=== PATIENT | male | born 1955 | race Caucasian/White ===

== ENCOUNTER 2017-04-22 04:36 | Inpatient (IN) | payer SELFPAY ==
[2017-04-22 05:32] LABS: Lactic Acid - Sepsis 1.5 mmol/L (0.5-2.2)
[2017-04-22] MEDS ORDERED: Ketorolac Tromethamine 30 MG/ML VIAL ONE (05:33)
[2017-04-22 05:39] LABS: ALT (SGPT) 10 U/L (8-55); AST (SGOT) 20 U/L (5-34); Alkaline Phosphatase 61 U/L (40-150); Anion Gap 14 mmol/L (10-20); BUN (Urea Nitrogen) 11 mg/dL (8.4-25.7); Band 1 % (5-11); Bilirubin, Total 0.8 mg/dL (0.2-1.2); Calc. Creatinine Clearance 0 mL/min (70-130); Calcium 9.5 mg/dL (7.8-10.44); Carbon Dioxide 28 mmol/L (23-31); Chloride 95 mmol/L (98-107); Estimated GFR-MDRD 72; Globulin 3.4 g/dL (2.4-3.5); Hematocrit 45.9 % (42.0-52.0); Lipase 36 U/L (8-78); Magnesium 2.7 mg/dL (1.6-2.6); Mean Platelet Volume 7.1 fL (7.4-10.4); Neutrophil 79 % (42-75); Protein, Total 7.2 g/dL (5.8-8.1); Red Blood Cell (RBC) Count 4.66 mill/uL (4.70-6.10); White Blood Cell (WBC) Count 21.7 thou/uL (4.8-10.8)
[2017-04-22 05:40] LABS: Troponin I 0.011 ng/mL (< 0.028)
[2017-04-22 06:35] LABS: PTT 34.4 SEC (22.9-36.1); Prothrombin Time 12.4 SEC (12.0-14.7)
[2017-04-22] MEDS ORDERED: Ondansetron HCl/PF 4 MG/2 ML Vial IVP PRN (09:18)
[2017-04-22] MEDS ORDERED: Zolpidem Tartrate 5 MG TAB PO PRN (09:18)
--- NOTE | 2017-04-22 09:28 | HP ---
HISTORY OF PRESENT ILLNESS: Mr. Calles is a 62-year-old man. Last night while asleep, he suddenly woke up with some right-sided abdominal pain, which extends from the right upper quadrant t o lower quadrant which then got worse, he came to the ER, he was evaluated, he was found to have a ri ght perirenal hematoma. He has been admitted for evaluation and management. According to the patient, he had a renal hematoma on the left side about 30 years ago and because of this hematoma, he is not sure as for this current situation. He denies any recent trauma. He denied any heavy exercise and denies weightlifting. PAST MEDICAL HISTORY: Remarkable for hypertension, hyperlipidemia, hypothyroidism, COPD, and also pe ptic ulcer disease. PAST SURGICAL HISTORY: Remarkable for C-spine laminectomy. ALLERGIES: He does not have any known allergy. SOCIAL HISTORY: He has a 10-15 pack year history of cigarette smoking. He does have a past history of ETOH abuse. He denies drug abuse. FAMILY HISTORY: Reviewed and is not contributory. MEDICATIONS: Prior to admission, he was on albuterol inhaler, alprazolam, aspirin 81 mg daily, Lipit or, Symbicort inhaler, Cardura, esomeprazole, hydrochlorothiazide, levofloxacin, metoprolol tartrate, prednisone, Spiriva inhaler. REVIEW OF SYSTEMS: CONSTITUTIONAL: He denies any fever. Denies any weakness. About 2 weeks ago, he had flu-like sympt oms. HEENT: No headache, no ocular pain, no sore throat, no rhinorrhea, no earache, no epistaxis. NECK: No neck pain, no neck stiffness. CARDIOVASCULAR: No shortness of breath. No chest pain. PULMONARY: No coughing. GASTROINTESTINAL: No nausea, no vomiting, no diarrhea. He does have some abdominal pain which start ed last night, as I have mentioned earlier. GENITOURINARY: No dysuria, no hematuria. ENDOCRINOLOGY: No heat or cold intolerance. No polyuria, polydipsia or polyphagia. HEMATOLOGY: No ecchymosis. LYMPHATIC: No palpable lymphadenopathy, no painful lymphadenopathy. SKIN: No rash, no itching. ALLERGIES: No hayfever. MUSCULOSKELETAL: He denies arthritis. PSYCHIATRIC: Admits to anxiety. NEUROLOGIC: No seizure. PHYSICAL EXAMINATION: GENERAL: At the current time. He is alert, oriented, in no acute distress. VITAL SIGNS: Show temperature of 98, pulse rate 95, respiratory rate 18, blood pressure 127/86. HEENT: His head is normocephalic and atraumatic. Both his pupils are equal, reactive. Ears and nos e, normal. Oral mucosa is moist. Pharyngeal area is clear. NECK: Supple. There is no distention of the jugular vein. No lymphadenopathy felt. Thyroid gland not palpable. There is no carotid bruit. CHEST: Symmetrical with regular S1, S2. LUNGS: Clear. ABDOMEN: Shows some tenderness in the right side of the abdomen. Bowel sounds are decreased. We di d not proceed to deep palpation. EXTREMITIES: Limbs show no edema. NEUROLOGIC: He moves all extremities. LABORATORY DATA: His CBC showed WBC of 21.7, hemoglobin of 14.8, hematocrit of 45.9, MCV of 98.5, pl atelet of 502. PT is 12.4, PTT 34.4. Chemistry and electrolytes show sodium of 133, potassium 4.3, chloride 95, CO2 28, BUN 11, creatinine 1.04, glucose 126. Lactic acid 1.5, calcium 9.5, magnesium 2 .7, total bilirubin 0.8, AST 20, ALT 10, alkaline phosphatase 61. Troponin 0.011, serum protein 7.2, albumin 3.8, globulin 3.4. Lipase 36. Abdomen and pelvis CT was reviewed and show a right renal he matoma and also small rounded cortical hypodensities in the left kidney. ASSESSMENT AND PLAN: This is a 62-year-old man with history of hypertension, chronic obstr uctive pulmonary disease, hyperlipidemia, hypothyroidism, peptic ulcer disease who was admitted with right-sided abdominal pain. Abdomen CT shows right renal hematoma and also some density in the left kidney. As mentioned earlier, patient was noticed to have an elevated WBC, which may be associated w ith her current hematoma. There is no evidence of infection at this time. Urology was consulted and patient is being admitted for further evaluation and management.
[2017-04-22] MEDS ORDERED: Levothyroxine Sodium 125 MCG TAB PO SCH (10:00)
--- NOTE | 2017-04-22 10:19 | CT ---
PRELIMINARY REPORT/[facility]/EMERGENCY AFTER HOURS PROCEDURE: Addendum created by Abdirashid Ware MD on 04/22/2017 6:12 AM Central Time ([place] & [place]) Addendum: Findings discussed with and acknowledged by Jens Oakes at 6:[address] on 04/22/2017 with any questions answered. Initial Report created on 04/22/2017 6:07 AM Central Time ([place] & [place]) EXAM: CT Abdomen and Pelvis Without Intravenous Contrast CLINICAL HISTORY: The patient is a 62 years male; Pain; Abdominal pain; Localized; Right; Patient HX: 62 y/o m with pre sentation of right sided abd pain that started around 2300. Pt was completely asymptomatic in the am and states that after 2300 the pain has gotten progressively worse. Pt states "my kidney had a bleed" when he had similar pain and also reports nausea, generalized weakness, and lightheadedness. D enies vomiting, trauma, any other complaints. reports that pt has had hypotensive episodes this past week with lowest sbp in the 90s. TECHNIQUE: Axial computed tomography images of the abdomen and pelvis without intravenous contrast. Coronal reformatted images were created and reviewed. COMPARISON: No relevant prior studies available. FINDINGS: Lower thorax: Centrilobular emphysema. Right basilar atelectasis/scarring. No focal consolidation. ABDOMEN: Liver: Unremarkable. Gallbladder and bile ducts: No calcified stones. No ductal dilation. Pancreas: Unremarkable. No ductal dilation. Spleen: Unremarkable. No splenomegaly. Adrenals: Unremarkable. No mass. Kidneys and ureters: Large hyperdense subcapsular hematoma of the right kidney measuring roughly 13.5 cm in craniocaudad length by 12.7 x 4.8 cm in the axial plane, with a small amount of blood/fluid ex tending into the adjacent retroperitoneum. The renal parenchyma is slightly compressed. There are mul tiple small fluid density right renal lesions as well as a few scattered small rounded cortical hyper densities on the left. Punctate left mid/lower pole calculus, as well incidental left parenchymal toro cification. No bilateral ureteral calculi or hydroureteronephrosis. Stomach and bowel: No obstruction. Appendix: No findings to suggest acute appendicitis. PELVIS: Bladder: Unremarkable. No stones. Reproductive: Unremarkable as visualized. ABDOMEN and PELVIS: Intraperitoneal space: No free fluid. No free air. Bones/joints: Lumbar degenerative changes. No acute fracture. No dislocation. Soft tissues: Unremarkable. Vasculature: Moderate atherosclerotic calcification. No abdominal aortic aneurysm. Lymph nodes: Unremarkable. No enlarged lymph nodes. IMPRESSION: 1. Large subcapsular hematoma of the right kidney. 2. Other chronic and incidental findings as above. Thank you for allowing us to participate in the care of your patient. Dictated and Authenticated by: Abdirashid Ware MD 04/22/2017 6:07 AM Central Time ([place] & [place]) FINAL REPORT EMERGENT AFTER HOURS CT OF ABDOMEN AND PELVIS PERFORMED WITHOUT CONTRAST ENHANCEMENT: History Right-sided abdomen pain. The patient states that he had a previous renal hemorrhage with a similar pain. COMPARISON: None available other than report of an unremarkable renal ultrasound done 01/24/09. The lung bases show some chronic change with atelectatic change within the right lower lobe. The liver and spleen are within normal limits of size. Pancreas and gallbladder regions are unremark able. The right adrenal gland is somewhat hyperplastic in appearance. The left adrenal gland is unremarkab le. The left kidney shows some hyperdensities within the cortex, probably hemorrhagic cysts. There is a large right subcapsular hematoma involving the right kidney. This measures as much as 3 cm in t hickness and extends along the course of the kidney from near the upper pole region all the way into the lower pole. There is fat stranding within the perirenal fat consistent with hemorrhage and some hemorrhage dissecting down along the right psoas muscle. The renal parenchyma is compressed. There are some hypodensities within the renal parenchyma. There is no dilatation of the renal pelvis. The re is no significant periaortic or mesenteric adenopathy. CT OF PELVIS PERFORMED WITHOUT CONTRSAT ENHANCEMENT: There are bilateral fat-containing inguinal hernias present. A moderate amount of stool is seen in t he right colon. No adenopathy or mass. IMPRESSION: 1. Large right subcapsular hematoma involving the right kidney. 2. This report is in agreement with the temporary report issued by [facility]. POS: JOHN
[2017-04-22] MEDS: methylPREDNISolone Sod Succ/PF 125 MG/2 ML VIAL IVP SCH ×2 (11:04→20:30)
[2017-04-22] MEDS: Famotidine/PF 20 mg/2ml Vial SLOW IVP SCH ×2 (11:04→20:29)
[2017-04-22] MEDS: Docusate 100 MG CAP PO SCH ×2 (11:04→20:28)
[2017-04-22] MEDS: Atorvastatin Calcium 10 MG TAB PO SCH (11:05)
[2017-04-22] MEDS: Metoprolol Tartrate 50 MG TAB PO SCH ×2 (11:05→20:28)
[2017-04-22] MEDS: Sodium Chloride 0.9% 1,000 ML IV SCH ×2 (11:09→22:50)
[2017-04-22] MEDS: Doxazosin Mesylate 1 MG TAB PO SCH (11:09)
[2017-04-22 12:24] LABS: Hematocrit 40.3 % (42.0-52.0)
--- NOTE | 2017-04-22 13:06 | RAD ---
PA AND LATERAL CHEST: HISTORY: Respiratory distress. FINDINGS: Heart size is within normal limits. There is elevation of the right hemidiaphragm with some linear p arenchymal change in the right base which is probably more chronic in nature and appears fairly stabl e as compared to a 2013 study. IMPRESSION: Elevated right hemidiaphragm with some parenchymal change in the right base felt to be chronic in alondra ure. POS: IQRA
[2017-04-22] MEDS: Morphine 2 mg/2ml in 0.9% NaCl PF SYRINGE IVP PRN ×3 (13:31→22:47)
--- NOTE | 2017-04-22 13:52 | CON ---
DATE OF CONSULTATION: 04/22/2017 HISTORY OF PRESENT ILLNESS: This is a 62-year-old white male I have been asked to see by the ER phys socorro. He has been admitted by the Hospitalist for a spontaneous right renal bleed. At 11:00 last n ight, he had fairly severe right-sided abdominal pain associated with some nausea, but no vomiting, r eminded him of incidence that occurred 20-30 years ago where he had the same thing happened on the le ft side and had a bleed around the left kidney. At that time, it was managed medically not surgicall y and it resolved. He came into the emergency room. There was some thought that he may have had a s tone, so he had a noncontrast CAT scan done, which I have reviewed. The report is pending, but he shi s got a moderately large right-sided subcapsular hematoma that is extending somewhat down the right f lank inside the Gerota fascia. The kidney is without obvious mass on that side. The left side is no t involved. There is a little bit of cortical calcification, which is probably from bleed that did o ccur he said years ago. There is nothing that suggests a mass on that kidney either. Again, the rep ort is currently pending. It should be up shortly I would think. There is some stranding in the fat around the left kidney outside of the hematoma. There is one area, perhaps a slightly lower density on the cortex, could be little cyst on the right side. There is nothing to suggest a stone in the u reter, hydronephrosis or anything in the bladder. This is again a noncontrast film. His hemoglobin was 14.8, his white count 21,000, his platelet count was 502. His coags were normal. His creatinine was normal at 1.04. Liver function was normal. He said the only other thing that was abnormal the last few days is his blood pressure was low, generally runs some high blood pressure. He does have s ome underlying lower urinary tract symptoms. He has got nocturia, decreased force of stream and feel ing of incomplete emptying and some double voiding, but no dysuria, no gross hematuria, no urinary tr act infections or stones, no prostate cancer. He has had a Quevedo catheter one time a few years ago w hen he was having pneumonia. PAST SURGICAL HISTORY: He has had a cervical neck procedure done. He does not recall any other proc edures being done. On review of his records from a prior visit 4 years ago, he does not have any oth er procedures listed. PAST MEDICAL HISTORY: He has hypertension, COPD, reflux disease, low thyroid, some problems with anx iety. MEDICATIONS: Hydrochlorothiazide, Toprol, doxazosin he is on the 2-mg dose, Nexium, thyroid, Lipitor , aspirin, alprazolam and some inhalers. ALLERGIES: He has an allergy to PENICILLIN. SOCIAL HISTORY: He does smoke. He stopped drinking 3 months ago. It sounds like he was fairly heav y drinker. PHYSICAL EXAMINATION: His flanks are really nontender. He has got some tenderness in the right uppe r quadrant, not on the left. His abdomen is soft. He is circumcised without lesion. The testicles are descended without mass or tenderness. There is a left-sided spermatocele. Rectal exam was not d one at this time. IMPRESSION: Right subcapsular hematoma. There is no record of fall or trauma or anything to suggest it would be traumatic. There is nothing obvious on the noncontrast scan to show that this would be a renal mass. I do think that we should get a better CAT scan done. I think we could probably wait until tomorrow as long as his hemoglobin is fine. I think he should get a hemoglobin done every 4-6 hours through the day. If it starts to drift down, then he would need to get a CAT scan today. I ta lked with Dr. Chase, who is the vascular surgeon medical transcription this weekend. He felt that he could be beth ilable if the patient needed angio of his kidney done to stop bleeding and I did talk to the patient that this could be required, although right now, we are going to watch him. I did also indicate that if things get out of hand in terms of the bleeding and it became life threatening, then an emergent nephrectomy is something that also could be performed if it was necessary. Hopefully, this will reso lve with bed rest and we will just monitor him for the time being, but we will get a better CAT scan tomorrow to be sure there is nothing intrinsically wrong with the kidney that would cause a bleeding such as a renal mass that is not being picked up on the noncontrast study.
[2017-04-22 18:25] VITALS: BMI 26.0
[2017-04-22 19:28] LABS: Bilirubin Small (Negative); Blood, Urine Negative (Negative); Glucose, Urine (Dipstick) Negative (Negative); Ketone, Urine Trace mg/dL (Negative); Nitrite Negative (Negative); Protein, Urine (Dipstick) 30 mg/dL (Neg-Trace); Urobilinogen 0.2 mg/dL (0.2-1.0)
[2017-04-22 19:29] LABS: Bacteria/HPF None Seen HPF (None Seen); Squamous Epithelial 0-3 HPF (0-3)
[2017-04-22 19:38] LABS: RBC/HPF 0-3 HPF (0-3)
[2017-04-22 19:39] LABS: Hyaline Casts/LPF 4-6 HYALINE CAST LPF (0-3 Hyaline)
[2017-04-22 23:53] LABS: Hematocrit 36.1 % (42.0-52.0)
[2017-04-23 06:05] LABS: #Lymphocytes 0.5 thou/uL (1.20-3.40); #Monocytes 0.7 thou/uL (0.11-0.59); #Neutrophils 18.6 thou/uL (1.40-6.50); %Eosinophils 0.1 % (0.0-10.0); %Lymphocytes 2.7 % (21.0-51.0); %Monocytes 3.4 % (0.0-10.0); Mean Platelet Volume 7.2 fL (7.4-10.4); Red Blood Cell (RBC) Count 3.79 mill/uL (4.70-6.10); White Blood Cell (WBC) Count 19.9 thou/uL (4.8-10.8)
[2017-04-23] MEDS: Morphine 2 mg/2ml in 0.9% NaCl PF SYRINGE IVP PRN ×3 (06:24→15:16)
[2017-04-23] MEDS: Levothyroxine Sodium 125 MCG TAB PO SCH (06:24)
[2017-04-23 06:28] LABS: Anion Gap 10 mmol/L (10-20); BUN (Urea Nitrogen) 18 mg/dL (8.4-25.7); Calc. Creatinine Clearance 106 mL/min (70-130); Carbon Dioxide 28 mmol/L (23-31); Chloride 100 mmol/L (98-107); Estimated GFR-MDRD 83
[2017-04-23] MEDS: methylPREDNISolone Sod Succ/PF 125 MG/2 ML VIAL IVP SCH ×2 (08:53→20:01)
[2017-04-23] MEDS: Famotidine/PF 20 mg/2ml Vial SLOW IVP SCH ×2 (08:53→20:01)
[2017-04-23] MEDS: Docusate 100 MG CAP PO SCH ×2 (08:54→20:01)
[2017-04-23] MEDS: Metoprolol Tartrate 50 MG TAB PO SCH ×2 (08:54→20:01)
[2017-04-23] MEDS: Doxazosin Mesylate 1 MG TAB PO SCH (08:54)
[2017-04-23] MEDS: Atorvastatin Calcium 10 MG TAB PO SCH (08:54)
--- NOTE | 2017-04-23 10:47 | CT ---
CT OF ABDOMEN AND PELVIS PERFORMED WITH AND WITHOUT CONTRAST ENHANCEMENT: COMPARISON: Noncontrast CT examination of 04/22/17. HISTORY: Followup of renal hemorrhage. FINDINGS: There has been development of a fairly large area of more rounded atelectasis of the right lower lobe since the previous exam. The left lung is clear. The liver and spleen show no focal abnormalities. The pancreas and gallbladder regions are unremarka ble. Once again, the right adrenal gland has a somewhat enlarged appearance. The left adrenal gland is mo re normal in appearance. I cannot exclude this as being related to some hemorrhage on the right. Bilateral renal cysts are better demonstrated on the contrast study. As previously noted, some of th jeffrey cysts are hyperdense. A large perinephric hematoma is noted on the right. I feel that overall i t is fairly similar in size. The perirenal fat changes also are felt to be stable. Changes extend i nferiorly along the psoas muscles into the pelvis. Some of the changes in the pelvis are slightly mo re prominent but not unexpected. No free fluid is seen in the pelvis. There is a moderate amount of stool throughout the colon. IMPRESSION: 1. Multiple bilateral renal cysts. The kidneys have a somewhat polycystic kidney appearance. Some of these cysts are hyperdense. 2. The large right-sided subcapsular hematoma involving the right kidney is felt to be fairly simila r in appearance to the previous exam. POS: IQRA
[2017-04-23] MEDS: Sodium Chloride 0.9% 1,000 ML IV SCH ×2 (11:16→23:36)
[2017-04-23 12:02] LABS: Hematocrit 36.5 % (42.0-52.0)
--- NOTE | 2017-04-23 13:11 | PDOC.PN ---
- Subjective Encounter Start Date: 04/23/17 Encounter Start Time: 12:20 -: No new complaint. -: Right sided abdominal pain persists. - Objective Resuscitation Status: Resuscitation Status FULL:Full Resuscitation Vital Signs & Weight: Vital Signs (12 hours) Temp Pulse Resp BP Pulse Ox 04/23/17 12:00 98.1 F 88 20 175/78 H 90 L 04/23/17 08:00 98 F 101 H 20 93 L 04/23/17 07:36 98 F 101 H 20 153/76 H 93 L 04/23/17 05:06 97.9 F 98 18 134/72 92 L I&O: 04/22/17 04/23/17 04/24/17 06:59 06:59 06:59 Intake Total 1740 240 Output Total 2200 Balance -460 240 Result Diagrams: 04/23/17 11:46 04/23/17 05:58 Phys Exam - Physical Examination HEENT: sclera anicteric Neck: no JVD Respiratory: clear to auscultation bilateral Cardiovascular: RRR Gastrointestinal: soft Musculoskeletal: no edema Neurological: moves all 4 limbs Psychiatric: A&O x 3 Dx/Plan (1) Renal hematoma, right Code(s): S37.011A - MINOR CONTUSION OF RIGHT KIDNEY, INITIAL ENCOUNTER Status : Acute Plan: f/u with . Comment: Repeat CT with contrast shows many cysts in both kidneys, possible PCKD with bleeding cyst. (2) HTN (hypertension) Code(s): I10 - ESSENTIAL (PRIMARY) HYPERTENSION Status: Acute Plan: Analgesics prn. Monitor BP. Comment: BP is elevated at times , due to pain.. (3) Adult hypothyroidism Code(s): E03.9 - HYPOTHYROIDISM, UNSPECIFIED Status: Acute Plan: supplemented.. (4) PUD (peptic ulcer disease) Code(s): K27.9 - PEPTIC ULC, SITE UNSP, UNSP AC OR CHR, W/O HEMOR OR PERF Status: Chronic Comment: stable.. - Plan -: continue current management.Monitor hb/hct. -: F/U with . * .
[2017-04-23] MEDS: Acetaminophen/Codeine 30-300mg Tablet PO PRN (20:03)
[2017-04-24 00:17] LABS: Hematocrit 33.8 % (42.0-52.0)
[2017-04-24] MEDS: Acetaminophen/Codeine 30-300mg Tablet PO PRN ×3 (01:52→15:02)
[2017-04-24] MEDS: Levothyroxine Sodium 125 MCG TAB PO SCH (05:35)
[2017-04-24 06:05] LABS: Band 6 % (5-11); Hematocrit 33.1 % (42.0-52.0); Mean Platelet Volume 7.9 fL (7.4-10.4); Neutrophil 86 % (42-75); Red Blood Cell (RBC) Count 3.37 mill/uL (4.70-6.10); White Blood Cell (WBC) Count 21.6 thou/uL (4.8-10.8)
[2017-04-24 06:12] LABS: Hematocrit 31.6 % (42.0-52.0)
[2017-04-24] MEDS: Docusate 100 MG CAP PO SCH ×2 (08:43→19:59)
[2017-04-24] MEDS: methylPREDNISolone Sod Succ/PF 125 MG/2 ML VIAL IVP SCH (08:43)
[2017-04-24] MEDS: Famotidine/PF 20 mg/2ml Vial SLOW IVP SCH (08:43)
[2017-04-24] MEDS: Atorvastatin Calcium 10 MG TAB PO SCH (08:43)
[2017-04-24] MEDS: Metoprolol Tartrate 50 MG TAB PO SCH ×2 (08:45→19:59)
[2017-04-24] MEDS: Doxazosin Mesylate 1 MG TAB PO SCH (09:18)
[2017-04-24 12:03] LABS: Hematocrit 30.4 % (42.0-52.0)
[2017-04-24] MEDS: Ferrous Sulfate 325 MG TAB PO SCH (17:06)
[2017-04-24 18:16] LABS: Hematocrit 31.2 % (42.0-52.0)
--- NOTE | 2017-04-24 18:32 | PDOC.PN ---
- Subjective Encounter Start Date: 04/24/17 Encounter Start Time: 11:00 Patient seen and examined. No new complaints. No overnight events - Objective Resuscitation Status: Resuscitation Status FULL:Full Resuscitation MAR Reviewed: Yes Vital Signs & Weight: Vital Signs (12 hours) Temp Pulse Resp BP Pulse Ox 04/24/17 16:00 98.1 F 94 20 169/85 H 93 L 04/24/17 12:00 97.8 F 80 22 H 144/77 H 93 L 04/24/17 08:00 98.6 F 97 18 94 L 04/24/17 07:35 98.6 F 97 18 153/85 H 94 L I&O: 04/23/17 04/24/17 04/25/17 06:59 06:59 06:59 Intake Total 1740 2040 1720 Output Total 2200 Balance -460 0 1720 Result Diagrams: 04/24/17 18:07 04/23/17 05:58 Phys Exam - Physical Examination Constitutional: NAD Respiratory: no wheezing, no rhonchi Cardiovascular: RRR, no rub Gastrointestinal: soft, non-tender, positive bowel sounds Musculoskeletal: no edema Neurological: non-focal, moves all 4 limbs Dx/Plan - Plan out of bed/ambulate, DVT proph w/SCDs IMPRESSION: 1. Rt renal subcapsular hematoma 2. Acute blood loss anemia 3. COPD with mild exacerbation 4. HTN 5. HLD 6. GERD PLAN: * Urology following * Cont to monitor HH * AM labs * Ambulate * Pain control * Change IV steroids to PO and dc in 1-2 days * Cont current meds as below Review of Systems - Review of Systems Constitutional: negative: Fever, Chills, Sweats, Weakness, Malaise, Other Respiratory: negative: Cough, Dry, Shortness of Breath, Hemoptysis, SOB with Excertion, Pleuritic Pain, Sputum, Wheezing Cardiovascular: negative: Chest Pain, Palpitations, Orthopnea, Paroxysmal Noc. Dyspnea, Edema, Light Headedness - Medications/Allergies Allergies/Adverse Reactions: Allergies Allergy/AdvReac Type Severity Reaction Status Date / Time Penicillins Allergy Verified 05/13/13 17:07 Medications: Current Medications Acetaminophen/Codeine Phosphate (Tylenol #3) 1 tab PO Q6H PRN PRN Reason: Pain 1-5 1ST LINE Last Admin: 04/24/17 08:45 Dose: 1 tab Acetaminophen/Codeine Phosphate (Tylenol #3) 2 tab PO Q6H PRN PRN Reason: Pain 6-10 1ST LINE Last Admin: 04/24/17 15:02 Dose: 2 tab Albuterol/Ipratropium (Duoneb) 3 ml NEB Q6H PRN PRN Reason: SOB &/or Wheezing Atorvastatin Calcium (Lipitor) 10 mg PO DAILY [facility] Last Admin: 04/24/17 08:43 Dose: 10 mg Docusate Sodium (Colace) 100 mg PO BID [facility] Last Admin: 04/24/17 08:43 Dose: 100 mg Doxazosin Mesylate (Cardura) 1 mg PO DAILY [facility] Last Admin: 04/24/17 09:18 Dose: 1 mg Famotidine (Pepcid) 20 mg SLOW IVP Q12HR [facility] Last Admin: 04/24/17 08:43 Dose: 20 mg Ferrous Sulfate (Feosol) 325 mg PO BID-[facility] Last Admin: 04/24/17 17:06 Dose: 325 mg Levothyroxine Sodium (Synthroid) 125 mcg PO 0600 [facility] Last Admin: 04/24/17 05:35 Dose: 125 mcg Metoprolol Tartrate (Lopressor) 50 mg PO BID [facility] Last Admin: 04/24/17 08:45 Dose: 50 mg Morphine Sulfate/Sodium Chloride (Morphine 0.9% Nacl Pf 2 Mg/2ml) 2 mg IVP Q4H PRN PRN Reason: Pain Last Admin: 04/23/17 15:16 Dose: 2 mg Ondansetron HCl (Zofran) 4 mg IVP Q6H PRN PRN Reason: Nausea/Vomiting Prednisone (Prednisone) 20 mg PO QAM-[facility] Zolpidem Tartrate (Ambien) 5 mg PO HSPRN PRN PRN Reason: Insomnia
[2017-04-24] MEDS: Famotidine 20 MG TAB PO SCH (19:59)
[2017-04-24] MEDS ORDERED: ALPRAZolam 1 MG TAB PO PRN (21:31)
[2017-04-25 00:08] LABS: Hematocrit 29.3 % (42.0-52.0)
[2017-04-25] MEDS: Levothyroxine Sodium 125 MCG TAB PO SCH (05:21)
[2017-04-25] MEDS: Acetaminophen/Codeine 30-300mg Tablet PO PRN ×2 (05:21→05:24)
[2017-04-25 06:10] LABS: #Lymphocytes 1.8 thou/uL (1.20-3.40); #Monocytes 1.2 thou/uL (0.11-0.59); #Neutrophils 9.5 thou/uL (1.40-6.50); %Basophils 0.3 % (0.0-1.0); %Eosinophils 0.3 % (0.0-10.0); %Lymphocytes 14.5 % (21.0-51.0); %Monocytes 9.5 % (0.0-10.0); Hematocrit 30.1 % (42.0-52.0); Mean Platelet Volume 7.8 fL (7.4-10.4); Red Blood Cell (RBC) Count 3.05 mill/uL (4.70-6.10); White Blood Cell (WBC) Count 12.6 thou/uL (4.8-10.8)
[2017-04-25 06:24] LABS: Anion Gap 8 mmol/L (10-20); BUN (Urea Nitrogen) 16 mg/dL (8.4-25.7); BUN/Creatinine Ratio 22.54; Calc. Creatinine Clearance 137 mL/min (70-130); Calcium 8.5 mg/dL (7.8-10.44); Carbon Dioxide 28 mmol/L (23-31); Chloride 103 mmol/L (98-107); Estimated GFR-MDRD Greater than 90; Phosphorus 2.5 mg/dL (2.3-4.7)
[2017-04-25 07:10] LABS: Hematocrit 29.7 % (42.0-52.0)
[2017-04-25] MEDS ORDERED: predniSONE 20 MG TAB PO SCH (08:00)
[2017-04-25] MEDS ORDERED: Potassium Chloride 20 MEQ TAB PO SCH (08:00)
[2017-04-25] MEDS: Docusate 100 MG CAP PO SCH (08:07)
[2017-04-25] MEDS: Doxazosin Mesylate 1 MG TAB PO SCH (08:07)
[2017-04-25] MEDS: Famotidine 20 MG TAB PO SCH (08:08)
[2017-04-25] MEDS: Atorvastatin Calcium 10 MG TAB PO SCH (08:08)
[2017-04-25] MEDS: Metoprolol Tartrate 50 MG TAB PO SCH (08:08)
[2017-04-25] MEDS: Ferrous Sulfate 325 MG TAB PO SCH (08:08)
[2017-04-25 08:11] VITALS: BP 137/80; TEMP 98
[2017-04-25] MEDS ORDERED: Citrucel 500 MG TAB PO SCH (21:00)
[2017-04-25] MEDS ORDERED: Senokot S 8.6-50 MG TAB PO SCH (21:00)
[2017-04-26] MEDS ORDERED: Polyethylene Glycol 3350 17 GM Packet PO SCH (09:00)
--- NOTE | 2017-04-26 11:00 | DIS ---
DATE OF ADMISSION: 04/22/2017 DATE OF DISCHARGE: 04/25/2017 DISCHARGE DISPOSITION: Home. FOLLOWUP: 1. Follow up with primary care physician, Dr. Tash Dunne in 1 week. 2. Follow up with Dr. Russ Muñiz on 05/25 as scheduled. ALLERGIES: The patient is allergic to PENICILLIN. DISCHARGE MEDICATIONS: Potassium chloride 20 mEq daily for the next 5 days. Other home medications were resumed including albuterol inhaler as needed, Xanax as needed, Lipitor 10 mg daily, QVAR 2 puff s b.i.d., Cardura 2 mg daily, Nexium 40 mg daily, hydrochlorothiazide 25 mg daily, levothyroxine 125 mcg daily, metoprolol tartrate 50 mg b.i.d. INPATIENT CONSULTANTS: Urology, Russ Muñiz M.D. BRIEF HOSPITAL COURSE: The patient is a 62-year-old male with hypertension and hyperlipidemia, prese nted to the hospital with right-sided abdominal pain. His workup was consistent with right renal sub capsular hematoma. He also had multiple cysts in the kidney. He was evaluated by Urology, Dr. Dre hernandez. His H&H on admission was 14.8, at discharge is 9.6. Over the last 24 hours, his H&H has stabiliz ed. He has been cleared by Dr. Muñiz for discharge. He will follow up with Dr. Muñiz as scheduled . Repeat labs after a week are recommended. Primary care physician is advised to follow. He appear s stable for discharge. FINAL DIAGNOSES: 1. Right renal subcapsular hematoma. 2. Suspected polycystic kidney disease. Primary care physician is advised to follow. 3. Acute blood loss anemia secondary to #1. 4. Chronic obstructive pulmonary disease with mild exacerbation, treated with IV steroids that has b een discontinued. 5. Hypertension. 6. Hyperlipidemia. 7. Gastroesophageal reflux disease. 8. PENICILLIN allergy. 9. Hypokalemia, on replacement. 10. Mild hyponatremia. 12. Leukocytosis, unlikely to be infectious. Plan of care was discussed with the patient in detail. He stated understanding.
--- NOTE | 2017-04-29 15:35 | EKG ---
Test Reason : Blood Pressure : / mmHG Vent. Rate : 092 BPM Atrial Rate : 092 BPM P-R Int : 140 ms QRS Dur : 098 ms QT Int : 356 ms P-R-T Axes : 060 070 051 degrees QTc Int : 440 ms Normal sinus rhythm Incomplete right bundle branch block Septal infarct , age undetermined Abnormal ECG Confirmed by GLENN STERN D.O. ([id number]), editor index VICENTE ANSARI ([id number]) on 04/29/2017 3:35:20 PM Referred By: Confirmed By:GLENN STERN D.O.
== END 2017-04-25 12:30 | disposition home or self-care (01) | DRG 699 ==
LOC: ERS 04:36 → T4-B 09:00
PROVIDERS: ADMIT Internal Medicine; ATTEND Internal Medicine
DX: S37.011A Minor contusion of right kidney, initial encounter (principal); Q61.3 Polycystic kidney, unspecified; D62 Acute posthemorrhagic anemia; J44.1 Chronic obstructive pulmonary disease with (acute) exacerbation; E87.1 Hypo-osmolality and hyponatremia; I10 Essential (primary) hypertension; F17.210 Nicotine dependence, cigarettes, uncomplicated; Z88.0 Allergy status to penicillin; E78.5 Hyperlipidemia, unspecified; K21.9 Gastro-esophageal reflux disease without esophagitis; E87.6 Hypokalemia; D72.829 Elevated white blood cell count, unspecified; R35.1 Nocturia; Z87.01 Personal history of pneumonia (recurrent); E03.9 Hypothyroidism, unspecified; K27.9 Peptic ulcer, site unspecified, unspecified as acute or chronic, without hemorrhage or perforation
CPT/HCPCS: 36415; 71020; 74176; 74178; 80048; 80053; 80069; 81001; 82553; 83605; 83690; 83735; 84484; 85014; 85018; 85025; 85610; 85730; 86850; 86900; 86901; 93005; 96374; J1885; J2270; J2930; J7506; S0028

== ENCOUNTER 2018-06-05 19:00 | Inpatient (IN) | payer MEDICARE ==
[~2018-06-05 19:00] MED LIST: Amiodarone 150 MG/3 ML VIAL ONE; EPINEPHrine 1 MG/10 ML Abboject SYRINGE ONE; Iopamidol 370 76% 100 ML VIAL ONE
[2018-06-05] MEDS ORDERED: Norepinephrine 8 MG/0.9% NS 250 ML ONE (19:13)
[2018-06-05 19:21] LABS: #Basophils 0.1 thou/uL (0.0-0.2); #Eosinphils 0.2 thou/uL (0.0-0.7); #Lymphocytes 3.6 thou/uL (1.20-3.40); #Monocytes 0.6 thou/uL (0.11-0.59); #Neutrophils 6.7 thou/uL (1.40-6.50); %Basophils 0.6 % (0.0-1.0); %Eosinophils 1.8 % (0.0-10.0); %Lymphocytes 31.9 % (21.0-51.0); %Monocytes 5.5 % (0.0-10.0); %Neutrophils 60.2 % (42.0-75.0); Hemoglobin 16.4 g/dL (14.0-18.0); Mean Corpuscular HGB CONC 32.3 g/dL (32.0-36.0); Mean Corpuscular Volume 95.7 fL (78.0-98.0); Mean Platelet Volume 7.6 fL (7.4-10.4); Platelet Count 287 thou/uL (130-400); RBC Distribution Width 11.9 % (11.5-14.5); White Blood Cell (WBC) Count 11.2 thou/uL (4.8-10.8)
[2018-06-05] MEDS ORDERED: Fentanyl 100 MCG/2 ML VIAL ONE (19:21)
[2018-06-05 19:27] LABS: PTT 34.8 SEC (22.9-36.1); Prothrombin Time 12.9 SEC (12.0-14.7)
[2018-06-05 19:43] LABS: ALT (SGPT) 39 U/L (8-55); AST (SGOT) 58 U/L (5-34); Albumin 4.1 g/dL (3.4-4.8); Alkaline Phosphatase 71 U/L (40-150); Anion Gap 20 mmol/L (10-20); BUN (Urea Nitrogen) 16 mg/dL (8.4-25.7); Bilirubin, Total 0.6 mg/dL (0.2-1.2); CK (CPK) 365 U/L (30-200); Calc. Creatinine Clearance 0 mL/min (70-130); Carbon Dioxide 23 mmol/L (23-31); Chloride 94 mmol/L (98-107); Estimated GFR-MDRD 59; Globulin 2.8 g/dL (2.4-3.5); Glucose 251 mg/dL (80-115); Potassium 3.4 mmol/L (3.5-5.1); Protein, Total 6.9 g/dL (5.8-8.1); Sodium 134 mmol/L (136-145)
--- NOTE | 2018-06-05 19:57 | CT ---
CT BRAIN NONCONTRAST: 06/05/18 HISTORY: 63-year-old male status post acute head trauma from fall. FINDINGS: There is no midline shift or any other mass effect. There is no evidence of acute intracranial hemor rhage, large cortical infarct, obstructive hydrocephalus, or extraaxial fluid collection. The calvar ium is intact. IMPRESSION: No acute intracranial findings. jn [] POS: JOHN
[2018-06-05] MEDS ORDERED: Atropine Sulfate 1 mg/10 ml Syringe ONE (20:08)
[2018-06-05] MEDS ORDERED: Heparin 10,000 UNITS/1 ML VIAL ONE (20:08)
[2018-06-05 20:23] LABS: CKMB 20.6 ng/mL (0-6.6)
--- NOTE | 2018-06-05 20:28 | RAD ---
RADIOGRAPH CHEST 1 VIEW: Date: 06/05/18 Time: 7:10 p.m. HISTORY: 63-year-old male status post intubation. COMPARISON: 04/22/17 FINDINGS: This is a supine image, which would be insensitive for pneumothorax detection. Again noted is the abe vated right hemidiaphragm. There is a defibrillation paddle overlying the lateral aspect of the right lung. Endotracheal tube has been placed with distal tip at the thoracic inlet 10 cm superior to the gopal. NG tube has been placed, with side port a few centimeters inferior to the diaphragm. No cardi omegaly, pulmonary edema or consolidation. Lateral costophrenic angles are sharp. IMPRESSION: 1. Status post intubation, with endotracheal tube at the thoracic inlet, 10 cm superior to the c marcello. Recommend advancement by approximately 5 cm. 2. Nasogastric tube placement. 3. Lungs are clear. SHERWIN [] POS: IQRA
[2018-06-05] MEDS ORDERED: Dextrose 50% Abboject 50 ML SYRINGE SLOW IVP PRN (20:43)
[2018-06-05] MEDS ORDERED: Dextrose 5% in Water 1,000 ML IV PRN (20:43)
[2018-06-05] MEDS ORDERED: HumaLOG 300 UNITS/3 ML VIAL SC PRN (20:43)
[2018-06-05] MEDS ORDERED: Ventilator Sedation Protocol 1 EACH FS SCH (20:43)
[2018-06-05] MEDS ORDERED: CCU Electrolyte Replacement 1 EACH FS SCH (20:43)
[2018-06-05] MEDS ORDERED: Sodium Chloride 0.9% 1,000 ML IV SCH (20:45)
[2018-06-05] MEDS ORDERED: Potassium Chloride 40 MEQ in Sodium Chloride 0.9% 250 ML 250 ML IVPB PRN (20:51)
[2018-06-05] MEDS ORDERED: Morphine 2 MG/ML SYRINGE SLOW IVP PRN (20:51)
[2018-06-05] MEDS ORDERED: CCU ELECTROLYTE REPLACEMENT PROTOCOL FS PRN (20:51)
[2018-06-05] MEDS ORDERED: Potassium Chloride 20 MEQ TAB PO PRN (20:51)
[2018-06-05] MEDS ORDERED: Potassium Chloride 40 MEQ in Premix Bag 1 BAG IVPB PRN (20:51)
[2018-06-05] MEDS ORDERED: Magnesium Oxide 400 MG TAB PO PRN ×2 (20:51)
[2018-06-05] MEDS ORDERED: Fentanyl BOLUS 250 ML IVPB PRN (20:51)
[2018-06-05] MEDS ORDERED: Potassium Phosphate 15 MMOL in Sodium Chloride 0.9% 250 ML 250 ML IV PRN (20:51)
[2018-06-05] MEDS ORDERED: Potassium Phosphate 9 MMOL in Sodium Chloride 0.9% 100 ML IVPB PRN (20:51)
[2018-06-05] MEDS ORDERED: DISCONTINUE PREVIOUS NARCOTIC PAIN MEDICATIONS AND BENZODIAZEPINES FS SCH (20:51)
[2018-06-05] MEDS ORDERED: Magnesium 2 GM/NS 0.9% 100 ML 2 GM in Premix Bag 1 BAG IVPB PRN (20:51)
[2018-06-05] MEDS ORDERED: Propofol BOLUS 1,000 MG/100 ML VIAL IV PRN (20:51)
[2018-06-05] MEDS ORDERED: Potassium Phosphate 12 MMOL in Sodium Chloride 0.9% 250 ML 250 ML IV PRN (20:51)
[2018-06-05] MEDS ORDERED: Nitroglycerin 0.4 MG TAB (25 Tab Bottle) SL PRN ×2 (21:02→21:07)
[2018-06-05] MEDS ORDERED: Morphine 4 MG/ML VIAL SLOW IVP PRN (21:02)
[2018-06-05] MEDS ORDERED: Acetaminophen/Codeine 30-300mg Tablet PO PRN ×2 (21:07)
[2018-06-05] MEDS ORDERED: traMADol HCl 50 MG TAB PO PRN (21:07)
--- NOTE | 2018-06-05 21:07 | HP ---
INDICATION FOR ADMISSION: A 63-year-old patient with acute anterior ST- elevation myocardial infarction. HISTORY OF PRESENT ILLNESS: This is a very unfortunate 63-year-old gentleman, who was found down at home. He apparently had just talked to his earlier within 15 to 20 minutes before he was found by EMT. He had actually called his and said that he was having chest pain. 911 was then dispatched and by the time they arrived at the door of the patient, the door was locked and the arrived about 7 or 8 minutes later. When they arrived, the patient apparently was in VFib. He was resuscitated and brought to the emergency room. He was intubated in the field. He has been unresponsive since being here, however, his pupils are still small. He was hypotensive, was placed on Levophed. He required CPR in the emergency room or at least in the field and again in the emergency room, he has been placed on Levophed. The blood pressure then increased and now has been relatively stable. EKG shows acute anterior myocardial infarction. He apparently did fall and hit his head when he fell. He underwent CT scan, which shows no evidence of bleed. The patient was taken to the cardiac laboratory sample carrier in an emergent basis. He had been complaining of headache earlier and felt faint, had shortness of breath as well as chest pain when he called his . He does have a history of hypertension, hypercholesterolemia, and tobacco abuse. He smokes about a pack a day and has smoked all of his life. PAST MEDICAL HISTORY: Significant for, he has had a ruptured renal cyst about a year ago. He has history of hypertension, COPD, gastroesophageal reflux disease. He has had a bleeding ulcer in the past. He has history of pneumonia and he has also had hypercholesterolemia. SOCIAL HISTORY: He is . He smokes a pack a day of cigarettes. He drinks about 2 beers a day. He is now retired. I believe he is just recently started on Medicare. FAMILY HISTORY: Noncontributory. ALLERGIES: NONE. MEDICATIONS: He is presently taking, 1. Hydrochlorothiazide 25 mg a day. 2. Nexium 40 mg a day. 3. Levothyroxine 125 mcg a day. 4. Lipitor 10 mg a day. 5. Doxazosin 2 mg half tablet a day. 6. Metoprolol 50 mg two tablets a day. 7. Aspirin 81 mg a day. 8. Alprazolam 1 mg two a day as needed. 9. Proventil inhaler 2 puffs 4 to 6 hours as needed. 10. He also takes QVAR 1 puff two times a day. 11. Hydrocodone/APAP. REVIEW OF SYSTEMS: We cannot obtain any review of systems with the patient. However, the was present and she said he wears glasses. Otherwise, he had no new HEENT complaints. PULMONARY: He does have some shortness of breath, but had continued to smoke and has been diagnosed with COPD. GI: He has had a history of ulcers in the past but no recent nausea, vomiting, diarrhea, or hematemesis. No blood in the stools. : He has had no dysuria, polyuria, or hematuria. He did have ruptured renal cyst and was seen by the urologist, Dr. Clemens, in the past. There were no urological complaints such as seizures or syncope. He has had no other extremity problems. PHYSICAL EXAMINATION: GENERAL: Reveals an elderly gentleman, who is intubated, unresponsive on the ventilator with a heart rate of 103 beats per minute with acute ST-elevation myocardial infarction. CT scan is negative for any acute bleed. The blood pressure has been fluctuating, originally was in the 70 to 80 systolic, then increased up to 180 while he was on Levophed. This has now been discontinued and the blood pressure has drifted down and is now about 120s. HEENT: Shows the head to have some slight abrasion on the forehead where he fell probably, but otherwise was atraumatic. Carotid pulses are present. I did not hear any significant bruits. CHEST: Clear to auscultation anteriorly. CARDIOVASCULAR: Reveals tachycardia but no significant murmurs, heaves, thrills , bruits, or rubs. ABDOMEN: Obese, positive bowel sounds. EXTREMITIES: Showed no clubbing, cyanosis, or edema. He did have some diarrhea or some incontinence of stool, most likely due to ventricular fibrillation and when he was shocked. Otherwise, I do not see any other significant abnormalities. A/P: STEMI Anterior. I have discussed with the family that he will need to go emergently to the cardiac laboratory sample carrier and try to determine if we can assist this patient in any way due to his acute anterior myocardial infarction as far as his other medical problems are concerned with his hypertension, he has hypothyroidism and hypercholesterolemia. These will be dealt after we have evaluated the patient in the laboratory sample carrier. Job ID: [id number] MTDD
[2018-06-05] MEDS ORDERED: Sodium Chloride 0.9% 200 ML IV PRN (21:15)
[2018-06-05] MEDS ORDERED: Aspirin Chewable 81 MG TAB PO SCH (21:15)
[2018-06-05 21:36] LABS: Actual Bicarbonate (HCO3a) 24.1 mEq/L (22-28); Analyzer IN Cardio ER; Base Excess (BEa) -3.2 mEq/L (-2.0 to +3.0); CO2 Tension 51.7 mmHg (35.0-45.0); Hemoglobin (Hb) 14.6 g/dL (14.0-18.0); Potassium - ABG Lab 2.74 mmol/L (3.70-5.30); pH, Arterial 7.29 (7.35-7.45)
[2018-06-05] MEDS ORDERED: Norepinephrine 8 MG/250 ML BAG IVPB PRN (21:36)
[2018-06-05 21:37] LABS: ALV-art Gradient 456.375 (0-20); Puncture Site LRA
[2018-06-05 21:57] LABS: Hemoglobin 14.5 g/dL (14.0-18.0); Platelet Count 269 thou/uL (130-400)
[2018-06-05 22:27] LABS: Troponin I 32.221 ng/mL (< 0.028)
[2018-06-05] MEDS: Sodium Chloride 0.9% 1,000 ML IV SCH (22:48)
[2018-06-05 23:21] LABS: Actual Bicarbonate (HCO3a) 25.5 mEq/L (22-28); Base Excess (BEa) -3.1 mEq/L (-2.0 to +3.0); Calcium, Ionized 1.05 mmol/L (1.12-1.30); O2 Tension (PaO2) 133.5 mmHg (> 80.0); Potassium - ABG Lab 3.44 mmol/L (3.70-5.30)
[2018-06-05 23:22] LABS: CO2 Tension 60.6 mmHg (35.0-45.0); pH, Arterial 7.24 (7.35-7.45)
[2018-06-05 23:23] LABS: Puncture Site ALINE
[2018-06-05] MEDS: Heparin 25,000 units/D5W 500 ML IVPB SCH (23:28)
[2018-06-06] MEDS: Lorazepam 2 MG/ML VIAL SLOW IVP PRN (00:14)
[2018-06-06] MEDS ORDERED: levETIRAcetam In NaCl (Iso-Os) 1,000 MG in Premix Bag 1 BAG IVPB SCH ×2 (00:45→01:15)
[2018-06-06 01:43] LABS: Troponin I 101.014 ng/mL (< 0.028)
--- NOTE | 2018-06-06 03:16 | CON ---
DATE OF CONSULTATION: 06/05/2018 PULMONARY CRITICAL CARE CONSULTATION CONSULTING PHYSICIAN: Nancy Cool MD REASON FOR CONSULTATION: Post arrest, patient on ventilator following encompassed 45 minutes of critical care time. HISTORY OF PRESENT ILLNESS: This is a 63-year-old male, who apparently called his because he was having chest pain and headache. EMS was called out to the patient's house as he had trouble getting in. By the time they got in, they found the patient on the floor. He was in VFib. He was shocked. He was intubated in the field and brought to the ER. He subsequent was taken to the cardiac catheterization lab by Dr. Cool. The patient was found to have one-vessel disease in the LAD. The stenosis was in the tortuous area of the vessel and it could not be stented, although it was open at the time of cardiac catheterization. The patient is currently intubated on mechanical ventilation. He does have some movement. PAST MEDICAL HISTORY: Apparently remarkable for hypertension and hyperlipidemia. PAST SURGICAL HISTORY: Negative. ALLERGIES: NONE. MEDICATIONS: Prior to admission, currently not known. SOCIAL HISTORY: Apparently smokes a 4th pack per day. He drinks 2 drinks per day. Just retired. REVIEW OF SYSTEMS: Cannot be obtained. PHYSICAL EXAMINATION: VITAL SIGNS: Blood pressure is 137/77, pulse 119, respirations 22, and O2 saturation 100%. The patient is on mechanical ventilation. I am not completely sure if he has received any sedation or analgesia. The ER record indicates that he did get a fentanyl bolus, also etomidate was listed but I do not see any paralytics. HEENT: His pupils are 3 mm and reactive to light. He does have some extraocular movements. He has a gag reflex intact. Sclerae anicteric. NECK: No JVD. LUNGS: Clear to auscultation. CARDIAC: S1, S2. Slightly tachycardic. ABDOMEN: Obese, soft, nontender. EXTREMITIES: No clubbing, cyanosis, edema. I cannot get him to withdrawal to deep painful stimuli at this time. LABORATORY DATA: White blood cell count 11.2, hematocrit 50.7, and platelet count 287. PT 12.9, INR 1.0, PTT 34.8. Sodium 134, potassium 3.4, chloride 94, CO2 of 23, BUN 16, creatinine 1.2, glucose 251, AST 58, ALT 39, troponin 0.582. EKG showed ST-segment elevation in anterior leads. His chest x-ray demonstrates slightly elevated right hemidiaphragm compared to left. ET tube was initially high, it appears to have been pushed down. On my exam, his brain CT showed no acute findings. ASSESSMENT: 1. Sudden cardiac -VFib arrest. 2. One-vessel coronary disease. 3. Acute respiratory failure requiring mechanical ventilation. 4. Out of hospital arrest. PLAN: 1. I have written for ventilator orders. 2. We will get an ABG on arrival to the floor from the chemical lab supervisor. 3. We will try to avoid any type of fever in this patient, although therapeutic hypothermia is not necessarily indicated to get his temperature any lower than 97. We will follow with you. Job ID: [id number]
[2018-06-06 04:14] LABS: Band 2 % (5-11); Hemoglobin 13.8 g/dL (14.0-18.0); Hypochromia SLIGHT = 6-15 cells (100X) (0-5/hpf); Lymphocytes 9 % (21-51); MDiff Complete? YES; Mean Corpuscular Volume 93.8 fL (78.0-98.0); Mean Platelet Volume 7.3 fL (7.4-10.4); Monocytes 5 % (0-10); Neutrophil 84 % (42-75); Platelet Count 241 thou/uL (130-400); Platelet Morphology Comment Appears Adequate; RBC Distribution Width 11.8 % (11.5-14.5); Red Blood Cell (RBC) Count 4.45 mill/uL (4.70-6.10); White Blood Cell (WBC) Count 10.9 thou/uL (4.8-10.8)
[2018-06-06 04:15] LABS: ALT (SGPT) 48 U/L (8-55); AST (SGOT) 253 U/L (5-34); Albumin 3.3 g/dL (3.4-4.8); Alkaline Phosphatase 50 U/L (40-150); Anion Gap 12 mmol/L (10-20); BUN (Urea Nitrogen) 14 mg/dL (8.4-25.7); Bilirubin, Total 0.9 mg/dL (0.2-1.2); Calc. Creatinine Clearance 110 mL/min (70-130); Calcium 7.9 mg/dL (7.8-10.44); Carbon Dioxide 24 mmol/L (23-31); Cardiac Risk 3.6 (Less than 4.5); Chloride 103 mmol/L (98-107); Cholesterol 137 mg/dl (< 200 Desired); Estimated GFR-MDRD 82; Globulin 2.2 g/dL (2.4-3.5); Glucose 128 mg/dL (80-115); HDL Cholesterol 38 mg/dL (>60 Neg Risk); LDL Cholesterol, Calculated 55 mg/dL; Potassium 3.4 mmol/L (3.5-5.1); Protein, Total 5.5 g/dL (5.8-8.1); Sodium 136 mmol/L (136-145); Triglycerides 220 mg/dL (Less than 150)
[2018-06-06] MEDS: Propofol 1,000 MG/100 ML VIAL IV PRN ×4 (05:29→21:31)
[2018-06-06] MEDS: Sodium Chloride 0.9% 1,000 ML IV SCH ×2 (05:32→16:31)
[2018-06-06 06:57] LABS: Actual Bicarbonate (HCO3a) 22.7 mEq/L (22-28); Base Excess (BEa) -0.5 mEq/L (-2.0 to +3.0); CO2 Tension 33.4 mmHg (35.0-45.0); Calcium, Ionized 1.01 mmol/L (1.12-1.30); Carboxyhemoglobin (COHb) 1.7 gm% (0.0-3.0); Hemoglobin (Hb) 13.8 g/dL (14.0-18.0); O2 Tension (PaO2) 116.7 mmHg (> 80.0); Potassium - ABG Lab 3.79 mmol/L (3.70-5.30); pH, Arterial 7.45 (7.35-7.45)
[2018-06-06 07:07] LABS: Puncture Site ALINE
--- NOTE | 2018-06-06 07:32 | HP ---
PRIMARY CARE DOCTOR: None reported. TIME OF EVALUATION: The patient was seen around 11 p.m. CODE STATUS: Full code. CHIEF COMPLAINT: The patient is unresponsive. HISTORY OF PRESENT ILLNESS: This is a 63 years old male patient. The patient has no significant past medical history as reported by plasma table operator, Dr. Cool and nursing staff, the patient is unresponsive. Information derived from chart and staff. It seems the patient was found unresponsive after his got home, reported last time seen normal was communication that the had with the patient 15 minutes prior to her arrival to home. She called 911. At some point, she felt that he had . 911 arrived to the scene and the patient was resuscitated, intubated, found to be in VFib, needing defibrillation. The patient was diagnosed with acute NJ and taken to cardiac cath. Findings on cardiac cath as per Cardiology, the patient had some coronary artery disease, might need surgical evaluation in the future; however, did not find any complete obstruction. For details, please see Dr. Cool' report that is in the chart. Symptoms were severe. After evaluation, the patient also started to have episode of seizures. He was sedated. Just sedation and benzodiazepines for seizures. This could be related to anoxic brain injury secondary to cardiac arrest. We will add anticonvulsants as needed. The patient remained intubated. REVIEW OF SYSTEMS: Unable to obtain. Th patient is intubated and sedated. PAST MEDICAL HISTORY: Unable to obtain. Th patient is intubated and sedated. ALLERGIES: NO REPORTED ALLERGIES. FAMILY HISTORY: unable to obtain pt is intubated, sedated. MEDICATIONS: No reported medications, unable to obtain. PHYSICAL EXAMINATION: VITAL SIGNS: Blood pressure 132/77, heart rate 119, respiratory rate was 22, oxygen saturation was 100. Blood pressure, the patient has been in the low side with systolic in the 50s to 60s. GENERAL: The patient is sedated and intubated. HEENT: Eyes, normal conjunctivae. Moist oral mucosa. Anicteric. No JVD. RESPIRATORY: Bilateral air entry. No rales. No wheezing. Symmetric expansion. CARDIOVASCULAR: Normal rate, regular rhythm. No murmurs, no gallops, no edema. ABDOMEN: Soft. Normal bowel sounds. MUSCULOSKELETAL: Baseline range of motion and strength. No tenderness. SKIN: Warm, intact. No pallor, no rash, no redness. Peripheral pulses are present. Capillary refill seems to be intact. NEUROLOGICAL: No evidence of any new focal weakness. The patient is intubated, sedated, unable to fully explore. PSYCH: Unable to fully explore. LABORATORY DATA: Reviewed. The patient has white count of 11.2, hemoglobin 16.4 , MCV 95.7, platelet count 207. PT, INR and PTT were normal. The patient has been started on heparin. monitored. Blood gas was reviewed. The patient has a pH of 7.29 with pCO2 of 51, pO2 of 192. This was done on SIMV, mechanical rate of 20, inspired 02 is 100, tidal volume 500, pressure support 10, PEEP of 5. Sodium was 134, potassium 3.4, chloride 94, carbon dioxide 23, anion gap 30, BUN 16, creatinine 1.23, GFR 59, and glucose 151, repeat 133. Calcium 9.0, total bilirubin 0.6, AST 58, ALT 39, alkaline phosphatase 71. CK 365. Troponin initially 0.5, second one 32.2, and last [id number]. Beta natriuretic peptide was 107.1. Serum total protein 6.9, albumin 4.1, globulin 2.8, bbwpeno-[id number] ratio 1.5. Chest x-ray, the patient is status post intubation with an endotracheal tube. The thorax inlet 10 cm superior to the gopal. Recommend advancement approximately 5 cm, nasogastric tube placement. Lungs are clear. ASSESSMENT AND PLAN: The patient was placed in the hospital with the following medical problems: 1. ICU care: More than 40 minutes in bedside assessment, discussion with Dr. Cool after cardiac cath, for further plan, review and elaboration of records. 2. Pxm-ET-dpelossfv myocardial infarction: The patient has a troponin of 0.5, second one 32, and last one 101. Dr. Cool has done cardiac cath, the patient has possible plan for surgical intervention in the future. due to LAD lesion, artery is patent, We will follow Dr. Cool' recommendations. 3. Hyperglycemia: Glucose 151 on presentation, likely secondary to acute physical distress. We will monitor. N need for any intervention at this point. 4. Hyponatremia: Sodium 134, this is mild. No need for any acute intervention: We will monitor. We will adjust treatment as needed. 5. Hypokalemia at 3.4, this is mild. We will replace electrolytes as needed. 6. Acute hypercarbic respiratory failure with respiratory acidosis with pH of 7.29 and increased bicarb of 51.7. Pulmonary is helping with our patient. We will follow recommendations. 7. Deep venous thrombosis prophylaxis. 8. Ventricular fibrillation secondary to acute myocardial infarction: The patient has been stable. We will monitor. We will follow recommendation from Dr. Cool. Job ID: [id number] MTDD
[2018-06-06] MEDS: Acetaminophen 650 MG in Premix Bag 1 BAG IVPB PRN ×2 (07:45→14:11)
[2018-06-06] MEDS: Heparin 10,000 UNITS/ 10 ML VIAL SLOW IVP SCH ×2 (08:18→23:29)
--- NOTE | 2018-06-06 08:19 | RAD ---
PORTABLE SUPINE CHEST: History: Respiratory distress. Comparison: Prior day's exam. FINDINGS: Endotracheal and NG tubes are in satisfactory position. Heart size and mediastinum are within normal limits. The lungs are clear of infiltrates. IMPRESSION: Endotracheal tube now in satisfactory position, otherwise stable chest. POS: [facility]
--- NOTE | 2018-06-06 08:38 | PRG ---
DATE OF SERVICE: 06/06/2018 TIME SPENT: This is a 35 minutes of critical care time. SUBJECTIVE: This patient remains intubated in the ICU. OBJECTIVE: VITAL SIGNS: His temperature is 99.5 with a pulse of 101 and blood pressure 125/72. A 24-hour intake 1455 and output 805. HEENT: Unremarkable. NECK: Without adenopathy or JVD. LUNGS: Coarse breath sounds anteriorly. CARDIAC: S1 and S2. Regular. ABDOMEN: Soft. EXTREMITIES: No edema. NEUROLOGIC: He will withdraw to pain. He will open his eyes to deep painful stimuli, but will not follow any commands. Apparently, he has . LABORATORY DATA: Sodium 136, potassium 3.4, chloride 103, CO2 of 24, BUN 14, creatinine 0.9, glucose 128, AST 63, ALT 48, and albumin 3.3. A pH of 7.45, pCO2 of 33, pO2 of 116 on SIMV rate of 20, tidal volume of 500, PEEP 5, pressure support 10, FiO2 of 40%. Troponin is 101. White blood cell count 10.9, hematocrit 42, and platelet count 241. X-ray shows he has clear lung hernandez, slightly elevated right hemidiaphragm compared to left. ASSESSMENT: 1. Myocardial infarction. 2. Acute respiratory failure requiring mechanical ventilation. 3. Seizure activity. 4. Out of hospital arrest. 5. Possible anoxic brain injury. 6. Elevated LFTs, likely related to shock liver from the MD. RECOMMENDATION: At the current time, this patient is not weanable from mechanical ventilation due to his neurologic status. We need to focus on continuing supportive care with mechanical ventilation, keeping his body temperature cool and preventing fever. His blood sugars will be controlled with sliding scale insulin at the current time. He will be kept n.p.o. and tube feedings will be started once we have nutritional recommendations. He is receiving GI prophylaxis, Protonix. Anticoagulation otherwise will be per the Cardiology Service. This patient's prognosis is poor. Job ID: [id number]
[2018-06-06] MEDS: Pantoprazole 40 MG VIAL IVP SCH (08:48)
[2018-06-06] MEDS: Aspirin 81 mg Enteric Coated Tablet PER TUBE SCH ×2 (08:48→11:26)
--- NOTE | 2018-06-06 09:02 | PDOC.CTH ---
Cardiology Progress Note - Subjective The pt seen and examined. No overnight events. No response 2/2 vent sedation. Questions were answered to the family today. - Objective Vital Signs Temp Pulse Resp BP Pulse Ox 06/06/18 08:00 20 06/06/18 06:22 99 130/77 06/06/18 06:00 28 H 06/06/18 04:00 99.5 F 28 H 06/06/18 02:14 100 118/73 06/06/18 02:00 28 H 06/06/18 00:00 98.8 F 28 H 98 06/05/18 22:00 97.7 F 28 H 06/05/18 21:41 89 104/64 Weight 217 lb 6.012 oz 06/05/18 06/06/18 06/07/18 06:59 06:59 06:59 Intake Total 1465 Output Total 805 Balance 660 - Physical Examination Lungs: other: (coarses and diminished at bases) Heart: other: (Afib 80s) Abdomen: soft Extremities: other: (No edema) - Telemetry Telemetry Rhythm: Afib 80s - Labs Result Diagrams: 06/06/18 03:42 06/06/18 03:42 Troponin/CKMB CK-MB (CK-2) 20.6 ng/mL (0-6.6) H* 06/05/18 19:10 Troponin I 101.014 ng/mL (< 0.028) H* 06/06/18 00:50 - Assessment/Plan 1. Acute CA 2/2 s/p out of hospital cardiac arrest - plan for CABG; on Heparin drip; will start Metoprolol 25mg BID from this AM; 2. HTN - will start low dose of Metoprolol BID 3. Hyperlipidemia - holding statin for now 2/2 elevated LFT 4. Anoxic brain injury - intubation with Vent support; 5. SZ - Neurology consult 6. COPD - On Vent 7. Elevated LFT - cont. to monitor 8. hx of GI bleed - stable MAR reviewed Pt. seen and eval. by me. I agree with the A/P by the [employer]. He is still sedated and the neuro status is unclear. The enzymes indicate an CA . The apex was akinetic. The diag.2 was subtotal and likely contributing some to this also. Hopefully some of the increase was due to washout. CT surgery will make adecision about CABG when he is neurologically stable. Chest clear ant. post.: wheeze. RRR. Review of Systems - Review of Systems Constitutional: reports: see HPI
[2018-06-06] MEDS: fentaNYL Citrate/PF 2,000 MCG in Sodium Chloride 0.9% 60 ML IV SCH (10:38)
[2018-06-06] MEDS: Metoprolol Tartrate 25 MG TAB PO SCH ×2 (11:26→21:31)
[2018-06-06 14:59] LABS: PTT 121.9 SEC (22.9-36.1)
[2018-06-06 15:24] LABS: CKMB 110.2 ng/mL (0-6.6)
[2018-06-06 15:36] LABS: Troponin I 90.012 ng/mL (< 0.028)
--- NOTE | 2018-06-06 18:12 | PDOC.PN ---
- Subjective Encounter Start Date: 06/06/18 Encounter Start Time: 18:00 Subjective: f/u for STEMI with medical mgmt currently on mech vent and sedated -: with Propofol/Fentanyl. Sedation holiday this am but pt became agitated. - Objective Resuscitation Status - Order Detail: 06/05/18 21:02 Resuscitation Status Routine Resuscitation Status: FULL: Full Resuscitation MAR Reviewed: Yes Vital Signs & Weight: Vital Signs (12 hours) Pulse Resp BP Pulse Ox 06/06/18 16:00 24 H 06/06/18 14:17 93 146/83 H 06/06/18 14:00 26 H 06/06/18 12:00 20 06/06/18 10:37 98 164/83 H 06/06/18 10:00 23 H 06/06/18 08:00 20 100 06/06/18 06:22 99 130/77 Weight Admit Weight 217 lb Weight 217 lb 6.012 oz Most Recent Monitor Data Heart Rate from ECG 85 NIBP 138/90 NIBP BP-Mean 106 Respiration from ECG 18 SpO2 100 I&O: 06/05/18 06/06/18 06/07/18 06:59 06:59 06:59 Intake Total 1465 100 Output Total 805 1028 Balance 660 -928 Result Diagrams: 06/06/18 03:42 06/06/18 03:42 Additional Labs: Accuchecks 06/06/18 06/06/18 06/06/18 12:59 05:49 00:51 POC Glucose 128 H 120 H 123 H Laboratory Tests 06/05/18 06/05/18 06/05/18 19:10 19:10 19:10 WBC Potassium 3.4 L AST 58 H ALT 39 Troponin I 0.582 H* B-Natriuretic Peptide 107.1 H 06/05/18 06/05/18 06/06/18 19:10 21:52 00:50 WBC 11.2 H Potassium AST ALT Troponin I 32.221 H* 101.014 H* B-Natriuretic Peptide 06/06/18 06/06/18 03:42 14:30 WBC Potassium AST 253 H ALT 48 Troponin I 90.012 H* B-Natriuretic Peptide Radiology Reviewed by me: Yes (CT brain - no acute process) EKG Reviewed by me: Yes (Tele - SR) Phys Exam - Physical Examination sedate on mech vent, ETT in place HEENT: sclera anicteric, oral pharynx no lesions Neck: no nodes, no JVD, supple, full ROM diminished in bases, prolonged exp phase, occ wheeze Cardiovascular: RRR, no significant murmur, no rub, gallop Gastrointestinal: soft, non-tender, no distention, positive bowel sounds Musculoskeletal: no edema, pulses present Skin: normal turgor, cap refill <2 seconds Deviation from normal: [place] with cloudy, gross hematuria Dx/Plan (1) STEMI (ST elevation myocardial infarction) Status: Acute Qualifiers: Involved coronary artery: LAD coronary artery Qualified Code(s): I21.02 - ST elevation (STEMI) myocardial infarction involving left anterior descending coronary artery Comment: s/p LHC with recommendations for CABG when neurologically stable, continue med mgmt, ASA, Metoprolol, Heparin gtt (2) Cardiac arrest due to underlying cardiac condition Code(s): I46.2 - CARDIAC ARREST DUE TO UNDERLYING CARDIAC CONDITION Status: Acute Comment: s/p arrest secondary to STEMI, emergent LHC, continue hypothermic protocol, Neuro checks, ? anoxic injury (3) Acute respiratory failure with hypoxia Code(s): J96.01 - ACUTE RESPIRATORY FAILURE WITH HYPOXIA Status: Acute Comment: Continue mech ventilation, add Duonebs, PCXR/ABG in am (4) Tobacco abuse Code(s): Z72.0 - TOBACCO USE Status: Chronic Comment: Tobacco cessation resources, consider nicotine patch (5) HLD (hyperlipidemia) Code(s): E78.5 - HYPERLIPIDEMIA, UNSPECIFIED Status: Chronic Comment: Resume Lipitor 10mg HS (6) Hypothyroidism Code(s): E03.9 - HYPOTHYROIDISM, UNSPECIFIED Status: Chronic Comment: Resume Levothyroxine 125mcg daily - Plan social sciences department chair, respiratory therapy, DVT proph w/SCDs Continue critical support -: Mech ventilation with CCU sedation protocol -: Hypothermic protocol -: Continue ASA, Lipitor -: Resume Levothyroxine * AM lab: CMP, CBC, ABG
[2018-06-06] MEDS: Heparin 25,000 units/D5W 500 ML IVPB SCH (23:30)
--- NOTE | 2018-06-06 23:43 | CON ---
DATE OF CONSULTATION: REASON FOR CONSULTATION: Evaluate patient for coronary artery bypass grafting. HISTORY OF PRESENT ILLNESS: Mr. Calles is a 63-year-old gentleman admitted yesterday status post VFib arrest, intubated and underwent cardiac catheterization at the time of admission. He was found to have 90% mid LAD lesion at a bifurcation, which was unable to be stented due to tortuosity of the LAD. He has potential bypassable targets in the LAD and diagonal. He is currently intubated, sedated, and has a cooling blanket on to keep his temperature down. He underwent sedation holiday this morning, would not follow commands, did move. PAST MEDICAL HISTORY: Hypertension and hyperlipidemia. PAST SURGICAL HISTORY: None. ALLERGIES: NONE. MEDICATIONS: None. SOCIAL HISTORY: He smokes cigarettes at home. Drinks a couple drinks a day. REVIEW OF SYSTEMS: Unobtainable due to the patient being intubated and sedated. PHYSICAL EXAMINATION: GENERAL: This is a well-developed, well-nourished gentleman, resting in bed on sedation. VITAL SIGNS: Heart rate is 80, blood pressure is 155/76, oxygen saturations are 99%. He has a cooling blanket on. HEENT: Sclerae nonicteric. Pupils are equal bilaterally. CHEST: Clear bilaterally. HEART: Rhythm is regular. ABDOMEN: Soft. EXTREMITIES: No edema. ASSESSMENT AND PLAN: This is a 63-year-old gentleman, who underwent VFib arrest and has severe LAD stenosis. His troponin has gone as high as 101, CK-MB is high as 110. Currently, his creatinine is 0.93, potassium is 3.4, hemoglobin is 13.8. Mr. Calles unfortunately underwent a VFib arrest and has severe LAD diagonal stenosis. He has bypassable disease, the question would be his neurologic status currently. Once we know more about his neurologic status, we can discuss the potential for bypass with his family. I did discuss his neurologic situation with them and they understand that we are waiting to have more information about his brain before we commit surgical bypass. Job ID: [id number]
[2018-06-07] MEDS: Sodium Chloride 0.9% 1,000 ML IV SCH ×3 (02:51→23:24)
[2018-06-07] MEDS: Propofol 1,000 MG/100 ML VIAL IV PRN ×6 (02:52→23:25)
[2018-06-07 04:05] LABS: #Eosinphils 0.1 thou/uL (0.0-0.7); #Lymphocytes 1.5 thou/uL (1.20-3.40); #Monocytes 0.7 thou/uL (0.11-0.59); #Neutrophils 9.4 thou/uL (1.40-6.50); %Basophils 0.2 % (0.0-1.0); %Lymphocytes 12.5 % (21.0-51.0); %Monocytes 6.1 % (0.0-10.0); %Neutrophils 80.1 % (42.0-75.0); Hemoglobin 12.6 g/dL (14.0-18.0); Mean Corpuscular HGB CONC 33.4 g/dL (32.0-36.0); Mean Corpuscular Hemoglobin 31.9 pg (27.0-31.0); Mean Corpuscular Volume 95.2 fL (78.0-98.0); Mean Platelet Volume 7.9 fL (7.4-10.4); Platelet Count 187 thou/uL (130-400); RBC Distribution Width 11.8 % (11.5-14.5); Red Blood Cell (RBC) Count 3.94 mill/uL (4.70-6.10); White Blood Cell (WBC) Count 11.7 thou/uL (4.8-10.8)
[2018-06-07 04:25] LABS: ALT (SGPT) 69 U/L (8-55); AST (SGOT) 169 U/L (5-34); Albumin 3.1 g/dL (3.4-4.8); Alkaline Phosphatase 50 U/L (40-150); Anion Gap 11 mmol/L (10-20); BUN (Urea Nitrogen) 11 mg/dL (8.4-25.7); Bilirubin, Total 0.7 mg/dL (0.2-1.2); Calc. Creatinine Clearance 124 mL/min (70-130); Calcium 8.1 mg/dL (7.8-10.44); Carbon Dioxide 25 mmol/L (23-31); Chloride 102 mmol/L (98-107); Estimated GFR-MDRD Greater than 90; Globulin 2.4 g/dL (2.4-3.5); Glucose 92 mg/dL (80-115); Potassium 3.4 mmol/L (3.5-5.1); Protein, Total 5.5 g/dL (5.8-8.1); Sodium 135 mmol/L (136-145)
[2018-06-07 04:29] LABS: Critical Call Chem Troponin I RESULT DECREASING; Troponin I 42.332 ng/mL (< 0.028)
[2018-06-07] MEDS: Levothyroxine Sodium 125 MCG TAB PO SCH (05:25)
[2018-06-07 07:21] LABS: Actual Bicarbonate (HCO3a) 25.1 mEq/L (22-28); CO2 Tension 58.6 mmHg (35.0-45.0); Calcium, Ionized 1.09 mmol/L (1.12-1.30); Carboxyhemoglobin (COHb) 1.5 gm% (0.0-3.0); Hemoglobin (Hb) 13.6 g/dL (14.0-18.0); O2 Tension (PaO2) 93.2 mmHg (> 80.0)
[2018-06-07 07:28] LABS: Puncture Site ALINE; pH, Arterial 7.25 (7.35-7.45)
[2018-06-07] MEDS ORDERED: Vecuronium 10 MG VIAL IVP PRN (07:31)
--- NOTE | 2018-06-07 08:32 | PRG ---
DATE OF SERVICE: 06/07/2018 PULMONARY/CRITICAL CARE PROGRESS NOTE. TIME SPENT: This is 45 minutes of critical care time. SUBJECTIVE: This patient remains intubated on mechanical ventilation. OBJECTIVE: VITAL SIGNS: On exam, his temperature is 97.5, kept thereby a cooling blanket; pulse 88; blood pressure 120/63. 24-hour intake 2070, output 1658. NEUROLOGICAL: The patient opens his eyes, blinks, but not to threat. He has a gag. He has spontaneous respirations. He does not move any of his extremities spontaneously to command, but does have some withdrawal. HEENT: Otherwise, unremarkable. NECK: No JVD. CHEST: Clear to auscultation. CARDIAC: S1 and S2, regular. ABDOMEN: Soft, nontender. EXTREMITIES: No edema. LABORATORY DATA: Sodium 135, potassium 3.4, chloride 102, CO2 of 25, BUN 11, creatinine 0.8, glucose 92, AST 169, ALT 69. Troponin is 42. White blood cell count 11.7, hematocrit 37.6, and platelet count 187. ABG; pH of 7.25, pCO2 of 59, pO2 of 93 on SIMV rate of 20, tidal volume 500, PEEP 5, pressure support 10, and FiO2 of 40%. PTT is 80.9. His x-ray shows no overt signs of failure. ASSESSMENT: 1. Acute respiratory failure, requiring mechanical ventilation. 2. Myocardial infarction. 3. Seizure activity. 4. Out of hospital arrest. 5. Anoxic brain injury. 6. Elevated LFTs of shock liver. 7. Development of respiratory acidosis. PLAN: 1. Increase mechanical ventilation rate. 2. Initiate tube feeds. 3. Continue to follow the serial neurologic exams. Right now, it does not appear that his neurologic status has changed much since the time of the initial code, that is a very discouraging sign. I will update family when they arrive. 4. The patient's potassium will be replaced. 5. Aggressive temperature control of the patient will probably be stopped tomorrow. Job ID: [id number] [facility]
--- NOTE | 2018-06-07 09:08 | RAD ---
AP VIEW CHEST: Date: 06/07/18 HISTORY: Ventilator-dependent patient. FINDINGS: Comparison made to previous exam from 06/06/18. AP view of chest demonstrates nasogastric and endotracheal tubes to be in place. EKG leads seen over the chest. Pulmonary vascular congestion seen. Elevation of the right hemidiaphragm seen. Pulmonary vascular congestion seen. No evidence of effusio ns, pneumonia, or pneumothorax seen. IMPRESSION: Pulmonary vascular congestion and elevated right hemidiaphragm. POS: H
[2018-06-07] MEDS: Atorvastatin Calcium 10 MG TAB PO SCH (10:19)
[2018-06-07] MEDS: Aspirin 81 mg Enteric Coated Tablet PER TUBE SCH (10:19)
[2018-06-07] MEDS: Metoprolol Tartrate 25 MG TAB PO SCH ×2 (10:19→21:16)
[2018-06-07] MEDS: Pantoprazole 40 MG VIAL IVP SCH (10:19)
[2018-06-07] MEDS: fentaNYL Citrate/PF 2,000 MCG in Sodium Chloride 0.9% 60 ML IV SCH (10:20)
--- NOTE | 2018-06-07 12:09 | PDOC.CTH ---
Cardiology Progress Note - Subjective The pt seen and examined. No overnight events. No follow commands. - Objective Vital Signs Pulse Resp BP Pulse Ox 06/07/18 10:30 98 116/61 06/07/18 10:27 99 27 H 91 L 06/07/18 10:00 27 H 06/07/18 08:00 20 94 L 06/07/18 06:25 92 116/60 06/07/18 06:24 93 30 H 96 06/07/18 06:00 20 06/07/18 04:00 20 06/07/18 02:29 83 98/51 L 06/07/18 02:26 82 20 97 06/07/18 02:00 20 Admit Weight 217 lb Weight 217 lb 6.012 oz 06/06/18 06/07/18 06/08/18 06:59 06:59 06:59 Intake Total 1465 2070 90 Output Total 805 1658 169 Balance 660 412 -79 - Physical Examination Lungs: other: (coarse and diminished at bases) Heart: RRR Abdomen: soft Extremities: other: (No edema) - Telemetry Telemetry Rhythm: SR - Labs Result Diagrams: 06/07/18 03:00 06/07/18 03:00 Troponin/CKMB CK-MB (CK-2) 110.2 ng/mL (0-6.6) H* 06/06/18 14:30 Troponin I 42.332 ng/mL (< 0.028) H* 06/07/18 03:00 - Assessment/Plan 1. Acute [place] 2/2 s/p out of hospital cardiac arrest - plan for CABG when he is neurologically stable; on Heparin drip; On Metoprolol 25mg BID. 2. HTN - Stable 3. Hyperlipidemia - holding statin for now 2/2 elevated LFT 2/2 shock liver 4. Anoxic brain injury - intubation with Vent support; 5. SZ - Neurology consult 6. COPD - On Vent 7. Elevated LFT - cont. to monitor 8. hx of GI bleed - stable MAR reviewed Pt. seen and eval. by me. I agree with the A/P by the SLITTING MACHINE OPERATOR. Continue supportive care. If the neuro status improves then likely will have CABG. Chest clear. RRR. Review of Systems - Review of Systems Constitutional: reports: see HPI EENTM: reports: see HPI Respiratory: reports: see HPI Cardiac (ROS): reports: see HPI ABD/GI: reports: see HPI
[2018-06-07] MEDS: Heparin 10,000 UNITS/ 10 ML VIAL SLOW IVP SCH (18:03)
--- NOTE | 2018-06-07 22:47 | CON ---
DATE OF CONSULTATION: 06/07/2018 TYPE OF CONSULTATION: Neurologic Consultation. CONSULTING PHYSICIAN: Hospitalist Service. IMPRESSION: Cardiac arrest with transient encephalopathy. The patient appears to be awakening and following commands. Current clinical picture shows significant promise for recovery. PLAN: Continue supportive measures. HISTORY OF PRESENT ILLNESS: Mr. Calles is a 63-year-old man who presented with cardiac arrest. He was found to have 90% stenosis of one of the coronary arteries. After resuscitation, he was intubated and admitted to the ICU. Initially, he was not responding to stimulation very well. Attempts to wean sedation were resulting in secondary restlessness and drops in saturation. Today, he has been tolerating a bit of a reduction in sedation. He has not had any type of myoclonus or seizure activity. PAST MEDICAL HISTORY: Otherwise unremarkable. FAMILY HISTORY: Noncontributory. ALLERGIES: NONE REPORTED. SOCIAL HISTORY: He is . REVIEW OF SYSTEMS: Not obtainable due to his current state. PHYSICAL EXAMINATION: VITAL SIGNS: Blood pressure 125/67, pulse 107, respirations ventilatory support with a saturation 96%. HEENT: Pupils are equal and reactive. Conjunctivae clear. He has spontaneous eye opening. He localizes to verbal stimulation. He was able to follow one simple command of squeezing on command. Tone appears to be symmetric. No abnormal movements are seen other than some shivering. SUMMARY: His improvement compared to the reports of yesterday are promising. Hopefully, there is no significant neurologic injury and we can proceed with surgical measures to correct the situation. Job ID: [id number]
--- NOTE | 2018-06-07 23:18 | PDOC.PN ---
- Subjective Encounter Start Date: 06/07/18 Encounter Start Time: 17:10 Subjective: f/u for cardiac arrest with ROSC and STEMI currently medically managed. -: Remains on mech vent but more alert and followed simple commands. - Objective Resuscitation Status - Order Detail: 06/05/18 21:02 Resuscitation Status Routine Resuscitation Status: FULL: Full Resuscitation MAR Reviewed: Yes Vital Signs & Weight: Vital Signs (12 hours) Pulse Resp BP Pulse Ox 06/07/18 22:16 100 105/55 L 06/07/18 22:13 96 26 H 100 06/07/18 20:00 26 H 06/07/18 18:30 95 109/56 L 06/07/18 18:27 95 26 H 99 06/07/18 18:00 26 H 06/07/18 16:00 26 H 06/07/18 14:15 96 104/58 L 06/07/18 14:14 95 27 H 96 06/07/18 14:00 27 H 06/07/18 12:00 26 H Weight Admit Weight 217 lb Weight 217 lb 6.012 oz Most Recent Monitor Data Heart Rate from ECG 98 NIBP 135/70 NIBP BP-Mean 91 Respiration from ECG 4 SpO2 96 I&O: 06/06/18 06/07/18 06/08/18 06:59 06:59 06:59 Intake Total 1465 2070 3474 Output Total 805 1658 914 Balance 078 563 3402 Result Diagrams: 06/07/18 03:00 06/07/18 03:00 Additional Labs: Accuchecks 06/07/18 06/07/18 06/07/18 18:37 13:26 01:24 POC Glucose 90 83 99 Laboratory Tests 06/05/18 06/05/18 06/05/18 19:10 19:10 19:10 WBC Potassium 3.4 L AST 58 H ALT 39 Troponin I 0.582 H* B-Natriuretic Peptide 107.1 H 06/05/18 06/05/18 06/06/18 19:10 21:52 00:50 WBC 11.2 H Potassium AST ALT Troponin I 32.221 H* 101.014 H* B-Natriuretic Peptide 06/06/18 06/06/18 03:42 14:30 WBC Potassium AST 253 H ALT 48 Troponin I 90.012 H* B-Natriuretic Peptide Laboratory Tests 06/07/18 06/07/18 03:00 03:00 AST 169 H ALT 69 H Troponin I 42.332 H* Radiology Reviewed by me: Yes (2D echo - EF- 55-60%, Grade I/III diast dysfx, apex akinectic) EKG Reviewed by me: Yes (Tele - SR) Phys Exam - Physical Examination sedate on mech vent ETT in place HEENT: PERRLA, sclera anicteric, oral pharynx no lesions Neck: no nodes, no JVD, supple, full ROM coarse sounds in bases/posteriorly Respiratory: no wheezing S1, S2 Cardiovascular: RRR, no significant murmur, no rub, gallop Gastrointestinal: soft, non-tender, no distention, positive bowel sounds Musculoskeletal: no edema, pulses present opens eyes briefly to name Skin: normal turgor, cap refill <2 seconds Dx/Plan (1) STEMI (ST elevation myocardial infarction) Status: Acute Qualifiers: Involved coronary artery: LAD coronary artery Qualified Code(s): I21.02 - ST elevation (STEMI) myocardial infarction involving left anterior descending coronary artery Comment: s/p LHC with recommendations for CABG when neurologically stable, continue med mgmt, ASA, Metoprolol, Heparin gtt (2) Cardiac arrest due to underlying cardiac condition Code(s): I46.2 - CARDIAC ARREST DUE TO UNDERLYING CARDIAC CONDITION Status: Acute Comment: s/p arrest secondary to STEMI, emergent LHC, continue hypothermic protocol, Neuro checks, ? anoxic injury (3) Acute respiratory failure with hypoxia Code(s): J96.01 - ACUTE RESPIRATORY FAILURE WITH HYPOXIA Status: Acute Comment: Continue mech ventilation, add Duonebs, PCXR/ABG in am (4) Tobacco abuse Code(s): Z72.0 - TOBACCO USE Status: Chronic Comment: Tobacco cessation resources, consider nicotine patch (5) HLD (hyperlipidemia) Code(s): E78.5 - HYPERLIPIDEMIA, UNSPECIFIED Status: Chronic Comment: Resume Lipitor 10mg HS (6) Hypothyroidism Code(s): E03.9 - HYPOTHYROIDISM, UNSPECIFIED Status: Chronic Comment: Resume Levothyroxine 125mcg daily - Plan respiratory therapy, DVT proph w/SCDs Continue mech vent with SIMV -: Heparin gtt per protocol -: Continue ASA and Lipitor -: Serial neuro checks -: AM lab: CMP, CBC, ABG * .
[2018-06-08 00:35] LABS: Hemoglobin 11.5 g/dL (14.0-18.0); Platelet Count 166 thou/uL (130-400)
[2018-06-08] MEDS: Heparin 25,000 units/D5W 500 ML IVPB SCH ×2 (01:09→22:12)
[2018-06-08 05:10] LABS: #Eosinphils 0.1 thou/uL (0.0-0.7); #Lymphocytes 0.8 thou/uL (1.20-3.40); #Monocytes 0.7 thou/uL (0.11-0.59); #Neutrophils 7.4 thou/uL (1.40-6.50); %Basophils 0.1 % (0.0-1.0); %Eosinophils 1.4 % (0.0-10.0); %Lymphocytes 9.1 % (21.0-51.0); %Monocytes 7.4 % (0.0-10.0); Hemoglobin 11.2 g/dL (14.0-18.0); Mean Corpuscular HGB CONC 32.9 g/dL (32.0-36.0); Platelet Count 174 thou/uL (130-400); RBC Distribution Width 11.8 % (11.5-14.5); Red Blood Cell (RBC) Count 3.51 mill/uL (4.70-6.10)
[2018-06-08 05:27] LABS: ALT (SGPT) 61 U/L (8-55); AST (SGOT) 106 U/L (5-34); Albumin 2.9 g/dL (3.4-4.8); Alkaline Phosphatase 50 U/L (40-150); Anion Gap 14 mmol/L (10-20); BUN (Urea Nitrogen) 16 mg/dL (8.4-25.7); Bilirubin, Total 0.6 mg/dL (0.2-1.2); Calc. Creatinine Clearance 107 mL/min (70-130); Calcium 8.3 mg/dL (7.8-10.44); Carbon Dioxide 23 mmol/L (23-31); Chloride 103 mmol/L (98-107); Estimated GFR-MDRD 79; Globulin 2.6 g/dL (2.4-3.5); Glucose 73 mg/dL (80-115); Protein, Total 5.5 g/dL (5.8-8.1); Sodium 136 mmol/L (136-145)
[2018-06-08] MEDS: Levothyroxine Sodium 125 MCG TAB PO SCH (05:27)
[2018-06-08] MEDS: fentaNYL Citrate/PF 2,000 MCG in Sodium Chloride 0.9% 60 ML IV SCH (05:57)
[2018-06-08 07:23] LABS: Actual Bicarbonate (HCO3a) 23.4 mEq/L (22-28); Base Excess (BEa) -3.6 mEq/L (-2.0 to +3.0); Carboxyhemoglobin (COHb) 0.9 gm% (0.0-3.0); Hemoglobin (Hb) 12.3 g/dL (14.0-18.0); O2 Tension (PaO2) 97.9 mmHg (> 80.0); Potassium - ABG Lab 3.88 mmol/L (3.70-5.30); pH, Arterial 7.28 (7.35-7.45)
[2018-06-08 07:31] LABS: Puncture Site LINE
--- NOTE | 2018-06-08 08:25 | PDOC.CTH ---
Cardiology Progress Note - Subjective The pt seen and examined. No overnight events. Still on mechanical vent support. - Objective Vital Signs Pulse Resp BP Pulse Ox 06/08/18 08:00 26 H 06/08/18 07:38 95 06/08/18 06:59 99 127/64 06/08/18 06:57 104 H 24 H 98 06/08/18 06:00 26 H 06/08/18 04:00 26 H 06/08/18 02:32 77 105/56 L 06/08/18 02:29 80 26 H 100 06/08/18 02:00 26 H 06/08/18 00:00 26 H 06/07/18 22:16 100 105/55 L 06/07/18 22:13 96 26 H 100 06/07/18 22:00 26 H Admit Weight 217 lb Weight 217 lb 6.012 oz 06/07/18 06/08/18 06/09/18 06:59 06:59 06:59 Intake Total 2070 5479 0 Output Total 1658 1884 105 Balance 412 3595 -105 - Physical Examination Lungs: other: (coarse and diminished at bases) Heart: RRR Abdomen: soft Extremities: other: - Telemetry Telemetry Rhythm: SR 90 - Labs Result Diagrams: 06/08/18 04:20 06/08/18 04:20 Troponin/CKMB CK-MB (CK-2) 110.2 ng/mL (0-6.6) H* 06/06/18 14:30 Troponin I 42.332 ng/mL (< 0.028) H* 06/07/18 03:00 - Assessment/Plan 1. Acute [place] 2/2 s/p out of hospital cardiac arrest - plan for CABG when he is neurologically stable; on Heparin drip; On Metoprolol 25mg BID. 2. HTN - Stable 3. Hyperlipidemia - 4. Anoxic brain injury - the pt did follow commands yesterday PM per report. 5. SZ - Neurology consult 6. COPD - On Vent 7. Elevated LFT - cont. to monitor 8. hx of GI bleed - stable MAR reviewed Pt. seen and eval. by me. I agree with the A/P by the NPHe opens his eyes to command but is still mainly unresponsive. Chest clear anteriorly. RRR. S/P anterior-apical IN. EF is still well preserved. Possible CABG to LAD-Diag. if the nurologic function improves. Review of Systems - Review of Systems Constitutional: reports: see HPI EENTM: reports: see HPI Respiratory: reports: see HPI Cardiac (ROS): reports: see HPI ABD/GI: reports: see HPI : reports: see HPI
[2018-06-08] MEDS: Pantoprazole 40 MG VIAL IVP SCH (08:38)
[2018-06-08] MEDS: Atorvastatin Calcium 10 MG TAB PO SCH (08:39)
[2018-06-08] MEDS: Metoprolol Tartrate 25 MG TAB PO SCH ×2 (08:39→21:56)
--- NOTE | 2018-06-08 08:48 | RAD ---
CHEST ONE VIEW: HISTORY: Dyspnea. Intubated. Followup. COMPARISON: 06/07/2018 FINDINGS: Right cardiac margin now partially obscured by worsening parenchymal opacity at the right base. Righ t perihilar and suprahilar opacity has also worsened. Left lung remains well inflated. Mediastinum is midline. monitoring specialist leads overly the chest. IMPRESSION: Worsening atelectasis of the right lower lobe. POS: [facility]
[2018-06-08] MEDS: Propofol 1,000 MG/100 ML VIAL IV PRN ×4 (09:32→22:01)
--- NOTE | 2018-06-08 09:42 | PRG ---
DATE OF SERVICE: 06/08/2018 CRITICAL CARE TIME: 35 minutes critical care time. SUBJECTIVE: The patient remains intubated on mechanical ventilation. He did wake up yesterday afternoon and followed commands in my presence. His father was telling him what to do and he followed every command that was asked to him. OBJECTIVE: VITAL SIGNS: On exam, his temperature is 98.8, pulse 100, blood pressure 123/60. HEENT: Unremarkable. NECK: No JVD. LUNGS: Coarse breath sounds. CARDIAC: S1, S2, regular. ABDOMEN: Soft, nontender. EXTREMITIES: No edema. LABORATORY DATA: White blood cell count 9, hematocrit 34.0, platelet count 174. PTT 71.7. PH 7.28, pCO2 of 51, pO2 of 97, that is on SIMV rate 26, tidal volume 500, PEEP 5, pressure support 10, FiO2 45%. Sodium 136, potassium 4, chloride 103, CO2 of 23, BUN 16, creatinine 0.9, glucose 73. AST 106, ALT 61. ASSESSMENT: 1. Acute respiratory failure, requiring mechanical ventilation. 2. Status post sudden cardiac secondary to coronary artery disease. 3. Improved anoxic brain injury. 4. Seizure activity at the time of admission. 5. Elevated LFTs secondary to shock liver. 6. Respiratory acidosis. PLAN: 1. Place the patient on spontaneous breathing mode. It was clear he wanted more tidal volume what was currently being given. Based on that, I have switched him over to bilevel mode. I had to decrease the time because he does have some degree of bronchospasm. 2. Initiate tube feeds. 3. Start cooling. 4. Hopefully can work toward bypass surgery next week if he does well this weekend. Job ID: [id number]
--- NOTE | 2018-06-08 19:24 | PDOC.PN ---
- Subjective Encounter Start Date: 06/08/18 Encounter Start Time: 14:05 Subjective: f/u for STEMI medically managed currently on [facility] ventilation. -: No new issues per nursing. - Objective Resuscitation Status - Order Detail: 06/05/18 21:02 Resuscitation Status Routine Resuscitation Status: FULL: Full Resuscitation MAR Reviewed: Yes Vital Signs & Weight: Vital Signs (12 hours) Temp Pulse Resp BP Pulse Ox 06/08/18 18:12 101 H 117/65 06/08/18 18:10 87 26 H 94 L 06/08/18 18:00 26 H 06/08/18 16:00 99.5 F 26 H 06/08/18 14:56 85 115/60 06/08/18 14:55 132 H 26 H 93 L 06/08/18 14:00 26 H 06/08/18 12:00 26 H 06/08/18 10:42 81 100/53 L 06/08/18 10:40 83 26 H 96 06/08/18 10:00 26 H 06/08/18 08:00 26 H 06/08/18 07:38 95 Weight Admit Weight 217 lb Weight 217 lb 6.012 oz Most Recent Monitor Data Heart Rate from ECG 85 NIBP 117/65 NIBP BP-Mean 82 Respiration from ECG 26 SpO2 93 I&O: 06/07/18 06/08/18 06/09/18 06:59 06:59 06:59 Intake Total 2070 5479 1272 Output Total 1658 1884 840 Balance 412 3595 432 Result Diagrams: 06/08/18 04:20 06/08/18 04:20 Additional Labs: Accuchecks 06/08/18 06/08/18 15:43 11:40 POC Glucose 117 H 89 Microbiology 06/06/18 21:00 Urine cai catheter Urine Culture - Final NO GROWTH AT 36 HOURS Laboratory Tests 06/05/18 06/05/18 06/05/18 19:10 19:10 19:10 WBC Potassium 3.4 L AST 58 H ALT 39 Alkaline Phosphatase Troponin I 0.582 H* B-Natriuretic Peptide 107.1 H 06/05/18 06/05/18 06/06/18 19:10 21:52 00:50 WBC 11.2 H Potassium AST ALT Alkaline Phosphatase Troponin I 32.221 H* 101.014 H* B-Natriuretic Peptide 06/06/18 06/06/18 06/07/18 03:42 14:30 03:00 WBC Potassium AST 253 H ALT 48 Alkaline Phosphatase Troponin I 90.012 H* 42.332 H* B-Natriuretic Peptide 06/07/18 06/08/18 03:00 04:20 WBC Potassium AST 169 H 106 H ALT 69 H 61 H Alkaline Phosphatase 50 Troponin I B-Natriuretic Peptide Radiology Reviewed by me: Yes (PCXR -atelectasis RLL) EKG Reviewed by me: Yes (Tele - SR) Phys Exam - Physical Examination sedate on mech vent, no response to name or stimulus ETT in place HEENT: sclera anicteric, oral pharynx no lesions Neck: no nodes, no JVD, supple, full ROM prolonged exp phase, scattered wheezes S1, S2 Cardiovascular: RRR, no significant murmur, no rub, gallop Gastrointestinal: soft, non-tender, no distention, positive bowel sounds Musculoskeletal: no edema, pulses present Skin: normal turgor, cap refill <2 seconds Deviation from normal: Cai with brown urine/blood tinged Dx/Plan (1) STEMI (ST elevation myocardial infarction) Status: Acute Qualifiers: Involved coronary artery: LAD coronary artery Qualified Code(s): I21.02 - ST elevation (STEMI) myocardial infarction involving left anterior descending coronary artery Comment: s/p LHC with recommendations for CABG when neurologically stable, continue med mgmt, ASA, Metoprolol, Heparin gtt (2) Cardiac arrest due to underlying cardiac condition Code(s): I46.2 - CARDIAC ARREST DUE TO UNDERLYING CARDIAC CONDITION Status: Acute Comment: s/p arrest secondary to STEMI, emergent LHC, continue hypothermic protocol, Neuro checks, ? anoxic injury and slow clinical improvement (3) Acute respiratory failure with hypoxia Code(s): J96.01 - ACUTE RESPIRATORY FAILURE WITH HYPOXIA Status: Acute Comment: Continue [facility] ventilation, add Duonebs, PCXR/ABG in am (4) Tobacco abuse Code(s): Z72.0 - TOBACCO USE Status: Chronic Comment: Tobacco cessation resources, consider nicotine patch (5) HLD (hyperlipidemia) Code(s): E78.5 - HYPERLIPIDEMIA, UNSPECIFIED Status: Chronic Comment: Resume Lipitor 10mg HS (6) Hypothyroidism Code(s): E03.9 - HYPOTHYROIDISM, UNSPECIFIED Status: Chronic Comment: Resume Levothyroxine 125mcg daily - Plan respiratory therapy, DVT proph w/SCDs Continue critical support -: Heparin gtt and hypothermic protocol -: Continue ASA/Lipitor -: Continue Keppra -: ? CABG if neurologically stabilizing * AM lab: CMP, CBC, ABG
--- NOTE | 2018-06-08 21:54 | PRG ---
DATE OF SERVICE: 06/08/2018 CHIEF COMPLAINT: Encephalopathy. INTERVAL HISTORY: I tried to see this patient through Teleneurology consult today. The patient remains intubated and sedated. He was on propofol and fentanyl. Although he opened his eyes partially and tried to follow commands, he was not awake enough to give us a reliable neurological examination. Therefore, I will come back tomorrow to see the patient with less sedation. Job ID: [id number]
[2018-06-09] MEDS: fentaNYL Citrate/PF 2,000 MCG in Sodium Chloride 0.9% 60 ML IV SCH ×2 (00:08→16:56)
[2018-06-09] MEDS: Propofol 1,000 MG/100 ML VIAL IV PRN ×6 (02:21→23:31)
[2018-06-09 05:44] LABS: Prothrombin Time 13.2 SEC (12.0-14.7)
[2018-06-09 05:45] LABS: PTT 70.6 SEC (22.9-36.1)
[2018-06-09 05:57] LABS: ALT (SGPT) 45 U/L (8-55); AST (SGOT) 58 U/L (5-34); Albumin 2.9 g/dL (3.4-4.8); Alkaline Phosphatase 48 U/L (40-150); Anion Gap 11 mmol/L (10-20); BUN (Urea Nitrogen) 19 mg/dL (8.4-25.7); Bilirubin, Total 0.8 mg/dL (0.2-1.2); Calc. Creatinine Clearance 105 mL/min (70-130); Calcium 8.3 mg/dL (7.8-10.44); Carbon Dioxide 24 mmol/L (23-31); Chloride 102 mmol/L (98-107); Estimated GFR-MDRD 77; Globulin 1.9 g/dL (2.4-3.5); Glucose 136 mg/dL (80-115); Potassium 3.4 mmol/L (3.5-5.1); Protein, Total 4.8 g/dL (5.8-8.1); Sodium 134 mmol/L (136-145)
[2018-06-09 06:23] LABS: Band 12 % (5-11); Eosinophils 1 % (0-10); Hemoglobin 10.3 g/dL (14.0-18.0); Lymphocytes 9 % (21-51); MDiff Complete? YES; Mean Corpuscular HGB CONC 32.8 g/dL (32.0-36.0); Mean Corpuscular Hemoglobin 31.4 pg (27.0-31.0); Mean Corpuscular Volume 95.7 fL (78.0-98.0); Mean Platelet Volume 8.1 fL (7.4-10.4); Monocytes 7 % (0-10); Neutrophil 71 % (42-75); Platelet Count 213 thou/uL (130-400); Platelet Morphology Comment Appears Adequate; RBC Distribution Width 11.9 % (11.5-14.5); Red Blood Cell (RBC) Count 3.27 mill/uL (4.70-6.10); White Blood Cell (WBC) Count 7.9 thou/uL (4.8-10.8)
[2018-06-09] MEDS: Levothyroxine Sodium 125 MCG TAB PO SCH (06:25)
[2018-06-09 07:36] LABS: Actual Bicarbonate (HCO3a) 24.6 mEq/L (22-28); Base Excess (BEa) 1.9 mEq/L (-2.0 to +3.0); CO2 Tension 31.4 mmHg (35.0-45.0); Calcium, Ionized 1.13 mmol/L (1.12-1.30); Carboxyhemoglobin (COHb) 0.7 gm% (0.0-3.0); Hemoglobin (Hb) 10.6 g/dL (14.0-18.0); O2 Tension (PaO2) 98.1 mmHg (> 80.0); Potassium - ABG Lab 3.09 mmol/L (3.70-5.30); pH, Arterial 7.51 (7.35-7.45)
--- NOTE | 2018-06-09 08:17 | RAD ---
PORTABLE CHEST: Date: 06/09/18 PROVIDED CLINICAL HISTORY: Respiratory insufficiency. FINDINGS: Comparison with 06/08/18. Significant interval change with respect to the prior examination is not apparent. IMPRESSION: As above. POS: [facility]
[2018-06-09 08:20] LABS: Puncture Site L.R.
[2018-06-09] MEDS: Atorvastatin Calcium 10 MG TAB PO SCH (08:30)
[2018-06-09] MEDS: Aspirin 81 mg Enteric Coated Tablet PER TUBE SCH (08:30)
[2018-06-09] MEDS: Pantoprazole 40 MG VIAL IVP SCH (08:30)
[2018-06-09] MEDS: Metoprolol Tartrate 25 MG TAB PO SCH ×2 (08:31→21:46)
[2018-06-09] MEDS: Lorazepam 2 MG/ML VIAL SLOW IVP PRN (15:16)
--- NOTE | 2018-06-09 15:44 | PDOC.PN ---
- Subjective Encounter Start Date: 06/09/18 Encounter Start Time: 14:00 Subjective: f/u for STEMI medically managed currently on [facility] ventilation. Became -: agitated/restless with sedation off. Follows more commands per nursing. - Objective Resuscitation Status - Order Detail: 06/05/18 21:02 Resuscitation Status Routine Resuscitation Status: FULL: Full Resuscitation MAR Reviewed: Yes Vital Signs & Weight: Vital Signs (12 hours) Temp Pulse Resp BP Pulse Ox 06/09/18 15:09 77 117/77 06/09/18 15:08 78 10 L 96 06/09/18 14:00 10 L 06/09/18 12:00 98.2 F 10 L 06/09/18 11:03 72 126/56 L 06/09/18 11:02 67 18 98 06/09/18 10:00 18 06/09/18 09:00 83 146/83 H 06/09/18 08:00 27 H 06/09/18 07:13 97 06/09/18 07:02 60 114/69 06/09/18 07:01 60 26 H 96 06/09/18 07:00 97.7 F 06/09/18 06:00 26 H 06/09/18 04:00 26 H Weight Admit Weight 217 lb Weight 217 lb 6.012 oz Most Recent Monitor Data Heart Rate from ECG 73 NIBP 117/77 NIBP BP-Mean 90 Respiration from ECG 11 SpO2 93 I&O: 06/08/18 06/09/18 06/10/18 06:59 06:59 06:59 Intake Total 5479 2635 0 Output Total 1884 2145 1300 Balance 3595 490 -1300 Result Diagrams: 06/09/18 05:23 06/09/18 05:23 Additional Labs: Accuchecks 06/09/18 06/08/18 09:59 15:43 POC Glucose 129 H 117 H Microbiology 06/06/18 21:00 Urine cai catheter Urine Culture - Final NO GROWTH AT 36 HOURS Laboratory Tests 06/05/18 06/05/18 06/05/18 19:10 19:10 19:10 WBC Potassium 3.4 L AST 58 H ALT 39 Alkaline Phosphatase Troponin I 0.582 H* B-Natriuretic Peptide 107.1 H 06/05/18 06/05/18 06/06/18 19:10 21:52 00:50 WBC 11.2 H Potassium AST ALT Alkaline Phosphatase Troponin I 32.221 H* 101.014 H* B-Natriuretic Peptide 06/06/18 06/06/18 06/07/18 03:42 14:30 03:00 WBC Potassium AST 253 H ALT 48 Alkaline Phosphatase Troponin I 90.012 H* 42.332 H* B-Natriuretic Peptide 06/07/18 06/08/18 03:00 04:20 WBC Potassium AST 169 H 106 H ALT 69 H 61 H Alkaline Phosphatase 50 Troponin I B-Natriuretic Peptide Laboratory Tests 06/08/18 06/09/18 04:20 05:23 Potassium 4.0 AST 58 H ALT 45 Alkaline Phosphatase 48 Radiology Reviewed by me: Yes (PCXR - no interval changes, lines/tubes in position) EKG Reviewed by me: Yes (Tele - SR) Phys Exam - Physical Examination sedate on mech ventilation ETT in place HEENT: sclera anicteric, oral pharynx no lesions Neck: no nodes, no JVD, supple, full ROM basilar coarse sounds, few wheezes Respiratory: clear to auscultation bilateral S1, S2 Cardiovascular: RRR, no significant murmur, no rub, gallop Gastrointestinal: soft, non-tender, no distention, positive bowel sounds Musculoskeletal: no edema, pulses present Skin: normal turgor, cap refill <2 seconds Deviation from normal: Cai with lizeth urine Dx/Plan (1) STEMI (ST elevation myocardial infarction) Status: Acute Qualifiers: Involved coronary artery: LAD coronary artery Qualified Code(s): I21.02 - ST elevation (STEMI) myocardial infarction involving left anterior descending coronary artery Comment: s/p LHC with recommendations for CABG when neurologically stable, continue med mgmt, ASA, Metoprolol, Heparin gtt (2) Cardiac arrest due to underlying cardiac condition Code(s): I46.2 - CARDIAC ARREST DUE TO UNDERLYING CARDIAC CONDITION Status: Acute Comment: s/p arrest secondary to STEMI, emergent LHC, continue hypothermic protocol, Neuro checks, ? anoxic injury and slow clinical improvement (3) Acute respiratory failure with hypoxia Code(s): J96.01 - ACUTE RESPIRATORY FAILURE WITH HYPOXIA Status: Acute Comment: Continue mech ventilation, add Duonebs, PCXR/ABG in am (4) Tobacco abuse Code(s): Z72.0 - TOBACCO USE Status: Chronic Comment: Tobacco cessation resources, consider nicotine patch (5) HLD (hyperlipidemia) Code(s): E78.5 - HYPERLIPIDEMIA, UNSPECIFIED Status: Chronic Comment: Resume Lipitor 10mg HS (6) Hypothyroidism Code(s): E03.9 - HYPOTHYROIDISM, UNSPECIFIED Status: Chronic Comment: Resume Levothyroxine 125mcg daily - Plan delinquency prevention social worker, respiratory therapy, DVT proph w/SCDs Continue critical support -: Continue mech ventilation -: Add Reglan 10mg IV Q8h -: Nutritional support with Glucerna -: AM lab: CBC, ABG * .
[2018-06-09] MEDS: Heparin 25,000 units/D5W 500 ML IVPB SCH (17:15)
--- NOTE | 2018-06-09 20:16 | PRG ---
DATE OF SERVICE: 06/09/2018 CHIEF COMPLAINT: Encephalopathy. INTERVAL HISTORY: The patient was more awake for our exam today and he is much more alert and is fighting the ventilator. Neurological exam, he was very responsive , but agitated. Moving all extremities. Pupillary reaction was normal. He does not seem to be in any focal weakness on exam. He seems to verbalize and understand the commands given to him. No recent CT is available other than the one from 06/05, which did not show any vascular abnormality and no intracranial findings. OBJECTIVE: VITAL SIGNS: His blood pressure was 154/84, pulse was 78, temperature was 98.2. IMPRESSION: The patient is a 63-year-old man with encephalopathy following a cardiac event. At this time, he seems to be improving and he is still fighting the ventilator. I do not see any focal weakness per se on our exam today without any sedation. RECOMMENDATIONS: Please continue cardiac workup and current treatment plan and please call Neurology if you have any further questions. Job ID: [id number] MTDD
[2018-06-09 21:27] LABS: Hemoglobin 11.4 g/dL (14.0-18.0); Platelet Count 258 thou/uL (130-400)
[2018-06-09] MEDS: Metoclopramide HCl 10 MG/2 ML VIAL IVP SCH (21:45)
--- NOTE | 2018-06-09 23:26 | PRG ---
DATE OF SERVICE: 06/09/2018 SUBJECTIVE: Fabien Calles remains sedated from mechanical ventilation. His actual tidal volumes are 700 to 900 mL on bilevel ventilation. If he was allowed to awaken, they would go up to 1100 mL. He was alkalotic this morning. His intake and outputs, positive 490. OBJECTIVE: LUNGS: Clear anteriorly. HEART: Regular rhythm. ABDOMEN: Soft. EXTREMITIES: Without asymmetry or edema. LABORATORY DATA: White count 7.9, hemoglobin 10.3, and platelets 213,000. Sodium 134, potassium 3.4, chloride 102, bicarb 24, BUN 19, and creatinine 0.9. PH 7.51, CO2 of 31, and pO2 of 98. We switched him to volume ventilation. Tidal volume 500. We left his PEEP at 5 , pressure support at 10 and he appeared to be reasonably comfortable. These settings will continue along this line. I am told that he is tentatively on the schedule for coronary artery bypass grafting next week. He remains encephalopathic, which is not surprising. He did have sudden cardiac , but I am told he was awakening. We will continue with supportive care and mechanical ventilation. Job ID: [id number] critical care time 30 minutes BLANE
[2018-06-10] MEDS: Propofol 1,000 MG/100 ML VIAL IV PRN ×5 (03:58→20:42)
[2018-06-10] MEDS: Levothyroxine Sodium 125 MCG TAB PO SCH (06:16)
[2018-06-10] MEDS: Metoclopramide HCl 10 MG/2 ML VIAL IVP SCH ×3 (06:16→20:42)
[2018-06-10 06:37] LABS: INR-International Normal Ratio 0.9; PTT 37.4 SEC (22.9-36.1); Prothrombin Time 12.2 SEC (12.0-14.7)
[2018-06-10] MEDS: Lorazepam 2 MG/ML VIAL SLOW IVP PRN (07:48)
[2018-06-10 07:55] LABS: Actual Bicarbonate (HCO3a) 28.2 mEq/L (22-28); Base Excess (BEa) 1.2 mEq/L (-2.0 to +3.0); CO2 Tension 56.6 mmHg (35.0-45.0); Calcium, Ionized 1.18 mmol/L (1.12-1.30); Carboxyhemoglobin (COHb) 0.6 gm% (0.0-3.0); Hemoglobin (Hb) 11.5 g/dL (14.0-18.0); O2 Tension (PaO2) 95.7 mmHg (> 80.0); Potassium - ABG Lab 3.79 mmol/L (3.70-5.30); pH, Arterial 7.32 (7.35-7.45)
[2018-06-10 08:01] LABS: Puncture Site L.R.
[2018-06-10] MEDS: fentaNYL Citrate/PF 2,000 MCG in Sodium Chloride 0.9% 60 ML IV SCH (08:26)
[2018-06-10 08:30] LABS: Band 12 % (5-11); Eosinophils 7 % (0-10); Hemoglobin 11.4 g/dL (14.0-18.0); Lymphocytes 23 % (21-51); MDiff Complete? YES; Mean Corpuscular HGB CONC 31.5 g/dL (32.0-36.0); Mean Corpuscular Hemoglobin 31.5 pg (27.0-31.0); Mean Platelet Volume 8.3 fL (7.4-10.4); Monocytes 9 % (0-10); Neutrophil 49 % (42-75); Platelet Count 241 thou/uL (130-400); RBC Distribution Width 12.4 % (11.5-14.5); White Blood Cell (WBC) Count 8.9 thou/uL (4.8-10.8)
[2018-06-10] MEDS: Pantoprazole 40 MG VIAL IVP SCH (08:39)
[2018-06-10] MEDS: Metoprolol Tartrate 25 MG TAB PO SCH ×2 (08:40→20:41)
[2018-06-10] MEDS: Aspirin 81 mg Enteric Coated Tablet PER TUBE SCH (08:40)
[2018-06-10] MEDS: Atorvastatin Calcium 40 MG TAB PO SCH (08:40)
[2018-06-10] MEDS: Heparin 10,000 UNITS/ 10 ML VIAL SLOW IVP SCH (08:54)
--- NOTE | 2018-06-10 10:00 | RAD ---
PORTABLE CHEST: Date: 06/10/18 HISTORY: Respiratory distress. COMPARISON: Prior day's study. FINDINGS: Endotracheal and NG tubes are in satisfactory position. There is elevation of the right hemidiaphragm . There is some atelectatic change seen in the right breast. Left lung is clear. IMPRESSION: Stable exam. POS: [facility]
[2018-06-10] MEDS ORDERED: Magnesium Sulfate 3 GM in Sodium Chloride 0.9% 100 ML IVPB SCH (10:15)
--- NOTE | 2018-06-10 10:54 | PRG ---
DATE OF SERVICE: 06/10/2018 SUBJECTIVE: Fabien Calles remains mechanically ventilated. OBJECTIVE: GENERAL: He is sedated for ventilation. VITAL SIGNS: Heart rate is in 80s, blood pressure 125/80, respiratory rate 21, and oximetry is 99. He has a 4-second exhale time. He is afebrile. LUNGS: Remarkable for diffuse wheezes. HEART: Regular rhythm. ABDOMEN: Soft. EXTREMITIES: Without asymmetry or edema. Intake and outputs, -166. LABORATORY STUDIES: White count 8.9, hemoglobin 11.4, and platelets 241,000. Sodium 134, potassium 3.4 yesterday. There is no Chem-7 today. Total protein is 4.8, albumin is 2.9. Chest x-ray reviewed by me. It is hazy on the right with an elevated right hemidiaphragm. It is very similar to yesterday's film. IMPRESSION: 1. Respiratory failure. a. He is currently not weanable. 2. ? Chronic obstructive pulmonary disease versus asthma. a. He has a very long exhale time and is bronchospastic today. 3. He is a smoker. a. He is receiving nebulized treatments every 4 hours. We will add in steroids today. He is currently not weanable. Critical care time 30 minutes. Job ID: [id number]
[2018-06-10] MEDS: methylPREDNISolone Sod Succ 40 MG VIAL IVP SCH ×3 (11:45→23:08)
[2018-06-10] MEDS: Heparin 25,000 units/D5W 500 ML IVPB SCH ×2 (12:58→20:42)
--- NOTE | 2018-06-10 18:43 | PDOC.PN ---
- Subjective Encounter Start Date: 06/10/18 Encounter Start Time: 18:30 Subjective: f/u for STEMI, resp failure continued on mech vent and unweanable. -: Medically managed for STEMI due to resp and mental status. -: Attempted sedation holiday this am but pt became agitated. - Objective Resuscitation Status - Order Detail: 06/05/18 21:02 Resuscitation Status Routine Resuscitation Status: FULL: Full Resuscitation MAR Reviewed: Yes Vital Signs & Weight: Vital Signs (12 hours) Temp Pulse Resp BP Pulse Ox 06/10/18 18:00 10 L 06/10/18 16:54 63 10 L 110/73 96 06/10/18 16:00 98.2 F 10 L 06/10/18 14:00 10 L 06/10/18 12:00 10 L 06/10/18 10:38 72 111/62 06/10/18 10:37 72 10 L 98 06/10/18 10:00 10 L 06/10/18 08:00 10 L 06/10/18 07:12 86 118/72 06/10/18 07:11 92 17 100 06/10/18 07:05 100 06/10/18 07:00 98.8 F Weight Admit Weight 217 lb Weight 217 lb 6.012 oz Most Recent Monitor Data Heart Rate from ECG 67 NIBP 105/56 NIBP BP-Mean 72 Respiration from ECG 10 SpO2 97 I&O: 06/09/18 06/10/18 06/11/18 06:59 06:59 06:59 Intake Total 2635 2204 1655 Output Total 2145 2370 975 Balance 490 -166 680 Result Diagrams: 06/10/18 06:16 06/10/18 06:38 Additional Labs: Microbiology 06/06/18 21:00 Urine cai catheter Urine Culture - Final NO GROWTH AT 36 HOURS Laboratory Tests 06/05/18 06/05/18 06/05/18 19:10 19:10 19:10 WBC Potassium 3.4 L AST 58 H ALT 39 Alkaline Phosphatase Troponin I 0.582 H* B-Natriuretic Peptide 107.1 H 06/05/18 06/05/18 06/06/18 19:10 21:52 00:50 WBC 11.2 H Potassium AST ALT Alkaline Phosphatase Troponin I 32.221 H* 101.014 H* B-Natriuretic Peptide 01/06/06/18 06/07/18 03:42 14:30 03:00 WBC Potassium AST 253 H ALT 48 Alkaline Phosphatase Troponin I 90.012 H* 42.332 H* B-Natriuretic Peptide 06/07/18 06/08/18 06/09/18 03:00 04:20 05:23 WBC Potassium 4.0 AST 169 H 106 H 58 H ALT 69 H 61 H 45 Alkaline Phosphatase 50 48 Troponin I B-Natriuretic Peptide Radiology Reviewed by me: Yes (PCXR - atelectasis in R>L lung hernandez, lines/ tubes in position) EKG Reviewed by me: Yes (Tele - SR) Phys Exam - Physical Examination sedate on mech vent ETT/OGT in place HEENT: sclera anicteric, oral pharynx no lesions Neck: no nodes, no JVD, supple, full ROM diminished in bases, scattered coarse sounds, prolonged exp S1, S2 Cardiovascular: RRR, no significant murmur, no rub, gallop Gastrointestinal: soft, non-tender, no distention, positive bowel sounds mild peripheral edema Musculoskeletal: pulses present Skin: normal turgor, cap refill <2 seconds Deviation from normal: Cai with clear urine Dx/Plan (1) STEMI (ST elevation myocardial infarction) Status: Acute Qualifiers: Involved coronary artery: LAD coronary artery Qualified Code(s): I21.02 - ST elevation (STEMI) myocardial infarction involving left anterior descending coronary artery Comment: s/p LHC with recommendations for CABG when neurologically stable, continue med mgmt, ASA, Metoprolol, Heparin gtt (2) Cardiac arrest due to underlying cardiac condition Code(s): I46.2 - CARDIAC ARREST DUE TO UNDERLYING CARDIAC CONDITION Status: Acute Comment: s/p arrest secondary to STEMI, emergent LHC, continue hypothermic protocol, Neuro checks, ? anoxic injury and slow clinical improvement (3) Acute respiratory failure with hypoxia Code(s): J96.01 - ACUTE RESPIRATORY FAILURE WITH HYPOXIA Status: Acute Comment: [facility], add Duonebs and Solumedrol, PCXR/ABG in am (4) Tobacco abuse Code(s): Z72.0 - TOBACCO USE Status: Chronic Comment: Tobacco cessation resources, consider nicotine patch (5) HLD (hyperlipidemia) Code(s): E78.5 - HYPERLIPIDEMIA, UNSPECIFIED Status: Chronic Comment: Resume Lipitor 10mg HS (6) Hypothyroidism Code(s): E03.9 - HYPOTHYROIDISM, UNSPECIFIED Status: Chronic Comment: Resume Levothyroxine 125mcg daily - Plan criminal justice social worker, respiratory therapy, DVT proph w/SCDs Continue critical support -: Continue SIMV -: Nutritional support with Jevity 1.2 @35ml/h -: Continue Reglan 10mg IV q8h -: AM lab: BMP, CBC, ABG * .
[2018-06-10 23:23] LABS: PTT 125.2 SEC (22.9-36.1)
[2018-06-11] MEDS: Propofol 1,000 MG/100 ML VIAL IV PRN ×8 (01:14→23:56)
[2018-06-11] MEDS: Lorazepam 2 MG/ML VIAL SLOW IVP PRN ×2 (01:15→22:38)
[2018-06-11 04:56] LABS: Hemoglobin 10.9 g/dL (14.0-18.0); Mean Corpuscular HGB CONC 31.9 g/dL (32.0-36.0); Mean Corpuscular Hemoglobin 31.3 pg (27.0-31.0); Mean Corpuscular Volume 98.1 fL (78.0-98.0); Mean Platelet Volume 8.2 fL (7.4-10.4); Platelet Count 261 thou/uL (130-400); RBC Distribution Width 12.1 % (11.5-14.5); Red Blood Cell (RBC) Count 3.48 mill/uL (4.70-6.10); White Blood Cell (WBC) Count 7.7 thou/uL (4.8-10.8)
[2018-06-11 05:07] LABS: Anion Gap 13 mmol/L (10-20); BUN (Urea Nitrogen) 19 mg/dL (8.4-25.7); Calc. Creatinine Clearance 105 mL/min (70-130); Calcium 9.2 mg/dL (7.8-10.44); Carbon Dioxide 29 mmol/L (23-31); Chloride 101 mmol/L (98-107); Estimated GFR-MDRD 77; Glucose 155 mg/dL (80-115); Sodium 138 mmol/L (136-145)
[2018-06-11 05:14] LABS: Band 8 % (5-11); Lymphocytes 7 % (21-51); MDiff Complete? YES; Monocytes 1 % (0-10); Neutrophil 84 % (42-75)
[2018-06-11] MEDS: Levothyroxine Sodium 125 MCG TAB PO SCH (05:19)
[2018-06-11] MEDS: Metoclopramide HCl 10 MG/2 ML VIAL IVP SCH ×3 (05:19→21:40)
[2018-06-11] MEDS: methylPREDNISolone Sod Succ 40 MG VIAL IVP SCH ×4 (05:19→23:56)
[2018-06-11 07:46] LABS: Actual Bicarbonate (HCO3a) 29.6 mEq/L (22-28); Base Excess (BEa) 4.6 mEq/L (-2.0 to +3.0); CO2 Tension 45.9 mmHg (35.0-45.0); Calcium, Ionized 1.13 mmol/L (1.12-1.30); Carboxyhemoglobin (COHb) 0.7 gm% (0.0-3.0); Hemoglobin (Hb) 10.8 g/dL (14.0-18.0); O2 Tension (PaO2) 82.5 mmHg (> 80.0); Potassium - ABG Lab 4.33 mmol/L (3.70-5.30); pH, Arterial 7.43 (7.35-7.45)
[2018-06-11 07:49] LABS: ALV-art Gradient 180.975 (0-20); Puncture Site RRA
--- NOTE | 2018-06-11 08:31 | PRG ---
DATE OF SERVICE: 06/11/2018 PULMONARY/CRITICAL CARE PROGRESS NOTE TIME SPENT: 35 minutes of critical care time. SUBJECTIVE: The patient remains intubated on mechanical ventilation. There have been no acute changes. He will wake up. He was following commands last week. I cannot get him to do much except for a faint squeeze of the hand. OBJECTIVE: VITAL SIGNS: On examination, temperature is 99.7, pulse 83, and blood pressure 158/83. 24-hour intake 3033, output 1980. HEENT: Unremarkable. NECK: No adenopathy, JVD, or bruits. LUNGS: Coarse breath sounds. CARDIAC: S1 and S2, regular. ABDOMEN: Soft. EXTREMITIES: No edema. LABORATORY DATA: Sodium 138, potassium 5, chloride 101, CO2 of 29, BUN 19, creatinine 0.9, and glucose 155. PH of 7.43, pCO2 of 45, pO2 of 82 on SIMV rate of 10, tidal volume 600, PEEP 5, pressure support 10, and FiO2 of 45%. White blood cell count 7.7, hematocrit 34.2, and platelet count 261. Chest x-ray shows no acute change. ASSESSMENT: 1. Acute respiratory failure, requiring mechanical ventilation. 2. Status post cardiac arrest from a critical left anterior descending lesion. 3. Encephalopathy, which is slowly improved. PLAN: I spoke with Dr. Gil late last week. I am very hesitant to proceed with aggressive weaning prior to bypass grafting surgery. The timing of the surgery will need to be discussed. I have reviewed the records. The patient is currently on a heparin drip. He is receiving steroids because of bronchospasm yesterday. We will need to for any developing infection. Job ID: [id number]
[2018-06-11] MEDS: Atorvastatin Calcium 40 MG TAB PO SCH (08:36)
[2018-06-11] MEDS: Aspirin 81 mg Enteric Coated Tablet PER TUBE SCH (08:36)
[2018-06-11] MEDS: Metoprolol Tartrate 25 MG TAB PO SCH ×2 (08:36→20:29)
[2018-06-11] MEDS: Pantoprazole 40 MG VIAL IVP SCH (08:37)
--- NOTE | 2018-06-11 08:58 | PDOC.CTH ---
Cardiology Progress Note - Subjective The pt seen and examined. No overnight events. The pt opens his eys now, but does not follow commands. - Objective Vital Signs Pulse Resp BP Pulse Ox 06/11/18 08:00 14 06/11/18 07:35 100 06/11/18 07:04 81 158/83 H 06/11/18 07:02 83 14 98 06/11/18 06:00 15 06/11/18 04:00 16 06/11/18 02:31 88 06/11/18 02:00 14 06/11/18 00:00 10 L 06/10/18 23:13 65 99/58 L 06/10/18 22:00 12 Admit Weight 217 lb Weight 217 lb 6.012 oz 06/10/18 06/11/18 06/12/18 06:59 06:59 06:59 Intake Total 2204 3033 0 Output Total 2370 1980 175 Balance -166 1053 -175 - Physical Examination Lungs: other: (diminished at bases) Heart: RRR Abdomen: soft Extremities: other: (generalized edema) - Telemetry Telemetry Rhythm: SR 90-100 - Labs Result Diagrams: 06/11/18 04:20 06/11/18 04:20 Troponin/CKMB CK-MB (CK-2) 110.2 ng/mL (0-6.6) H* 06/06/18 14:30 Troponin I 42.332 ng/mL (< 0.028) H* 06/07/18 03:00 - Assessment/Plan 1. Acute RI 2/2 s/p out of hospital cardiac arrest - plan for CABG when he is neurologically stable (possible in this wk?); on Heparin drip; On Metoprolol 25mg BID. 2. HTN - Stable 3. Hyperlipidemia - 4. Anoxic brain injury - the pt did follow commands yesterday PM per report. 5. SZ - Neurology consult 6. COPD - On Vent 7. Elevated LFT - cont. to monitor 8. hx of GI bleed - stable 9. Hypothyroidism - 10. tobacco abuse - MAR reviewed pt. seen and eval. by me. He is somewhat sedated at this time but per the staff he is more alert and follows commands when not sedated. i agree with the A/P by the TACTICAL DEBRIEFER OFFICER. RRR. Chest clear. No edema. Plan for CABG tomorrow. Review of Systems - Review of Systems Constitutional: reports: see HPI
--- NOTE | 2018-06-11 09:14 | RAD ---
AP VIEW CHEST: HISTORY: Ventilator-dependent patient. FINDINGS: AP view chest is obtained on 06/11/2018. Comparison is made to a previous exam from 06/10/2018. AP view chest demonstrates nasogastric and endotracheal tubes to be in place. There is elevation of the right hemidiaphragm unchanged since the previous day's exam. Pulmonary vascular congestion is seen. No evidence of pneumonia is seen. IMPRESSION: 1. Elevated right hemidiaphragm. 2. Pulmonary vascular congestion. POS: [facility]
[2018-06-11] MEDS ORDERED: Communication Order-Pharmacy FS ONE (12:45)
[2018-06-11] MEDS: Heparin 25,000 units/D5W 500 ML IVPB SCH (15:13)
--- NOTE | 2018-06-11 15:41 | PDOC.PN ---
- Subjective Encounter Start Date: 06/11/18 Encounter Start Time: 11:00 Subjective: Patient sedated on the vent. No event overnight. - Objective Resuscitation Status - Order Detail: 06/05/18 21:02 Resuscitation Status Routine Resuscitation Status: FULL: Full Resuscitation MAR Reviewed: Yes Vital Signs & Weight: Vital Signs (12 hours) Pulse Resp BP Pulse Ox 06/11/18 14:21 85 166/95 H 06/11/18 14:19 84 13 99 06/11/18 14:00 13 06/11/18 12:00 25 H 06/11/18 10:38 91 165/101 H 06/11/18 10:37 91 21 H 99 06/11/18 10:00 18 06/11/18 08:00 14 06/11/18 07:35 100 06/11/18 07:04 81 158/83 H 06/11/18 07:02 83 14 98 06/11/18 06:00 15 06/11/18 04:00 16 Weight Admit Weight 217 lb Weight 217 lb 6.012 oz Most Recent Monitor Data Heart Rate from ECG 84 NIBP 174/101 NIBP BP-Mean 125 Respiration from ECG 15 SpO2 100 I&O: 06/10/18 06/11/18 06/12/18 06:59 06:59 06:59 Intake Total 2204 3033 90 Output Total 2370 1980 1060 Balance -166 1053 -970 Result Diagrams: 06/11/18 04:20 06/11/18 04:20 Phys Exam - Physical Examination HEENT: moist MMs Respiratory: no wheezing, no rales, no rhonchi Cardiovascular: RRR Gastrointestinal: soft, positive bowel sounds Musculoskeletal: no edema not moving extremities Deviation from normal: sedated on vent Dx/Plan (1) STEMI (ST elevation myocardial infarction) Status: Acute Qualifiers: Involved coronary artery: LAD coronary artery Qualified Code(s): I21.02 - ST elevation (STEMI) myocardial infarction involving left anterior descending coronary artery Comment: s/p LHC with recommendations for CABG when neurologically stable, continue med mgmt, ASA, Metoprolol, Heparin gtt (2) Cardiac arrest due to underlying cardiac condition Code(s): I46.2 - CARDIAC ARREST DUE TO UNDERLYING CARDIAC CONDITION Status: Acute Comment: s/p arrest secondary to STEMI, emergent LHC, continue hypothermic protocol, Neuro checks, ? anoxic injury and slow clinical improvement (3) Acute respiratory failure with hypoxia Code(s): J96.01 - ACUTE RESPIRATORY FAILURE WITH HYPOXIA Status: Acute Comment: [facility], add Duonebs and Solumedrol, PCXR/ABG in am (4) HLD (hyperlipidemia) Code(s): E78.5 - HYPERLIPIDEMIA, UNSPECIFIED Status: Chronic Comment: Resume Lipitor 10mg HS (5) Hypothyroidism Code(s): E03.9 - HYPOTHYROIDISM, UNSPECIFIED Status: Chronic Comment: Resume Levothyroxine 125mcg daily (6) Tobacco abuse Code(s): Z72.0 - TOBACCO USE Status: Chronic Comment: Tobacco cessation resources, consider nicotine patch - Plan cont current plan of care, respiratory therapy, DVT proph w/heparin, DVT proph w /SCDs * . - Discharge Day Encounter end time: 11:20 Pulmonology Consult: Meds - Medications MAR Reviewed: Yes Medications: Current Medications Albuterol/Ipratropium (Duoneb) 3 ml NEB [id number] MAL Stop: 06/12/18 09:00 Last Admin: 06/11/18 14:19 Dose: 3 ml Aspirin (Aspirin Chewable) 81 mg PER TUBE DAILY MAL Atorvastatin Calcium (Lipitor) 40 mg PO DAILY MAL Stop: 06/12/18 09:00 Last Admin: 06/11/18 08:36 Dose: 40 mg Dextrose/Water (Dextrose 50%) 25 gm SLOW IVP PRN PRN PRN Reason: Hypoglycemia Stop: 06/12/18 09:00 Glucagon (Glucagon) 1 mg IM PRN PRN PRN Reason: Hypoglycemia Stop: 06/12/18 09:00 Heparin Sodium (Porcine) (Heparin 1,000 Units/Ml (10 Ml)) 0 units SLOW IVP ASDIR MAL; Protocol Stop: 06/12/18 09:00 Last Admin: 06/10/18 08:54 Dose: 6,000 unit Dextrose/Water (D5w) 1,000 mls @ 0 mls/hr IV .Q0M PRN PRN Reason: Hypoglycemia Stop: 06/12/18 09:00 Potassium Chloride 40 meq/ (Sodium Chloride) 270 mls @ 135 mls/hr IVPB ASDIR PRN PRN Reason: FOR SERUM K+ 2.5 - 3.5 Stop: 06/12/18 09:00 Potassium Chloride 40 meq/ (Device) 100 mls @ 50 mls/hr IVPB ASDIR PRN PRN Reason: FOR SERUM K+ 2.5 - 3.5 Stop: 06/12/18 09:00 Magnesium Sulfate 1 gm/ Sodium (Chloride) 102 mls @ 102 mls/hr IV PRN PRN PRN Reason: MAG LEVEL 1.4 - 2.0 Stop: 06/12/18 09:00 Magnesium Sulfate 2 gm/ Device 100 mls @ 100 mls/hr IVPB ASDIR PRN PRN Reason: MAGNESIUM < 1.4 Stop: 06/12/18 09:00 Potassium Phosphate 9 mmol/ (Sodium Chloride) 103 mls @ 25.75 mls/hr IVPB ASDIR PRN PRN Reason: Phosphate 1.0-1.8 Stop: 06/12/18 09:00 Potassium Phosphate 12 mmol/ (Sodium Chloride) 254 mls @ 63.5 mls/hr IV ASDIR PRN PRN Reason: Serum phosphate 0.5-0.9 Stop: 06/12/18 09:00 Potassium Phosphate 15 mmol/ (Sodium Chloride) 255 mls @ 63.75 mls/hr IV ASDIR PRN PRN Reason: Serum Phos < 0.5 Stop: 06/12/18 09:00 Fentanyl Citrate 2,000 mcg/ (Sodium Chloride) 100 mls @ 0 mls/hr IV INF MAL; Protocol Stop: 06/12/18 09:00 Last Admin: 06/10/18 08:26 Dose: 100 mls Fentanyl Citrate (Fentanyl Bolus) 250 mls @ 0 mls/hr IVPB PRN PRN PRN Reason: Breakthrough pain/agitation Stop: 06/12/18 09:00 Heparin Sodium/Dextrose (Heparin 25,000 Units/D5w 500 Ml) 500 mls @ 0 mls/hr IVPB INF MAL; Protocol Stop: 06/12/18 09:00 Last Admin: 06/11/18 15:13 Dose: 500 mls Levetiracetam 500 mg/ Device 100 mls @ 200 mls/hr IVPB BID MAL Stop: 06/12/18 09:00 Last Admin: 06/11/18 08:36 Dose: 100 mls Insulin Human Lispro (Humalog) 0 units SC .MODERATE SLIDING SC PRN PRN Reason: Moderate Correctional Scale Stop: 06/12/18 09:00 Levothyroxine Sodium (Synthroid) 125 mcg PO 0600 MAL Stop: 06/12/18 09:00 Last Admin: 06/11/18 05:19 Dose: 125 mcg Lorazepam (Ativan) 2 mg SLOW IVP Q1H PRN PRN Reason: Breakthrough agitation Stop: 06/12/18 09:00 Last Admin: 06/11/18 01:15 Dose: 2 mg Magnesium Oxide (Magnesium Oxide) 400 mg PO BIDPRN PRN PRN Reason: FOR SERUM MAG 1.4 - 2.0 Stop: 06/12/18 09:00 Magnesium Oxide (Magnesium Oxide) 800 mg PO PRN PRN PRN Reason: FOR SERUM MAG < 1.4 Stop: 06/12/18 09:00 Methylprednisolone Sodium Succinate (Solu-Medrol) 20 mg IVP Q6HR [facility] Stop: 06/12/18 09:00 Last Admin: 06/11/18 11:52 Dose: 20 mg Metoclopramide HCl (Reglan) 10 mg IVP Q8HR [facility] Stop: 06/12/18 09:00 Last Admin: 06/11/18 13:29 Dose: 10 mg Metoprolol Tartrate (Lopressor) 25 mg PO BID [facility] Last Admin: 06/11/18 08:36 Dose: 25 mg Miscellaneous Medication (Ccu Electrolyte Replacement) 1 each FS ONE [facility] Stop: 06/12/18 09:00 Miscellaneous Medication (Phos-Nak) 1 pkt PO TIDPRN PRN PRN Reason: FOR PHOS LEVEL 1.0 - 1.8 Stop: 06/12/18 09:00 Miscellaneous Medication (Phos-Nak) 2 pkt PO TIDPRN PRN PRN Reason: FOR PHOS LEVEL 0.5 - 1.0 Stop: 06/12/18 09:00 Morphine Sulfate (Morphine) 2 mg SLOW IVP Q1H PRN PRN Reason: BREAKTHROUGH PAIN/Agitation Stop: 06/12/18 09:00 Morphine Sulfate (Morphine) 2 mg SLOW IVP Q5MIN PRN PRN Reason: Chest Pain Stop: 06/12/18 09:00 Nitroglycerin (Nitrostat) 0.4 mg SL Q5MIN PRN PRN Reason: Chest Pain Stop: 06/12/18 09:00 Ccu Electrolyte (Replacement Protocol) 0 each FS PRN PRN PRN Reason: FOR ELECTROLYTE REPLACEMENT Discontinue Previous Narcotic Pain Medications And Benzodiazepines 1 each FS .ONE MAL Stop: 07/05/18 20:51 Pantoprazole Sodium (Protonix) 40 mg IVP DAILY MAL Stop: 06/12/18 09:00 Last Admin: 06/11/18 08:37 Dose: 40 mg Potassium Chloride (K-Dur) 40 meq PO ASDIR PRN PRN Reason: FOR SERUM K+ 2.5 - 3.5 Stop: 06/12/18 09:00 Potassium Chloride (Klor-Con) 40 meq PER TUBE ASDIR PRN PRN Reason: FOR SERUM K+ 2.5-3.5 Stop: 06/12/18 09:00 Last Admin: 06/09/18 11:12 Dose: 40 meq Propofol (Diprivan) 1,000 mg IV INF PRN; Protocol PRN Reason: TO ACHIEVE GOAL RASS Stop: 07/05/18 20:51 Last Admin: 06/11/18 13:28 Dose: 1,000 mg Propofol (Diprivan Bolus) 20 mg IV Q5MIN PRN PRN Reason: BREAKTHROUGH AGITATION Stop: 06/12/18 09:00 Sodium Chloride (Flush - Normal Saline) 10 ml IVF Q12HR MAL Stop: 06/12/18 09:00 Last Admin: 06/11/18 08:37 Dose: 10 ml Sodium Chloride (Flush - Normal Saline) 10 ml IVF PRN PRN PRN Reason: Saline Flush Stop: 06/12/18 09:00 - Allergies Allergies/Adverse Reactions: Allergies Allergy/AdvReac Type Severity Reaction Status Date / Time No Known Drug Allergies Allergy Verified 06/06/18 00:55
[2018-06-11] MEDS: Heparin 10,000 UNITS/ 10 ML VIAL SLOW IVP SCH (17:00)
[2018-06-11] MEDS ORDERED: hydrALAZINE 20 MG/ML VIAL SLOW IVP PRN (17:04)
[2018-06-11 21:19] LABS: Hemoglobin 11.7 g/dL (14.0-18.0); Platelet Count 301 thou/uL (130-400)
[2018-06-11 23:25] LABS: PTT 122.5 SEC (22.9-36.1)
[2018-06-12] MEDS: Propofol 1,000 MG/100 ML VIAL IV PRN ×6 (03:38→23:04)
[2018-06-12 05:16] LABS: Hemoglobin 11.5 g/dL (14.0-18.0); Mean Corpuscular HGB CONC 32.3 g/dL (32.0-36.0); Mean Corpuscular Hemoglobin 31.5 pg (27.0-31.0); Mean Corpuscular Volume 97.6 fL (78.0-98.0); Mean Platelet Volume 8.7 fL (7.4-10.4); Platelet Count 311 thou/uL (130-400); RBC Distribution Width 12.1 % (11.5-14.5); Red Blood Cell (RBC) Count 3.63 mill/uL (4.70-6.10)
[2018-06-12 05:23] LABS: Anion Gap 13 mmol/L (10-20); BUN (Urea Nitrogen) 20 mg/dL (8.4-25.7); Calc. Creatinine Clearance 115 mL/min (70-130); Calcium 9.2 mg/dL (7.8-10.44); Carbon Dioxide 30 mmol/L (23-31); Chloride 101 mmol/L (98-107); Estimated GFR-MDRD 86; Glucose 109 mg/dL (80-115); Potassium 4.4 mmol/L (3.5-5.1); Sodium 140 mmol/L (136-145)
[2018-06-12 05:40] LABS: Band 6 % (5-11); Lymphocytes 6 % (21-51); MDiff Complete? YES; Monocytes 6 % (0-10); Neutrophil 82 % (42-75)
[2018-06-12] MEDS: Levothyroxine Sodium 125 MCG TAB PO SCH (05:44)
[2018-06-12] MEDS: methylPREDNISolone Sod Succ 40 MG VIAL IVP SCH (05:44)
[2018-06-12] MEDS: Metoclopramide HCl 10 MG/2 ML VIAL IVP SCH (05:44)
[2018-06-12] MEDS ORDERED: Dexamethasone 4 mg/ml Vial ONE (06:31)
[2018-06-12] MEDS ORDERED: Bupivacaine HCl 0.5%/Epinephrine 1:200,000/PF 30 ml Vial ONE (06:31)
[2018-06-12] MEDS ORDERED: Albumin 5% 500 ML ONE (06:31)
[2018-06-12] MEDS ORDERED: Heparin 10,000 UNITS/1 ML VIAL 30,000 UNITS in Sodium Chloride 0.9% 1,000 ML FS SCH (06:45)
[2018-06-12] MEDS ORDERED: Fentanyl 250 MCG/5 ML VIAL ONE ×2 (06:55→09:00)
[2018-06-12] MEDS ORDERED: Midazolam HCl 5 mg/5 ml Vial ONE (06:55)
[2018-06-12 07:21] LABS: Actual Bicarbonate (HCO3a) 29.2 mEq/L (22-28); Base Excess (BEa) 4.2 mEq/L (-2.0 to +3.0); CO2 Tension 45.3 mmHg (35.0-45.0); Calcium, Ionized 1.15 mmol/L (1.12-1.30); Carboxyhemoglobin (COHb) 0.5 gm% (0.0-3.0); Hemoglobin (Hb) 11.9 g/dL (14.0-18.0); O2 Tension (PaO2) 102.5 mmHg (> 80.0); Potassium - ABG Lab 4.44 mmol/L (3.70-5.30); pH, Arterial 7.43 (7.35-7.45)
[2018-06-12 07:23] LABS: ALV-art Gradient 161.725 (0-20); Puncture Site RRA
--- NOTE | 2018-06-12 08:00 | RAD ---
AP CHEST: History: Ventilator dependent patient. Date: 06-12-18 Comparison: 06-11-18 FINDINGS: AP chest demonstrates a nasogastric and endotracheal tube to be in place. There is mild elevation of the right hemidiaphragm. Pulmonary vascular congestion is seen. A tiny right sided pleural effusion i s seen. IMPRESSION: 1. Mild pulmonary vascular congestion. 2. Small right sided pleural effusion. POS: [facility]
--- NOTE | 2018-06-12 08:18 | PDOC.PN ---
- Subjective Encounter Start Date: 06/12/18 Encounter Start Time: 15:20 Subjective: Patient back from CABG. Intubated and sedated. Went into afib with RVR -: after procedure, loaded with Amiodarone and on drip with HR down to 130s. - Objective Resuscitation Status - Order Detail: 06/05/18 21:02 Resuscitation Status Routine Resuscitation Status: FULL: Full Resuscitation MAR Reviewed: Yes Vital Signs & Weight: Vital Signs (12 hours) Temp Pulse Resp BP Pulse Ox 06/12/18 07:32 100 06/12/18 06:40 92 155/99 H 06/12/18 06:38 92 11 L 97 06/12/18 06:00 12 06/12/18 04:00 99.7 F H 16 06/12/18 03:56 102 H 153/96 H 06/12/18 02:39 91 06/12/18 02:00 13 06/12/18 00:00 98.9 F 16 06/11/18 22:29 104 H 170/101 H 06/11/18 22:28 100 06/11/18 22:00 18 Weight Admit Weight 217 lb Weight 217 lb 6.012 oz Most Recent Monitor Data Heart Rate from ECG 93 NIBP 160/107 NIBP BP-Mean 124 Respiration from ECG 25 SpO2 100 I&O: 06/11/18 06/12/18 06/13/18 06:59 06:59 06:59 Intake Total 3033 2316 0 Output Total 1980 4455 60 Balance 1053 -2139 -60 Result Diagrams: 06/12/18 17:06 06/12/18 17:06 Additional Labs: Accuchecks 06/12/18 06/11/18 07:47 23:11 POC Glucose 114 H 132 H Phys Exam - Physical Examination HEENT: moist MMs Respiratory: no wheezing, no rales, no rhonchi some upper airway noises on vent Cardiovascular: irregular Tachycardic Musculoskeletal: no edema, pulses present Neurological: non-focal Deviation from normal: sedated on vent Dx/Plan (1) STEMI (ST elevation myocardial infarction) Status: Acute Qualifiers: Involved coronary artery: LAD coronary artery Qualified Code(s): I21.02 - ST elevation (STEMI) myocardial infarction involving left anterior descending coronary artery Comment: s/p CABG 06/12/2018 (2) Cardiac arrest due to underlying cardiac condition Code(s): I46.2 - CARDIAC ARREST DUE TO UNDERLYING CARDIAC CONDITION Status: Resolved Comment: s/p arrest secondary to STEMI, emergent LHC, continue hypothermic protocol, Neuro checks, ? anoxic injury and slow clinical improvement (3) Acute respiratory failure with hypoxia Code(s): J96.01 - ACUTE RESPIRATORY FAILURE WITH HYPOXIA Status: Acute Comment: Continue mech ventilation, possibly try to wean tomorrow (4) HLD (hyperlipidemia) Code(s): E78.5 - HYPERLIPIDEMIA, UNSPECIFIED Status: Chronic Comment: Resume Lipitor 10mg HS (5) Hypothyroidism Code(s): E03.9 - HYPOTHYROIDISM, UNSPECIFIED Status: Chronic Comment: Resume Levothyroxine 125mcg daily (6) Tobacco abuse Code(s): Z72.0 - TOBACCO USE Status: Chronic Comment: Tobacco cessation resources, consider nicotine patch (7) Hypertension Code(s): I10 - ESSENTIAL (PRIMARY) HYPERTENSION Status: Chronic Qualifiers: Hypertension type: essential hypertension Qualified Code(s): I10 - Essential (primary) hypertension - Plan cont current plan of care, respiratory therapy, DVT proph w/heparin, DVT proph w /SCDs * .
[2018-06-12] MEDS ORDERED: Aspirin Chewable 81 MG TAB PER TUBE SCH (09:00)
[2018-06-12] MEDS ORDERED: Metoprolol Tartrate 50 MG TAB PO SCH (09:00)
[2018-06-12] MEDS: Pantoprazole 40 MG VIAL IVP SCH (09:07)
[2018-06-12] MEDS: Atorvastatin Calcium 40 MG TAB PO SCH (09:07)
[2018-06-12] MEDS ORDERED: Potassium Chloride 20 MEQ/100 ML PREMIX BAG IVPB PRN (11:07)
[2018-06-12] MEDS ORDERED: Post-Op Insulin Drip Protocol IVPB ONE (11:07)
[2018-06-12] MEDS ORDERED: Guaifenesin DM 100-10/5 ML UDCUP PO PRN (11:07)
[2018-06-12] MEDS ORDERED: Nitroglycerin 50 MG/250 ML BOT 250 ML IVPB PRN (11:07)
[2018-06-12] MEDS ORDERED: HYDROcodone/Acetaminophen 5/325 mg Tablet PO PRN ×2 (11:07)
[2018-06-12] MEDS ORDERED: Bisacodyl 5 MG TAB PO PRN (11:07)
[2018-06-12] MEDS ORDERED: Bisacodyl 10 MG SUPP PR PRN (11:07)
[2018-06-12] MEDS ORDERED: Norepinephrine 8 MG/0.9% NS 250 ML IVPB PRN (11:07)
[2018-06-12] MEDS ORDERED: Hetastarch 6% 500 ML 500 ML IVPB PRN (11:07)
[2018-06-12] MEDS ORDERED: Magnesium 2 GM/50 ML 2 GM in Premix Bag 1 BAG IVPB SCH (11:07)
[2018-06-12] MEDS ORDERED: Ondansetron PF 4 MG/2 ML Vial IVP PRN (11:07)
[2018-06-12] MEDS ORDERED: Morphine 2 MG/ML SYRINGE SLOW IVP PRN (11:07)
[2018-06-12] MEDS ORDERED: Fentanyl 100 MCG/2 ML VIAL SLOW IVP PRN ×2 (11:07)
[2018-06-12] MEDS ORDERED: Mag-Al 1200 mg/1200 mg/30 ML UDCUP PO PRN (11:07)
[2018-06-12] MEDS ORDERED: hydrALAZINE 20 MG/ML VIAL SLOW IVP PRN (11:07)
--- NOTE | 2018-06-12 11:08 | OP ---
DATE OF PROCEDURE: 06/12/2018 PREOPERATIVE DIAGNOSES: 1. Coronary artery disease, status post unwitnessed arrest with resuscitation, hypothermic protocol. 2. Hypertension. 3. Hyperlipidemia. 4. Gastroesophageal reflux disease. POSTOPERATIVE DIAGNOSES: 1. Coronary artery disease, status post unwitnessed arrest with resuscitation, hypothermic protocol. 2. Hypertension. 3. Hyperlipidemia. 4. Gastroesophageal reflux disease. PROCEDURES PERFORMED: 1. Off-pump coronary artery bypass grafting x2 - left internal mammary artery 2.5 mm distal left anterior descending - good conduit and target. 2. Reverse saphenous vein to 1.5 mm diagonal - good conduit and target. CO-SURGEON: Adolfo Martin MD ANESTHESIA: General endotracheal - Brendon Yan MD DRAINS: 24-Turkish chest tubes x2. DRIPS: None. TRANSFUSIONS: One platelet pack and 2 units of FFP. DESCRIPTION OF PROCEDURE: After consent was obtained, the patient was brought to the operating room, placed in supine position on the operating table. Appropriate central line was placed, and general endotracheal anesthesia was induced. Greater saphenous vein was harvested from the left thigh through a single incision. Wound was irrigated and closed in layers. Median sternotomy was performed. The chest wall and sternum were very bruised. There were a couple of partial fractures of the sternum, this was all from the CPR performed preoperatively. The left internal mammary artery was harvested as a pedicle graft. The patient was systemically heparinized. Distal pedicle was divided and infused with papaverine. Thymic fat and pericardium were divided with electrocautery. Pericardial stay sutures were placed. Heart was then positioned for diagonal bypass with Octopus retractor. Proximal control with same vessel loop. Saphenous vein was anastomosed to the diagonal with running 7-0 Prolene suture. On release of the vessel loop, there was good hemostasis. Heart was then positioned for LAD bypass. Mammary artery was brought into the pericardium and anastomosed to the LAD with running 7-0 Prolene suture using a similar technique. On release, mammary claims good occluding anastomosis and good distal flow. Pedicle was secured with interrupted 6-0 Prolene suture. Blood pressures dropped into the 90s. Partial occluding clamp was placed on the aorta. Saphenous vein was anastomosed to a punch site in aorta with running 6-0 Prolene suture. On release of clamp, grafts de-aired. Anastomoses were inspected for hemostasis, which was good. The patient then had protamine administered. FFP and platelets were administered due to the ooze that was coming from all the bruised tissue. A 24-Turkish chest tubes were placed in mediastinum. After adequate hemostasis have been obtained, sternum was treated with vancomycin paste and closed with #7 wire. Sternum was treated with platelet rich plasma. Wires were twisted and buried. The intercostal spaces were injected with 0.5% Marcaine with epinephrine mixed with 4 mg of Decadron. The wound was then copiously irrigated with platelet poor plasma and closed in multiple layers. Dermabond was applied to the skin incision. The patient tolerated the procedure well, was transferred to the intensive care unit in stable critical condition. Job ID: [id number]
[2018-06-12] MEDS ORDERED: Dextrose 50% Abboject 50 ML SYRINGE SLOW IVP PRN (11:12)
[2018-06-12] MEDS ORDERED: Dextrose 5% in Water 1,000 ML IV PRN (11:12)
[2018-06-12] MEDS ORDERED: HUMULIN R 100 UNITS in Sodium Chloride 0.9% 100 ML IVPB SCH (11:12)
[2018-06-12] MEDS ORDERED: Insulin Regular 300 UNITS/3 ML VIAL SC PRN (11:12)
[2018-06-12] MEDS ORDERED: Amiodarone 150 MG, Admixture Fee 1 EACH in Dextrose 5% in Water 100 ML IVPB SCH (11:15)
[2018-06-12 11:32] LABS: Anion Gap 15 mmol/L (10-20); BUN (Urea Nitrogen) 20 mg/dL (8.4-25.7); Calc. Creatinine Clearance 121 mL/min (70-130); Calcium 8.4 mg/dL (7.8-10.44); Carbon Dioxide 26 mmol/L (23-31); Chloride 102 mmol/L (98-107); Estimated GFR-MDRD 90; Glucose 144 mg/dL (80-115); Potassium 4.3 mmol/L (3.5-5.1); Sodium 139 mmol/L (136-145)
[2018-06-12 11:34] LABS: INR-International Normal Ratio 1.3; PTT 33.7 SEC (22.9-36.1); Prothrombin Time 15.8 SEC (12.0-14.7)
[2018-06-12] MEDS: Ketorolac Tromethamine 30 MG/ML VIAL IVP SCH ×3 (11:41→23:04)
[2018-06-12 11:46] LABS: #Eosinphils 0.1 thou/uL (0.0-0.7); #Lymphocytes 1.1 thou/uL (1.20-3.40); #Monocytes 0.6 thou/uL (0.11-0.59); #Neutrophils 10.3 thou/uL (1.40-6.50); %Basophils 0.1 % (0.0-1.0); %Eosinophils 0.5 % (0.0-10.0); %Lymphocytes 9.1 % (21.0-51.0); %Monocytes 4.8 % (0.0-10.0); %Neutrophils 85.5 % (42.0-75.0); Hemoglobin 9.9 g/dL (14.0-18.0); Mean Corpuscular HGB CONC 31.6 g/dL (32.0-36.0); Mean Corpuscular Volume 97.9 fL (78.0-98.0); Platelet Count 306 thou/uL (130-400); RBC Distribution Width 12.1 % (11.5-14.5); Red Blood Cell (RBC) Count 3.21 mill/uL (4.70-6.10); White Blood Cell (WBC) Count 12.1 thou/uL (4.8-10.8)
[2018-06-12] MEDS: D5 1/2 NS w/20 mEq KCL 1,000 ML IV SCH (11:57)
[2018-06-12 11:59] LABS: Actual Bicarbonate (HCO3a) 29.9 mEq/L (22-28); CO2 Tension 57.5 mmHg (35.0-45.0); Calcium, Ionized 1.06 mmol/L (1.12-1.30); Carboxyhemoglobin (COHb) 0.1 gm% (0.0-3.0); Hemoglobin (Hb) 11.1 g/dL (14.0-18.0); O2 Tension (PaO2) 179.2 mmHg (> 80.0); Potassium - ABG Lab 4.17 mmol/L (3.70-5.30); pH, Arterial 7.33 (7.35-7.45)
[2018-06-12] MEDS: Amiodarone 450 MG, Admixture Fee 1 EACH in Dextrose 5% in Water 250 ML IVPB SCH ×2 (12:00→18:29)
--- NOTE | 2018-06-12 12:08 | PRG ---
DATE OF SERVICE: 06/12/2018 35 minutes critical care time. SUBJECTIVE: Mr. Calles was seen in the CCU following his bypass surgery this morning. The patient has developed atrial fibrillation with a rapid ventricular response. He is currently intubated and sedated. PHYSICAL EXAMINATION: VITAL SIGNS: His pulse is running about 125, blood pressure 132/58, O2 saturation 100%, respiratory rate 16. HEENT: Unremarkable. NECK: No JVD. CHEST: Fairly clear anteriorly bilaterally. CARDIAC: S1 and S2, tachycardic, and irregularly irregular. ABDOMEN: Soft. EXTREMITIES: No edema. LABORATORY DATA: White blood cell count 11, hematocrit 35.5, and platelet count 311. PH 7.43, pCO2 of 45, PO2 of 102. Sodium 139, potassium 4.3, chloride 102, CO2 of 26, BUN 20, creatinine 0.8, and glucose 144. Chest x-ray demonstrates fairly clear lung hernandez, slightly elevated right hemidiaphragm. ASSESSMENT: 1. Acute respiratory failure, requiring mechanical ventilation. 2. Status post CPR for cardiac arrest. 3. Status post coronary artery bypass grafting surgery. PLAN: If at all possible, we will try to wean, but I am not sure his atrial fibrillation will allow it. Currently, he is on amiodarone and we will not press the issue of weaning until he is converted back to sinus rhythm. Job ID: [id number]
--- NOTE | 2018-06-12 12:39 | PDOC.CTH ---
Cardiology Progress Note - Subjective The pt seen and examined. No overnight events. on Amiodarone with bolus for Post-Op Afib. On Vent sedation. - Objective Vital Signs Temp Pulse Resp BP Pulse Ox 06/12/18 12:00 98.6 F 12 06/12/18 11:07 125 H 21 H 128/57 L 100 06/12/18 07:32 100 06/12/18 06:40 92 155/99 H 06/12/18 06:38 92 11 L 97 06/12/18 06:00 12 06/12/18 04:00 99.7 F H 16 06/12/18 03:56 102 H 153/96 H 06/12/18 02:39 91 06/12/18 02:00 13 Admit Weight 217 lb Weight 217 lb 6.012 oz 06/11/18 06/12/18 06/13/18 06:59 06:59 06:59 Intake Total 3033 2316 0 Output Total 1980 4455 1280 Balance 6773 -5540 -3826 - Physical Examination Lungs: other: (diminished at bases) Heart: other: (irregular) Abdomen: soft Extremities: other: - Labs Result Diagrams: 06/12/18 17:06 06/12/18 11:03 Troponin/CKMB CK-MB (CK-2) 110.2 ng/mL (0-6.6) H* 06/06/18 14:30 Troponin I 42.332 ng/mL (< 0.028) H* 06/07/18 03:00 - Assessment/Plan 1. Acute [place] 2/2 s/p out of hospital cardiac arrest and S/p CABG x2 with GERMAN- LAD and RSVG-Diag on 06/12/2018 - Will resume Bblokcer when his VS is more stable; 2. Post-op Afib - On Amio drip with bolus. Not on Bblocker at this moment; cont. to monitor 3. HTN - Stable 3. Hyperlipidemia - will resume Lipitor when he is more stable 4. Anoxic brain injury - the pt did follow commands on 06/11/2018. 5. SZ - Neurology consult 6. COPD - On Vent 7. Elevated LFT - cont. to monitor 8. hx of GI bleed - stable 9. Hypothyroidism - 10. tobacco abuse - MAR reviewed Pt. seen and eval. by me. He is s/p CABG this AM. He is now in Afib. with RVR. Starting amiodarone. I agree with the A/P by the GENERAL PURCHASING AGENT. Review of Systems - Review of Systems Constitutional: reports: see HPI EENTM: reports: see HPI
--- NOTE | 2018-06-12 12:46 | RAD ---
CHEST ONE VIEW: HISTORY: Ventilated patient. Status post heart surgery. COMPARISON: 06/12/2018 FINDINGS: Redemonstration of endotracheal tube. Interval removal of nasogastric tube. There are sternotomy wi res. A mediastinal drainage catheter is noted. Normal cardiac silhouette. The pulmonary vessels and hilum are normal. The costophrenic angles are c lear. There are patchy opacities in the right perihilar region. Right-sided subclavian central veno us catheter terminates in the region of the right atrium. No pneumothorax. IMPRESSION: Findings compatible with recent heart surgery. POS: [facility]
[2018-06-12] MEDS: CEFAZOLIN 2 GM/50 ML-DEXTROSE 2 GM in Premix Bag 1 BAG IVPB SCH ×2 (13:26→20:54)
[2018-06-12 13:39] LABS: ALV-art Gradient 248.025 (0-20); Puncture Site ALINE
[2018-06-12] MEDS ORDERED: CEFAZOLIN 2 GM/50 ML BAG IVPB SCH (14:00)
[2018-06-12] MEDS ORDERED: CEFAZOLIN/Water 2 GM/20 ML SYRINGE SLOW IVP SCH (14:00)
[2018-06-12] MEDS ORDERED: Vecuronium 10 MG VIAL ONE (16:29)
[2018-06-12] MEDS ORDERED: Aminocaproic Acid 5 GM/20 ML VIAL ONE (16:29)
[2018-06-12] MEDS ORDERED: PHENYLEPHRINE-NS 100 MCG/ML 10 ML SYRINGE ONE (16:29)
[2018-06-12] MEDS ORDERED: Papaverine 60 MG/2 ML VIAL ONE (16:29)
[2018-06-12] MEDS ORDERED: Heparin 5,000 UNITS/ML VIAL ONE (16:29)
[2018-06-12] MEDS ORDERED: Esmolol 100 MG/10 ML VIAL ONE (16:29)
[2018-06-12] MEDS ORDERED: Heparin 30,000 units/30 ml VIAL ONE (16:29)
[2018-06-12] MEDS ORDERED: Calcium Chloride 1 GM/10 ML Abboject SYRINGE ONE (16:29)
[2018-06-12] MEDS ORDERED: Rocuronium Bromide 10 MG/ML (10ML VIAL) ONE (16:29)
[2018-06-12] MEDS ORDERED: Protamine Sulfate 250 MG/25 ML VIAL ONE (16:29)
[2018-06-12] MEDS ORDERED: Thrombin 5000 UNITS/5 ML VIAL ONE (16:29)
[2018-06-12 17:20] LABS: Hemoglobin 10.1 g/dL (14.0-18.0)
[2018-06-12 17:40] LABS: Potassium 4.5 mmol/L (3.5-5.1)
[2018-06-12] MEDS: Famotidine/PF 20 mg/2ml Vial SLOW IVP SCH (20:54)
[2018-06-13] MEDS: Propofol 1,000 MG/100 ML VIAL IV PRN (03:04)
[2018-06-13 04:47] LABS: Anion Gap 13 mmol/L (10-20); BUN (Urea Nitrogen) 24 mg/dL (8.4-25.7); Calc. Creatinine Clearance 124 mL/min (70-130); Calcium 8.2 mg/dL (7.8-10.44); Carbon Dioxide 26 mmol/L (23-31); Chloride 103 mmol/L (98-107); Estimated GFR-MDRD 89; Glucose 93 mg/dL (80-115); Potassium 4.1 mmol/L (3.5-5.1); Sodium 138 mmol/L (136-145)
[2018-06-13 05:07] LABS: Band 4 % (5-11); Hemoglobin 9.6 g/dL (14.0-18.0); Lymphocytes 18 % (21-51); MDiff Complete? YES; Mean Corpuscular HGB CONC 32.1 g/dL (32.0-36.0); Mean Corpuscular Hemoglobin 31.2 pg (27.0-31.0); Mean Corpuscular Volume 97.3 fL (78.0-98.0); Mean Platelet Volume 8.2 fL (7.4-10.4); Monocytes 12 % (0-10); Neutrophil 66 % (42-75); Platelet Count 373 thou/uL (130-400); RBC Distribution Width 12.1 % (11.5-14.5); Red Blood Cell (RBC) Count 3.08 mill/uL (4.70-6.10); White Blood Cell (WBC) Count 10.1 thou/uL (4.8-10.8)
[2018-06-13] MEDS: Ketorolac Tromethamine 30 MG/ML VIAL IVP SCH ×3 (05:14→17:29)
[2018-06-13] MEDS: CEFAZOLIN 2 GM/50 ML-DEXTROSE 2 GM in Premix Bag 1 BAG IVPB SCH (05:15)
[2018-06-13 06:54] LABS: Actual Bicarbonate (HCO3a) 29.5 mEq/L (22-28); Base Excess (BEa) 5.6 mEq/L (-2.0 to +3.0); CO2 Tension 39.9 mmHg (35.0-45.0); Calcium, Ionized 1.06 mmol/L (1.12-1.30); Carboxyhemoglobin (COHb) 0.8 gm% (0.0-3.0); Hemoglobin (Hb) 10.8 g/dL (14.0-18.0); O2 Tension (PaO2) 83.6 mmHg (> 80.0); Potassium - ABG Lab 3.88 mmol/L (3.70-5.30); pH, Arterial 7.49 (7.35-7.45)
[2018-06-13 06:56] LABS: ALV-art Gradient 151.725 (0-20); Puncture Site RRA
[2018-06-13] MEDS: Famotidine/PF 20 mg/2ml Vial SLOW IVP SCH ×2 (08:34→21:45)
[2018-06-13] MEDS: Magnesium 2 GM/50 ML 2 GM in Premix Bag 1 BAG IVPB SCH (08:34)
--- NOTE | 2018-06-13 08:47 | PDOC.PN ---
- Subjective Encounter Start Date: 06/13/18 Encounter Start Time: 10:50 Subjective: Patient extubated, confused, won't give name or state if he knows -: where he is. Aims a kick at anyone walking by the foot of his bed. - Objective Resuscitation Status - Order Detail: 06/05/18 21:02 Resuscitation Status Routine Resuscitation Status: FULL: Full Resuscitation MAR Reviewed: Yes Vital Signs & Weight: Vital Signs (12 hours) Temp Pulse Resp Pulse Ox 06/13/18 08:00 10 L 06/13/18 07:24 95 06/13/18 07:00 96.2 F L 06/13/18 06:50 136 H 06/13/18 06:00 22 H 06/13/18 04:00 23 H 06/13/18 03:00 98.1 F 06/13/18 02:00 19 06/13/18 00:00 14 06/12/18 23:50 129 H 14 94 L 06/12/18 23:00 97.6 F 06/12/18 22:00 14 Weight Admit Weight 217 lb Weight 225 lb 15.581 oz Most Recent Monitor Data Heart Rate from ECG 145 NIBP 127/90 NIBP BP-Mean 102 Respiration from ECG 20 SpO2 84 I&O: 06/12/18 06/13/18 06/14/18 06:59 06:59 06:59 Intake Total 2316 1994 Output Total 4105 2710 53 Balance -2139 -715 -53 Result Diagrams: 06/13/18 03:45 06/13/18 03:45 Additional Labs: Accuchecks 06/13/18 06/12/18 06/12/18 03:47 23:10 19:24 POC Glucose 100 87 90 06/12/18 06/12/18 15:53 10:03 POC Glucose 102 146 H Phys Exam - Physical Examination Constitutional: NAD HEENT: moist MMs Respiratory: no wheezing, no rales, no rhonchi Cardiovascular: irregular tachycardic in 150s Gastrointestinal: soft, positive bowel sounds Neurological: non-focal, moves all 4 limbs Deviation from normal: confused Dx/Plan (1) STEMI (ST elevation myocardial infarction) Status: Acute Qualifiers: Involved coronary artery: LAD coronary artery Qualified Code(s): I21.02 - ST elevation (STEMI) myocardial infarction involving left anterior descending coronary artery Comment: s/p CABG 06/12/2018 (2) Cardiac arrest due to underlying cardiac condition Code(s): I46.2 - CARDIAC ARREST DUE TO UNDERLYING CARDIAC CONDITION Status: Resolved Comment: s/p arrest secondary to STEMI, emergent LHC, continue hypothermic protocol, Neuro checks, ? anoxic injury and slow clinical improvement (3) Acute respiratory failure with hypoxia Code(s): J96.01 - ACUTE RESPIRATORY FAILURE WITH HYPOXIA Status: Acute Comment: Continue mech ventilation, possibly try to wean tomorrow (4) HLD (hyperlipidemia) Code(s): E78.5 - HYPERLIPIDEMIA, UNSPECIFIED Status: Chronic Comment: Resume Lipitor 10mg HS (5) Hypothyroidism Code(s): E03.9 - HYPOTHYROIDISM, UNSPECIFIED Status: Chronic Comment: Resume Levothyroxine 125mcg daily (6) Tobacco abuse Code(s): Z72.0 - TOBACCO USE Status: Chronic Comment: Tobacco cessation resources, consider nicotine patch (7) Hypertension Code(s): I10 - ESSENTIAL (PRIMARY) HYPERTENSION Status: Chronic Qualifiers: Hypertension type: essential hypertension Qualified Code(s): I10 - Essential (primary) hypertension (8) Atrial fibrillation with rapid ventricular response Code(s): I48.91 - UNSPECIFIED ATRIAL FIBRILLATION Status: Acute Comment: on Amiodarone drip with continued RVR, now on diltiazem drip at 5 mcg/min, titrating up to try and control rate - Plan cont current plan of care, respiratory therapy, DVT proph w/SCDs * . - Discharge Day Encounter end time: 11:00 Pulmonology Consult: Meds - Medications MAR Reviewed: Yes Medications: Current Medications Acetaminophen (Tylenol) 650 mg PO Q6H PRN PRN Reason: Headache/Fever Or Mild Pain Hydrocodone Bitart/Acetaminophen ([place] 5/325) 1 tab PO Q4H PRN PRN Reason: Moderate Pain (4-6) Hydrocodone Bitart/Acetaminophen ([place] 5/325) 2 tab PO Q4H PRN PRN Reason: Severe Pain (7-10) Al Hydroxide/Mg Hydroxide (Maalox) 30 ml PO Q4H PRN PRN Reason: Indigestion Albumin Human (Albumin 5%) 12.5 gm IVPB Q6H PRN PRN Reason: To Maintain SBP> 90 mmHG Stop: 06/13/18 11:08 Albumin Human (Albumin 5%) 25 gm IVPB Q6H PRN PRN Reason: To Maintain SBP > 90 mmHG Stop: 06/13/18 11:08 Albuterol/Ipratropium (Duoneb) 3 ml NEB [id number] PRN PRN Reason: SHORTNESS OF BREATH Albuterol/Ipratropium (Duoneb) 3 ml NEB [id number] [facility] Last Admin: 06/13/18 06:41 Dose: 3 ml Aspirin (Aspirin) 325 mg PO DAILY [facility] Bisacodyl (Dulcolax) 10 mg PO Q12H PRN PRN Reason: Constipation Bisacodyl (Dulcolax) 10 mg SC Q12H PRN PRN Reason: Constipation Dextrose/Water (Dextrose 50%) 25 gm SLOW IVP PRN PRN PRN Reason: PER HYPOGLYCEMIC PROTOCOL Famotidine (Pepcid) 20 mg SLOW IVP Q12HR [facility] Last Admin: 06/13/18 08:34 Dose: 20 mg Fentanyl (Sublimaze) 25 mcg SLOW IVP Q2H PRN PRN Reason: Moderate Pain (4-6) Stop: 06/14/18 10:36 Fentanyl (Sublimaze) 50 mcg SLOW IVP Q2H PRN PRN Reason: Severe Pain (7-10) Stop: 06/14/18 10:36 Glucagon (Glucagon) 1 mg SC PRN PRN PRN Reason: PER HYPOGLYCEMIC PROTOCOL Guaifenesin/Dextromethorphan (Robitussin Dm) 15 ml PO Q4H PRN PRN Reason: Cough Hydralazine HCl (Apresoline) 10 mg SLOW IVP Q6H PRN PRN Reason: To Maintain SBP< 140mmHG Potassium Chloride/Dextrose/Sod Cl (D5 1/2 Ns W/20 Meq Kcl) 1,000 mls @ 40 mls/ hr IV .Q24H [facility] Last Admin: 06/12/18 11:57 Dose: 1,000 mls Hetastarch/Sodium Chloride (Hespan) 500 mls @ 0 mls/hr IVPB PRN PRN PRN Reason: To Maintain SBP > 90mmHg Stop: 06/13/18 10:36 Norepinephrine Bitartrate (Levophed) 250 mls @ 0 mls/hr IVPB PRN PRN; Protocol PRN Reason: To maintain SBP > 90 mmHG Magnesium Sulfate 2 gm/ Device 50 mls @ 100 mls/hr IVPB QAM MAL Stop: 06/14/18 09:29 Last Admin: 06/13/18 08:34 Dose: 50 mls Nitroglycerin/Dextrose (Nitroglycerin 50 Mg/250 Ml Bot) 250 mls @ 0 mls/hr IVPB PRN PRN; Protocol PRN Reason: To Maintain SBP< 140mmHG Insulin Human Regular 100 (units/ Sodium Chloride) 101 mls @ 0 mls/hr IVPB INF MAL; Protocol Dextrose/Water (D5w) 1,000 mls @ 0 mls/hr IV INF PRN PRN Reason: PRN HYPOGLYCEMIC PROTOCOL Amiodarone HCl 450 mg/Miscellaneous Medication 1 each/ Dextrose/Water 259 mls @ 0 mls/hr IVPB INF MAL; Protocol Last Admin: 06/12/18 18:29 Dose: 259 mls Diltiazem HCl 125 mg/ Sodium (Chloride) 125 mls @ 0 mls/hr IVPB INF [facility]; Protocol Insulin Glargine (Lantus) 0 units SC ONE PRN PRN Reason: POST OPEN HEART ORDERS Stop: 06/13/18 17:00 Insulin Human Regular (Humulin R) 0 units SC Q4H PRN; Protocol PRN Reason: POST CABG SLIDING SCALE Last Admin: 06/12/18 11:45 Dose: 3 unit Ketorolac Tromethamine (Toradol) 30 mg IVP Q6HR [facility] Stop: 06/15/18 12:01 Last Admin: 06/13/18 05:14 Dose: 30 mg Morphine Sulfate (Morphine) 2 mg SLOW IVP Q15MIN PRN PRN Reason: Severe Pain (7-10) Ondansetron HCl (Zofran) 4 mg IVP Q6H PRN PRN Reason: Nausea/Vomiting Potassium Chloride (Kcl) 20 meq IVPB PRN PRN PRN Reason: K level </= 4.0 Propofol (Diprivan) 1,000 mg IV INF PRN; Protocol PRN Reason: TO ACHIEVE GOAL RASS Stop: 07/05/18 20:51 Last Admin: 06/13/18 03:04 Dose: 1,000 mg Sodium Chloride (Flush - Normal Saline) 10 ml IVF Q12HR [facility] Last Admin: 06/13/18 08:43 Dose: 10 ml - Allergies Allergies/Adverse Reactions: Allergies Allergy/AdvReac Type Severity Reaction Status Date / Time No Known Drug Allergies Allergy Verified 06/06/18 00:55
[2018-06-13] MEDS: Diltiazem 125 MG in Sodium Chloride 0.9% 100 ML IVPB SCH (08:49)
--- NOTE | 2018-06-13 08:55 | PRG ---
DATE OF SERVICE: 06/13/2018 TIME SPENT: 35 minutes critical time. SUBJECTIVE: The patient was intubated this morning. He was on CPAP prior to my arrival, apparently acting wildly. OBJECTIVE: VITAL SIGNS: Temperature 99.1, pulse is in the 120s to 150s, blood pressure 127/90. A 24-hour intake 1994, output 2710. HEENT: Unremarkable. NECK: No JVD. CHEST: Fairly clear anteriorly. CARDIAC: S1, S2. Regular. ABDOMEN: Soft. EXTREMITIES: No edema. LABORATORY DATA: White blood cell count 10.1, hematocrit 30, platelet count 373. PH 7.49, pCO2 of 39, PO2 of 84, that was on SIMV, rate 14, tidal volume 600, PEEP 5, pressure support 10, FiO2 of 40%. Sodium 138, potassium 4.1, chloride 103, CO2 of 26, BUN 24, creatinine 0.8, glucose 93. Chest x-ray is fairly clear, except for slightly elevated right hemidiaphragm. ASSESSMENT: 1. Status post myocardial infarction. 2. Status post coronary artery bypass grafting surgery. 3. Respiratory failure requiring mechanical ventilation. 4. Chest trauma after CPR. PLAN: He is extubated. We will observe him. We probably need to be more aggressive in the treatment of his atrial fibrillation. He is currently receiving amiodarone. We may need to add some Cardizem on top of that. Job ID: [id number]
--- NOTE | 2018-06-13 09:52 | RAD ---
CHEST 1 VIEW: Date: 06/13/18 HISTORY: Dyspnea. Follow-up. Heart surgery. COMPARISON: 06/12/18. FINDINGS: Cardiac silhouette is magnified and upper limits of normal in size. Pulmonary vasculature is now with in normal limits. Mediastinum is midline. Lines and tubes are unchanged in position. bus driver/monitor leads overlie the chest. IMPRESSION: Interval resolution of pulmonary vascular congestion. Otherwise stable postoperative appearance of th e chest. POS: [facility]
[2018-06-13] MEDS: Aspirin 325 MG TAB PO SCH (11:50)
[2018-06-13 12:21] LABS: Actual Bicarbonate (HCO3a) 24.5 mEq/L (22-28); Analyzer IN Cardio OR; Calcium, Ionized 0.95 mmol/L (1.12-1.30); Carboxyhemoglobin (COHb) 0.2 gm% (0.0-3.0); Hemoglobin (Hb) 10.5 g/dL (14.0-18.0); O2 Tension (PaO2) 185.6 mmHg (> 80.0); Potassium - ABG Lab 4.47 mmol/L (3.70-5.30); pH, Arterial 7.46 (7.35-7.45)
[2018-06-13 12:22] LABS: Actual Bicarbonate (HCO3a) 33.4 mEq/L (22-28); Analyzer IN Cardio OR; Base Excess (BEa) 7.2 mEq/L (-2.0 to +3.0); CO2 Tension 54.2 mmHg (35.0-45.0); Calcium, Ionized 1.13 mmol/L (1.12-1.30); Carboxyhemoglobin (COHb) 0.4 gm% (0.0-3.0); Hemoglobin (Hb) 12.6 g/dL (14.0-18.0); O2 Tension (PaO2) 353.1 mmHg (> 80.0); Potassium - ABG Lab 4.78 mmol/L (3.70-5.30); pH, Arterial 7.41 (7.35-7.45)
[2018-06-13 12:32] LABS: Puncture Site ALINE
[2018-06-13 12:34] LABS: Puncture Site ALINE
[2018-06-13] MEDS: Amiodarone 450 MG, Admixture Fee 1 EACH in Dextrose 5% in Water 250 ML IVPB SCH (13:38)
[2018-06-13] MEDS: D5 1/2 NS w/20 mEq KCL 1,000 ML IV SCH (14:31)
[2018-06-13] MEDS ORDERED: Digoxin 0.5 MG/2 ML AMP SLOW IVP SCH (16:00)
--- NOTE | 2018-06-13 19:23 | PDOC.CTH ---
Cardiology Progress Note - Subjective The pt seen and examined. No overnight events. No cardiac complaints. He follows commands and able to swallow fluid without any difficulties. - Objective Vital Signs Temp Pulse Resp Pulse Ox 06/13/18 16:16 127 H 06/13/18 16:10 98.2 F 06/13/18 12:00 98.9 F 94 L 06/13/18 08:20 127 H 22 H 92 L 06/13/18 08:00 10 L 06/13/18 07:24 95 Admit Weight 217 lb Weight 225 lb 15.581 oz 06/12/18 06/13/18 06/14/18 06:59 06:59 06:59 Intake Total 2316 1995 939.9 Output Total 7135 2710 713 Balance -2139 -715 226.9 - Physical Examination Lungs: other: (coarses and diminished at bases) Heart: other: (irregular) Abdomen: soft Extremities: other: (generalized edema) - Telemetry Telemetry Rhythm: AFib 110-120s - Labs Result Diagrams: 06/13/18 03:45 06/13/18 03:45 Troponin/CKMB CK-MB (CK-2) 110.2 ng/mL (0-6.6) H* 06/06/18 14:30 Troponin I 42.332 ng/mL (< 0.028) H* 06/07/18 03:00 - Assessment/Plan 1. Acute [place] 2/2 s/p out of hospital cardiac arrest and S/p CABG x2 with GERMAN- LAD and RSVG-Diag on 06/12/2018 - Will resume Bblokcer when his VS is more stable; 2. Post-op Afib - On Amio drip and Cardizem 10mg/h; will start Metoprolol 25mg BID from tonight; cont. to monitor 3. HTN - Start Metoprolol 25mg BID. 3. Hyperlipidemia - will resume Lipitor when he is more stable 4. Anoxic brain injury - the pt did follow commands on 06/11/2018. 5. SZ - Neurology consult 6. COPD - on 4LNC; managed by grain blender 7. Elevated LFT - cont. to monitor 8. hx of GI bleed - stable 9. Hypothyroidism - 10. tobacco abuse - MAR reviewed Pt. seen and eval. by me. I agree with the A/P by the MANAGER OF PHARMACY. he is doing well s/p CABG except for the atrial fibrillation. He is still confused. Chest clear . Irreg/irreg. No edema. Review of Systems - Review of Systems Constitutional: reports: weakness EENTM: reports: no symptoms reported Respiratory: reports: no symptoms reported Cardiac (ROS): reports: no symptoms reported ABD/GI: reports: no symptoms reported
[2018-06-13] MEDS ORDERED: Metoprolol Tartrate 25 MG TAB PO SCH (21:00)
[2018-06-13] MEDS: Digoxin 0.5 MG/2 ML AMP SLOW IVP SCH (21:45)
[2018-06-13] MEDS ORDERED: Furosemide 40 MG/4 ML VIAL SLOW IVP SCH (23:30)
[2018-06-14] MEDS: Ketorolac Tromethamine 30 MG/ML VIAL IVP SCH ×5 (00:29→23:00)
[2018-06-14] MEDS: Diltiazem 125 MG in Sodium Chloride 0.9% 100 ML IVPB SCH ×2 (05:24→22:52)
[2018-06-14] MEDS: Amiodarone 450 MG, Admixture Fee 1 EACH in Dextrose 5% in Water 250 ML IVPB SCH ×2 (05:24→22:51)
[2018-06-14] MEDS: Digoxin 0.5 MG/2 ML AMP SLOW IVP SCH ×2 (05:26→08:14)
[2018-06-14 06:05] LABS: Anion Gap 17 mmol/L (10-20); BUN (Urea Nitrogen) 28 mg/dL (8.4-25.7); Calc. Creatinine Clearance 105 mL/min (70-130); Calcium 8.8 mg/dL (7.8-10.44); Carbon Dioxide 27 mmol/L (23-31); Chloride 97 mmol/L (98-107); Estimated GFR-MDRD 73; Glucose 92 mg/dL (80-115); Potassium 4.3 mmol/L (3.5-5.1); Sodium 137 mmol/L (136-145)
[2018-06-14 06:40] LABS: Band 18 % (5-11); Eosinophils 2 % (0-10); Hemoglobin 11.3 g/dL (14.0-18.0); Lymphocytes 11 % (21-51); MDiff Complete? YES; Mean Corpuscular HGB CONC 32.2 g/dL (32.0-36.0); Mean Corpuscular Hemoglobin 31.5 pg (27.0-31.0); Mean Corpuscular Volume 97.7 fL (78.0-98.0); Mean Platelet Volume 8.7 fL (7.4-10.4); Monocytes 18 % (0-10); Neutrophil 51 % (42-75); Platelet Count 336 thou/uL (130-400); RBC Distribution Width 11.9 % (11.5-14.5); White Blood Cell (WBC) Count 13.8 thou/uL (4.8-10.8)
[2018-06-14] MEDS: Magnesium 2 GM/50 ML 2 GM in Premix Bag 1 BAG IVPB SCH (08:12)
[2018-06-14] MEDS: Famotidine/PF 20 mg/2ml Vial SLOW IVP SCH ×2 (08:12→20:37)
[2018-06-14] MEDS: Aspirin 325 MG TAB PO SCH (08:13)
[2018-06-14] MEDS: Metoprolol Tartrate 50 MG TAB PO SCH ×2 (08:14→20:37)
--- NOTE | 2018-06-14 08:16 | RAD ---
AP CHEST: History: Open heart surgery. Date: 06-14-18 Comparison: 06-13-18 FINDINGS: AP chest demonstrates sternotomy wires seen. Mediastinal drains in place. There is a right subclavian central line. Cardiomegaly is noted. No evidence of effusions seen. There is some elevation of the r ight hemidiaphragm. IMPRESSION: 1. Elevated right hemidiaphragm. 2. Interval extubation. Other lines and tubes are unchanged. POS: [facility]
--- NOTE | 2018-06-14 08:23 | PRG ---
DATE OF SERVICE: 06/14/2018 SUBJECTIVE: Mr. Calles was successfully extubated yesterday. He is communicative, but frankly delusional since that time. OBJECTIVE: VITAL SIGNS: Temperature 97.6, pulse 106, blood pressure 130/90. A 24-hour intake 1268, output 4283. HEENT: Unremarkable. NECK: No JVD. CHEST: Fairly clear anteriorly. CARDIAC: S1, S2. Irregularly irregular. Slightly tachycardic. ABDOMEN: Soft and nontender. EXTREMITIES: No edema. IMAGING STUDIES: Chest x-ray shows slightly elevated right hemidiaphragm and fairly clear lung hernandez. LABORATORY DATA: Sodium 137, potassium 4.3, chloride 97, CO2 of 27, BUN 28, creatinine 1.0, and glucose 92. White blood cell count 13.8, hematocrit 35.2, and platelet count 336. ASSESSMENT: 1. Status post acute respiratory failure requiring mechanical ventilation. 2. Status post myocardial infarction. 3. Status post coronary artery bypass grafting surgery. 4. Intensive care unit psychosis. 5. Flail chest. 6. Atrial fibrillation with rapid ventricular response. PLAN: 1. The patient will continue on the Cardizem drip, the digoxin, the metoprolol, and the amiodarone. 2. Continue care in the CCU. Try to avoid sedating medication and try to improve his sleep at night. Job ID: [id number]
--- NOTE | 2018-06-14 08:53 | PDOC.CTH ---
Cardiology Progress Note - Subjective Pt. seen and eval. by me this AM. He is awake and talking coherently. He seems a little paranoid however. He denies any cardiac complaints but does appear SOB this AM. - Objective Vital Signs Temp Pulse Resp BP Pulse Ox 06/14/18 08:14 124 H 06/14/18 07:00 98.7 F 06/14/18 06:38 124 H 30 H 95 06/14/18 05:26 121 H 06/14/18 04:00 97.6 F 06/14/18 02:17 90 179/105 H 06/14/18 02:14 97 22 H 97 06/14/18 00:00 97.8 F 06/13/18 22:45 96 06/13/18 22:00 98.0 F 06/13/18 21:45 127 H Admit Weight 217 lb Weight 225 lb 15.581 oz 06/13/18 06/14/18 06/15/18 06:59 06:59 06:59 Intake Total 1994 1268.9 Output Total 2710 4283 250 Balance -715 -3014.1 -250 - Physical Examination General/Neuro: alert & oriented x3 Neck: carotid US brisk, no JVD present Lungs: other: (few bibasilar rales.) Heart: other: (irreg/irreg) Abdomen: NT/ND, soft - Labs Result Diagrams: 06/14/18 05:24 06/14/18 05:24 Troponin/CKMB CK-MB (CK-2) 110.2 ng/mL (0-6.6) H* 06/06/18 14:30 Troponin I 42.332 ng/mL (< 0.028) H* 06/07/18 03:00 - Assessment/Plan 1. Acute [place] 2/2 s/p out of hospital cardiac arrest and S/p CABG x2 with GERMAN- LAD and RSVG-Diag on 06/12/2018 - Will resume Bblokcer when his VS is more stable; 2. Post-op Afib - On Amio drip and Cardizem 10mg/h; will started Metoprolol 25mg BID last night; cont. to monitor. Could consider cardioversion prior to d/ c. Consider OAC, lovenox after chest tubes removed when CT surgery is okay with anticoagulation and converet to OAC prior to d/c. 3. HTN - Start Metoprolol 25mg BID. 3. Hyperlipidemia - will resume Lipitor when he is more stable 4. Anoxic brain injury - improving. pt. conversing easily but seems paranoid about meds and his po intake. 5. SZ - Neurology consult 6. COPD - on 4LNC; managed by registration rep 7. Elevated LFT - cont. to monitor 8. hx of GI bleed - resolved. 9. Hypothyroidism - 10. tobacco and ETOH abuse -will need help likely post hospital MAR reviewed Review of Systems - Review of Systems EENTM: reports: no symptoms reported Respiratory: reports: other (mild tachypnea) Cardiac (ROS): reports: no symptoms reported, irregular heart rate ABD/GI: reports: no symptoms reported : reports: no symptoms reported Musculoskeletal: reports: no symptoms reported Neurological: reports: no symptoms reported
[2018-06-14] MEDS ORDERED: Furosemide 40 MG/4 ML VIAL SLOW IVP SCH (09:00)
--- NOTE | 2018-06-14 09:17 | PDOC.PN ---
- Subjective Encounter Start Date: 06/14/18 Encounter Start Time: 09:50 Subjective: Patient sitting up in chair. Responses a little slow, but oriented. Denies -: chest pain or SOB. Tachycardia resolved this morning. - Objective Resuscitation Status - Order Detail: 06/05/18 21:02 Resuscitation Status Routine Resuscitation Status: FULL: Full Resuscitation MAR Reviewed: Yes Vital Signs & Weight: Vital Signs (12 hours) Temp Pulse Resp BP Pulse Ox 06/14/18 08:14 124 H 06/14/18 07:00 98.7 F 06/14/18 06:38 124 H 30 H 95 06/14/18 05:26 121 H 06/14/18 04:00 97.6 F 06/14/18 02:17 90 179/105 H 06/14/18 02:14 97 22 H 97 06/14/18 00:00 97.8 F 06/13/18 22:45 96 06/13/18 22:00 98.0 F 06/13/18 21:45 127 H Weight Admit Weight 217 lb Weight 225 lb 15.581 oz Most Recent Monitor Data Heart Rate from ECG 106 NIBP 150/80 NIBP BP-Mean 103 Respiration from ECG 33 SpO2 95 I&O: 06/13/18 06/14/18 06/15/18 06:59 06:59 06:59 Intake Total 1994 1268.9 Output Total 2710 4283 250 Banner -715 -3014.1 -250 Result Diagrams: 06/14/18 05:24 06/14/18 05:24 Phys Exam - Physical Examination Constitutional: NAD HEENT: moist MMs Respiratory: no wheezing, no rales, no rhonchi Cardiovascular: no significant murmur, irregular Gastrointestinal: soft, non-tender, positive bowel sounds Neurological: non-focal, moves all 4 limbs Psychiatric: normal affect Dx/Plan (1) STEMI (ST elevation myocardial infarction) Status: Acute Qualifiers: Involved coronary artery: LAD coronary artery Qualified Code(s): I21.02 - ST elevation (STEMI) myocardial infarction involving left anterior descending coronary artery Comment: s/p CABG 06/12/2018 (2) Cardiac arrest due to underlying cardiac condition Code(s): I46.2 - CARDIAC ARREST DUE TO UNDERLYING CARDIAC CONDITION Status: Resolved Comment: s/p arrest secondary to STEMI, emergent LHC, continue hypothermic protocol, Neuro checks, ? anoxic injury and slow clinical improvement (3) Acute respiratory failure with hypoxia Code(s): J96.01 - ACUTE RESPIRATORY FAILURE WITH HYPOXIA Status: Resolved Comment: extubated yesterday and doing well (4) HLD (hyperlipidemia) Code(s): E78.5 - HYPERLIPIDEMIA, UNSPECIFIED Status: Chronic Comment: Resume Lipitor 10mg HS (5) Hypothyroidism Code(s): E03.9 - HYPOTHYROIDISM, UNSPECIFIED Status: Chronic Comment: Resume Levothyroxine 125mcg daily (6) Tobacco abuse Code(s): Z72.0 - TOBACCO USE Status: Chronic Comment: Tobacco cessation resources, consider nicotine patch (7) Hypertension Code(s): I10 - ESSENTIAL (PRIMARY) HYPERTENSION Status: Chronic Qualifiers: Hypertension type: essential hypertension Qualified Code(s): I10 - Essential (primary) hypertension (8) Atrial fibrillation with rapid ventricular response Code(s): I48.91 - UNSPECIFIED ATRIAL FIBRILLATION Status: Acute Comment: on Amiodarone and Diltiazem drips, metoprolol added BID, may need cardioversion before d/c per Dr. Cool (9) Acute metabolic encephalopathy Code(s): G93.41 - METABOLIC ENCEPHALOPATHY Status: Acute Comment: Patient is paranoid, more oriented today, try to avoid sedating medications, encourage sleep at night. ? alcohol withdrawl but not shaky right now, no hypertension, and tachycardia controlled. - Plan cont current plan of care, DVT proph w/SCDs * . - Discharge Day Encounter end time: 10:00
[2018-06-14] MEDS: D5 1/2 NS w/20 mEq KCL 1,000 ML IV SCH (11:25)
[2018-06-14] MEDS: Melatonin 3 MG TAB PO SCH (20:46)
[2018-06-15 05:03] LABS: #Eosinphils 0.1 thou/uL (0.0-0.7); #Lymphocytes 1.1 thou/uL (1.20-3.40); #Monocytes 1.1 thou/uL (0.11-0.59); #Neutrophils 11.1 thou/uL (1.40-6.50); %Basophils 0.2 % (0.0-1.0); %Eosinophils 0.7 % (0.0-10.0); %Lymphocytes 7.9 % (21.0-51.0); %Monocytes 8.2 % (0.0-10.0); %Neutrophils 83.1 % (42.0-75.0); Hemoglobin 11.4 g/dL (14.0-18.0); Mean Corpuscular HGB CONC 31.6 g/dL (32.0-36.0); Mean Corpuscular Hemoglobin 31.2 pg (27.0-31.0); Mean Corpuscular Volume 98.5 fL (78.0-98.0); Platelet Count 385 thou/uL (130-400); Red Blood Cell (RBC) Count 3.67 mill/uL (4.70-6.10); White Blood Cell (WBC) Count 13.4 thou/uL (4.8-10.8)
[2018-06-15 05:21] LABS: Anion Gap 14 mmol/L (10-20); BUN (Urea Nitrogen) 35 mg/dL (8.4-25.7); Calc. Creatinine Clearance 108 mL/min (70-130); Calcium 8.6 mg/dL (7.8-10.44); Carbon Dioxide 30 mmol/L (23-31); Chloride 96 mmol/L (98-107); Estimated GFR-MDRD 76; Glucose 103 mg/dL (80-115); Potassium 4.1 mmol/L (3.5-5.1); Sodium 136 mmol/L (136-145)
[2018-06-15] MEDS: Ketorolac Tromethamine 30 MG/ML VIAL IVP SCH ×2 (05:32→11:45)
--- NOTE | 2018-06-15 08:49 | PRG ---
DATE OF SERVICE: 06/15/2018 SUBJECTIVE: He seems less confused today. He is definitely calmer. OBJECTIVE: VITAL SIGNS: On exam, his temperature is 97.9, pulse of 80, and blood pressure 114/87. A 24-hour intake 1423, output 2715. HEENT: Unremarkable. NECK: No JVD. CHEST: Clear anteriorly. CARDIAC: S1 and S2, regular. ABDOMEN: Soft. EXTREMITIES: No edema. LABORATORY DATA: His x-ray is stable. Sodium 136, potassium 4.1, BUN 35, creatinine 0.9, and glucose 103. White blood cell count 13.4, hematocrit 36.1, and platelet count 385. ASSESSMENT: 1. Status post coronary artery bypass grafting surgery. 2. Respiratory failure, resolved. 3. Encephalopathy. 4. Atrial fibrillation. PLAN: 1. He is continuing medication for rate control. 2. We will go ahead and back off on some of his labs. 3. From my standpoint, he can go to telemetry with a sitter if okay with the other physicians caring for the patient. Job ID: [id number]
[2018-06-15] MEDS: Furosemide 40 MG/4 ML VIAL SLOW IVP SCH (09:24)
[2018-06-15] MEDS: Famotidine 20 MG TAB PO SCH ×2 (09:25→20:58)
[2018-06-15] MEDS: Aspirin 325 MG TAB PO SCH (09:25)
[2018-06-15] MEDS: Digoxin 0.5 MG/2 ML AMP SLOW IVP SCH (09:26)
[2018-06-15] MEDS: Metoprolol Tartrate 50 MG TAB PO SCH ×2 (09:26→20:58)
[2018-06-15] MEDS: Diltiazem 125 MG in Sodium Chloride 0.9% 100 ML IVPB SCH (09:27)
--- NOTE | 2018-06-15 09:55 | RAD ---
CHEST ONE VIEW: History: Follow up recent post op open heart. Comparison: 06-14-18 FINDINGS: Post underlying sternotomy. Right subclavian catheter in place. Bilateral vascular congestion with sm all pleural effusions. Less than optimal inspiration. No confluent lobar pneumonia. No pneumothorax. There is some bilateral vascular congestion. Heart size is within normal limits. IMPRESSION: Bilateral vascular congestion with some blunting in the costophrenic angles. No confluent lobar pneum onia. Little changed from prior study. Continue short term follow up. POS: IQRA
[2018-06-15] MEDS: Amiodarone 450 MG, Admixture Fee 1 EACH in Dextrose 5% in Water 250 ML IVPB SCH (13:14)
--- NOTE | 2018-06-15 13:46 | PDOC.CTH ---
Cardiology Progress Note - Subjective The pt seen and examined. No overnight events. No cardiac complaints. - Objective Vital Signs Temp Pulse Resp Pulse Ox 06/15/18 12:00 97.8 F 06/15/18 11:23 89 20 96 06/15/18 09:26 83 06/15/18 07:38 95 06/15/18 07:00 97.9 F 06/15/18 06:57 83 23 H 91 L 06/15/18 04:00 98.4 F Admit Weight 217 lb Weight 224 lb 3.362 oz 06/14/18 06/15/18 06/16/18 06:59 06:59 06:59 Intake Total 1268.9 1423 360 Output Total 4283 2750 820 Balance -7724.1 -4500 -817 - Physical Examination General/Neuro: other: (confused) Lungs: other: (diminished at bases) Heart: other: (irregular) Abdomen: soft Extremities: other: (generalized edema) - Labs Result Diagrams: 06/15/18 04:45 06/15/18 04:45 Troponin/CKMB CK-MB (CK-2) 110.2 ng/mL (0-6.6) H* 06/06/18 14:30 Troponin I 42.332 ng/mL (< 0.028) H* 06/07/18 03:00 - Assessment/Plan 1. Acute [place] 2/2 s/p out of hospital cardiac arrest and S/p CABG x2 with GERMAN- LAD and RSVG-Diag on 06/12/2018 - stable with Bblokcer from today. On ASA. 2. Post-op Afib - Well controlled HR with Digoxin 0.25mg po, Cardizem drip, and Metoprolol 50mg BID. Could consider cardioversion prior to d/c. Consider OAC, lovenox after chest tubes removed when CT surgery is okay. 3. HTN - Metoprolol 50mg BID 3. Hyperlipidemia - will resume Lipitor with dose of 20mg qd from tonight. 4. Anoxic brain injury - improving. pt. conversing easily but seems paranoid about meds and his po intake. 5. SZ - Neurology consult 6. COPD - on 4LNC; managed by dog show judge 7. Elevated LFT - cont. to monitor 8. hx of GI bleed - resolved. 9. Hypothyroidism - 10. tobacco and ETOH abuse -will need help likely post hospital 11. ETOH abuse MAR reviewed Pt. seen and eval. by me. I agree with the A/p by the HAND CANDY DIPPER. he kis more coherent today but still showing signs of anoxic brain ischemia. If he does not convert to NSR then consider CV on Monday. Review of Systems - Review of Systems Constitutional: reports: no symptoms reported EENTM: reports: no symptoms reported Respiratory: reports: no symptoms reported Cardiac (ROS): reports: no symptoms reported ABD/GI: reports: no symptoms reported : reports: no symptoms reported
--- NOTE | 2018-06-15 19:16 | PDOC.PN ---
- Subjective Encounter Start Date: 06/15/18 Encounter Start Time: 19:15 Subjective: sleepy, just had lunch, more talkitive per his - Objective Resuscitation Status - Order Detail: 06/05/18 21:02 Resuscitation Status Routine Resuscitation Status: FULL: Full Resuscitation Vital Signs & Weight: Vital Signs (12 hours) Temp Pulse Resp Pulse Ox 06/15/18 18:24 86 24 H 95 06/15/18 15:00 98 F 06/15/18 14:35 84 16 97 06/15/18 12:00 97.8 F 06/15/18 11:23 89 20 96 06/15/18 09:26 83 06/15/18 07:38 95 Weight Admit Weight 217 lb Weight 224 lb 3.362 oz Most Recent Monitor Data Heart Rate from ECG 93 NIBP 133/79 NIBP BP-Mean 97 Respiration from ECG 29 SpO2 94 I&O: 06/14/18 06/15/18 06/16/18 06:59 06:59 06:59 Intake Total 1268.9 1423 729 Output Total 4283 2750 1240 Balance -3014.1 -1327 -511 Result Diagrams: 06/15/18 04:45 06/15/18 04:45 Phys Exam - Physical Examination HEENT: PERRLA, moist MMs, sclera anicteric, TM's clear, oral pharynx no lesions , 2+ tonsils Neck: no nodes, no JVD, supple, full ROM Respiratory: no wheezing, no rales Cardiovascular: RRR, no significant murmur Gastrointestinal: soft, non-tender, no distention, positive bowel sounds Musculoskeletal: edema present not responding and following commands, looks sleepy Dx/Plan (1) HLD (hyperlipidemia) Code(s): E78.5 - HYPERLIPIDEMIA, UNSPECIFIED Status: Chronic Comment: Resume Lipitor 10mg HS (2) Acute metabolic encephalopathy Code(s): G93.41 - METABOLIC ENCEPHALOPATHY Status: Acute Comment: Patient is paranoid, more oriented today, try to avoid sedating medications, encourage sleep at night. ? alcohol withdrawl but not shaky right now, no hypertension, and tachycardia controlled. (3) Atrial fibrillation with rapid ventricular response Code(s): I48.91 - UNSPECIFIED ATRIAL FIBRILLATION Status: Acute Comment: on Amiodarone and Diltiazem drips, metoprolol added BID, may need cardioversion before d/c per Dr. Cool (4) STEMI (ST elevation myocardial infarction) Status: Acute Qualifiers: Involved coronary artery: LAD coronary artery Qualified Code(s): I21.02 - ST elevation (STEMI) myocardial infarction involving left anterior descending coronary artery Comment: s/p CABG 06/12/2018 (5) Hypertension Code(s): I10 - ESSENTIAL (PRIMARY) HYPERTENSION Status: Chronic Qualifiers: Hypertension type: essential hypertension Qualified Code(s): I10 - Essential (primary) hypertension (6) Hypothyroidism Code(s): E03.9 - HYPOTHYROIDISM, UNSPECIFIED Status: Chronic Comment: Resume Levothyroxine 125mcg daily (7) Tobacco abuse Code(s): Z72.0 - TOBACCO USE Status: Chronic Comment: Tobacco cessation resources, consider nicotine patch (8) Acute respiratory failure with hypoxia Code(s): J96.01 - ACUTE RESPIRATORY FAILURE WITH HYPOXIA Status: Resolved Comment: extubated and doing well (9) Cardiac arrest due to underlying cardiac condition Code(s): I46.2 - CARDIAC ARREST DUE TO UNDERLYING CARDIAC CONDITION Status: Resolved Comment: s/p arrest secondary to STEMI, emergent LHC, continue hypothermic protocol, Neuro checks, ? anoxic injury and slow clinical improvement - Plan cont current plan of care, plan discussed w/ family, DVT proph w/SCDs * .
[2018-06-15] MEDS: Atorvastatin Calcium 20 MG TAB PO SCH (20:58)
[2018-06-16] MEDS: Melatonin 3 MG TAB PO SCH ×2 (00:33→20:23)
[2018-06-16 04:49] LABS: Anion Gap 16 mmol/L (10-20); BUN (Urea Nitrogen) 28 mg/dL (8.4-25.7); Calc. Creatinine Clearance 115 mL/min (70-130); Calcium 8.8 mg/dL (7.8-10.44); Carbon Dioxide 30 mmol/L (23-31); Chloride 99 mmol/L (98-107); Estimated GFR-MDRD 83; Glucose 91 mg/dL (80-115); Potassium 3.6 mmol/L (3.5-5.1); Sodium 141 mmol/L (136-145)
[2018-06-16] MEDS: Diltiazem 125 MG in Sodium Chloride 0.9% 100 ML IVPB SCH ×2 (06:18→23:35)
[2018-06-16] MEDS: Amiodarone 450 MG, Admixture Fee 1 EACH in Dextrose 5% in Water 250 ML IVPB SCH ×2 (06:18→23:36)
--- NOTE | 2018-06-16 09:09 | PRG ---
DATE OF SERVICE: 06/16/2018 SUBJECTIVE: The patient is still floridly confused, but does not appear to be in any distress. OBJECTIVE: VITAL SIGNS: On exam, his temperature is 98.2, pulse 90, blood pressure 158/100, O2 saturation in the mid 80s to high 90s. He is currently on diltiazem drip and amiodarone drip. HEENT: Unremarkable. NECK: No JVD. LUNGS: Poor air movement. He has flail-type chest. CARDIAC: S1 and S2. Irregularly irregular. ABDOMEN: Soft. EXTREMITIES: No edema. LABORATORY DATA: Sodium 141, potassium 3.6, chloride 99, CO2 of 30, BUN 28, creatinine 0.9, glucose 91. ASSESSMENT: 1. Status post cardiac arrest. 2. Atrial fibrillation with rapid ventricular response. Now, rate controlled. 3. Encephalopathy. 4. Status post coronary artery bypass grafting surgery. PLAN: I would continue to leave him in the ICU for now. Up in a chair as tolerated. His oxygenation is very borderline, and he needs to be watched closely. I will withhold all sedating medications for the time being. Job ID: [id number]
[2018-06-16] MEDS: Famotidine 20 MG TAB PO SCH ×2 (10:38→20:23)
[2018-06-16] MEDS: Metoprolol Tartrate 50 MG TAB PO SCH ×2 (10:38→20:23)
[2018-06-16] MEDS: Aspirin 325 MG TAB PO SCH (10:38)
[2018-06-16] MEDS: Digoxin 0.5 MG/2 ML AMP SLOW IVP SCH (10:39)
[2018-06-16] MEDS: Furosemide 40 MG/4 ML VIAL SLOW IVP SCH (10:39)
--- NOTE | 2018-06-16 14:25 | PDOC.CTH ---
Cardiology Progress Note - Subjective No new issues. Siting on chair. - Objective Vital Signs Temp Pulse Resp Pulse Ox 06/16/18 14:15 86 21 H 97 06/16/18 12:00 97.7 F 06/16/18 10:39 97 06/16/18 08:00 98.9 F 06/16/18 07:40 95 06/16/18 07:38 97 23 H 95 06/16/18 04:00 98.2 F Admit Weight 217 lb Weight 214 lb 15.211 oz 06/15/18 06/16/18 06/17/18 06:59 06:59 06:59 Intake Total 1423 1074 Output Total 9001 9046 666 Balance -7210 -9926 -172 - Physical Examination General/Neuro: NAD Neck: no JVD present Lungs: CTA, unlabored respirations Heart: other: (Irreg) Abdomen: NT/ND Extremities: + edema B - Labs Result Diagrams: 06/15/18 04:45 06/16/18 04:12 Troponin/CKMB CK-MB (CK-2) 110.2 ng/mL (0-6.6) H* 06/06/18 14:30 Troponin I 42.332 ng/mL (< 0.028) H* 06/07/18 03:00 - Assessment/Plan 1. Acute [place] 2. Out of hospital cardiac arrest 3. Anoxic brain injury 4. Post op afib, rate controlled. 5. AMS, improving. 6. Seizures. 7. COPD without exacerbation. PLAN: - Continue current meds. - Continue to monitor in ICU. - Continue rate control.
[2018-06-16] MEDS ORDERED: Acetaminophen 1,000 MG in Premix Bag 1 BAG IVPB SCH (14:45)
--- NOTE | 2018-06-16 15:21 | PDOC.PN ---
- Subjective Encounter Start Date: 06/16/18 Encounter Start Time: 15:19 Subjective: pleasently confused, talkitive, resting on the chair, no apparent distress - Objective Resuscitation Status - Order Detail: 06/05/18 21:02 Resuscitation Status Routine Resuscitation Status: FULL: Full Resuscitation Vital Signs & Weight: Vital Signs (12 hours) Temp Pulse Resp Pulse Ox 06/16/18 15:00 98.3 F 06/16/18 14:15 86 21 H 97 06/16/18 12:00 97.7 F 06/16/18 10:39 97 06/16/18 08:00 98.9 F 06/16/18 07:40 95 06/16/18 07:38 97 23 H 95 06/16/18 04:00 98.2 F Weight Admit Weight 217 lb Weight 214 lb 15.211 oz Most Recent Monitor Data Heart Rate from ECG 77 NIBP 139/96 NIBP BP-Mean 110 Respiration from ECG 30 SpO2 92 I&O: 06/15/18 06/16/18 06/17/18 06:59 06:59 06:59 Intake Total 1423 1074 Output Total 2750 4755 1100 Balance -1327 -1341 -1100 Result Diagrams: 06/15/18 04:45 06/16/18 04:12 Phys Exam - Physical Examination HEENT: PERRLA, moist MMs, sclera anicteric, TM's clear, oral pharynx no lesions , 2+ tonsils Neck: no nodes, no JVD, supple, full ROM Respiratory: no wheezing, no rales Cardiovascular: RRR, no significant murmur Gastrointestinal: soft, non-tender, no distention, positive bowel sounds Musculoskeletal: edema present Neurological: non-focal, normal sensation, moves all 4 limbs confused Lymphatic: no nodes Psychiatric: normal affect Deviation from normal: confused Dx/Plan (1) STEMI (ST elevation myocardial infarction) Status: Acute Qualifiers: Involved coronary artery: LAD coronary artery Qualified Code(s): I21.02 - ST elevation (STEMI) myocardial infarction involving left anterior descending coronary artery Comment: s/p CABG 06/12/2018 (2) Atrial fibrillation with rapid ventricular response Code(s): I48.91 - UNSPECIFIED ATRIAL FIBRILLATION Status: Acute Comment: on Amiodarone and Diltiazem drips, metoprolol added BID, may need cardioversion before d/c per Dr. Cool (3) Acute metabolic encephalopathy Code(s): G93.41 - METABOLIC ENCEPHALOPATHY Status: Acute Comment: Patient is paranoid, more oriented today, try to avoid sedating medications, encourage sleep at night. ? alcohol withdrawl but not shaky right now, no hypertension, and tachycardia controlled. (4) HLD (hyperlipidemia) Code(s): E78.5 - HYPERLIPIDEMIA, UNSPECIFIED Status: Chronic Comment: Resume Lipitor 10mg HS (5) Hypertension Code(s): I10 - ESSENTIAL (PRIMARY) HYPERTENSION Status: Chronic Qualifiers: Hypertension type: essential hypertension Qualified Code(s): I10 - Essential (primary) hypertension (6) Hypothyroidism Code(s): E03.9 - HYPOTHYROIDISM, UNSPECIFIED Status: Chronic Comment: Resume Levothyroxine 125mcg daily (7) Tobacco abuse Code(s): Z72.0 - TOBACCO USE Status: Chronic Comment: Tobacco cessation resources, consider nicotine patch (8) Acute respiratory failure with hypoxia Code(s): J96.01 - ACUTE RESPIRATORY FAILURE WITH HYPOXIA Status: Resolved Comment: extubated and doing well (9) Cardiac arrest due to underlying cardiac condition Code(s): I46.2 - CARDIAC ARREST DUE TO UNDERLYING CARDIAC CONDITION Status: Resolved Comment: s/p arrest secondary to STEMI, emergent LHC, continue hypothermic protocol, Neuro checks, ? anoxic injury and slow clinical improvement - Plan cont current plan of care, plan discussed w/ family, PT/OT * .
[2018-06-16] MEDS: Atorvastatin Calcium 20 MG TAB PO SCH (20:23)
[2018-06-16] MEDS: Acetaminophen 325 MG TAB PO PRN (20:23)
[2018-06-17 05:07] LABS: Anion Gap 11 mmol/L (10-20); BUN (Urea Nitrogen) 25 mg/dL (8.4-25.7); Calc. Creatinine Clearance 114 mL/min (70-130); Calcium 9.1 mg/dL (7.8-10.44); Carbon Dioxide 34 mmol/L (23-31); Chloride 102 mmol/L (98-107); Estimated GFR-MDRD 86; Glucose 104 mg/dL (80-115); Potassium 3.8 mmol/L (3.5-5.1); Sodium 143 mmol/L (136-145)
[2018-06-17] MEDS: Aspirin 325 MG TAB PO SCH (08:19)
[2018-06-17] MEDS: Famotidine 20 MG TAB PO SCH ×2 (08:19→21:00)
[2018-06-17] MEDS: Digoxin 0.5 MG/2 ML AMP SLOW IVP SCH (08:19)
[2018-06-17] MEDS: Metoprolol Tartrate 50 MG TAB PO SCH ×2 (08:19→21:01)
[2018-06-17] MEDS: Furosemide 40 MG/4 ML VIAL SLOW IVP SCH (08:19)
[2018-06-17] MEDS: Acetaminophen 325 MG TAB PO PRN ×2 (08:27→21:01)
--- NOTE | 2018-06-17 09:48 | PRG ---
DATE OF SERVICE: 06/17/2018 SUBJECTIVE: The patient remains confused. He has had to be restrained. His is currently at the bedside. OBJECTIVE: VITAL SIGNS: Temperature is 97.7, pulse 89, blood pressure 157/93. Intake for 24 hours 845, output 3030. HEENT: Unremarkable. NECK: No adenopathy, JVD, or bruits. LUNGS: Clear anteriorly. CARDIAC: S1, S2. Regular. ABDOMEN: Soft. EXTREMITIES: No edema. ASSESSMENT: 1. Continued encephalopathy with manic features. 2. Status post arrest. 3. Atrial fibrillation with rapid ventricular response. 4. Status post coronary artery bypass grafting surgery. PLAN: I will go ahead and try him on some Depakote to see if that will allow him to settle down a little bit. We have to be very careful with HOTEL CONTROLLER altering medications. Job ID: [id number]
--- NOTE | 2018-06-17 10:55 | PDOC.CTH ---
Cardiology Progress Note - Subjective He is very vocal today but still confused today. No chest pain. - Objective Vital Signs Temp Pulse Resp Pulse Ox 06/17/18 10:08 96 06/17/18 08:49 88 24 H 95 06/17/18 08:19 88 06/17/18 08:00 97.7 F 06/17/18 02:10 82 28 H 96 06/17/18 00:00 99.4 F Admit Weight 217 lb Weight 214 lb 1.102 oz 06/16/18 06/17/18 06/18/18 06:59 06:59 06:59 Intake Total 1074 845 100 Output Total 2415 3030 850 Balance -3320 -3252 -792 - Physical Examination General/Neuro: NAD Neck: no JVD present Lungs: unlabored respirations Heart: RRR Abdomen: NT/ND Extremities: + edema B (Trace) - Telemetry Telemetry Rhythm: Afib HR 70's to 80's - Labs Result Diagrams: 06/15/18 04:45 06/17/18 04:41 Troponin/CKMB CK-MB (CK-2) 110.2 ng/mL (0-6.6) H* 06/06/18 14:30 Troponin I 42.332 ng/mL (< 0.028) H* 06/07/18 03:00 - Assessment/Plan 1. Acute [place] 2. Out of hospital cardiac arrest 3. Anoxic brain injury 4. Post op afib, rate controlled. 5. AMS, improving. 6. Seizures. 7. COPD without exacerbation. PLAN: - Continue rate control with current meds. - Aspirin and statin for life. - Continue IV drips as it is sometimes hard to get him to swallow his meds. - Switch amio and dilt to PO once less confused.
[2018-06-17] MEDS: Ziprasidone 60 MG CAP PO SCH (11:27)
[2018-06-17] MEDS: Diltiazem 125 MG in Sodium Chloride 0.9% 100 ML IVPB SCH (14:43)
[2018-06-17] MEDS: Amiodarone 450 MG, Admixture Fee 1 EACH in Dextrose 5% in Water 250 ML IVPB SCH (14:43)
[2018-06-17] MEDS: Divalproex Sodium 250 MG (DR) TAB PO SCH ×3 (14:43→21:00)
[2018-06-17] MEDS: Atorvastatin Calcium 20 MG TAB PO SCH (20:59)
[2018-06-17] MEDS: Melatonin 3 MG TAB PO SCH (21:00)
[2018-06-18] MEDS: Diltiazem 125 MG in Sodium Chloride 0.9% 100 ML IVPB SCH (04:35)
[2018-06-18 05:27] LABS: Anion Gap 16 mmol/L (10-20); BUN (Urea Nitrogen) 20 mg/dL (8.4-25.7); Calc. Creatinine Clearance 96 mL/min (70-130); Calcium 9.3 mg/dL (7.8-10.44); Carbon Dioxide 32 mmol/L (23-31); Chloride 103 mmol/L (98-107); Estimated GFR-MDRD 71; Glucose 102 mg/dL (80-115); Potassium 3.8 mmol/L (3.5-5.1); Sodium 147 mmol/L (136-145)
[2018-06-18] MEDS ORDERED: Ziprasidone 60 MG CAP PO SCH (09:00)
--- NOTE | 2018-06-18 09:03 | PRG ---
DATE OF SERVICE: 06/18/2018 SUBJECTIVE: The patient is still confused, but seems to be doing well otherwise. OBJECTIVE: VITAL SIGNS: On exam, his temperature is 97.7, pulse is 82, blood pressure is 167/90, O2 saturation is 91%. Intake for 24 hours 1365, output 2235. HEENT: Unremarkable. NECK: No JVD. CHEST: Clear anteriorly. CARDIAC: S1, S2. Regular. ABDOMEN: Soft. EXTREMITIES: No edema. LABORATORY DATA: Sodium 147, potassium 3.8, chloride 103, CO2 of 32, BUN 20, creatinine 1.1, and glucose 102. ASSESSMENT: 1. Status post myocardial infarction. 2. Status post sudden cardiac . 3. Status post respiratory failure, requiring mechanical ventilation. 4. Atrial fibrillation. 5. Status post coronary artery bypass grafting surgery. 6. Encephalopathy. PLAN: 1. Move to [facility]. 2. Continue generalized supportive care. 3. I would probably go ahead and stop diuresis since he is starting to get hypernatremic. Job ID: [id number]
[2018-06-18] MEDS: Digoxin 0.5 MG/2 ML AMP SLOW IVP SCH (10:40)
[2018-06-18] MEDS: Aspirin 325 MG TAB PO SCH (10:40)
[2018-06-18] MEDS: Divalproex Sodium 250 MG (DR) TAB PO SCH ×3 (10:40→20:44)
[2018-06-18] MEDS: Famotidine 20 MG TAB PO SCH ×2 (10:40→20:43)
[2018-06-18] MEDS: Metoprolol Tartrate 50 MG TAB PO SCH ×2 (10:40→20:43)
[2018-06-18] MEDS: Ziprasidone 60 MG CAP PO SCH (12:12)
--- NOTE | 2018-06-18 13:01 | PDOC.CTH ---
Cardiology Progress Note - Subjective The pt seen and examined. No overnight events. No cardiac complaints. He is very confused at this moment and on restraints (possible due to DT withdraw?). converted back to SR on 1234 today. - Objective Vital Signs Temp Pulse Resp BP Pulse Ox 06/18/18 10:50 98.1 F 95 24 H 143/93 H 100 06/18/18 10:40 81 06/18/18 08:05 81 35 H 100 06/18/18 08:00 100 Admit Weight 217 lb Weight 214 lb 1.102 oz 06/17/18 06/18/18 06/19/18 06:59 06:59 06:59 Intake Total 845 1365 Output Total 3030 2235 Balance -2185 -870 - Physical Examination General/Neuro: other: (confused) Lungs: CTA (diminished at bases) Heart: RRR Abdomen: soft Extremities: other: - Labs Result Diagrams: 06/15/18 04:45 06/19/18 04:46 Troponin/CKMB CK-MB (CK-2) 110.2 ng/mL (0-6.6) H* 06/06/18 14:30 Troponin I 42.332 ng/mL (< 0.028) H* 06/07/18 03:00 - Assessment/Plan 1. Acute [place] 2/2 s/p out of hospital cardiac arrest and S/p CABG x2 with GERMAN- LAD and RSVG-Diag on 06/12/2018 - stable with Bblokcer from today. On ASA. 2. Post-op Afib - Converted back to SR at 1234 on 06/18/2018 with Amiodarone drip and Cardizem drip, which was stopped due to bradycardia, down to 40s today. Cont. amiodarone drip for now with metoprolol. Stop Digoxin 0.25mg po. 3. HTN - stable with Metoprolol 50mg BID 3. Hyperlipidemia - will resume Lipitor with dose of 20mg qd from [facility]. 4. Anoxic brain injury - improving. pt. conversing easily but seems paranoid about meds and his po intake. 5. SZ - Neurology consult 6. COPD - on 4LNC; managed by oxygen system tester 7. Elevated LFT - cont. to monitor 8. hx of GI bleed - resolved. 9. Hypothyroidism - 10. tobacco and ETOH abuse -will need help likely post hospital MAR reviewed Pt. seen and eval. by me. No cardiac problems, maintaining NSR . I agree with the A/P by the ASSEMBLER BILLIARD TABLE. Chest clear. RRR, no edema. Cardiac status stable. Still confused. Review of Systems - Review of Systems Constitutional: reports: see HPI
--- NOTE | 2018-06-18 14:20 | PDOC.PN ---
- Subjective Encounter Start Date: 06/18/18 Encounter Start Time: 14:18 Subjective: very confused, not in any distress - Objective Resuscitation Status - Order Detail: 06/05/18 21:02 Resuscitation Status Routine Resuscitation Status: FULL: Full Resuscitation Vital Signs & Weight: Vital Signs (12 hours) Temp Pulse Resp BP Pulse Ox 06/18/18 13:22 90 28 H 96 06/18/18 10:50 98.1 F 95 24 H 143/93 H 100 06/18/18 10:40 81 06/18/18 08:05 81 35 H 100 06/18/18 08:00 100 Weight Admit Weight 217 lb Weight 214 lb 1.102 oz Most Recent Monitor Data Heart Rate from ECG 82 NIBP 167/90 NIBP BP-Mean 115 Respiration from ECG 30 SpO2 91 I&O: 06/17/18 06/18/18 06/19/18 06:59 06:59 06:59 Intake Total 845 1365 Output Total 3030 2235 Balance -6115 -870 Result Diagrams: 06/15/18 04:45 06/18/18 05:02 Phys Exam - Physical Examination HEENT: PERRLA, moist MMs, sclera anicteric, TM's clear, oral pharynx no lesions , 2+ tonsils Neck: no nodes, no JVD Respiratory: no wheezing, no rales, no rhonchi Cardiovascular: no significant murmur, irregular sternal incision site healing well Gastrointestinal: soft, non-tender, no distention Musculoskeletal: no edema, pulses present very confused, cannot follow commands Skin: no rash, normal turgor, cap refill <2 seconds Dx/Plan (1) Cardiac arrest due to underlying cardiac condition Code(s): I46.2 - CARDIAC ARREST DUE TO UNDERLYING CARDIAC CONDITION Status: Resolved Comment: s/p arrest secondary to STEMI, emergent LHC, S/P CABG, Course complicated by anoxic injury and slow clinical improvement, afib, cardiac rehab requested (2) STEMI (ST elevation myocardial infarction) Status: Acute Qualifiers: Involved coronary artery: LAD coronary artery Qualified Code(s): I21.02 - ST elevation (STEMI) myocardial infarction involving left anterior descending coronary artery Comment: s/p CABG 06/12/2018 (3) Atrial fibrillation with rapid ventricular response Code(s): I48.91 - UNSPECIFIED ATRIAL FIBRILLATION Status: Acute Comment: on Amiodarone and Diltiazem drips, metoprolol added BID, may need cardioversion before d/c per Dr. Cool (4) Acute metabolic encephalopathy Code(s): G93.41 - METABOLIC ENCEPHALOPATHY Status: Acute Comment: anoxic brain injury? Very confused, i have not seen any improvement in his confusion last 3 days (5) HLD (hyperlipidemia) Code(s): E78.5 - HYPERLIPIDEMIA, UNSPECIFIED Status: Chronic Comment: Resume Lipitor 10mg HS (6) Hypertension Code(s): I10 - ESSENTIAL (PRIMARY) HYPERTENSION Status: Chronic Qualifiers: Hypertension type: essential hypertension Qualified Code(s): I10 - Essential (primary) hypertension (7) Hypothyroidism Code(s): E03.9 - HYPOTHYROIDISM, UNSPECIFIED Status: Chronic Comment: Resume Levothyroxine 125mcg daily (8) Tobacco abuse Code(s): Z72.0 - TOBACCO USE Status: Chronic Comment: Tobacco cessation resources, consider nicotine patch (9) Acute respiratory failure with hypoxia Code(s): J96.01 - ACUTE RESPIRATORY FAILURE WITH HYPOXIA Status: Resolved Comment: extubated and doing well - Plan * .
[2018-06-18] MEDS: Atorvastatin Calcium 20 MG TAB PO SCH (20:43)
[2018-06-18] MEDS: Melatonin 3 MG TAB PO SCH (20:44)
[2018-06-19] MEDS: Amiodarone 450 MG, Admixture Fee 1 EACH in Dextrose 5% in Water 250 ML IVPB SCH (00:38)
[2018-06-19 05:13] LABS: Anion Gap 14 mmol/L (10-20); BUN (Urea Nitrogen) 21 mg/dL (8.4-25.7); Calc. Creatinine Clearance 104 mL/min (70-130); Calcium 9.1 mg/dL (7.8-10.44); Carbon Dioxide 30 mmol/L (23-31); Chloride 101 mmol/L (98-107); Estimated GFR-MDRD 85; Glucose 91 mg/dL (80-115); Sodium 141 mmol/L (136-145)
--- NOTE | 2018-06-19 08:13 | PRG ---
DATE OF SERVICE: 06/19/2018 SUBJECTIVE: Mr. Calles continues to be very confused almost to the point of being combative. OBJECTIVE: VITAL SIGNS: Temperature 98.0, pulse 78, blood pressure 170/98, and O2 sat 100%. HEENT: Unremarkable. NECK: No JVD. CHEST: Clear anteriorly. CARDIAC: S1 and S2, regular. ABDOMEN: Soft. EXTREMITIES: No edema. LABORATORY DATA: Sodium 141, potassium 4.0, chloride 101, CO2 of 30, BUN 21, creatinine 0.9, and glucose 91. ASSESSMENT: 1. Status post cardiac arrest after an occluded left anterior descending. 2. Status post coronary artery bypass grafting surgery. 3. Hypoxic encephalopathy. PLAN: The patient continues on Geodon and Depakote for his confusion. I am not sure that any of that is helping. He continues with a sitter in the intermediate care unit. This is a long-term rehabilitative project. Job ID: [id number]
--- NOTE | 2018-06-19 08:45 | PDOC.CTH ---
Cardiology Progress Note - Subjective The pt seen and examined. No overnight events. No cardiac complaints. He has a sitter at bedside and restraints. He is alerted but, still confused. - Objective Vital Signs Temp Pulse Resp BP Pulse Ox 06/19/18 07:34 98.0 F 78 28 H 170/98 H 100 06/19/18 07:20 77 30 H 100 06/19/18 04:00 97.9 F 73 22 H 166/89 H 99 06/18/18 23:56 73 32 H 99 06/18/18 23:52 98.3 F 70 24 H 152/96 H 98 Admit Weight 217 lb Weight 198 lb 4.8 oz 06/18/18 06/19/18 06/20/18 06:59 06:59 06:59 Intake Total 1365 897 Output Total 2235 750 Balance -870 147 - Physical Examination General/Neuro: other: (confused) Lungs: CTA (diminished at bases) Heart: RRR Abdomen: soft Extremities: other: (No edema) - Telemetry Telemetry Rhythm: SR 80-90s - Labs Result Diagrams: 06/15/18 04:45 06/19/18 04:46 Troponin/CKMB CK-MB (CK-2) 110.2 ng/mL (0-6.6) H* 06/06/18 14:30 Troponin I 42.332 ng/mL (< 0.028) H* 06/07/18 03:00 - Assessment/Plan 1. Acute [place] 2/[place] s/p out of hospital cardiac arrest and S/p CABG x2 with GERMAN- LAD and RSVG-Diag on 06/12/2018 - stable with Bblokcer, ASA and statin. 2. Post-op Afib - Converted back to SR at 1234 on 06/18/2018; On Amiodarone drip and metoprolol. Change to PO Amiodarone from today. [facility] and decrease ASA from 325mg to 81mg qd. 3. HTN - Will start Lisinopril 10mg qd from today 3. Hyperlipidemia - On statin 4. Anoxic brain injury - improving. pt. conversing easily but seems paranoid about meds and his po intake. 5. SZ - Neurology consult: on Depakote 6. COPD - on 4LNC; managed by renewals manager 7. Elevated LFT - cont. to monitor 8. hx of GI bleed - resolved. 9. Hypothyroidism - 10. tobacco and ETOH abuse -will need help likely post hospital MAR reviewed Pt. seen and eval. by me. No cardiac problems . I agree with the A/P by the CARPENTER MOLD. Chest clear. Irreg, no edema. Cardiac status stable. Review of Systems - Review of Systems Constitutional: reports: weakness EENTM: reports: no symptoms reported Respiratory: reports: no symptoms reported Cardiac (ROS): reports: no symptoms reported ABD/GI: reports: no symptoms reported : reports: no symptoms reported
[2018-06-19] MEDS: Divalproex Sodium 250 MG (DR) TAB PO SCH ×3 (09:54→20:05)
[2018-06-19] MEDS: Famotidine 20 MG TAB PO SCH ×2 (09:54→20:04)
[2018-06-19] MEDS: Metoprolol Tartrate 50 MG TAB PO SCH ×2 (09:55→20:05)
[2018-06-19] MEDS: Aspirin 325 MG TAB PO SCH (09:55)
[2018-06-19] MEDS ORDERED: Lisinopril 10 MG TAB PO SCH (10:00)
--- NOTE | 2018-06-19 15:05 | PDOC.PN ---
- Subjective Encounter Start Date: 06/19/18 Encounter Start Time: 15:03 Subjective: feels better. denies any CP/palpitations/SOB -: family at bedside and report better mentation today -: still very weak - Objective Resuscitation Status - Order Detail: 06/05/18 21:02 Resuscitation Status Routine Resuscitation Status: FULL: Full Resuscitation MAR Reviewed: Yes Vital Signs & Weight: Vital Signs (12 hours) Temp Pulse Pulse Pulse Resp BP BP 06/19/18 13:30 75 71 146/77 H 06/19/18 13:03 71 24 H 06/19/18 11:02 97.4 F L 64 24 H 06/19/18 09:54 179/105 H 06/19/18 09:27 78 79 147/83 H 06/19/18 08:11 06/19/18 07:34 98.0 F 78 28 H 06/19/18 07:20 77 30 H 06/19/18 04:00 97.9 F 73 22 H BP BP Pulse Ox Pulse Ox Pulse Ox 06/19/18 13:30 142/78 H 94 L 97 06/19/18 13:03 96 06/19/18 11:02 138/84 100 06/19/18 09:54 06/19/18 09:27 141/83 H 99 96 06/19/18 08:11 100 06/19/18 07:34 170/98 H 100 06/19/18 07:20 100 06/19/18 04:00 166/89 H 99 Weight Admit Weight 217 lb 6.012 oz Weight 198 lb 4.8 oz Most Recent Monitor Data Heart Rate from ECG 82 NIBP 167/90 NIBP BP-Mean 115 Respiration from ECG 30 SpO2 91 I&O: 06/18/18 06/19/18 06/20/18 06:59 06:59 06:59 Intake Total 1365 897 Output Total 2235 750 Balance -870 147 Result Diagrams: 06/15/18 04:45 06/19/18 04:46 Additional Labs: Microbiology 06/06/18 21:00 Urine cai catheter Urine Culture - Final NO GROWTH AT 36 HOURS Phys Exam - Physical Examination Constitutional: NAD sitting up in chair,awake and alert and OX3 HEENT: PERRLA, moist MMs, sclera anicteric, oral pharynx no lesions Neck: no nodes, no JVD, supple, full ROM Respiratory: no wheezing, no rales, no rhonchi, clear to auscultation bilateral Cardiovascular: RRR, no significant murmur, no rub Gastrointestinal: soft, non-tender, no distention, positive bowel sounds Musculoskeletal: no edema, pulses present Neurological: non-focal, normal sensation, moves all 4 limbs Psychiatric: normal affect, A&O x 3 Skin: no rash Dx/Plan (1) Atrial fibrillation with rapid ventricular response Code(s): I48.91 - UNSPECIFIED ATRIAL FIBRILLATION Status: Acute Comment: Discussed with cardiology.Start AMiodarone PO from Drip and start Eliquis.Stop amiodarone drip and lovenox. Lower ASA to 81 (2) Acute metabolic encephalopathy Code(s): G93.41 - METABOLIC ENCEPHALOPATHY Status: Acute Comment: Much improved. suspect metabolic and due to severe critical illness.on Depakote (3) STEMI (ST elevation myocardial infarction) Status: Acute Qualifiers: Involved coronary artery: LAD coronary artery Qualified Code(s): I21.02 - ST elevation (STEMI) myocardial infarction involving left anterior descending coronary artery Comment: s/p CABG 06/12/2018.On ASA,statin,BB,TEE-I/ARB (4) HLD (hyperlipidemia) Code(s): E78.5 - HYPERLIPIDEMIA, UNSPECIFIED Status: Chronic Comment: Resume Lipitor 10mg HS (5) Hypertension Code(s): I10 - ESSENTIAL (PRIMARY) HYPERTENSION Status: Chronic Qualifiers: Hypertension type: essential hypertension Qualified Code(s): I10 - Essential (primary) hypertension (6) Hypothyroidism Code(s): E03.9 - HYPOTHYROIDISM, UNSPECIFIED Status: Chronic Comment: Resume Levothyroxine 125mcg daily (7) Tobacco abuse Code(s): Z72.0 - TOBACCO USE Status: Chronic Comment: Tobacco cessation resources, consider nicotine patch (8) Acute respiratory failure with hypoxia Code(s): J96.01 - ACUTE RESPIRATORY FAILURE WITH HYPOXIA Status: Resolved Comment: extubated and doing well (9) Cardiac arrest due to underlying cardiac condition Code(s): I46.2 - CARDIAC ARREST DUE TO UNDERLYING CARDIAC CONDITION Status: Resolved Comment: s/p arrest secondary to STEMI, emergent LHC, S/P CABG, Course complicated by anoxic injury and slow clinical improvement, afib, cardiac rehab requested - Plan plan discussed w/ family, PT/OT, respiratory therapy, incentive spirometry, out of bed/ambulate, DVT proph w/SCDs check labs in am -: needs placement -: cont to monitor mentation.hemodynamically stable. -: OK to move to [facility]. * . Review of Systems - Review of Systems Constitutional: weakness, malaise. negative: fever, chills, sweats, other Respiratory: SOB with Excertion. negative: Cough, Dry, Shortness of Breath, Hemoptysis, Pleuritic Pain, Sputum, Wheezing Cardiovascular: negative: chest pain, palpitations, orthopnea, paroxysmal nocturnal dyspnea, edema, light headedness, other Gastrointestinal: negative: Nausea, Vomiting, Abdominal Pain, Diarrhea, Constipation, Melena, Hematochezia, Other Genitourinary: negative: Dysuria, Frequency, Incontinence, Hematuria, Retention , Other Musculoskeletal: negative: Neck Pain, Shoulder Pain, Arm Pain, Back Pain, Hand Pain, Leg Pain, Foot Pain, Other Neurological: negative: Weakness, Numbness, Incoordination, Change in Speech, Confusion, Seizures, Other - Medications/Allergies Allergies/Adverse Reactions: Allergies Allergy/AdvReac Type Severity Reaction Status Date / Time No Known Drug Allergies Allergy Verified 06/06/18 00:55 Medications: Current Medications Acetaminophen (Tylenol) 650 mg PO Q6H PRN PRN Reason: Headache/Fever Or Mild Pain Last Admin: 06/17/18 21:01 Dose: 650 mg Hydrocodone Bitart/Acetaminophen ([place] 5/325) 1 tab PO Q4H PRN PRN Reason: Moderate Pain (4-6) Hydrocodone Bitart/Acetaminophen ([place] 5/325) 2 tab PO Q4H PRN PRN Reason: Severe Pain (7-10) Al Hydroxide/Mg Hydroxide (Maalox) 30 ml PO Q4H PRN PRN Reason: Indigestion Albuterol/Ipratropium (Duoneb) 3 ml NEB [id number] [facility] Last Admin: 06/19/18 13:03 Dose: 3 ml Amiodarone HCl (Cordarone) 400 mg PO BID [facility] Stop: 06/26/18 09:01 Amiodarone HCl (Cordarone) 200 mg PO BID [facility] Stop: 07/03/18 09:01 Amiodarone HCl (Cordarone) 200 mg PO DAILY [facility] Apixaban (Eliquis) 5 mg PO BID [facility] Aspirin (Ecotrin) 81 mg PO DAILY [facility] Atorvastatin Calcium (Lipitor) 20 mg PO HS [facility] Last Admin: 06/18/18 20:43 Dose: 20 mg Bisacodyl (Dulcolax) 10 mg PO Q12H PRN PRN Reason: Constipation Bisacodyl (Dulcolax) [address] Q12H PRN PRN Reason: Constipation Divalproex Sodium (Depakote) 250 mg PO TID [facility] Last Admin: 06/19/18 14:44 Dose: 250 mg Famotidine (Pepcid) 20 mg PO BID [facility] Last Admin: 06/19/18 09:54 Dose: 20 mg Guaifenesin/Dextromethorphan (Robitussin Dm) 15 ml PO Q4H PRN PRN Reason: Cough Hydralazine HCl (Apresoline) 10 mg SLOW IVP Q6H PRN PRN Reason: To Maintain SBP< 140mmHG Last Admin: 06/14/18 02:17 Dose: 10 mg Dextrose/Water (D5w) 1,000 mls @ 0 mls/hr IV INF PRN PRN Reason: PRN HYPOGLYCEMIC PROTOCOL Lisinopril (Zestril) 10 mg PO 1000 [facility] Last Admin: 06/19/18 09:54 Dose: 10 mg Melatonin (Melatonin) 3 mg PO HS [facility] Last Admin: 06/18/18 20:44 Dose: 3 mg Metoprolol Tartrate (Lopressor) 50 mg PO BID [facility] Last Admin: 06/19/18 09:55 Dose: 50 mg Morphine Sulfate (Morphine) 2 mg SLOW IVP Q15MIN PRN PRN Reason: Severe Pain (7-10) Ondansetron HCl (Zofran) 4 mg IVP Q6H PRN PRN Reason: Nausea/Vomiting Potassium Chloride (Kcl) 20 meq IVPB PRN PRN PRN Reason: K level </= 4.0 Last Admin: 06/16/18 06:18 Dose: 20 meq Sodium Chloride (Flush - Normal Saline) 10 ml IVF Q12HR [facility] Last Admin: 06/19/18 09:55 Dose: Not Given Ziprasidone (Geodon) 60 mg PO 1200 [facility] Last Admin: 06/18/18 12:12 Dose: 60 mg
--- NOTE | 2018-06-19 19:55 | EKG ---
Test Reason : POST CABG Blood Pressure : / mmHG Vent. Rate : 145 BPM Atrial Rate : 100 BPM P-R Int : 000 ms QRS Dur : 082 ms QT Int : 328 ms P-R-T Axes : 000 057 046 degrees QTc Int : 509 ms Atrial fibrillation with rapid ventricular response Anteroseptal infarct , age undetermined Abnormal ECG When compared with ECG of 05-JUN-2018 19:02, Atrial fibrillation has replaced Wide QRS rhythm Confirmed by CONNIE VELARDE (2) on 06/19/2018 7:55:45 PM Referred By: Hernán CONLEY Confirmed By:CONNIE VELARDE
[2018-06-19] MEDS: Atorvastatin Calcium 20 MG TAB PO SCH (20:04)
[2018-06-19] MEDS: Apixaban 5 MG TAB PO SCH (20:04)
[2018-06-19] MEDS: Amiodarone 200 MG TAB PO SCH (20:05)
[2018-06-19] MEDS: Melatonin 3 MG TAB PO SCH (20:05)
[2018-06-19] MEDS: Ziprasidone 60 MG CAP PO SCH (21:01)
[2018-06-20 05:09] LABS: Hemoglobin 11.9 g/dL (14.0-18.0)
[2018-06-20 05:31] LABS: Anion Gap 16 mmol/L (10-20); BUN (Urea Nitrogen) 19 mg/dL (8.4-25.7); Calc. Creatinine Clearance 110 mL/min (70-130); Calcium 8.8 mg/dL (7.8-10.44); Carbon Dioxide 29 mmol/L (23-31); Chloride 99 mmol/L (98-107); Estimated GFR-MDRD 90; Glucose 92 mg/dL (80-115); Potassium 3.6 mmol/L (3.5-5.1); Sodium 140 mmol/L (136-145)
--- NOTE | 2018-06-20 08:23 | PDOC.CTH ---
Cardiology Progress Note - Subjective The pt seen and examined. No overnight events. No cardiac complaints. A sitter at bedside. - Objective Vital Signs Temp Pulse Resp BP Pulse Ox 06/20/18 07:15 97.7 F 73 16 165/87 H 96 06/20/18 06:47 97 06/20/18 06:45 72 20 97 06/20/18 03:51 97.9 F 80 22 H 165/73 H 98 06/20/18 00:21 64 24 H 93 L 06/19/18 20:40 95 Admit Weight 217 lb 6.012 oz Weight 202 lb 4.8 oz 06/19/18 06/20/18 06/21/18 06:59 06:59 06:59 Intake Total 897 1150 Output Total 750 1250 Balance 147 -100 - Physical Examination General/Neuro: other: (confused) Lungs: other: (diminished at bases) Heart: RRR Abdomen: soft Extremities: other: (No edema) - Telemetry Telemetry Rhythm: SR 70s - Labs Result Diagrams: 06/20/18 04:51 06/20/18 04:51 Troponin/CKMB CK-MB (CK-2) 110.2 ng/mL (0-6.6) H* 06/06/18 14:30 Troponin I 42.332 ng/mL (< 0.028) H* 06/07/18 03:00 - Assessment/Plan 1. Acute [place] 2/[place] s/p out of hospital cardiac arrest and S/p CABG x2 with GERMAN- LAD and RSVG-Diag on 06/12/2018 - stable with Bblokcer, statin and ASA which was changed from 325mg to 81mg qd with Eliquis 5mg BID. 2. Post-op Afib - Converted back to SR at 1234 on 06/18/2018; On Amiodarone PO, metoprolol. On Eliquis 5mg BID for OAC; 3. HTN - Will start Lisinopril 10mg qd from today 3. Hyperlipidemia - On statin 4. Anoxic brain injury - improving. pt. conversing easily but seems paranoid about meds and his po intake. 5. SZ - Neurology consult: on Depakote 6. COPD - on 4LNC; managed by professional engineer 7. Elevated LFT - cont. to monitor 8. hx of GI bleed - resolved. 9. Hypothyroidism - 10. tobacco and ETOH abuse -will need help likely post hospital MAR reviewed Pt. seen and eval. by me. i agree with the A/P by the INSTALLER SOFT TOP. cardiac status is stable. Should go to rehab. Review of Systems - Review of Systems Constitutional: reports: no symptoms reported Respiratory: reports: no symptoms reported Cardiac (ROS): reports: no symptoms reported
[2018-06-20] MEDS ORDERED: Divalproex Sodium 125 mg Sprinkle Capsule PO SCH (09:00)
[2018-06-20] MEDS: Lisinopril 10 MG TAB PO SCH ×2 (09:32→21:25)
[2018-06-20] MEDS: Apixaban 5 MG TAB PO SCH ×2 (09:32→21:24)
[2018-06-20] MEDS: Aspirin 81 mg Enteric Coated Tablet PO SCH (09:34)
[2018-06-20] MEDS: Amiodarone 200 MG TAB PO SCH ×2 (09:34→21:25)
[2018-06-20] MEDS: Metoprolol Tartrate 50 MG TAB PO SCH ×2 (09:36→21:25)
[2018-06-20] MEDS: Famotidine 20 MG TAB PO SCH ×2 (09:36→21:25)
--- NOTE | 2018-06-20 09:42 | PRG ---
DATE OF SERVICE: 06/20/2018 SUBJECTIVE: The patient remains very confused. OBJECTIVE: VITAL SIGNS: Temperature 97.7, pulse 72, respirations 16, O2 saturation 96%, and blood pressure 165/87. HEENT: Unremarkable. NECK: No JVD. CHEST: Clear anteriorly. CARDIAC: S1 and S2, regular. ABDOMEN: Soft. EXTREMITIES: No edema. LABORATORY DATA: Sodium 140, potassium 3.6, BUN 19, creatinine 0.8, and glucose 92. ASSESSMENT: 1. Hypoxic encephalopathy without evidence of improvement over the last 2 to 3 days. 2. Status post coronary artery bypass grafting surgery. PLAN: 1. I will go ahead and stop the Depakote and the Geodon as I do not think he is doing much good. We need to try to minimize any type of narcotic medication. 2. Hopefully to rehab or detention soon. Job ID: [id number]
--- NOTE | 2018-06-20 13:22 | PDOC.PN ---
- Subjective Encounter Start Date: 06/20/18 Encounter Start Time: 13:20 Subjective: feels better today. reports that he is more alert -: pt asked appropriate Qs even thogh he is still somewhat confused -: he knows that he gets confused time to time and does not like that - Objective Resuscitation Status - Order Detail: 06/05/18 21:02 Resuscitation Status Routine Resuscitation Status: FULL: Full Resuscitation MAR Reviewed: Yes Vital Signs & Weight: Vital Signs (12 hours) Temp Pulse Pulse Pulse Resp BP BP 06/20/18 13:06 67 20 06/20/18 11:45 96.7 F L 68 17 06/20/18 09:45 72 64 146/83 H 139/71 06/20/18 07:15 97.7 F 73 16 06/20/18 06:47 06/20/18 06:45 72 20 06/20/18 03:51 97.9 F 80 22 H BP Pulse Ox Pulse Ox Pulse Ox Pulse Ox 06/20/18 13:06 98 06/20/18 11:45 157/86 H 97 06/20/18 09:45 95 96 98 06/20/18 07:15 165/87 H 96 06/20/18 06:47 97 06/20/18 06:45 97 06/20/18 03:51 165/73 H 98 Weight Admit Weight 217 lb 6.012 oz Weight 202 lb 4.8 oz Most Recent Monitor Data Heart Rate from ECG 82 NIBP 167/90 NIBP BP-Mean 115 Respiration from ECG 30 SpO2 91 I&O: 06/19/18 06/20/18 06/21/18 06:59 06:59 06:59 Intake Total 897 1150 Output Total 750 1250 Balance 147 -100 Result Diagrams: 06/20/18 04:51 06/20/18 04:51 Phys Exam - Physical Examination Constitutional: NAD HEENT: PERRLA, moist MMs, sclera anicteric, oral pharynx no lesions Neck: no nodes, no JVD, supple, full ROM Respiratory: no wheezing, no rales, no rhonchi, clear to auscultation bilateral Cardiovascular: RRR, no significant murmur Gastrointestinal: soft, non-tender, no distention, positive bowel sounds Musculoskeletal: no edema, pulses present Neurological: non-focal, normal sensation, moves all 4 limbs Psychiatric: normal affect, A&O x 3 Skin: no rash Dx/Plan (1) Atrial fibrillation with rapid ventricular response Code(s): I48.91 - UNSPECIFIED ATRIAL FIBRILLATION Status: Acute Comment: Discussed with cardiology.Start AMiodarone PO from Drip and start Eliquis.Stop amiodarone drip and lovenox. Lower ASA to 81 (2) Acute metabolic encephalopathy Code(s): G93.41 - METABOLIC ENCEPHALOPATHY Status: Acute Comment: Much improved. suspect metabolic and due to severe critical illness.on Depakote (3) STEMI (ST elevation myocardial infarction) Status: Acute Qualifiers: Involved coronary artery: LAD coronary artery Qualified Code(s): I21.02 - ST elevation (STEMI) myocardial infarction involving left anterior descending coronary artery Comment: s/p CABG 06/12/2018.On ASA,statin,BB,TEE-I/ARB (4) HLD (hyperlipidemia) Code(s): E78.5 - HYPERLIPIDEMIA, UNSPECIFIED Status: Chronic Comment: Resume Lipitor 10mg HS (5) Hypertension Code(s): I10 - ESSENTIAL (PRIMARY) HYPERTENSION Status: Chronic Qualifiers: Hypertension type: essential hypertension Qualified Code(s): I10 - Essential (primary) hypertension (6) Hypothyroidism Code(s): E03.9 - HYPOTHYROIDISM, UNSPECIFIED Status: Chronic Comment: Resume Levothyroxine 125mcg daily (7) Tobacco abuse Code(s): Z72.0 - TOBACCO USE Status: Chronic Comment: Tobacco cessation resources, consider nicotine patch (8) Acute respiratory failure with hypoxia Code(s): J96.01 - ACUTE RESPIRATORY FAILURE WITH HYPOXIA Status: Resolved Comment: extubated and doing well (9) Cardiac arrest due to underlying cardiac condition Code(s): I46.2 - CARDIAC ARREST DUE TO UNDERLYING CARDIAC CONDITION Status: Resolved Comment: s/p arrest secondary to STEMI, emergent LHC, S/P CABG, Course complicated by anoxic injury and slow clinical improvement, afib, cardiac rehab requested - Plan plan discussed w/ family, continue antibiotics, PT/OT, respiratory therapy, incentive spirometry, out of bed/ambulate, DVT proph w/SCDs Awaiting placement.Inpt [facility] rehab -: hemodynamically stable. -: mentation improving. -: LFts trended down.cont o2 prn for copd.mild SOB at rest w sats in high 80s * . Review of Systems - Review of Systems Constitutional: weakness. negative: fever, chills, sweats, malaise, other Respiratory: SOB with Excertion. negative: Cough, Dry, Shortness of Breath, Hemoptysis, Pleuritic Pain, Sputum, Wheezing Cardiovascular: negative: chest pain, palpitations, orthopnea, paroxysmal nocturnal dyspnea, edema, light headedness, other Gastrointestinal: negative: Nausea, Vomiting, Abdominal Pain, Diarrhea, Constipation, Melena, Hematochezia, Other Genitourinary: negative: Dysuria, Frequency, Incontinence, Hematuria, Retention , Other Musculoskeletal: negative: Neck Pain, Shoulder Pain, Arm Pain, Back Pain, Hand Pain, Leg Pain, Foot Pain, Other Neurological: negative: Weakness, Numbness, Incoordination, Change in Speech, Confusion, Seizures, Other - Medications/Allergies Allergies/Adverse Reactions: Allergies Allergy/AdvReac Type Severity Reaction Status Date / Time No Known Drug Allergies Allergy Verified 06/06/18 00:55 Medications: Current Medications Acetaminophen (Tylenol) 650 mg PO Q6H PRN PRN Reason: Headache/Fever Or Mild Pain Last Admin: 06/17/18 21:01 Dose: 650 mg Al Hydroxide/Mg Hydroxide (Maalox) 30 ml PO Q4H PRN PRN Reason: Indigestion Albuterol/Ipratropium (Duoneb) 3 ml NEB Q8CH-II [facility] Last Admin: 06/20/18 13:06 Dose: 3 ml Amiodarone HCl (Cordarone) 400 mg PO BID [facility] Stop: 06/26/18 09:01 Last Admin: 06/20/18 09:34 Dose: 400 mg Amiodarone HCl (Cordarone) 200 mg PO BID [facility] Stop: 07/03/18 09:01 Amiodarone HCl (Cordarone) 200 mg PO DAILY [facility] Apixaban (Eliquis) 5 mg PO BID [facility] Last Admin: 06/20/18 09:32 Dose: 5 mg Aspirin (Ecotrin) 81 mg PO DAILY [facility] Last Admin: 06/20/18 09:34 Dose: 81 mg Atorvastatin Calcium (Lipitor) 20 mg PO HS [facility] Last Admin: 06/19/18 20:04 Dose: 20 mg Bisacodyl (Dulcolax) 10 mg PO Q12H PRN PRN Reason: Constipation Bisacodyl (Dulcolax) 10 mg GA Q12H PRN PRN Reason: Constipation Famotidine (Pepcid) 20 mg PO BID [facility] Last Admin: 06/20/18 09:36 Dose: 20 mg Guaifenesin/Dextromethorphan (Robitussin Dm) 15 ml PO Q4H PRN PRN Reason: Cough Hydralazine HCl (Apresoline) 10 mg SLOW IVP Q6H PRN PRN Reason: To Maintain SBP< 140mmHG Last Admin: 06/14/18 02:17 Dose: 10 mg Lisinopril (Zestril) 10 mg PO BID [facility] Last Admin: 06/20/18 09:32 Dose: 10 mg Melatonin (Melatonin) 3 mg PO HS [facility] Last Admin: 06/19/18 20:05 Dose: 3 mg Metoprolol Tartrate (Lopressor) 50 mg PO BID [facility] Last Admin: 06/20/18 09:36 Dose: 50 mg Ondansetron HCl (Zofran) 4 mg IVP Q6H PRN PRN Reason: Nausea/Vomiting Potassium Chloride (Kcl) 20 meq IVPB PRN PRN PRN Reason: K level </= 4.0 Last Admin: 06/16/18 06:18 Dose: 20 meq Sodium Chloride (Flush - Normal Saline) 10 ml IVF Q12HR [facility] Last Admin: 06/20/18 09:36 Dose: 10 ml
[2018-06-20] MEDS ORDERED: Ziprasidone 20 MG VIAL IM PRN (16:11)
[2018-06-20] MEDS ORDERED: Sterile Water 10 ML VIAL FS PRN (16:11)
[2018-06-20] MEDS: Atorvastatin Calcium 20 MG TAB PO SCH (21:24)
[2018-06-20] MEDS: Melatonin 3 MG TAB PO SCH (21:25)
--- NOTE | 2018-06-21 08:52 | PDOC.CTH ---
Cardiology Progress Note - Subjective The pt seen and examined. No overnight events. No cardiac complaints. A sitter at bedside. - Objective Vital Signs Temp Pulse Resp BP BP Pulse Ox 06/21/18 08:02 96.5 F L 64 15 138/64 96 06/21/18 06:09 74 20 97 06/21/18 04:00 97.3 F L 66 20 142/75 H 96 06/21/18 00:00 18 06/20/18 21:25 145/71 H Admit Weight 217 lb 6.012 oz Weight 198 lb 9.6 oz 06/20/18 06/21/18 06/22/18 06:59 06:59 06:59 Intake Total 1150 600 Output Total 1250 1000 Balance -100 -400 - Physical Examination General/Neuro: other: (confused) Lungs: CTA (diminished at bases) Heart: RRR Abdomen: soft Extremities: other: (No edema) - Labs Result Diagrams: 06/20/18 04:51 06/20/18 04:51 Troponin/CKMB CK-MB (CK-2) 110.2 ng/mL (0-6.6) H* 06/06/18 14:30 Troponin I 42.332 ng/mL (< 0.028) H* 06/07/18 03:00 - Assessment/Plan 1. Acute [place] 2/[facility] s/p out of hospital cardiac arrest and S/p CABG x2 with GERMAN- LAD and RSVG-Diag on 06/12/2018 - stable with Bblokcer, statin and ASA which was changed from 325mg to 81mg qd with Eliquis 5mg BID. 2. Post-op Afib - Converted back to SR at 1234 on 06/18/2018; On Amiodarone PO, metoprolol 50mg BID. On Eliquis 5mg BID for OAC; 3. HTN - stable with Metoprolol 50mg BID, Lisinopril 10mg BID. 3. Hyperlipidemia - On statin 4. Anoxic brain injury - improving. pt. conversing easily but seems paranoid about meds and his po intake. 5. SZ - Neurology consult: on Depakote 6. COPD - managed by sqe 7. Elevated LFT - cont. to monitor 8. hx of GI bleed - resolved. 9. Hypothyroidism - 10. tobacco and ETOH abuse -will need help likely post hospital MAR reviewed * From Cardiac standpoint, the pt's cardiac status is stable. Should go to rehab. Pt. seen and eval. by me. I agree with the A/P by the LIBRARY CONSULTANT Review of Systems - Review of Systems Constitutional: reports: no symptoms reported EENTM: reports: no symptoms reported Respiratory: reports: no symptoms reported Cardiac (ROS): reports: no symptoms reported ABD/GI: reports: no symptoms reported Musculoskeletal: reports: no symptoms reported
[2018-06-21] MEDS: Apixaban 5 MG TAB PO SCH ×2 (09:29→20:42)
[2018-06-21] MEDS: Famotidine 20 MG TAB PO SCH ×2 (09:29→20:42)
[2018-06-21] MEDS: Amiodarone 200 MG TAB PO SCH ×2 (09:29→20:42)
[2018-06-21] MEDS: Aspirin 81 mg Enteric Coated Tablet PO SCH (09:29)
[2018-06-21] MEDS: Lisinopril 10 MG TAB PO SCH ×2 (09:29→20:41)
[2018-06-21] MEDS: Metoprolol Tartrate 50 MG TAB PO SCH ×2 (09:30→20:41)
[2018-06-21] MEDS ORDERED: Gadobenate Dimeglumine 529 MG/1 ML (20ML VIAL) ONE (10:00)
--- NOTE | 2018-06-21 13:41 | PDOC.PN ---
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.denies any discomfort ,CP/SOB - Objective Resuscitation Status - Order Detail: 06/05/18 21:02 Resuscitation Status Routine Resuscitation Status: FULL: Full Resuscitation MAR Reviewed: Yes Vital Signs & Weight: Vital Signs (12 hours) Temp Pulse Pulse Pulse Resp BP BP 06/21/18 12:58 98.4 F 61 16 06/21/18 11:29 68 18 06/21/18 09:29 109/59 L 06/21/18 08:40 77 73 116/59 L 06/21/18 08:20 06/21/18 08:02 96.5 F L 64 15 06/21/18 06:09 74 20 06/21/18 04:00 97.3 F L 66 20 BP BP Pulse Ox Pulse Ox Pulse Ox 06/21/18 12:58 109/56 L 95 06/21/18 11:29 97 06/21/18 09:29 06/21/18 08:40 129/74 95 97 06/21/18 08:20 96 06/21/18 08:02 138/64 96 06/21/18 06:09 97 06/21/18 04:00 142/75 H 96 Weight Admit Weight 217 lb 6.012 oz Weight 198 lb 9.6 oz Most Recent Monitor Data Heart Rate from ECG 82 NIBP 167/90 NIBP BP-Mean 115 Respiration from ECG 30 SpO2 91 I&O: 06/20/18 06/21/18 06/22/18 06:59 06:59 06:59 Intake Total 1150 600 Output Total 1250 1000 Balance -100 -400 Result Diagrams: 06/20/18 04:51 06/20/18 04:51 Phys Exam - Physical Examination Constitutional: NAD sitting up in bed HEENT: PERRLA, moist MMs, sclera anicteric, oral pharynx no lesions Neck: no nodes, no JVD, supple, full ROM Respiratory: no wheezing, no rales, no rhonchi, clear to auscultation bilateral Cardiovascular: RRR, no significant murmur, no rub, irregular Gastrointestinal: soft, non-tender, no distention, positive bowel sounds Musculoskeletal: no edema, pulses present Neurological: non-focal, normal sensation, moves all 4 limbs Skin: no rash Dx/Plan (1) Atrial fibrillation with rapid ventricular response Code(s): I48.91 - UNSPECIFIED ATRIAL FIBRILLATION Status: Acute Comment: Discussed with cardiology.Stared AMiodarone PO from Drip and started Eliquis.Stop amiodarone drip and lovenox. Lower ASA to 81 (2) Acute metabolic encephalopathy Code(s): G93.41 - METABOLIC ENCEPHALOPATHY Status: Acute Comment: Much improved. suspect metabolic and due to severe critical illness.on Depakote (3) STEMI (ST elevation myocardial infarction) Status: Acute Qualifiers: Involved coronary artery: LAD coronary artery Qualified Code(s): I21.02 - ST elevation (STEMI) myocardial infarction involving left anterior descending coronary artery Comment: s/p CABG 06/12/2018.On ASA,statin,BB,TEE-I/ARB (4) HLD (hyperlipidemia) Code(s): E78.5 - HYPERLIPIDEMIA, UNSPECIFIED Status: Chronic Comment: Resume Lipitor 10mg HS (5) Hypertension Code(s): I10 - ESSENTIAL (PRIMARY) HYPERTENSION Status: Chronic Qualifiers: Hypertension type: essential hypertension Qualified Code(s): I10 - Essential (primary) hypertension (6) Hypothyroidism Code(s): E03.9 - HYPOTHYROIDISM, UNSPECIFIED Status: Chronic Comment: Resume Levothyroxine 125mcg daily (7) Tobacco abuse Code(s): Z72.0 - TOBACCO USE Status: Chronic Comment: Tobacco cessation resources, consider nicotine patch (8) Acute respiratory failure with hypoxia Code(s): J96.01 - ACUTE RESPIRATORY FAILURE WITH HYPOXIA Status: Resolved Comment: extubated and doing well (9) Cardiac arrest due to underlying cardiac condition Code(s): I46.2 - CARDIAC ARREST DUE TO UNDERLYING CARDIAC CONDITION Status: Resolved Comment: s/p arrest secondary to STEMI, emergent LHC, S/P CABG, Course complicated by anoxic injury and slow clinical improvement, afib, cardiac rehab requested - Plan PT/OT, respiratory therapy, incentive spirometry, out of bed/ambulate, DVT proph w/SCDs pt remains confused days after CABG/cardiac arrest.? CVA/ICH -: will get MRI brain today.cont supportive care -: cont meds as below.Hemodynamically stable -: awaiting placement -: am labs * . Review of Systems - Review of Systems Other: Can not be reliably obtained as pt is still confused - Medications/Allergies Allergies/Adverse Reactions: Allergies Allergy/AdvReac Type Severity Reaction Status Date / Time No Known Drug Allergies Allergy Verified 06/06/18 00:55 Medications: Current Medications Acetaminophen (Tylenol) 650 mg PO Q6H PRN PRN Reason: Headache/Fever Or Mild Pain Last Admin: 06/17/18 21:01 Dose: 650 mg Al Hydroxide/Mg Hydroxide (Maalox) 30 ml PO Q4H PRN PRN Reason: Indigestion Albuterol/Ipratropium (Duoneb) 3 ml NEB [id number] [facility] Last Admin: 06/21/18 11:29 Dose: 3 ml Amiodarone HCl (Cordarone) 400 mg PO BID [facility] Stop: 06/26/18 09:01 Last Admin: 06/21/18 09:29 Dose: 400 mg Amiodarone HCl (Cordarone) 200 mg PO BID [facility] Stop: 07/03/18 09:01 Amiodarone HCl (Cordarone) 200 mg PO DAILY [facility] Apixaban (Eliquis) 5 mg PO BID [facility] Last Admin: 06/21/18 09:29 Dose: 5 mg Aspirin (Ecotrin) 81 mg PO DAILY [facility] Last Admin: 06/21/18 09:29 Dose: 81 mg Atorvastatin Calcium (Lipitor) 20 mg PO HS [facility] Last Admin: 06/20/18 21:24 Dose: 20 mg Bisacodyl (Dulcolax) 10 mg PO Q12H PRN PRN Reason: Constipation Bisacodyl (Dulcolax) 10 mg NM Q12H PRN PRN Reason: Constipation Famotidine (Pepcid) 20 mg PO BID [facility] Last Admin: 06/21/18 09:29 Dose: 20 mg Guaifenesin/Dextromethorphan (Robitussin Dm) 15 ml PO Q4H PRN PRN Reason: Cough Hydralazine HCl (Apresoline) 10 mg SLOW IVP Q6H PRN PRN Reason: To Maintain SBP< 140mmHG Last Admin: 06/14/18 02:17 Dose: 10 mg Lisinopril (Zestril) 10 mg PO BID [facility] Last Admin: 06/21/18 09:29 Dose: 10 mg Melatonin (Melatonin) 3 mg PO HS [facility] Last Admin: 06/20/18 21:25 Dose: 3 mg Metoprolol Tartrate (Lopressor) 50 mg PO BID [facility] Last Admin: 06/21/18 09:30 Dose: 50 mg Ondansetron HCl (Zofran) 4 mg IVP Q6H PRN PRN Reason: Nausea/Vomiting Potassium Chloride (Kcl) 20 meq IVPB PRN PRN PRN Reason: K level </= 4.0 Last Admin: 06/16/18 06:18 Dose: 20 meq Sodium Chloride (Flush - Normal Saline) 10 ml IVF Q12HR [facility] Last Admin: 06/21/18 09:30 Dose: 10 ml Sterile Water (Water For Injection) 10 ml FS Q4H PRN PRN Reason: TO RECONSTITUTE ZIPRASIDONE Ziprasidone (Geodon) 10 mg IM Q4H PRN PRN Reason: Agitation Last Admin: 06/20/18 16:52 Dose: 10 mg
--- NOTE | 2018-06-21 14:56 | MRI ---
MRI BRAIN WITH AND WITHOUT IV CONTRAST: HISTORY: Altered mental status post CABG. FINDINGS: There is ventricular sulcal prominence due to cortical atrophy. There are a few foci of t2 prolongation in the periventricular white matter consistent with mild cornetist rosalinda small-vessel ischemic disease. The ventricular size is appropriate and the basilar cisterns are patent. No restricted diffusion is seen. No evidence of infarct, hemorrhage, mass, midline shift ar e seen. There is minimal mucosal disease in the paranasal sinuses and a small amount of fluid in the mastoid air cells. There is a focal area of post contrast enhancement in the region of the genu of the right MCA (M1) wh ich demonstrates a low signal intensity on T2 weighted sequences and measures about 1 cm. This may r epresent an aneurysm. IMPRESSION: 1. No evidence of acute intracranial process or mass. 2. 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 Further evaluation with CT scan without c ontrast and CTA of the brain is recommended. CODE T POS: OFF
[2018-06-21] MEDS: Acetaminophen 325 MG TAB PO PRN (17:46)
--- NOTE | 2018-06-21 19:44 | RAD ---
RADIOGRAPH OF CHEST FRONTAL VIEW: 06/21/18 COMPARISON: 06/15/18. INDICATION: Respiratory status change. FINDINGS: Right side vascular catheter is again seen. There is elevation of the right hemidiaphragm. The cardio mediastinal silhouette and pulmonary vasculature are prominent with interstitial opacities seen bilat erally. Hazy density at the inferior right chest could relate to superimposed mild pleural fluid. IMPRESSION: Persistent findings of fluid overload, likely related to decompensated CHF. POS: IQRA
[2018-06-21] MEDS: Atorvastatin Calcium 20 MG TAB PO SCH (20:41)
[2018-06-21] MEDS: Melatonin 3 MG TAB PO SCH (20:42)
[2018-06-21] MEDS ORDERED: Furosemide 20 MG/2 ML VIAL SLOW IVP SCH ×2 (21:00→21:45)
[2018-06-22 05:26] LABS: Anion Gap 16 mmol/L (10-20); BUN (Urea Nitrogen) 19 mg/dL (8.4-25.7); Calc. Creatinine Clearance 110 mL/min (70-130); Calcium 9.1 mg/dL (7.8-10.44); Carbon Dioxide 31 mmol/L (23-31); Chloride 96 mmol/L (98-107); Estimated GFR-MDRD 89; Glucose 89 mg/dL (80-115); Potassium 3.6 mmol/L (3.5-5.1); Sodium 139 mmol/L (136-145)
--- NOTE | 2018-06-22 08:43 | PDOC.CTH ---
Cardiology Progress Note - Subjective The pt seen and examined. No overnight events. No cardiac complaints. A sitter at bedside. - Objective Vital Signs Temp Pulse Resp BP Pulse Ox 06/22/18 07:41 93 L 06/22/18 07:37 78 16 06/22/18 03:37 97.2 F L 70 24 H 149/70 H 94 L 06/22/18 00:30 60 20 94 L 06/22/18 00:00 24 H Admit Weight 217 lb 6.012 oz Weight 201 lb 06/21/18 06/22/18 06/23/18 06:59 06:59 06:59 Intake Total 600 1440 Output Total 1000 1450 Balance -400 -10 - Physical Examination General/Neuro: other: (confused) Lungs: other: (ex wheezing) Heart: RRR Abdomen: soft Extremities: other: (No edema) - Telemetry Telemetry Rhythm: SR - Labs Result Diagrams: 06/22/18 09:23 06/22/18 04:45 Troponin/CKMB CK-MB (CK-2) 110.2 ng/mL (0-6.6) H* 06/06/18 14:30 Troponin I 42.332 ng/mL (< 0.028) H* 06/07/18 03:00 - Assessment/Plan 1. Acute DC 2/2 s/p out of hospital cardiac arrest and S/p CABG x2 with GERMAN- LAD and RSVG-Diag on 06/12/2018 - stable with Bblokcer, statin and ASA which was changed from 325mg to 81mg qd with Eliquis 5mg BID. 2. Post-op Afib - Converted back to SR at 1234 on 06/18/2018; On Amiodarone PO, metoprolol 50mg BID. On Eliquis 5mg BID for OAC; 3. HTN - stable with Metoprolol 50mg BID, Lisinopril 10mg BID. 3. Hyperlipidemia - On statin 4. Anoxic brain injury - improving. pt. conversing easily but seems paranoid about meds and his po intake. 5. SZ - Neurology consult: on Depakote 6. 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 Elevated LFT - cont. to monitor 8. hx of GI bleed - resolved. 9. Hypothyroidism - 10. tobacco and ETOH abuse -will need help likely post hospital MAR reviewed * From Cardiac standpoint, the pt's cardiac status is stable. Should go to rehab. P. seen and eval. by me. 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 Possible infectious process. Cultures pending. Chest clear. RRR, No edema. Review of Systems - Review of Systems Constitutional: reports: no symptoms reported EENTM: reports: no symptoms reported Respiratory: reports: no symptoms reported Cardiac (ROS): reports: no symptoms reported ABD/GI: reports: no symptoms reported : reports: no symptoms reported
[2018-06-22] MEDS: Apixaban 5 MG TAB PO SCH ×2 (08:49→21:25)
[2018-06-22] MEDS: Metoprolol Tartrate 50 MG TAB PO SCH ×2 (08:50→21:25)
[2018-06-22] MEDS: Lisinopril 10 MG TAB PO SCH ×2 (08:51→21:25)
[2018-06-22] MEDS: Famotidine 20 MG TAB PO SCH ×2 (08:51→21:25)
[2018-06-22] MEDS: Aspirin 81 mg Enteric Coated Tablet PO SCH (08:51)
[2018-06-22] MEDS: Amiodarone 200 MG TAB PO SCH ×2 (09:00→21:24)
[2018-06-22] MEDS ORDERED: Furosemide 20 MG/2 ML VIAL SLOW IVP SCH (09:00)
[2018-06-22 09:26] LABS: Actual Bicarbonate (HCO3a) 39.3 mEq/L (22-28); Base Excess (BEa) 13.4 mEq/L (-2.0 to +3.0); CO2 Tension 56.3 mmHg (35.0-45.0); Calcium, Ionized 1.13 mmol/L (1.12-1.30); Carboxyhemoglobin (COHb) 1.3 gm% (0.0-3.0); Hemoglobin (Hb) 11.7 g/dL (14.0-18.0); Potassium - ABG Lab 3.65 mmol/L (3.70-5.30); pH, Arterial 7.46 (7.35-7.45)
[2018-06-22 09:28] LABS: O2 Tension (PaO2) 52.9 mmHg (> 80.0); Puncture Site RRA
[2018-06-22 09:29] LABS: ALV-art Gradient 133.405 (0-20)
[2018-06-22] MEDS ORDERED: Acetaminophen 1,000 MG in Premix Bag 1 BAG IVPB SCH (09:30)
--- NOTE | 2018-06-22 10:20 | PRG ---
DATE OF SERVICE: 06/22/2018 SUBJECTIVE: Mr. Calles had a Code Green called today because of respiratory distress and hypoxemia. I walked into the room at the completion of his code. OBJECTIVE: VITAL SIGNS: Temperature is currently 101, pulse 78, respirations 18, blood pressure 122/58, O2 saturation 95% on 3 L. GENERAL: He does not appear to be in any distress. HEENT: Unremarkable. NECK: No JVD. LUNGS: He has a flail chest from previous CPR, but his lung hernandez are clear. CARDIAC: S1 and S2. Regular. ABDOMEN: Soft. EXTREMITIES: No edema. LABORATORY DATA: Sodium 139, potassium 3.6, chloride 96, CO2 of 31, BUN 19, creatinine 0.8, and glucose 89. PH 7.46, pCO2 of 56, and pO2 of 53, that is on 3 L. It is noted the patient is currently on Eliquis. ASSESSMENT: Current x-ray does not show any evidence of new pneumonia. I think the fever is causing him some issues. RECOMMENDATION: 1. I would go ahead and discontinue the central line that is in place. 2. Dr. Calloway started the patient on Zosyn and vancomycin, and we will trend the culture results. For the time being, I think we can hold off putting him on BiPAP therapy. Job ID: [id number]
[2018-06-22 10:39] LABS: Band 17 % (5-11); Eosinophils 2 % (0-10); Hemoglobin 13.7 g/dL (14.0-18.0); Hypochromia SLIGHT = 6-15 cells (100X) (0-5/hpf); Lymphocytes 6 % (21-51); MDiff Complete? YES; Mean Corpuscular HGB CONC 30.9 g/dL (32.0-36.0); Mean Corpuscular Hemoglobin 30.3 pg (27.0-31.0); Mean Platelet Volume 8.5 fL (7.4-10.4); Monocytes 4 % (0-10); Neutrophil 71 % (42-75); Platelet Count 507 thou/uL (130-400); Platelet Morphology Comment Appears Increased; Polychromasia SLIGHT = 2-3 cells (100X) (0-2/hpf); RBC Distribution Width 12.7 % (11.5-14.5); Red Blood Cell (RBC) Count 4.53 mill/uL (4.70-6.10); White Blood Cell (WBC) Count 20.2 thou/uL (4.8-10.8)
--- NOTE | 2018-06-22 10:44 | RAD ---
PORTABLE CHEST: HISTORY: Respiratory distress. COMPARISON: 06/21/2018 FINDINGS: Heart size appears borderline. Postop sternotomy changes. There is elevation to the right hemidiaph ragm. Right-sided subclavian line is unchanged in position. There is some atelectatic change in the right base, new as compared to the prior study. No other significant interval change. IMPRESSION: Minimal linear atelectasis, right lung base. POS: TPC
[2018-06-22] MEDS: Sodium Chloride 0.9% 1,000 ML IV SCH (10:54)
[2018-06-22] MEDS: Vancomycin HCl 1.25 GM in Sodium Chloride 0.9% 250 ML 250 ML IVPB SCH ×2 (10:54→23:42)
[2018-06-22 10:55] LABS: CKMB 2.8 ng/mL (0-6.6)
--- NOTE | 2018-06-22 13:14 | PDOC.PN ---
- Subjective Encounter Start Date: 06/22/18 Encounter Start Time: 13:13 Subjective: Code green called for high fever,tachypnea and sepsis alert -: pt somnolent but arousable.apperas acutely ill. -: pls see code record for detials.Moved to IMCU - Objective Resuscitation Status - Order Detail: 06/05/18 21:02 Resuscitation Status Routine Resuscitation Status: FULL: Full Resuscitation MAR Reviewed: Yes Vital Signs & Weight: Vital Signs (12 hours) Temp Temp Pulse Pulse Pulse Pulse Resp 06/22/18 12:51 90 21 H 06/22/18 09:15 101.4 F H 89 93 94 06/22/18 08:51 06/22/18 08:44 101.4 F H 98 30 H 06/22/18 07:41 06/22/18 07:37 78 16 06/22/18 03:37 97.2 F L 70 24 H Resp Resp Resp BP BP BP BP 06/22/18 12:51 06/22/18 09:15 32 H 30 H 30 H 140/91 H 133/61 125/63 06/22/18 08:51 122/58 L 06/22/18 08:44 06/22/18 07:41 06/22/18 07:37 06/22/18 03:37 BP BP Pulse Ox Pulse Ox Pulse Ox 06/22/18 12:51 06/22/18 09:15 109/85 88 L 98 06/22/18 08:51 06/22/18 08:44 140/76 93 L 06/22/18 07:41 93 L 06/22/18 07:37 06/22/18 03:37 149/70 H 94 L Weight Admit Weight 217 lb 6.012 oz Weight 201 lb Most Recent Monitor Data Heart Rate from ECG 92 NIBP 98/49 NIBP BP-Mean 65 Respiration from ECG 31 SpO2 98 I&O: 06/21/18 06/22/18 06/23/18 06:59 06:59 06:59 Intake Total 600 1440 Output Total 1000 1450 Balance -400 -10 Result Diagrams: 06/22/18 09:23 06/22/18 04:45 Additional Labs: Accuchecks 06/22/18 06/21/18 09:22 18:13 POC Glucose 91 136 H Laboratory Tests 06/05/18 06/05/1806/05/19 19:10 19:10 21:52 WBC Lactic Acid Troponin I 0.582 H* 32.221 H* B-Natriuretic Peptide 107.1 H 06/06/18 06/06/18 06/07/18 00:50 14:30 03:00 WBC Lactic Acid Troponin I 101.014 H* 90.012 H* 42.332 H* B-Natriuretic Peptide 06/13/18 06/14/18 06/15/18 03:45 05:24 04:45 WBC 10.1 13.8 H 13.4 H Lactic Acid Troponin I B-Natriuretic Peptide 06/22/18 06/22/18 06/22/18 09:23 09:23 09:23 WBC Lactic Acid 2.8 H Troponin I 0.348 H* B-Natriuretic Peptide 420.5 H 06/22/18 09:23 WBC 20.2 H Lactic Acid Troponin I B-Natriuretic Peptide Radiology Reviewed by me: Yes (CXR- no infiltrates or edema) Phys Exam - Physical Examination pale,weak,diaphoretic & somnolent HEENT: PERRLA, sclera anicteric mucosa slightly dry Neck: no JVD Respiratory: no wheezing, no rales, no rhonchi tachypnea Cardiovascular: RRR, no significant murmur tachycardia Gastrointestinal: soft, non-tender, no distention, positive bowel sounds Musculoskeletal: no edema, pulses present Neurological: non-focal, normal sensation, moves all 4 limbs Psychiatric: normal affect, A&O x 3 Deviation from normal: sleepy but easily arousable Skin: no rash Dx/Plan (1) Sepsis Code(s): A41.9 - SEPSIS, UNSPECIFIED ORGANISM Status: Acute Comment: High fever ,leucocytosis and high lactic acid.No infiltrate on CXR.suspect either Line infection or UTI.Peripheral and Line Cx w Tip sent.urine Cx sent.Started On empiric ABx and IVF (2) Atrial fibrillation with rapid ventricular response Code(s): I48.91 - UNSPECIFIED ATRIAL FIBRILLATION Status: Acute Comment: Discussed with cardiology. AMiodarone PO & on Eliquis.Stoped amiodarone drip and lovenox. Lower ASA to 81 (3) Acute metabolic encephalopathy Code(s): G93.41 - METABOLIC ENCEPHALOPATHY Status: Acute Comment: Much improved. suspect metabolic and due to severe critical illness.on Depakote (4) STEMI (ST elevation myocardial infarction) Status: Acute Qualifiers: Involved coronary artery: LAD coronary artery Qualified Code(s): I21.02 - ST elevation (STEMI) myocardial infarction involving left anterior descending coronary artery Comment: s/p CABG 06/12/2018.On ASA,statin,BB,TEE-I (5) HLD (hyperlipidemia) Code(s): E78.5 - HYPERLIPIDEMIA, UNSPECIFIED Status: Chronic Comment: Resume Lipitor 10mg HS (6) Hypertension Code(s): I10 - ESSENTIAL (PRIMARY) HYPERTENSION Status: Chronic Qualifiers: Hypertension type: essential hypertension Qualified Code(s): I10 - Essential (primary) hypertension (7) Hypothyroidism Code(s): E03.9 - HYPOTHYROIDISM, UNSPECIFIED Status: Chronic Comment: Resume Levothyroxine 125mcg daily (8) Tobacco abuse Code(s): Z72.0 - TOBACCO USE Status: Chronic Comment: Tobacco cessation resources, consider nicotine patch (9) Acute respiratory failure with hypoxia Code(s): J96.01 - ACUTE RESPIRATORY FAILURE WITH HYPOXIA Status: Resolved Comment: extubated and doing well (10) Cardiac arrest due to underlying cardiac condition Code(s): I46.2 - CARDIAC ARREST DUE TO UNDERLYING CARDIAC CONDITION Status: Resolved Comment: s/p arrest secondary to STEMI, emergent LHC, S/P CABG, Course complicated by anoxic injury and slow clinical improvement, afib, cardiac rehab requested - Plan plan discussed w/ family, cai catheter, continue antibiotics, PT/OT, respiratory therapy, incentive spirometry, out of bed/ambulate, DVT proph w/SCDs ABG results noted.Care discussed w PCCM Dr Garcia. 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 EKG showed improvement post STEMI -: Monitor closely.care discussed w at bedside. labs in am * . Review of Systems - Review of Systems Constitutional: weakness, malaise Other: limited due to acute change in condition - Medications/Allergies Allergies/Adverse Reactions: Allergies Allergy/AdvReac Type Severity Reaction Status Date / Time No Known Drug Allergies Allergy Verified 06/06/18 00:55 Medications: Current Medications Acetaminophen (Tylenol) 650 mg PO Q6H PRN PRN Reason: Headache/Fever Or Mild Pain Last Admin: 06/21/18 17:46 Dose: 650 mg Al Hydroxide/Mg Hydroxide (Maalox) 30 ml PO Q4H PRN PRN Reason: Indigestion Albuterol/Ipratropium (Duoneb) 3 ml NEB [id number] [facility] Last Admin: 06/22/18 12:51 Dose: 3 ml Albuterol/Ipratropium (Duoneb) 3 ml [id number] [facility] Amiodarone HCl (Cordarone) 400 mg PO BID [facility] Stop: 06/26/18 09:01 Last Admin: 06/22/18 09:00 Dose: 400 mg Amiodarone HCl (Cordarone) 200 mg PO BID [facility] Stop: 07/03/18 09:01 Amiodarone HCl (Cordarone) 200 mg PO DAILY [facility] Apixaban (Eliquis) 5 mg PO BID [facility] Last Admin: 06/22/18 08:49 Dose: 5 mg Aspirin (Ecotrin) 81 mg PO DAILY [facility] Last Admin: 06/22/18 08:51 Dose: 81 mg Atorvastatin Calcium (Lipitor) 20 mg PO HS [facility] Last Admin: 06/21/18 20:41 Dose: 20 mg Bisacodyl (Dulcolax) 10 mg PO Q12H PRN PRN Reason: Constipation Bisacodyl (Dulcolax) 10 mg [place] Q12H PRN PRN Reason: Constipation Famotidine (Pepcid) 20 mg PO BID [facility] Last Admin: 06/22/18 08:51 Dose: 20 mg Guaifenesin/Dextromethorphan (Robitussin Dm) 15 ml PO Q4H PRN PRN Reason: Cough Hydralazine HCl (Apresoline) 10 mg SLOW IVP Q6H PRN PRN Reason: To Maintain SBP< 140mmHG Last Admin: 06/14/18 02:17 Dose: 10 mg Piperacillin Sod/Tazobactam (Sod 3.375 gm/ Sodium Chloride) 100 mls @ 200 mls/ hr IVPB Q6HR [facility] Sodium Chloride (Normal Saline 0.9%) 1,000 mls @ 50 mls/hr IV .Q20H [facility] Last Admin: 06/22/18 10:54 Dose: 1,000 mls Vancomycin HCl 1.25 gm/ Sodium (Chloride) 250 mls @ 166.667 mls/hr IVPB 1100, 2300 [facility] Last Admin: 06/22/18 10:54 Dose: 250 mls Lisinopril (Zestril) 10 mg PO BID [facility] Last Admin: 06/22/18 08:51 Dose: 10 mg Melatonin (Melatonin) 3 mg PO HS [facility] Last Admin: 06/21/18 20:42 Dose: 3 mg Metoprolol Tartrate (Lopressor) 50 mg PO BID [facility] Last Admin: 06/22/18 08:50 Dose: 50 mg Miscellaneous Medication (Pharmacy To Dose) 0 each IVPB ASDIR [facility] Ondansetron HCl (Zofran) 4 mg IVP Q6H PRN PRN Reason: Nausea/Vomiting Potassium Chloride (Kcl) 20 meq IVPB PRN PRN PRN Reason: K level </= 4.0 Last Admin: 06/16/18 06:18 Dose: 20 meq Sodium Chloride (Flush - Normal Saline) 10 ml IVF Q12HR [facility] Last Admin: 06/22/18 08:52 Dose: 10 ml Sterile Water (Water For Injection) 10 ml FS Q4H PRN PRN Reason: TO RECONSTITUTE ZIPRASIDONE Ziprasidone (Geodon) 10 mg IM Q4H PRN PRN Reason: Agitation Last Admin: 06/20/18 16:52 Dose: 10 mg
[2018-06-22] MEDS: Piperacillin/Tazobactam 3.375 GM in Sodium Chloride 0.9% 100 ML IVPB SCH ×3 (13:46→23:42)
[2018-06-22 14:37] LABS: Lactic Acid 0.8 mmol/L (0.5-2.2)
[2018-06-22] MEDS ORDERED: Vancomycin HCl 1 GM in Premix Bag 1 BAG IVPB SCH (21:00)
[2018-06-22] MEDS: Atorvastatin Calcium 20 MG TAB PO SCH (21:25)
[2018-06-22] MEDS: Melatonin 3 MG TAB PO SCH (21:25)
[2018-06-23] MEDS: Sodium Chloride 0.9% 1,000 ML IV SCH (05:30)
[2018-06-23] MEDS: Piperacillin/Tazobactam 3.375 GM in Sodium Chloride 0.9% 100 ML IVPB SCH ×3 (05:34→18:12)
--- NOTE | 2018-06-23 07:52 | PDOC.CTH ---
Cardiology Progress Note - Subjective Pt more lucid this am according to . Pt answering questions appropriately. No current complaints. No recurrent fever. - Objective Vital Signs Pulse Resp BP Pulse Ox 06/23/18 06:29 77 22 H 100 06/22/18 21:25 131/67 06/22/18 20:00 98 Admit Weight 217 lb 6.012 oz Weight 201 lb 06/22/18 06/23/18 06/24/18 06:59 06:59 06:59 Intake Total 1440 1325 Output Total 1450 1100 Balance -10 225 - Physical Examination General/Neuro: alert & oriented x3, NAD Neck: carotid US brisk, no JVD present Lungs: CTA, unlabored respirations Heart: PMI normal, RRR Abdomen: NT/ND, soft Extremities: + femoral B - Labs Result Diagrams: 06/23/18 09:35 06/23/18 09:35 Troponin/CKMB CK-MB (CK-2) 2.8 ng/mL (0-6.6) 06/22/18 09:23 Troponin I 0.348 ng/mL (< 0.028) H* 06/22/18 09:23 - Assessment/Plan AMI Cardiac arrest Anoxic brain injury s/p CABG COPD Tobacco abuse Symptomatic appears to be improving. No current fever noted Pt was going to rehab yesterday till rafaela burch called. Continue CV meds as Rx IP and PT
[2018-06-23 10:01] LABS: Band 12 % (5-11); Eosinophils 3 % (0-10); Hemoglobin 11.8 g/dL (14.0-18.0); Lymphocytes 5 % (21-51); MDiff Complete? YES; Mean Corpuscular HGB CONC 31.4 g/dL (32.0-36.0); Mean Corpuscular Volume 98.9 fL (78.0-98.0); Mean Platelet Volume 8.3 fL (7.4-10.4); Monocytes 2 % (0-10); Neutrophil 78 % (42-75); Platelet Count 322 thou/uL (130-400); RBC Distribution Width 12.6 % (11.5-14.5); Red Blood Cell (RBC) Count 3.81 mill/uL (4.70-6.10); White Blood Cell (WBC) Count 17.1 thou/uL (4.8-10.8)
[2018-06-23 10:19] LABS: Anion Gap 17 mmol/L (10-20); BUN (Urea Nitrogen) 20 mg/dL (8.4-25.7); Calc. Creatinine Clearance 96 mL/min (70-130); Calcium 8.8 mg/dL (7.8-10.44); Carbon Dioxide 29 mmol/L (23-31); Chloride 101 mmol/L (98-107); Estimated GFR-MDRD 76; Glucose 75 mg/dL (80-115); Potassium 4.5 mmol/L (3.5-5.1); Sodium 142 mmol/L (136-145)
[2018-06-23] MEDS: Vancomycin HCl 1.25 GM in Sodium Chloride 0.9% 250 ML 250 ML IVPB SCH ×2 (10:51→23:23)
--- NOTE | 2018-06-23 13:33 | PDOC.PN ---
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 -: RN report clinical improvement - Objective Resuscitation Status - Order Detail: 06/05/18 21:02 Resuscitation Status Routine Resuscitation Status: FULL: Full Resuscitation MAR Reviewed: Yes Vital Signs & Weight: Vital Signs (12 hours) Pulse Pulse Pulse Pulse Resp BP BP 06/23/18 09:54 79 67 83 98/51 L 117/57 L 06/23/18 08:00 06/23/18 06:29 77 22 H BP Pulse Ox Pulse Ox Pulse Ox Pulse Ox 06/23/18 09:54 129/63 97 100 100 06/23/18 08:00 97 06/23/18 06:29 100 Weight Admit Weight 217 lb 6.012 oz Weight 201 lb Most Recent Monitor Data Heart Rate from ECG 74 NIBP 118/56 NIBP BP-Mean 76 Respiration from ECG 27 SpO2 97 I&O: 06/22/18 06/23/18 06/24/18 06:59 06:59 06:59 Intake Total 1440 1325 Output Total 1450 1100 Balance -10 225 Result Diagrams: 06/23/18 09:35 06/23/18 09:35 Additional Labs: Microbiology 06/22/18 11:36 Catheter Tip Catheter Tip Culture - Final 06/06/18 21:00 Urine cai catheter Urine Culture - Final NO GROWTH AT 36 HOURS 06/22/18 11:40 Central Line - Right Subclavian Vein Blood Culture - Preliminary Specimen has been received and culture in progress. No Growth to date. 06/22/18 11:00 Urine cai catheter Urine Culture - Preliminary Gram Negative Femi Gram Negative Femi#2 06/22/18 09:23 Venous blood - Right Hand Blood Culture - Preliminary Specimen has been received and culture in progress. No Growth to date. 06/22/18 09:23 Venous blood - Left Arm Blood Culture - Preliminary Specimen has been received and culture in progress. No Growth to date. Laboratory Tests 06/14/18 06/15/18 06/22/18 05:24 04:45 09:23 WBC 13.8 H 13.4 H 20.2 H Plt Count 385 507 H 06/23/18 09:35 WBC 17.1 H Plt Count 322 Phys Exam - Physical Examination somnolent & confused HEENT: PERRLA, moist MMs, sclera anicteric, oral pharynx no lesions Neck: no nodes, no JVD, supple, full ROM Respiratory: no wheezing, no rales, no rhonchi, clear to auscultation bilateral using abdominal muscles more than chest c/w flail chest Cardiovascular: RRR, no significant murmur Gastrointestinal: soft, non-tender, no distention, positive bowel sounds Musculoskeletal: no edema, pulses present Neurological: moves all 4 limbs Psychiatric: normal affect Deviation from normal: orineted to self only Skin: no rash Dx/Plan (1) Sepsis Code(s): A41.9 - SEPSIS, UNSPECIFIED ORGANISM Status: Acute Comment: High fever ,leucocytosis and high lactic acid--all improved and improving.No infiltrate on CXR.suspect either Line infection or UTI.Peripheral and Line Cx w Tip sent.urine Cx sent.Started On empiric ABx and IVF.Urine Cx shows GNR so far (2) Atrial fibrillation with rapid ventricular response Code(s): I48.91 - UNSPECIFIED ATRIAL FIBRILLATION Status: Acute Comment: NSR on BB.On AMiodarone PO & on Eliquis.Stoped amiodarone drip and lovenox. Lower ASA to 81 (3) Acute metabolic encephalopathy Code(s): G93.41 - METABOLIC ENCEPHALOPATHY Status: Acute Comment: Much improved. suspect metabolic and due to severe critical illness. was on Depakote.suspect some componenet of anoxic brain injury due to OOH cardiac arrest (4) STEMI (ST elevation myocardial infarction) Status: Acute Qualifiers: Involved coronary artery: LAD coronary artery Qualified Code(s): I21.02 - ST elevation (STEMI) myocardial infarction involving left anterior descending coronary artery Comment: s/p CABG 06/12/2018.On ASA,statin,BB,TEE-I (5) HLD (hyperlipidemia) Code(s): E78.5 - HYPERLIPIDEMIA, UNSPECIFIED Status: Chronic Comment: Resume Lipitor 10mg HS (6) Hypertension Code(s): I10 - ESSENTIAL (PRIMARY) HYPERTENSION Status: Chronic Qualifiers: Hypertension type: essential hypertension Qualified Code(s): I10 - Essential (primary) hypertension (7) Hypothyroidism Code(s): E03.9 - HYPOTHYROIDISM, UNSPECIFIED Status: Chronic Comment: Resume Levothyroxine 125mcg daily (8) Tobacco abuse Code(s): Z72.0 - TOBACCO USE Status: Chronic Comment: Tobacco cessation resources, consider nicotine patch (9) Acute respiratory failure with hypoxia Code(s): J96.01 - ACUTE RESPIRATORY FAILURE WITH HYPOXIA Status: Resolved Comment: extubated and doing well (10) Cardiac arrest due to underlying cardiac condition Code(s): I46.2 - CARDIAC ARREST DUE TO UNDERLYING CARDIAC CONDITION Status: Resolved Comment: s/p arrest secondary to STEMI, emergent LHC, S/P CABG, Course complicated by anoxic injury and slow clinical improvement, afib, cardiac rehab requested - Plan continue antibiotics, PT/OT, respiratory therapy, incentive spirometry, out of bed/ambulate, DVT proph w/SCDs cont ABx, Gentle IVF.supportive care -: Hd stable. -: am labs. -: clinical improvemet w improved WBC and fever * . Review of Systems - Review of Systems Other: can not be obtained due to confusion - Medications/Allergies Allergies/Adverse Reactions: Allergies Allergy/AdvReac Type Severity Reaction Status Date / Time No Known Drug Allergies Allergy Verified 06/06/18 00:55 Medications: Current Medications Acetaminophen (Tylenol) 650 mg PO Q6H PRN PRN Reason: Headache/Fever Or Mild Pain Last Admin: 06/21/18 17:46 Dose: 650 mg Al Hydroxide/Mg Hydroxide (Maalox) 30 ml PO Q4H PRN PRN Reason: Indigestion Albuterol/Ipratropium (Duoneb) 3 ml EZPAP [id number] [facility] Last Admin: 06/23/18 06:29 Dose: 3 ml Amiodarone HCl (Cordarone) 400 mg PO BID [facility] Stop: 06/26/18 09:01 Last Admin: 06/22/18 21:24 Dose: Not Given Amiodarone HCl (Cordarone) 200 mg PO BID [facility] Stop: 07/03/18 09:01 Amiodarone HCl (Cordarone) 200 mg PO DAILY [facility] Apixaban (Eliquis) 5 mg PO BID [facility] Last Admin: 06/22/18 21:25 Dose: Not Given Aspirin (Ecotrin) 81 mg PO DAILY [facility] Last Admin: 06/22/18 08:51 Dose: 81 mg Atorvastatin Calcium (Lipitor) 20 mg PO HS [facility] Last Admin: 06/22/18 21:25 Dose: Not Given Bisacodyl (Dulcolax) 10 mg PO Q12H PRN PRN Reason: Constipation Bisacodyl (Dulcolax) 10 mg CA Q12H PRN PRN Reason: Constipation Famotidine (Pepcid) 20 mg PO BID [facility] Last Admin: 06/22/18 21:25 Dose: Not Given Guaifenesin/Dextromethorphan (Robitussin Dm) 15 ml PO Q4H PRN PRN Reason: Cough Hydralazine HCl (Apresoline) 10 mg SLOW IVP Q6H PRN PRN Reason: To Maintain SBP< 140mmHG Last Admin: 06/14/18 02:17 Dose: 10 mg Piperacillin Sod/Tazobactam (Sod 3.375 gm/ Sodium Chloride) 100 mls @ 200 mls/ hr IVPB Q6HR [facility] Last Admin: 06/23/18 05:34 Dose: 100 mls Sodium Chloride (Normal Saline 0.9%) 1,000 mls @ 50 mls/hr IV .Q20H [facility] Last Admin: 06/23/18 05:30 Dose: 1,000 mls Vancomycin HCl 1.25 gm/ Sodium (Chloride) 250 mls @ 166.667 mls/hr IVPB 1100, 2300 [facility] Last Admin: 06/23/18 10:51 Dose: 250 mls Lisinopril (Zestril) 10 mg PO BID [facility] Last Admin: 06/22/18 21:25 Dose: Not Given Melatonin (Melatonin) 3 mg PO HS [facility] Last Admin: 06/22/18 21:25 Dose: Not Given Metoprolol Tartrate (Lopressor) 50 mg PO BID [facility] Last Admin: 06/22/18 21:25 Dose: Not Given Miscellaneous Medication (Pharmacy To Dose) 0 each IVPB ASDIR [facility] Ondansetron HCl (Zofran) 4 mg IVP Q6H PRN PRN Reason: Nausea/Vomiting Potassium Chloride (Kcl) 20 meq IVPB PRN PRN PRN Reason: K level </= 4.0 Last Admin: 06/16/18 06:18 Dose: 20 meq Sodium Chloride (Flush - Normal Saline) 10 ml IVF Q12HR [facility] Last Admin: 06/23/18 10:51 Dose: Not Given Sterile Water (Water For Injection) 10 ml FS Q4H PRN PRN Reason: TO RECONSTITUTE ZIPRASIDONE Ziprasidone (Geodon) 10 mg IM Q4H PRN PRN Reason: Agitation Last Admin: 06/20/18 16:52 Dose: 10 mg
[2018-06-23] MEDS: Amiodarone 200 MG TAB PO SCH ×2 (15:19→23:06)
[2018-06-23] MEDS: Apixaban 5 MG TAB PO SCH ×2 (15:19→23:06)
[2018-06-23] MEDS: Aspirin 81 mg Enteric Coated Tablet PO SCH (15:20)
[2018-06-23] MEDS: Famotidine 20 MG TAB PO SCH ×2 (15:20→23:10)
[2018-06-23] MEDS: Lisinopril 10 MG TAB PO SCH ×2 (15:20→23:07)
[2018-06-23] MEDS: Metoprolol Tartrate 50 MG TAB PO SCH ×2 (15:20→23:10)
--- NOTE | 2018-06-23 15:50 | PRG ---
DATE OF SERVICE: 06/23/2018 SERVICE: Pulmonary Medicine. INTERVAL HISTORY: The patient is doing fine from respiratory standpoint. He is on 2 L nasal cannula. His breathing comfortable. He has been put on empiric antibiotics. We do not know what our source is at this point. That being said, he has not had any additional respiratory events since the code green yesterday. Most of that was likely fever related. Otherwise, there has been normal change to his condition. PHYSICAL EXAMINATION: VITAL SIGNS: Afebrile currently. T-max yesterday was 101.4, pulse 74, blood pressure 118/56, respirations 25, saturation 99% on 2 L nasal cannula. GENERAL: The patient is awake and alert, in no apparent distress. LUNGS: Decent air entry. There was no prolonged expiratory phase or wheezing present. Rhonchi are present. There is some minimal dependent crackles, which are slightly asymmetric. HEART: Normal rate, regular. ABDOMEN: Soft, nontender, and nondistended. Bowel sounds are positive. MUSCULOSKELETAL: No cyanosis or clubbing. No pitting in the bilateral lower extremities. NEUROLOGIC: Grossly nonfocal. LABORATORY DATA: WBC downtrending to 17.1, hemoglobin 11.8, and roughly stable, platelets 322,000. Band count is downtrending to 12%. INR 1.3. PH 7.46, pCO2 56, PO2 53. Basic metabolic profile is otherwise unremarkable. Lactate has improved to 0.8. BNP 420. Urine culture is growing gram-negative rods in 2/2. The tip of the central line was cultured, but this was completely discarded because it says that they were improperly collected. Blood cultures x3, otherwise unremarkable. ASSESSMENT: 1. Acute hypoxic respiratory failure, resolving. 2. Anoxic brain injury, slowly improving. 3. ST-elevation myocardial infarction, status post coronary artery bypass graft, postop day 11. 4. Severe sepsis. DISCUSSION AND PLAN: The patient seems to be clearing his inflammatory profile. At this point, he can be transitioned back to the telemetry unit. We will continue our empiric antibiotics. After 24 hours, if we do not identify any gram-positive organisms, then vancomycin will be suspended. Pulmonary Critical Care will continue to follow along for the time being. Job ID: [id number]
[2018-06-23 22:31] LABS: Vancomycin, Trough 18.2 ug/mL
[2018-06-23] MEDS: Atorvastatin Calcium 20 MG TAB PO SCH (23:07)
[2018-06-23] MEDS: Melatonin 3 MG TAB PO SCH (23:07)
[2018-06-24] MEDS: Piperacillin/Tazobactam 3.375 GM in Sodium Chloride 0.9% 100 ML IVPB SCH ×5 (01:15→23:49)
[2018-06-24 06:12] LABS: #Eosinphils 0.2 thou/uL (0.0-0.7); #Lymphocytes 0.9 thou/uL (1.20-3.40); #Monocytes 0.8 thou/uL (0.11-0.59); #Neutrophils 9.9 thou/uL (1.40-6.50); %Basophils 0.4 % (0.0-1.0); %Eosinophils 2.1 % (0.0-10.0); %Lymphocytes 7.3 % (21.0-51.0); %Monocytes 6.9 % (0.0-10.0); %Neutrophils 83.3 % (42.0-75.0); Hemoglobin 11.2 g/dL (14.0-18.0); Mean Corpuscular HGB CONC 31.3 g/dL (32.0-36.0); Mean Corpuscular Hemoglobin 30.9 pg (27.0-31.0); Mean Corpuscular Volume 98.6 fL (78.0-98.0); Mean Platelet Volume 8.1 fL (7.4-10.4); Platelet Count 307 thou/uL (130-400); RBC Distribution Width 12.8 % (11.5-14.5); Red Blood Cell (RBC) Count 3.64 mill/uL (4.70-6.10); White Blood Cell (WBC) Count 11.9 thou/uL (4.8-10.8)
[2018-06-24 06:40] LABS: Anion Gap 15 mmol/L (10-20); BUN (Urea Nitrogen) 17 mg/dL (8.4-25.7); Calc. Creatinine Clearance 101 mL/min (70-130); Calcium 8.3 mg/dL (7.8-10.44); Carbon Dioxide 30 mmol/L (23-31); Chloride 100 mmol/L (98-107); Estimated GFR-MDRD 82; Glucose 88 mg/dL (80-115); Potassium 3.6 mmol/L (3.5-5.1)
[2018-06-24 07:16] LABS: Sodium 140 mmol/L (136-145)
[2018-06-24] MEDS: Amiodarone 200 MG TAB PO SCH ×2 (08:50→20:49)
[2018-06-24] MEDS: Metoprolol Tartrate 50 MG TAB PO SCH ×2 (08:51→20:49)
[2018-06-24] MEDS: Apixaban 5 MG TAB PO SCH ×2 (08:51→20:49)
[2018-06-24] MEDS: Lisinopril 10 MG TAB PO SCH ×2 (08:51→20:49)
[2018-06-24] MEDS: Famotidine 20 MG TAB PO SCH ×2 (08:51→20:50)
[2018-06-24] MEDS: Aspirin 81 mg Enteric Coated Tablet PO SCH (08:51)
[2018-06-24] MEDS: Sodium Chloride 0.9% 1,000 ML IV SCH (12:35)
[2018-06-24] MEDS: Vancomycin HCl 1.25 GM in Sodium Chloride 0.9% 250 ML 250 ML IVPB SCH (12:35)
--- NOTE | 2018-06-24 13:10 | PDOC.PN ---
- Subjective Encounter Start Date: 06/24/18 Encounter Start Time: 13:07 Subjective: feels much better today.walked in hallways with PT -: eating better and denies any pain/discomfort -: no overnight events.Mentation clearer per RN - Objective Resuscitation Status - Order Detail: 06/05/18 21:02 Resuscitation Status Routine Resuscitation Status: FULL: Full Resuscitation MAR Reviewed: Yes Vital Signs & Weight: Vital Signs (12 hours) Temp Pulse Resp BP BP Pulse Ox 06/24/18 08:45 98.1 F 81 16 113/56 L 98 06/24/18 07:11 76 16 06/24/18 07:10 88 L 06/24/18 03:40 97.5 F L 65 16 121/60 94 L Weight Admit Weight 217 lb 6.012 oz Weight 197 lb 14.4 oz Most Recent Monitor Data Heart Rate from ECG 77 NIBP 128/67 NIBP BP-Mean 87 Respiration from ECG 27 SpO2 100 I&O: 06/23/18 06/24/18 06/25/18 06:59 06:59 06:59 Intake Total 1325 1850 Output Total 1100 1100 Balance 225 750 Result Diagrams: 06/24/18 06:04 06/24/18 06:04 Additional Labs: Microbiology 06/22/18 11:36 Catheter Tip Catheter Tip Culture - Final 06/06/18 21:00 Urine cai catheter Urine Culture - Final NO GROWTH AT 36 HOURS 06/22/18 11:40 Central Line - Right Subclavian Vein Blood Culture - Preliminary Specimen has been received and culture in progress. No Growth to date. 06/22/18 11:00 Urine cai catheter Urine Culture - Preliminary Gram Negative Femi Gram Negative Femi#2 06/22/18 09:23 Venous blood - Right Hand Blood Culture - Preliminary Specimen has been received and culture in progress. No Growth to date. 06/22/18 09:23 Venous blood - Left Arm Blood Culture - Preliminary Specimen has been received and culture in progress. No Growth to date. Laboratory Tests 06/15/18 06/22/18 06/23/18 04:45 09:23 09:35 WBC 13.4 H 20.2 H 17.1 H 06/24/18 06:04 WBC 11.9 H Phys Exam - Physical Examination Constitutional: NAD HEENT: PERRLA, moist MMs, sclera anicteric, oral pharynx no lesions Neck: no nodes, no JVD, supple, full ROM Respiratory: no wheezing, no rales, no rhonchi Cardiovascular: RRR, no significant murmur Gastrointestinal: soft, non-tender, no distention, positive bowel sounds Musculoskeletal: no edema, pulses present Neurological: non-focal, normal sensation, moves all 4 limbs Psychiatric: normal affect Skin: no rash Dx/Plan (1) Sepsis Code(s): A41.9 - SEPSIS, UNSPECIFIED ORGANISM Status: Acute Comment: High fever ,leucocytosis and high lactic acid--all improved and improving.No infiltrate on CXR.suspect either Line infection or UTI.Peripheral and Line Cx w Tip sent.urine Cx sent.Started On empiric ABx and IVF.Urine Cx shows GNR so far (2) Atrial fibrillation with rapid ventricular response Code(s): I48.91 - UNSPECIFIED ATRIAL FIBRILLATION Status: Acute Comment: NSR on BB.On AMiodarone PO & on Eliquis.Stoped amiodarone drip and lovenox. Lower ASA to 81 (3) Acute metabolic encephalopathy Code(s): G93.41 - METABOLIC ENCEPHALOPATHY Status: Acute Comment: Much improved. suspect metabolic and due to severe critical illness. was on Depakote.suspect some component of anoxic brain injury due to OOH cardiac arrest (4) STEMI (ST elevation myocardial infarction) Status: Acute Qualifiers: Involved coronary artery: LAD coronary artery Qualified Code(s): I21.02 - ST elevation (STEMI) myocardial infarction involving left anterior descending coronary artery Comment: s/p CABG 06/12/2018.On ASA,statin,BB,TEE-I (5) HLD (hyperlipidemia) Code(s): E78.5 - HYPERLIPIDEMIA, UNSPECIFIED Status: Chronic Comment: Resume Lipitor 10mg HS (6) Hypertension Code(s): I10 - ESSENTIAL (PRIMARY) HYPERTENSION Status: Chronic Qualifiers: Hypertension type: essential hypertension Qualified Code(s): I10 - Essential (primary) hypertension (7) Hypothyroidism Code(s): E03.9 - HYPOTHYROIDISM, UNSPECIFIED Status: Chronic Comment: Resume Levothyroxine 125mcg daily (8) Tobacco abuse Code(s): Z72.0 - TOBACCO USE Status: Chronic Comment: Tobacco cessation resources, consider nicotine patch (9) Acute respiratory failure with hypoxia Code(s): J96.01 - ACUTE RESPIRATORY FAILURE WITH HYPOXIA Status: Resolved Comment: extubated and doing well (10) Cardiac arrest due to underlying cardiac condition Code(s): I46.2 - CARDIAC ARREST DUE TO UNDERLYING CARDIAC CONDITION Status: Resolved Comment: s/p arrest secondary to STEMI, emergent LHC, S/P CABG, Course complicated by anoxic injury and slow clinical improvement, afib, cardiac rehab requested - Plan continue antibiotics, PT/OT, respiratory therapy, incentive spirometry, out of bed/ambulate, DVT proph w/SCDs Better clinically after code green 2 days ago for high fever. out if IMCU. -: cont empiri cABx and supportive care.DC IVF as eating better -: monitor for fluid overload.apperas euvolemic for now. -: will try to get to rehab in next 48-72 hours if remians stable. -: am labs.meds as below * . Review of Systems - Review of Systems Constitutional: negative: fever, chills, sweats, weakness, malaise, other Respiratory: negative: Cough, Dry, Shortness of Breath, Hemoptysis, SOB with Excertion, Pleuritic Pain, Sputum, Wheezing Gastrointestinal: negative: Nausea, Vomiting, Abdominal Pain, Diarrhea, Constipation, Melena, Hematochezia, Other Genitourinary: negative: Dysuria, Frequency, Incontinence, Hematuria, Retention , Other - Medications/Allergies Allergies/Adverse Reactions: Allergies Allergy/AdvReac Type Severity Reaction Status Date / Time No Known Drug Allergies Allergy Verified 06/06/18 00:55 Medications: Current Medications Acetaminophen (Tylenol) 650 mg PO Q6H PRN PRN Reason: Headache/Fever Or Mild Pain Last Admin: 06/21/18 17:46 Dose: 650 mg Al Hydroxide/Mg Hydroxide (Maalox) 30 ml PO Q4H PRN PRN Reason: Indigestion Albuterol/Ipratropium (Duoneb) 3 ml EZPAP [id number] [facility] Last Admin: 06/24/18 07:11 Dose: 3 ml Amiodarone HCl (Cordarone) 400 mg PO BID [facility] Stop: 06/26/18 09:01 Last Admin: 06/24/18 08:50 Dose: 400 mg Amiodarone HCl (Cordarone) 200 mg PO BID [facility] Stop: 07/03/18 09:01 Amiodarone HCl (Cordarone) 200 mg PO DAILY [facility] Apixaban (Eliquis) 5 mg PO BID [facility] Last Admin: 06/24/18 08:51 Dose: 5 mg Aspirin (Ecotrin) 81 mg PO DAILY [facility] Last Admin: 06/24/18 08:51 Dose: 81 mg Atorvastatin Calcium (Lipitor) 20 mg PO HS [facility] Last Admin: 06/23/18 23:07 Dose: 20 mg Bisacodyl (Dulcolax) 10 mg PO Q12H PRN PRN Reason: Constipation Bisacodyl (Dulcolax) 10 mg [place] Q12H PRN PRN Reason: Constipation Famotidine (Pepcid) 20 mg PO BID [facility] Last Admin: 06/24/18 08:51 Dose: 20 mg Guaifenesin/Dextromethorphan (Robitussin Dm) 15 ml PO Q4H PRN PRN Reason: Cough Hydralazine HCl (Apresoline) 10 mg SLOW IVP Q6H PRN PRN Reason: To Maintain SBP< 140mmHG Last Admin: 06/14/18 02:17 Dose: 10 mg Piperacillin Sod/Tazobactam (Sod 3.375 gm/ Sodium Chloride) 100 mls @ 200 mls/ hr IVPB Q6HR [facility] Last Admin: 06/24/18 11:24 Dose: 100 mls Lisinopril (Zestril) 10 mg PO BID [facility] Last Admin: 06/24/18 08:51 Dose: 10 mg Melatonin (Melatonin) 3 mg PO [facility] Last Admin: 06/23/18 23:07 Dose: 3 mg Metoprolol Tartrate (Lopressor) 50 mg PO BID [facility] Last Admin: 06/24/18 08:51 Dose: 50 mg Miscellaneous Medication (Pharmacy To Dose) 0 each IVPB ASDIR [facility] Ondansetron HCl (Zofran) 4 mg IVP Q6H PRN PRN Reason: Nausea/Vomiting Potassium Chloride (Kcl) 20 meq IVPB PRN PRN PRN Reason: K level </= 4.0 Last Admin: 06/16/18 06:18 Dose: 20 meq Sodium Chloride (Flush - Normal Saline) 10 ml IVF Q12HR [facility] Last Admin: 06/24/18 08:51 Dose: Not Given Sterile Water (Water For Injection) 10 ml FS Q4H PRN PRN Reason: TO RECONSTITUTE ZIPRASIDONE Tamsulosin HCl (Flomax) 0.4 mg PO HS [facility] Tamsulosin HCl (Flomax) 0.4 mg PO DAILY [facility] Ziprasidone (Geodon) 10 mg IM Q4H PRN PRN Reason: Agitation Last Admin: 06/20/18 16:52 Dose: 10 mg
--- NOTE | 2018-06-24 13:31 | PDOC.CTH ---
Cardiology Progress Note - Subjective No overnight events. No complaints. - Objective Vital Signs Temp Pulse Resp BP BP Pulse Ox 06/24/18 08:45 98.1 F 81 16 113/56 L 98 06/24/18 07:11 76 16 06/24/18 07:10 88 L 06/24/18 03:40 97.5 F L 65 16 121/60 94 L Admit Weight 217 lb 6.012 oz Weight 197 lb 14.4 oz 06/23/18 06/24/18 06/25/18 06:59 06:59 06:59 Intake Total 1325 1850 Output Total 1100 1100 Balance 225 750 - Physical Examination General/Neuro: other: (alert and awake) Neck: no JVD present Lungs: CTA Heart: RRR Abdomen: NT/ND - Telemetry Telemetry Rhythm: SR - Labs Result Diagrams: 06/24/18 06:04 06/24/18 06:04 Troponin/CKMB CK-MB (CK-2) 2.8 ng/mL (0-6.6) 06/22/18 09:23 Troponin I 0.348 ng/mL (< 0.028) H* 06/22/18 09:23 - Assessment/Plan 1. s/p out of hospital cardiac arrest and AMI 2. Anoxic brain injury & seizures 3. CAD s/p CABG 4. COPD 5. Tobacco abuse Remains in SR. Hopefully plan for discharge in the near future.
--- NOTE | 2018-06-24 15:46 | PRG ---
DATE OF SERVICE: 06/24/2018 SERVICE: Pulmonary Medicine. INTERVAL HISTORY: The patient is doing okay from respiratory standpoint. Indicates his breathing is a little bit harder today. He is having a cough and bringing up white phlegm. Otherwise, there has been no interval change to his condition. PHYSICAL EXAMINATION: VITAL SIGNS: Afebrile, pulse 70, blood pressure 160/72, respirations 20, saturation 93% on 2 L nasal cannula. GENERAL: The patient is awake and alert, in no apparent distress. LUNGS: Decent air entry. Dependent crackles are minimal. There is some rhonchi that clears with cough. No prolonged expiratory phase or wheezing is appreciated. HEART: Normal rate, regular. ABDOMEN: Soft, nontender, and nondistended. Bowel sounds are positive. MUSCULOSKELETAL: No cyanosis or clubbing. No pitting in the bilateral lower extremities. NEUROLOGIC: Grossly nonfocal. LABORATORY DATA: WBC 11.9, hemoglobin 11.2, and platelets 307,000. Basic metabolic profile is otherwise unremarkable. Potassium is 3.6. Urine culture is growing Klebsiella and E. coli. Catheter tip culture was discontinued because it was not sent down in a sterile container. Blood culture x3 and urine culture are otherwise unremarkable. ASSESSMENT: 1. Acute hypoxic respiratory failure, resolving. 2. Anoxic brain injury, slowly improving. 3. ST-elevation myocardial infarction, status post coronary artery bypass graft, postop day 12. 4. Severe sepsis, improving. DISCUSSION AND PLAN: Potassium is low, so I will give him a dose of replacement therapy. I will give the patient a laboratory holiday tomorrow morning. Pulmonary/Critical Care will continue to follow along. Dr. Garcia will resume care in the morning. Job ID: [id number]
[2018-06-24] MEDS: Atorvastatin Calcium 20 MG TAB PO SCH (20:50)
[2018-06-24] MEDS: Tamsulosin HCl 0.4 MG CAP PO SCH (20:50)
[2018-06-24] MEDS: Melatonin 3 MG TAB PO SCH (20:50)
[2018-06-24] MEDS: Acetaminophen 325 MG TAB PO PRN (20:50)
[2018-06-25] MEDS: Acetaminophen 325 MG TAB PO PRN ×3 (02:12→20:00)
[2018-06-25] MEDS ORDERED: Sodium Chloride 0.9% 10 ML ONE ×2 (05:39→23:29)
[2018-06-25] MEDS: Piperacillin/Tazobactam 3.375 GM in Sodium Chloride 0.9% 100 ML IVPB SCH ×4 (05:49→23:54)
--- NOTE | 2018-06-25 08:58 | PDOC.CTH ---
Cardiology Progress Note - Subjective The pt seen and examined. No overnight events. No cardiac complaints. at bedside and concerns about his future Care plan. the pt is resting well and did not wake up at this moment. - Objective Vital Signs Temp Pulse Resp BP Pulse Ox 06/25/18 07:56 89 L 06/25/18 07:51 73 16 89 L 06/25/18 04:04 97.5 F L 70 21 H 135/65 93 L Admit Weight 217 lb 6.012 oz Weight 195 lb 3.2 oz 06/24/18 06/25/18 06/26/18 06:59 06:59 06:59 Intake Total 1850 660 Output Total 1100 1075 Balance 750 -415 - Physical Examination Neck: carotid US brisk Lungs: CTA (diminished at bases) Heart: RRR Abdomen: soft Extremities: other: (No edema) - Telemetry Telemetry Rhythm: SR 60s - Labs Result Diagrams: 06/24/18 06:04 06/24/18 06:04 Troponin/CKMB CK-MB (CK-2) 2.8 ng/mL (0-6.6) 06/22/18 09:23 Troponin I 0.348 ng/mL (< 0.028) H* 06/22/18 09:23 - Assessment/Plan 1. Acute ND 2/2 s/p out of hospital cardiac arrest and S/p CABG x2 with GERMAN- LAD and RSVG-Diag on 06/12/2018 - stable with Bblokcer, statin and ASA 81mg qd with Eliquis 5mg BID. 2. Post-op Afib - Converted back to SR at 1234 on 06/18/2018; On Amiodarone PO, metoprolol 50mg BID. On Eliquis 5mg BID for OAC; 3. HTN - stable with Metoprolol 50mg BID, Lisinopril 10mg BID. 3. Hyperlipidemia - On statin 4. Anoxic brain injury - improving. pt. conversing easily but seems paranoid about meds and his po intake. 5. SZ - Neurology consult: on Depakote 6. COPD - managed by metal riveter 7. Elevated LFT - cont. to monitor 8. hx of GI bleed - resolved. 9. Hypothyroidism - 10. tobacco and ETOH abuse -will need help likely post hospital 11. Sleep Apnea? - stop breathing for 5-10 senc. during this AM; On 2LNC JUL reviewed * From Cardiac standpoint, the pt's cardiac status is stable. Should go to rehab. Pt. seen and eval. by me. I agree with the A/P by the REFERENCE SERVICES HEAD. His mental status has improved since I saw him on Monday. No cardiac complaints. Chest clear. RRR. no edema. Review of Systems - Review of Systems Constitutional: reports: see HPI
--- NOTE | 2018-06-25 09:29 | PRG ---
DATE OF SERVICE: 06/25/2018 SUBJECTIVE: The patient is doing reasonably well. He prefers to sleep during the days and I think he is awake most of the night. OBJECTIVE: VITAL SIGNS: Temperature 97.5, pulse 72, respirations 16, and O2 saturation is 89% on room air. HEENT: Unremarkable. NECK: No JVD. LUNGS: Clear. CARDIAC: S1 and S2, regular. ABDOMEN: Soft. EXTREMITIES: No edema. ASSESSMENT: 1. Status post cardiac arrest. 2. Hypoxic encephalopathy. 3. Myocardial infarction. PLAN: He is continuing supportive care. He is currently on Zosyn. He had a positive urine culture with Klebsiella oxytoca the other day that may have been the reason for his decompensation. His central line has been discontinued. Pulmonary will follow intermittently. Job ID: [id number]
[2018-06-25] MEDS: Aspirin 81 mg Enteric Coated Tablet PO SCH (10:57)
[2018-06-25] MEDS: Famotidine 20 MG TAB PO SCH ×2 (10:57→20:00)
[2018-06-25] MEDS: Lisinopril 10 MG TAB PO SCH ×2 (10:57→20:00)
[2018-06-25] MEDS: Metoprolol Tartrate 50 MG TAB PO SCH ×2 (10:58→20:00)
[2018-06-25] MEDS: Tamsulosin HCl 0.4 MG CAP PO SCH ×2 (10:58→19:59)
[2018-06-25] MEDS: Apixaban 5 MG TAB PO SCH ×2 (10:58→19:59)
[2018-06-25] MEDS: Amiodarone 200 MG TAB PO SCH ×2 (10:58→19:59)
--- NOTE | 2018-06-25 12:12 | PDOC.PN ---
- Subjective Encounter Start Date: 06/25/18 Encounter Start Time: 08:40 Pt seen for followup re: UTI. Feels better. - Objective Resuscitation Status - Order Detail: 06/05/18 21:02 Resuscitation Status Routine Resuscitation Status: FULL: Full Resuscitation MAR Reviewed: Yes Vital Signs & Weight: Vital Signs (12 hours) Temp Pulse Resp BP BP BP Pulse Ox 06/25/18 11:15 97.7 F 64 20 131/67 97 06/25/18 10:57 135/65 06/25/18 07:56 89 L 06/25/18 07:51 73 16 89 L 06/25/18 07:35 97.5 F L 71 20 143/65 H 94 L 06/25/18 04:04 97.5 F L 70 21 H 135/65 93 L Weight Admit Weight 217 lb 6.012 oz Weight 195 lb 3.2 oz Most Recent Monitor Data Heart Rate from ECG 77 NIBP 128/67 NIBP BP-Mean 87 Respiration from ECG 27 SpO2 100 I&O: 06/24/18 06/25/18 06/26/18 06:59 06:59 06:59 Intake Total 1850 660 Output Total 1100 1075 Balance 750 -415 Result Diagrams: 06/24/18 06:04 06/24/18 06:04 EKG Reviewed by me: Yes (Tele: NSR) Phys Exam - Physical Examination Constitutional: NAD HEENT: moist MMs Neck: supple Respiratory: clear to auscultation bilateral Cardiovascular: RRR Gastrointestinal: soft Neurological: moves all 4 limbs Psychiatric: normal affect Dx/Plan (1) UTI (urinary tract infection) Status: Acute Comment: continue antibiotics as below. Urine cultures growing Klebsiella oxytoca and presumptive E. coli (2) STEMI (ST elevation myocardial infarction) Status: Acute Qualifiers: Involved coronary artery: LAD coronary artery Qualified Code(s): I21.02 - ST elevation (STEMI) myocardial infarction involving left anterior descending coronary artery Comment: s/p CABG 06/12/2018.On ASA,statin,BB,TEE-I (3) Afib Code(s): I48.91 - UNSPECIFIED ATRIAL FIBRILLATION Status: Acute Comment: on amiodarone, apixaban (4) Hypertension Code(s): I10 - ESSENTIAL (PRIMARY) HYPERTENSION Status: Chronic Qualifiers: Hypertension type: essential hypertension Qualified Code(s): I10 - Essential (primary) hypertension Comment: controlled (5) Sepsis Code(s): A41.9 - SEPSIS, UNSPECIFIED ORGANISM Status: Resolved Comment: due to UTI due to indwelling Quevedo catheter, not present on admission - Plan * . Review of Systems - Review of Systems Respiratory: negative: Cough, Shortness of Breath, SOB with Excertion, Pleuritic Pain, Wheezing Cardiovascular: negative: chest pain, palpitations, orthopnea, paroxysmal nocturnal dyspnea, edema, light headedness - Medications/Allergies Allergies/Adverse Reactions: Allergies Allergy/AdvReac Type Severity Reaction Status Date / Time No Known Drug Allergies Allergy Verified 06/06/18 00:55 Medications: Current Medications Acetaminophen (Tylenol) 650 mg PO Q6H PRN PRN Reason: Headache/Fever Or Mild Pain Last Admin: 06/25/18 11:13 Dose: 650 mg Al Hydroxide/Mg Hydroxide (Maalox) 30 ml PO Q4H PRN PRN Reason: Indigestion Albuterol/Ipratropium (Duoneb) 3 ml EZPAP [id number] [facility] Last Admin: 06/25/18 07:51 Dose: 3 ml Amiodarone HCl (Cordarone) 400 mg PO BID [facility] Stop: 06/26/18 09:01 Last Admin: 06/25/18 10:58 Dose: 400 mg Amiodarone HCl (Cordarone) 200 mg PO BID [facility] Stop: 07/03/18 09:01 Amiodarone HCl (Cordarone) 200 mg PO DAILY [facility] Apixaban (Eliquis) 5 mg PO BID [facility] Last Admin: 06/25/18 10:58 Dose: 5 mg Aspirin (Ecotrin) 81 mg PO DAILY [facility] Last Admin: 06/25/18 10:57 Dose: 81 mg Atorvastatin Calcium (Lipitor) 20 mg PO HS [facility] Last Admin: 06/24/18 20:50 Dose: 20 mg Bisacodyl (Dulcolax) 10 mg PO Q12H PRN PRN Reason: Constipation Bisacodyl (Dulcolax) 10 mg [place] Q12H PRN PRN Reason: Constipation Famotidine (Pepcid) 20 mg PO BID [facility] Last Admin: 06/25/18 10:57 Dose: 20 mg Guaifenesin/Dextromethorphan (Robitussin Dm) 15 ml PO Q4H PRN PRN Reason: Cough Hydralazine HCl (Apresoline) 10 mg SLOW IVP Q6H PRN PRN Reason: To Maintain SBP< 140mmHG Last Admin: 06/14/18 02:17 Dose: 10 mg Piperacillin Sod/Tazobactam (Sod 3.375 gm/ Sodium Chloride) 100 mls @ 200 mls/ hr IVPB Q6HR [facility] Last Admin: 06/25/18 11:04 Dose: 100 mls Lisinopril (Zestril) 10 mg PO BID [facility] Last Admin: 06/25/18 10:57 Dose: 10 mg Melatonin (Melatonin) 3 mg PO HS [facility] Last Admin: 06/24/18 20:50 Dose: 3 mg Metoprolol Tartrate (Lopressor) 50 mg PO BID [facility] Last Admin: 06/25/18 10:58 Dose: 50 mg Ondansetron HCl (Zofran) 4 mg IVP Q6H PRN PRN Reason: Nausea/Vomiting Potassium Chloride (Kcl) 20 meq IVPB PRN PRN PRN Reason: K level </= 4.0 Last Admin: 06/16/18 06:18 Dose: 20 meq Sodium Chloride (Flush - Normal Saline) 10 ml IVF Q12HR [facility] Last Admin: 06/25/18 10:58 Dose: 10 ml Sterile Water (Water For Injection) 10 ml FS Q4H PRN PRN Reason: TO RECONSTITUTE ZIPRASIDONE Tamsulosin HCl (Flomax) 0.4 mg PO HS [facility] Last Admin: 06/24/18 20:50 Dose: 0.4 mg Tamsulosin HCl (Flomax) 0.4 mg PO DAILY [facility] Last Admin: 06/25/18 10:58 Dose: 0.4 mg Ziprasidone (Geodon) 10 mg IM Q4H PRN PRN Reason: Agitation Last Admin: 06/20/18 16:52 Dose: 10 mg
--- NOTE | 2018-06-25 14:34 | PQF ---
CLINICAL DOCUMENTATION IMPROVEMENT CLARIFICATION FORM: ICD-10 Updated PLEASE DO AN ADDENDUM TO THE PROGRESS NOTE WITH ANY DOCUMENTATION UPDATES OR ADDITIONS AND CARRY THROUGH TO DC SUMMARY. THANK YOU. DATE: 06/25/2018 ATTN: Dr. Monsno Please exercise your independent, professional judgment in responding to the clarification form. Clinical indicators are provided on the bottom of this form for your review Please check appropriate box(es): [ ] Sepsis due to UTI due to indwelling cai catheter. [ ] Sepsis due to UTI not due to indwelling cai catheter. [ ] Other diagnosis [ ] Unable to determine In addition, please specify: Present on Admission (POA): [ ] Yes [ ] No [ ] Unable to determine For continuity of documentation, please document condition throughout progress notes and discharge summary. Thank You. CLINICAL INDICATORS - SIGNS / SYMPTOMS / LABS LAB: 06/06/2018: Urine culture. No growth at 36 hrs. 06/22/2018: Urine culture Klebsiella oxytoca and presumptive Ecoli PN 06/22: Michael burch called for high fever, tachypnea and sepsis alert Temp 101.4 Sepsis. Acute. High fever, leucocytosis and high lactic acid. suspect either line infection or UTI. PN 06/25: UTI (urinary tract infection) Urine cultures growing Klebsiella oxytoca and presumptive E. obi RISKS: ER Nursing Assessment 06/05/2018: Cai catheter with urinometer inserted, using a 16fr catheter. PN 06/22/2018: S/p arrest secondary to STEMI, emergent LHC, S/P CABG. Sepsis TEATMENT: ORDER 06/06/18: Urine culture Order 06/22/2018: Urine Culture. Order 06/22: Zosyn 3.375 gm IV Thank you, Marilyn (This form is maintained as a part of the permanent medical record) 2014 [employer], [employer]. All Rights Reserved Marilyn Crawford RN, BSN [email or web address] Office: [phone] [facility]
[2018-06-25] MEDS: Atorvastatin Calcium 20 MG TAB PO SCH (20:00)
[2018-06-25] MEDS: Melatonin 3 MG TAB PO SCH (20:35)
[2018-06-26] MEDS ORDERED: Sodium Chloride 0.9% 10 ML ONE (05:02)
[2018-06-26] MEDS: Piperacillin/Tazobactam 3.375 GM in Sodium Chloride 0.9% 100 ML IVPB SCH ×2 (05:52→11:16)
[2018-06-26] MEDS: Acetaminophen 325 MG TAB PO PRN ×2 (05:57→20:56)
[2018-06-26] MEDS ORDERED: Potassium Chloride 20 MEQ TAB PO SCH (07:00)
[2018-06-26] MEDS ORDERED: Metolazone 5 MG TAB PO SCH (07:00)
[2018-06-26] MEDS: Furosemide 40 MG TAB PO SCH (07:10)
[2018-06-26] MEDS: Amiodarone 200 MG TAB PO SCH ×2 (08:21→20:56)
[2018-06-26] MEDS: Famotidine 20 MG TAB PO SCH ×2 (08:21→20:56)
[2018-06-26] MEDS: Lisinopril 10 MG TAB PO SCH ×2 (08:21→20:55)
[2018-06-26] MEDS: Aspirin 81 mg Enteric Coated Tablet PO SCH (08:21)
[2018-06-26] MEDS: Tamsulosin HCl 0.4 MG CAP PO SCH ×2 (08:21→20:56)
[2018-06-26] MEDS: Metoprolol Tartrate 50 MG TAB PO SCH ×2 (08:21→20:55)
[2018-06-26] MEDS: Apixaban 5 MG TAB PO SCH ×2 (08:22→20:55)
--- NOTE | 2018-06-26 09:59 | PRG ---
DATE OF SERVICE: 06/26/2018 SUBJECTIVE: He is sitting up. He is conversant, still confused for current events, but fairly sharp when trying to recall distant events. OBJECTIVE: VITAL SIGNS: Temperature is 97.4, pulse 64, respirations 16, O2 saturation 93%, and blood pressure 130/69. HEENT: Unremarkable. NECK: No JVD. CHEST: Clear to auscultation. CARDIAC: S1 and S2, regular. ABDOMEN: Soft. EXTREMITIES: No edema. ASSESSMENT: 1. Urinary tract infection. 2. Status post cardiac arrest. 3. Hypoxic encephalopathy. 4. Status post acute myocardial infarction. PLAN: He is continuing rehabilitative therapy. He is also on IV antibiotics with Zosyn. Based on his urinary culture, he can probably be switched to something orally. Pulmonary will see less often. Please recall further assistance if needed. Job ID: [id number]
--- NOTE | 2018-06-26 10:39 | PDOC.CTH ---
Cardiology Progress Note - Subjective Pt. seen and eval. by me. No overnight event. Mental status seems to be improving daily. - Objective Vital Signs Temp Pulse Resp BP BP Pulse Ox 06/26/18 07:15 97.4 F L 64 16 138/69 93 L 06/26/18 07:08 64 18 138/69 06/26/18 06:56 72 16 90 L 06/26/18 04:00 97.7 F 63 20 141/63 H 92 L 06/26/18 00:13 63 16 88 L Admit Weight 217 lb 6.012 oz Weight 209 lb 14.4 oz 06/25/18 06/26/18 06/27/18 06:59 06:59 06:59 Intake Total 660 1880 Output Total 1075 100 Balance -415 1780 - Physical Examination General/Neuro: alert & oriented x3 Neck: no JVD present Lungs: CTA Heart: RRR Abdomen: soft - Labs Result Diagrams: 06/24/18 06:04 06/24/18 06:04 Troponin/CKMB CK-MB (CK-2) 2.8 ng/mL (0-6.6) 06/22/18 09:23 Troponin I 0.348 ng/mL (< 0.028) H* 06/22/18 09:23 - Assessment/Plan 1. Acute DC 2/2 s/p out of hospital cardiac arrest and S/p CABG x2 with GERMAN- LAD and RSVG-Diag on 06/12/2018 - stable with Bblokcer, statin and ASA 81mg qd with Eliquis 5mg BID. 2. Post-op Afib - Converted back to SR at 1234 on 06/18/2018; On Amiodarone PO, metoprolol 50mg BID. On Eliquis 5mg BID for OAC; 3. HTN - stable with Metoprolol 50mg BID, Lisinopril 10mg BID. 3. Hyperlipidemia - On statin 4. Anoxic brain injury - improving. 5. SZ - on Depakote 6. COPD - managed by cattle broker 7. Elevated LFT - cont. to monitor 8. hx of GI bleed - resolved. 9. Hypothyroidism - 10. tobacco and ETOH abuse -will need help likely post hospital 11. Sleep Apnea? - stop breathing for 5-10 senc. during this AM; On 2LNC. May benefit from a sleep study. MAR reviewed * From Cardiac standpoint, the pt's cardiac status is stable. Should go to rehab.
--- NOTE | 2018-06-26 13:34 | PDOC.PN ---
- Subjective Encounter Start Date: 06/26/18 Encounter Start Time: 07:40 Pt seen for followup re: UTI. No complaints today. - Objective Resuscitation Status - Order Detail: 06/05/18 21:02 Resuscitation Status Routine Resuscitation Status: FULL: Full Resuscitation MAR Reviewed: Yes Vital Signs & Weight: Vital Signs (12 hours) Temp Pulse Resp BP BP Pulse Ox 06/26/18 11:15 97.5 F L 60 17 123/63 94 L 06/26/18 07:15 97.4 F L 64 16 138/69 93 L 06/26/18 07:08 64 18 138/69 06/26/18 06:56 72 16 90 L 06/26/18 04:00 97.7 F 63 20 141/63 H 92 L Weight Admit Weight 217 lb 6.012 oz Weight 209 lb 14.4 oz Most Recent Monitor Data Heart Rate from ECG 77 NIBP 128/67 NIBP BP-Mean 87 Respiration from ECG 27 SpO2 100 I&O: 06/25/18 06/26/18 06/27/18 06:59 06:59 06:59 Intake Total 660 1880 Output Total 1075 100 Balance -415 1780 Result Diagrams: 06/24/18 06:04 06/24/18 06:04 EKG Reviewed by me: Yes (Tele: NSR) Phys Exam - Physical Examination Constitutional: NAD HEENT: moist MMs Neck: supple Respiratory: clear to auscultation bilateral Cardiovascular: RRR Gastrointestinal: soft Neurological: moves all 4 limbs Psychiatric: normal affect, A&O x 3 Dx/Plan (1) UTI (urinary tract infection) Status: Acute Comment: swithc to Macrobid (2) STEMI (ST elevation myocardial infarction) Status: Acute Qualifiers: Involved coronary artery: LAD coronary artery Qualified Code(s): I21.02 - ST elevation (STEMI) myocardial infarction involving left anterior descending coronary artery Comment: s/p CABG 06/12/2018.will continue ASA,statin,BB,TEE-I (3) Afib Code(s): I48.91 - UNSPECIFIED ATRIAL FIBRILLATION Status: Acute Comment: continue amiodarone, apixaban (4) Hypertension Code(s): I10 - ESSENTIAL (PRIMARY) HYPERTENSION Status: Chronic Qualifiers: Hypertension type: essential hypertension Qualified Code(s): I10 - Essential (primary) hypertension Comment: controlled (5) Sepsis Code(s): A41.9 - SEPSIS, UNSPECIFIED ORGANISM Status: Resolved - Plan * . awaiting Rehab Review of Systems - Review of Systems Respiratory: negative: Cough, Shortness of Breath, SOB with Excertion, Pleuritic Pain, Wheezing Cardiovascular: negative: chest pain, palpitations, orthopnea, paroxysmal nocturnal dyspnea, edema, light headedness - Medications/Allergies Allergies/Adverse Reactions: Allergies Allergy/AdvReac Type Severity Reaction Status Date / Time No Known Drug Allergies Allergy Verified 06/06/18 00:55 Medications: Current Medications Acetaminophen (Tylenol) 650 mg PO Q6H PRN PRN Reason: Headache/Fever Or Mild Pain Last Admin: 06/26/18 05:57 Dose: 650 mg Al Hydroxide/Mg Hydroxide (Maalox) 30 ml PO Q4H PRN PRN Reason: Indigestion Albuterol/Ipratropium (Duoneb) 3 ml EZPAP [id number] [facility] Last Admin: 06/26/18 06:56 Dose: 3 ml Amiodarone HCl (Cordarone) 200 mg PO BID [facility] Stop: 07/03/18 09:01 Amiodarone HCl (Cordarone) 200 mg PO DAILY [facility] Apixaban (Eliquis) 5 mg PO BID [facility] Last Admin: 06/26/18 08:22 Dose: 5 mg Aspirin (Ecotrin) 81 mg PO DAILY [facility] Last Admin: 06/26/18 08:21 Dose: 81 mg Atorvastatin Calcium (Lipitor) 20 mg PO HS [facility] Last Admin: 06/25/18 20:00 Dose: 20 mg Bisacodyl (Dulcolax) 10 mg PO Q12H PRN PRN Reason: Constipation Bisacodyl (Dulcolax) 10 mg ID Q12H PRN PRN Reason: Constipation Famotidine (Pepcid) 20 mg PO BID [facility] Last Admin: 06/26/18 08:21 Dose: 20 mg Furosemide (Lasix) 40 mg PO DAILY-AC [facility] Last Admin: 06/26/18 07:10 Dose: 40 mg Guaifenesin/Dextromethorphan (Robitussin Dm) 15 ml PO Q4H PRN PRN Reason: Cough Hydralazine HCl (Apresoline) 10 mg SLOW IVP Q6H PRN PRN Reason: To Maintain SBP< 140mmHG Last Admin: 06/14/18 02:17 Dose: 10 mg Lisinopril (Zestril) 10 mg PO BID [facility] Last Admin: 06/26/18 08:21 Dose: 10 mg Melatonin (Melatonin) 3 mg PO HS [facility] Last Admin: 06/25/18 20:35 Dose: 3 mg Metoprolol Tartrate (Lopressor) 50 mg PO BID [facility] Last Admin: 06/26/18 08:21 Dose: 50 mg Nitrofurantoin Macrocrystals (Macrobid) 100 mg PO BID [facility] Ondansetron HCl (Zofran) 4 mg IVP Q6H PRN PRN Reason: Nausea/Vomiting Potassium Chloride (Kcl) 20 meq IVPB PRN PRN PRN Reason: K level </= 4.0 Last Admin: 06/16/18 06:18 Dose: 20 meq Sodium Chloride (Flush - Normal Saline) 10 ml IVF Q12HR [facility] Last Admin: 06/26/18 08:22 Dose: 10 ml Sterile Water (Water For Injection) 10 ml FS Q4H PRN PRN Reason: TO RECONSTITUTE ZIPRASIDONE Tamsulosin HCl (Flomax) 0.4 mg PO HS [facility] Last Admin: 06/25/18 19:59 Dose: 0.4 mg Tamsulosin HCl (Flomax) 0.4 mg PO DAILY [facility] Last Admin: 06/26/18 08:21 Dose: 0.4 mg Ziprasidone (Geodon) 10 mg IM Q4H PRN PRN Reason: Agitation Last Admin: 06/20/18 16:52 Dose: 10 mg
[2018-06-26] MEDS: Melatonin 3 MG TAB PO SCH (20:55)
[2018-06-26] MEDS: Nitrofurantoin Monohyd/M-Cryst 100 MG CAP PO SCH (20:55)
[2018-06-26] MEDS: Atorvastatin Calcium 20 MG TAB PO SCH (20:56)
[2018-06-27 04:44] LABS: #Basophils 0.1 thou/uL (0.0-0.2); #Eosinphils 0.3 thou/uL (0.0-0.7); #Lymphocytes 1.4 thou/uL (1.20-3.40); #Monocytes 0.6 thou/uL (0.11-0.59); #Neutrophils 5.2 thou/uL (1.40-6.50); %Basophils 0.9 % (0.0-1.0); %Eosinophils 3.8 % (0.0-10.0); %Lymphocytes 19.1 % (21.0-51.0); %Monocytes 7.9 % (0.0-10.0); %Neutrophils 68.3 % (42.0-75.0); Hemoglobin 11.4 g/dL (14.0-18.0); Mean Corpuscular Hemoglobin 31.1 pg (27.0-31.0); Mean Corpuscular Volume 97.2 fL (78.0-98.0); Mean Platelet Volume 8.7 fL (7.4-10.4); Platelet Count 376 thou/uL (130-400); RBC Distribution Width 12.4 % (11.5-14.5); Red Blood Cell (RBC) Count 3.65 mill/uL (4.70-6.10); White Blood Cell (WBC) Count 7.5 thou/uL (4.8-10.8)
[2018-06-27 04:58] LABS: Anion Gap 14 mmol/L (10-20); BUN (Urea Nitrogen) 8 mg/dL (8.4-25.7); Calc. Creatinine Clearance 99 mL/min (70-130); Calcium 8.9 mg/dL (7.8-10.44); Carbon Dioxide 33 mmol/L (23-31); Chloride 91 mmol/L (98-107); Estimated GFR-MDRD 75; Glucose 84 mg/dL (80-115); Sodium 135 mmol/L (136-145)
--- NOTE | 2018-06-27 09:08 | PDOC.CTH ---
Cardiology Progress Note - Subjective The pt seen and examined. No overnight events. No cardiac complaints. A sitter at bedside. - Objective Vital Signs Temp Pulse Resp BP BP Pulse Ox 06/27/18 08:03 97.5 F L 67 20 125/76 100 06/27/18 06:53 61 16 91 L 06/27/18 06:00 61 18 96/55 L 06/27/18 05:03 72 18 90/51 L 06/27/18 04:00 97.4 F L 62 20 118/66 95 06/27/18 01:46 63 18 95 Admit Weight 217 lb 6.012 oz Weight 198 lb 9.6 oz 06/26/18 06/27/18 06/28/18 06:59 06:59 06:59 Intake Total 1880 1330 Output Total 100 725 Balance 1780 605 - Physical Examination General/Neuro: alert & oriented x3 Neck: no JVD present Lungs: CTA (diminished at bases) Heart: RRR Abdomen: soft Extremities: other: (No edema) - Telemetry Telemetry Rhythm: SR 70s - Labs Result Diagrams: 06/27/18 04:11 06/27/18 04:11 Troponin/CKMB CK-MB (CK-2) 2.8 ng/mL (0-6.6) 06/22/18 09:23 Troponin I 0.348 ng/mL (< 0.028) H* 06/22/18 09:23 - Assessment/Plan 1. Acute NH 2/2 s/p out of hospital cardiac arrest and S/p CABG x2 with GERMAN- LAD and RSVG-Diag on 06/12/2018 - stable with Bblokcer, statin and ASA 81mg qd with Eliquis 5mg BID. 2. Post-op Afib - Converted back to SR at 1234 on 06/18/2018; On Amiodarone PO, metoprolol 50mg BID. On Eliquis 5mg BID for OAC; 3. HTN - stable with Metoprolol 50mg BID, Lisinopril 10mg BID. 3. Hyperlipidemia - On statin 4. Anoxic brain injury - improving. pt. conversing easily but seems paranoid about meds and his po intake. 5. SZ - Neurology consult: on Depakote 6. COPD - managed by splitter machine 7. Elevated LFT - cont. to monitor 8. hx of GI bleed - resolved. 9. Hypothyroidism - 10. tobacco and ETOH abuse -will need help likely post hospital 11. Sleep Apnea? - stop breathing for 5-10 senc. during this AM; 12. Hypokelemia - Kcl 40 mEq x1 this AM. MAR reviewed * From Cardiac standpoint, the pt's cardiac status is stable. Should go to rehab. Review of Systems - Review of Systems Constitutional: reports: no symptoms reported EENTM: reports: no symptoms reported Respiratory: reports: no symptoms reported Cardiac (ROS): reports: no symptoms reported ABD/GI: reports: no symptoms reported : reports: no symptoms reported Musculoskeletal: reports: no symptoms reported Skin: reports: no symptoms reported
[2018-06-27] MEDS: Lisinopril 10 MG TAB PO SCH (09:25)
[2018-06-27] MEDS: Aspirin 81 mg Enteric Coated Tablet PO SCH (09:26)
[2018-06-27] MEDS: Metoprolol Tartrate 50 MG TAB PO SCH ×2 (09:26→21:46)
[2018-06-27] MEDS: Tamsulosin HCl 0.4 MG CAP PO SCH ×2 (09:26→21:47)
[2018-06-27] MEDS: Amiodarone 200 MG TAB PO SCH ×2 (09:26→21:47)
[2018-06-27] MEDS: Famotidine 20 MG TAB PO SCH ×2 (09:26→21:47)
[2018-06-27] MEDS: Nitrofurantoin Monohyd/M-Cryst 100 MG CAP PO SCH ×2 (09:27→21:46)
[2018-06-27] MEDS: Furosemide 40 MG TAB PO SCH (09:27)
[2018-06-27] MEDS: Apixaban 5 MG TAB PO SCH ×2 (09:27→21:47)
[2018-06-27] MEDS ORDERED: Potassium Chloride 20 MEQ TAB PO SCH (10:00)
--- NOTE | 2018-06-27 14:37 | PDOC.PN ---
- Subjective Encounter Start Date: 06/27/18 Encounter Start Time: 14:35 Subjective: felt dizzy when walking this morning w noted Low BP by RN -: no chest pain/SOB.no fever/chills -: care discussed w at bedside - Objective Resuscitation Status - Order Detail: 06/05/18 21:02 Resuscitation Status Routine Resuscitation Status: FULL: Full Resuscitation MAR Reviewed: Yes Vital Signs & Weight: Vital Signs (12 hours) Temp Pulse Resp BP BP BP Pulse Ox 06/27/18 13:26 74 16 92 L 06/27/18 12:49 111/60 108/61 98/54 L 06/27/18 12:30 97.6 F 62 16 114/57 L 93 L 06/27/18 09:27 100 06/27/18 08:03 97.5 F L 67 20 125/76 100 06/27/18 06:53 61 16 91 L 06/27/18 06:00 61 18 96/55 L 06/27/18 05:03 72 18 90/51 L 06/27/18 04:00 97.4 F L 62 20 118/66 95 Weight Admit Weight 217 lb 6.012 oz Weight 198 lb 9.6 oz Most Recent Monitor Data Heart Rate from ECG 77 NIBP 128/67 NIBP BP-Mean 87 Respiration from ECG 27 SpO2 100 I&O: 06/26/18 06/27/18 06/28/18 06:59 06:59 06:59 Intake Total 1880 1330 Output Total 100 725 Balance 1780 605 Result Diagrams: 06/27/18 04:11 06/27/18 04:11 Additional Labs: Microbiology 06/22/18 11:40 Central Line - Right Subclavian Vein Blood Culture - Final NO GROWTH IN 5 DAYS 06/22/18 11:36 Catheter Tip Catheter Tip Culture - Final 06/22/18 11:00 Urine cai catheter Urine Culture - Final Klebsiella oxytoca Escherichia coli 06/22/18 09:23 Venous blood - Right Hand Blood Culture - Final NO GROWTH IN 5 DAYS 06/22/18 09:23 Venous blood - Left Arm Blood Culture - Final NO GROWTH IN 5 DAYS 06/06/18 21:00 Urine cai catheter Urine Culture - Final NO GROWTH AT 36 HOURS Laboratory Tests 06/12/18 06/13/18 06/14/18 11:03 03:45 05:24 WBC 12.1 H 10.1 13.8 H 06/15/18 06/22/18 06/23/18 04:45 09:23 09:35 WBC 13.4 H 20.2 H 17.1 H 06/24/18 06/27/18 06:04 04:11 WBC 11.9 H 7.5 Phys Exam - Physical Examination Constitutional: NAD sitting up at the edge of bed HEENT: PERRLA, moist MMs, sclera anicteric, oral pharynx no lesions Neck: no nodes, no JVD, supple, full ROM Respiratory: no wheezing, no rales, no rhonchi Cardiovascular: RRR, no significant murmur Gastrointestinal: soft, non-tender, no distention, positive bowel sounds Musculoskeletal: no edema, pulses present Neurological: non-focal, normal sensation, moves all 4 limbs Psychiatric: normal affect, A&O x 3 Skin: no rash Dx/Plan (1) Sepsis Code(s): A41.9 - SEPSIS, UNSPECIFIED ORGANISM Status: Resolved Comment: UTI. Cx with E.coli and Klebsiella which are pansensitive (2) Atrial fibrillation with rapid ventricular response Code(s): I48.91 - UNSPECIFIED ATRIAL FIBRILLATION Status: Acute Comment: NSR on BB.On AMiodarone PO & on Eliquis.Stoped amiodarone drip and lovenox. Lower ASA to 81 (3) Acute metabolic encephalopathy Code(s): G93.41 - METABOLIC ENCEPHALOPATHY Status: Acute Comment: Much improved. suspect metabolic and due to severe critical illness. was on Depakote.suspect some component of anoxic brain injury due to OOH cardiac arrest (4) STEMI (ST elevation myocardial infarction) Status: Acute Qualifiers: Involved coronary artery: LAD coronary artery Qualified Code(s): I21.02 - ST elevation (STEMI) myocardial infarction involving left anterior descending coronary artery Comment: s/p CABG 06/12/2018.will continue ASA,statin,BB,TEE-I (5) HLD (hyperlipidemia) Code(s): E78.5 - HYPERLIPIDEMIA, UNSPECIFIED Status: Chronic Comment: Resume Lipitor 10mg HS (6) Hypertension Code(s): I10 - ESSENTIAL (PRIMARY) HYPERTENSION Status: Chronic Qualifiers: Hypertension type: essential hypertension Qualified Code(s): I10 - Essential (primary) hypertension Comment: controlled (7) Hypothyroidism Code(s): E03.9 - HYPOTHYROIDISM, UNSPECIFIED Status: Chronic Comment: Resume Levothyroxine 125mcg daily (8) Tobacco abuse Code(s): Z72.0 - TOBACCO USE Status: Chronic Comment: Tobacco cessation resources, consider nicotine patch (9) Acute respiratory failure with hypoxia Code(s): J96.01 - ACUTE RESPIRATORY FAILURE WITH HYPOXIA Status: Resolved Comment: extubated and doing well (10) Cardiac arrest due to underlying cardiac condition Code(s): I46.2 - CARDIAC ARREST DUE TO UNDERLYING CARDIAC CONDITION Status: Resolved Comment: s/p arrest secondary to STEMI, emergent LHC, S/P CABG, Course complicated by anoxic injury and slow clinical improvement, afib, cardiac rehab requested - Plan plan discussed w/ family, DVT proph w/SCDs BP lower w drop in BP w position . not much but some -: reduce lisinopril dose and monitor -: accpeted at [facility] tomorrow -: ABx changed to PO -: replace and recheck potassium. labs in am * . Review of Systems - Review of Systems Constitutional: weakness. negative: fever, chills, sweats, malaise, other ENT: negative: Ear Pain, Ear Discharge, Nose Pain, Nose Discharge, Nose Congestion, Mouth Pain, Mouth Swelling, Throat Pain, Throat Swelling, Other Respiratory: negative: Cough, Dry, Shortness of Breath, Hemoptysis, SOB with Excertion, Pleuritic Pain, Sputum, Wheezing Cardiovascular: light headedness. negative: chest pain, palpitations, orthopnea , paroxysmal nocturnal dyspnea, edema, other Gastrointestinal: negative: Nausea, Vomiting, Abdominal Pain, Diarrhea, Constipation, Melena, Hematochezia, Other Genitourinary: negative: Dysuria, Frequency, Incontinence, Hematuria, Retention , Other Musculoskeletal: negative: Neck Pain, Shoulder Pain, Arm Pain, Back Pain, Hand Pain, Leg Pain, Foot Pain, Other Skin: negative: Rash, Lesions, Roni, Bruising, Other Neurological: negative: Weakness, Numbness, Incoordination, Change in Speech, Confusion, Seizures, Other - Medications/Allergies Allergies/Adverse Reactions: Allergies Allergy/AdvReac Type Severity Reaction Status Date / Time No Known Drug Allergies Allergy Verified 06/06/18 00:55 Medications: Current Medications Acetaminophen (Tylenol) 650 mg PO Q6H PRN PRN Reason: Headache/Fever Or Mild Pain Last Admin: 06/26/18 20:56 Dose: 650 mg Al Hydroxide/Mg Hydroxide (Maalox) 30 ml PO Q4H PRN PRN Reason: Indigestion Albuterol/Ipratropium (Duoneb) 3 ml EZPAP [id number] [facility] Last Admin: 06/27/18 13:26 Dose: 3 ml Amiodarone HCl (Cordarone) 200 mg PO BID [facility] Stop: 07/03/18 09:01 Last Admin: 06/27/18 09:26 Dose: 200 mg Amiodarone HCl (Cordarone) 200 mg PO DAILY [facility] Apixaban (Eliquis) 5 mg PO BID [facility] Last Admin: 06/27/18 09:27 Dose: 5 mg Aspirin (Ecotrin) 81 mg PO DAILY [facility] Last Admin: 06/27/18 09:26 Dose: 81 mg Atorvastatin Calcium (Lipitor) 20 mg PO [facility] Last Admin: 06/26/18 20:56 Dose: 20 mg Bisacodyl (Dulcolax) 10 mg PO Q12H PRN PRN Reason: Constipation Bisacodyl (Dulcolax) 10 mg [place] Q12H PRN PRN Reason: Constipation Famotidine (Pepcid) 20 mg PO BID [facility] Last Admin: 06/27/18 09:26 Dose: 20 mg Furosemide (Lasix) 40 mg PO DAILY[facility] Last Admin: 06/27/18 09:27 Dose: 40 mg Guaifenesin/Dextromethorphan (Robitussin Dm) 15 ml PO Q4H PRN PRN Reason: Cough Hydralazine HCl (Apresoline) 10 mg SLOW IVP Q6H PRN PRN Reason: To Maintain SBP< 140mmHG Last Admin: 06/14/18 02:17 Dose: 10 mg Potassium Chloride 40 meq/ (Device) 100 mls @ 25 mls/hr IVPB ONE [facility] Lisinopril (Zestril) 5 mg PO BID [facility] Melatonin (Melatonin) 3 mg PO HS [facility] Last Admin: 06/26/18 20:55 Dose: 3 mg Metoprolol Tartrate (Lopressor) 50 mg PO BID [facility] Last Admin: 06/27/18 09:26 Dose: 50 mg Nitrofurantoin Macrocrystals (Macrobid) 100 mg PO BID [facility] Last Admin: 06/27/18 09:27 Dose: 100 mg Ondansetron HCl (Zofran) 4 mg IVP Q6H PRN PRN Reason: Nausea/Vomiting Potassium Chloride (Kcl) 20 meq IVPB PRN PRN PRN Reason: K level </= 4.0 Last Admin: 06/16/18 06:18 Dose: 20 meq Sodium Chloride (Flush - Normal Saline) 10 ml IVF Q12HR [facility] Last Admin: 06/27/18 09:27 Dose: 10 ml Sterile Water (Water For Injection) 10 ml FS Q4H PRN PRN Reason: TO RECONSTITUTE ZIPRASIDONE Tamsulosin HCl (Flomax) 0.4 mg PO HS [facility] Last Admin: 06/26/18 20:56 Dose: 0.4 mg Tamsulosin HCl (Flomax) 0.4 mg PO DAILY [facility] Last Admin: 06/27/18 09:26 Dose: 0.4 mg Ziprasidone (Geodon) 10 mg IM Q4H PRN PRN Reason: Agitation Last Admin: 06/20/18 16:52 Dose: 10 mg
[2018-06-27] MEDS ORDERED: Potassium Chloride 40 MEQ in Sodium Chloride 0.9% 250 ML 250 ML IVPB SCH (15:30)
[2018-06-27] MEDS: Lisinopril 5 MG TAB PO SCH (21:46)
[2018-06-27] MEDS: Atorvastatin Calcium 20 MG TAB PO SCH (21:47)
[2018-06-27] MEDS: Melatonin 3 MG TAB PO SCH (21:53)
[2018-06-28 05:42] LABS: Anion Gap 12 mmol/L (10-20); BUN (Urea Nitrogen) 10 mg/dL (8.4-25.7); Calc. Creatinine Clearance 74 mL/min (70-130); Calcium 8.9 mg/dL (7.8-10.44); Carbon Dioxide 34 mmol/L (23-31); Chloride 91 mmol/L (98-107); Estimated GFR-MDRD 57; Glucose 90 mg/dL (80-115); Potassium 3.3 mmol/L (3.5-5.1); Sodium 134 mmol/L (136-145)
[2018-06-28 07:35] VITALS: TEMP 97.6
[2018-06-28] MEDS: Furosemide 40 MG TAB PO SCH (08:09)
[2018-06-28] MEDS: Apixaban 5 MG TAB PO SCH (08:10)
[2018-06-28] MEDS: Metoprolol Tartrate 50 MG TAB PO SCH (08:10)
[2018-06-28] MEDS: Lisinopril 5 MG TAB PO SCH (08:10)
[2018-06-28] MEDS: Aspirin 81 mg Enteric Coated Tablet PO SCH (08:10)
[2018-06-28] MEDS: Tamsulosin HCl 0.4 MG CAP PO SCH (08:10)
[2018-06-28] MEDS: Famotidine 20 MG TAB PO SCH (08:10)
[2018-06-28] MEDS: Amiodarone 200 MG TAB PO SCH (08:10)
[2018-06-28] MEDS: Nitrofurantoin Monohyd/M-Cryst 100 MG CAP PO SCH (08:10)
[2018-06-28 11:08] VITALS: BMI 27.3
[2018-06-28 12:22] VITALS: BP 92/58
--- NOTE | 2018-06-28 12:25 | PDOC.CTH ---
Cardiology Progress Note - Subjective The pt seen and examined. No overnight events. No cardiac complaints. He is walking with PT without any cardiac complaints. - Objective Vital Signs Temp Pulse Pulse Pulse Resp BP BP 06/28/18 12:18 97.6 F 64 20 06/28/18 09:10 72 69 91/55 L 99/52 L 06/28/18 08:10 06/28/18 07:30 97.6 F 66 18 06/28/18 07:07 06/28/18 07:05 65 16 06/28/18 04:00 97.7 F 66 18 06/28/18 00:57 62 18 BP BP Pulse Ox Pulse Ox Pulse Ox 06/28/18 12:18 92/58 L 94 L 06/28/18 09:10 94 L 92 L 06/28/18 08:10 92 L 06/28/18 07:30 124/63 92 L 06/28/18 07:07 92 L 06/28/18 07:05 92 L 06/28/18 04:00 111/59 L 92 L 06/28/18 00:57 91 L Admit Weight 217 lb 6.012 oz Weight 202 lb 1 oz 06/27/18 06/28/18 06/29/18 06:59 06:59 06:59 Intake Total 1330 270 Output Total 725 1300 Balance 605 -1030 - Physical Examination General/Neuro: alert & oriented x3 Neck: no JVD present Lungs: CTA Heart: RRR Abdomen: soft Extremities: other: (no edema) - Telemetry Telemetry Rhythm: SR - Labs Result Diagrams: 06/27/18 04:11 06/28/18 04:51 Troponin/CKMB CK-MB (CK-2) 2.8 ng/mL (0-6.6) 06/22/18 09:23 Troponin I 0.348 ng/mL (< 0.028) H* 06/22/18 09:23 - Assessment/Plan 1. Acute [place] 2/2 s/p out of hospital cardiac arrest and S/p CABG x2 with GERMAN- LAD and RSVG-Diag on 06/12/2018 - stable with Bblokcer, statin and ASA 81mg qd with Eliquis 5mg BID. 2. Post-op Afib - Converted back to SR at 1234 on 06/18/2018; On Amiodarone PO, metoprolol 50mg BID. On Eliquis 5mg BID for OAC; 3. HTN - stable with Metoprolol 50mg BID, Lisinopril 10mg BID. 3. Hyperlipidemia - On statin 4. Anoxic brain injury - improving. pt. conversing easily but seems paranoid about meds and his po intake. 5. SZ - Neurology consult: on Depakote 6. COPD - managed by warp coiler 7. Elevated LFT - cont. to monitor 8. hx of GI bleed - resolved. 9. Hypothyroidism - 10. tobacco and ETOH abuse -will need help likely post hospital 11. Sleep Apnea? - stop breathing for 5-10 senc. during this AM; 12. Hypokelemia - Kcl 40 mEq x1 this AM. MAR reviewed * From Cardiac standpoint, the pt's cardiac status is stable. Should go to rehab * Cont. Amiodarone 200mg BID until 07/03/2018 AM then change to 200mg qd with Eliquis 5mg BID. Pt. seen and eval. by me. I agree withn the A/P by the [employer]. Chest clear. RRR. Review of Systems - Review of Systems Constitutional: reports: no symptoms reported EENTM: reports: no symptoms reported Respiratory: reports: no symptoms reported Cardiac (ROS): reports: no symptoms reported ABD/GI: reports: no symptoms reported : reports: no symptoms reported Musculoskeletal: reports: no symptoms reported
--- NOTE | 2018-06-28 15:06 | PDOC.PN ---
- Subjective Encounter Start Date: 06/28/18 Encounter Start Time: 15:05 Subjective: no new complaints -: no more dizziness -: care discussed w at bedside - Objective Resuscitation Status - Order Detail: 06/05/18 21:02 Resuscitation Status Routine Resuscitation Status: FULL: Full Resuscitation MAR Reviewed: Yes Vital Signs & Weight: Vital Signs (12 hours) Temp Pulse Pulse Pulse Resp BP BP 06/28/18 13:57 93 18 06/28/18 12:18 97.6 F 64 20 06/28/18 09:10 72 69 91/55 L 99/52 L 06/28/18 08:10 06/28/18 07:30 97.6 F 66 18 06/28/18 07:07 06/28/18 07:05 65 16 06/28/18 04:00 97.7 F 66 18 BP BP Pulse Ox Pulse Ox Pulse Ox 06/28/18 13:57 93 L 06/28/18 12:18 92/58 L 94 L 06/28/18 09:10 94 L 92 L 06/28/18 08:10 92 L 06/28/18 07:30 124/63 92 L 06/28/18 07:07 92 L 06/28/18 07:05 92 L 06/28/18 04:00 111/59 L 92 L Weight Admit Weight 217 lb 6.012 oz Weight 202 lb 1 oz Most Recent Monitor Data Heart Rate from ECG 77 NIBP 128/67 NIBP BP-Mean 87 Respiration from ECG 27 SpO2 100 I&O: 06/27/18 06/28/18 06/29/18 06:59 06:59 06:59 Intake Total 1330 270 Output Total 725 1300 Balance 605 -1030 Result Diagrams: 06/27/18 04:11 06/28/18 04:51 Additional Labs: Microbiology 06/22/18 11:40 Central Line - Right Subclavian Vein Blood Culture - Final NO GROWTH IN 5 DAYS 06/22/18 11:36 Catheter Tip Catheter Tip Culture - Final 06/22/18 11:00 Urine cai catheter Urine Culture - Final Klebsiella oxytoca Escherichia coli 06/22/18 09:23 Venous blood - Right Hand Blood Culture - Final NO GROWTH IN 5 DAYS 06/22/18 09:23 Venous blood - Left Arm Blood Culture - Final NO GROWTH IN 5 DAYS 06/06/18 21:00 Urine cai catheter Urine Culture - Final NO GROWTH AT 36 HOURS Phys Exam - Physical Examination Constitutional: NAD HEENT: PERRLA, moist MMs, sclera anicteric, oral pharynx no lesions Neck: no nodes, no JVD, supple, full ROM Respiratory: no wheezing, no rales, no rhonchi, clear to auscultation bilateral Cardiovascular: RRR, no significant murmur, no rub Gastrointestinal: soft, non-tender, no distention, positive bowel sounds Musculoskeletal: no edema, pulses present Neurological: non-focal, normal sensation, moves all 4 limbs Psychiatric: normal affect, A&O x 3 Skin: no rash Dx/Plan (1) Sepsis Code(s): A41.9 - SEPSIS, UNSPECIFIED ORGANISM Status: Resolved Comment: UTI. Cx with E.coli and Klebsiella which are pansensitive (2) Atrial fibrillation with rapid ventricular response Code(s): I48.91 - UNSPECIFIED ATRIAL FIBRILLATION Status: Acute Comment: NSR on BB.On AMiodarone PO & on Eliquis.Stoped amiodarone drip and lovenox. Lower ASA to 81 (3) Acute metabolic encephalopathy Code(s): G93.41 - METABOLIC ENCEPHALOPATHY Status: Acute Comment: Much improved. suspect metabolic and due to severe critical illness. was on Depakote.suspect some component of anoxic brain injury due to OOH cardiac arrest (4) STEMI (ST elevation myocardial infarction) Status: Acute Qualifiers: Involved coronary artery: LAD coronary artery Qualified Code(s): I21.02 - ST elevation (STEMI) myocardial infarction involving left anterior descending coronary artery Comment: s/p CABG 06/12/2018.will continue ASA,statin,BB,TEE-I (5) HLD (hyperlipidemia) Code(s): E78.5 - HYPERLIPIDEMIA, UNSPECIFIED Status: Chronic Comment: Resume Lipitor 10mg HS (6) Hypertension Code(s): I10 - ESSENTIAL (PRIMARY) HYPERTENSION Status: Chronic Qualifiers: Hypertension type: essential hypertension Qualified Code(s): I10 - Essential (primary) hypertension Comment: controlled (7) Hypothyroidism Code(s): E03.9 - HYPOTHYROIDISM, UNSPECIFIED Status: Chronic Comment: Resume Levothyroxine 125mcg daily (8) Tobacco abuse Code(s): Z72.0 - TOBACCO USE Status: Chronic Comment: Tobacco cessation resources, consider nicotine patch (9) Acute respiratory failure with hypoxia Code(s): J96.01 - ACUTE RESPIRATORY FAILURE WITH HYPOXIA Status: Resolved Comment: extubated and doing well (10) Cardiac arrest due to underlying cardiac condition Code(s): I46.2 - CARDIAC ARREST DUE TO UNDERLYING CARDIAC CONDITION Status: Resolved Comment: s/p arrest secondary to STEMI, emergent LHC, S/P CABG, Course complicated by anoxic injury and slow clinical improvement, afib, cardiac rehab requested - Plan plan discussed w/ family, continue antibiotics, PT/OT, incentive spirometry, DVT proph w/SCDs OK to DC to rehab. SEE DC summary for details -: plan discussed w pt and family at bedside. -: Monitor BP. lisinopril reduced yesterday * . Review of Systems - Review of Systems Constitutional: weakness, malaise. negative: fever, chills, sweats, other ENT: negative: Ear Pain, Ear Discharge, Nose Pain, Nose Discharge, Nose Congestion, Mouth Pain, Mouth Swelling, Throat Pain, Throat Swelling, Other Respiratory: negative: Cough, Dry, Shortness of Breath, Hemoptysis, SOB with Excertion, Pleuritic Pain, Sputum, Wheezing Cardiovascular: negative: chest pain, palpitations, orthopnea, paroxysmal nocturnal dyspnea, edema, light headedness, other Gastrointestinal: negative: Nausea, Vomiting, Abdominal Pain, Diarrhea, Constipation, Melena, Hematochezia, Other Genitourinary: negative: Dysuria, Frequency, Incontinence, Hematuria, Retention , Other Musculoskeletal: negative: Neck Pain, Shoulder Pain, Arm Pain, Back Pain, Hand Pain, Leg Pain, Foot Pain, Other Neurological: negative: Weakness, Numbness, Incoordination, Change in Speech, Confusion, Seizures, Other - Medications/Allergies Allergies/Adverse Reactions: Allergies Allergy/AdvReac Type Severity Reaction Status Date / Time No Known Drug Allergies Allergy Verified 06/06/18 00:55 Medications: Current Medications Acetaminophen (Tylenol) 650 mg PO Q6H PRN PRN Reason: Headache/Fever Or Mild Pain Last Admin: 06/26/18 20:56 Dose: 650 mg Al Hydroxide/Mg Hydroxide (Maalox) 30 ml PO Q4H PRN PRN Reason: Indigestion Albuterol/Ipratropium (Duoneb) 3 ml EZPAP [id number] [facility] Last Admin: 06/28/18 13:57 Dose: 3 ml Amiodarone HCl (Cordarone) 200 mg PO BID [facility] Stop: 07/03/18 09:01 Last Admin: 06/28/18 08:10 Dose: 200 mg Amiodarone HCl (Cordarone) 200 mg PO DAILY [facility] Apixaban (Eliquis) 5 mg PO BID [facility] Last Admin: 06/28/18 08:10 Dose: 5 mg Aspirin (Ecotrin) 81 mg PO DAILY [facility] Last Admin: 06/28/18 08:10 Dose: 81 mg Atorvastatin Calcium (Lipitor) 20 mg PO [facility] Last Admin: 06/27/18 21:47 Dose: 20 mg Bisacodyl (Dulcolax) 10 mg PO Q12H PRN PRN Reason: Constipation Bisacodyl (Dulcolax) 10 mg [place] Q12H PRN PRN Reason: Constipation Famotidine (Pepcid) 20 mg PO BID [facility] Last Admin: 06/28/18 08:10 Dose: 20 mg Furosemide (Lasix) 40 mg PO DAILY-[facility] Last Admin: 06/28/18 08:09 Dose: 40 mg Guaifenesin/Dextromethorphan (Robitussin Dm) 15 ml PO Q4H PRN PRN Reason: Cough Hydralazine HCl (Apresoline) 10 mg SLOW IVP Q6H PRN PRN Reason: To Maintain SBP< 140mmHG Last Admin: 06/14/18 02:17 Dose: 10 mg Lisinopril (Zestril) 5 mg PO BID [facility] Last Admin: 06/28/18 08:10 Dose: 5 mg Melatonin (Melatonin) 3 mg PO [facility] Last Admin: 06/27/18 21:53 Dose: 3 mg Metoprolol Tartrate (Lopressor) 50 mg PO BID [facility] Last Admin: 06/28/18 08:10 Dose: 50 mg Nitrofurantoin Macrocrystals (Macrobid) 100 mg PO BID [facility] Last Admin: 06/28/18 08:10 Dose: 100 mg Ondansetron HCl (Zofran) 4 mg IVP Q6H PRN PRN Reason: Nausea/Vomiting Potassium Chloride (Kcl) 20 meq IVPB PRN PRN PRN Reason: K level </= 4.0 Last Admin: 06/16/18 06:18 Dose: 20 meq Sodium Chloride (Flush - Normal Saline) 10 ml IVF Q12HR [facility] Last Admin: 06/28/18 08:09 Dose: 10 ml Sterile Water (Water For Injection) 10 ml FS Q4H PRN PRN Reason: TO RECONSTITUTE ZIPRASIDONE Tamsulosin HCl (Flomax) 0.4 mg PO HS [facility] Last Admin: 06/27/18 21:47 Dose: 0.4 mg Tamsulosin HCl (Flomax) 0.4 mg PO DAILY [facility] Last Admin: 06/28/18 08:10 Dose: 0.4 mg Ziprasidone (Geodon) 10 mg IM Q4H PRN PRN Reason: Agitation Last Admin: 06/20/18 16:52 Dose: 10 mg
[2018-07-04] MEDS ORDERED: Amiodarone 200 MG TAB PO SCH (09:00)
== END 2018-06-28 15:06 | DRG 233 ==
LOC: EDBD 19:00 → ERS 19:00 → CCL 20:00 → MERGE 21:23 → CCU 21:23 → IMCU/EMU 06-18 09:07 → 2NO 06-19 20:28 → IMCU/EMU 06-22 09:48 → 2NO 06-23 20:23
PROVIDERS: ADMIT Internal Medicine Cardiovascular Disease; ATTEND Internal Medicine Cardiovascular Disease
PROC: 4A023N7 Measurement of Cardiac Sampling and Pressure, Left Heart, Percutaneous Approach (ICD-10-PCS; 2018-06-05)
PROC: B2111ZZ Fluoroscopy of Multiple Coronary Arteries using Low Osmolar Contrast (ICD-10-PCS; 2018-06-05)
PROC: B2151ZZ Fluoroscopy of Left Heart using Low Osmolar Contrast (ICD-10-PCS; 2018-06-05)
PROC: 3E033XZ Introduction of Vasopressor into Peripheral Vein, Percutaneous Approach (ICD-10-PCS; 2018-06-05)
PROC: 5A1955Z Respiratory Ventilation, Greater than 96 Consecutive Hours (ICD-10-PCS; 2018-06-06)
PROC: 02100Z9 Bypass Coronary Artery, One Artery from Left Internal Mammary, Open Approach (ICD-10-PCS; principal; 2018-06-12)
PROC: 021009W Bypass Coronary Artery, One Artery from Aorta with Autologous Venous Tissue, Open Approach (ICD-10-PCS; 2018-06-12)
PROC: 06BQ0ZZ Excision of Left Saphenous Vein, Open Approach (ICD-10-PCS; 2018-06-12)
DX: I21.09 ST elevation (STEMI) myocardial infarction involving other coronary artery of anterior wall (principal); S22.5XXA Flail chest, initial encounter for closed fracture; N39.0 Urinary tract infection, site not specified; T83.518A Infection and inflammatory reaction due to other urinary catheter, initial encounter; J96.01 Acute respiratory failure with hypoxia; R65.20 Severe sepsis without septic shock; I46.2 Cardiac arrest due to underlying cardiac condition; K72.00 Acute and subacute hepatic failure without coma; A41.51 Sepsis due to Escherichia coli [E. coli]; A41.50 Gram-negative sepsis, unspecified; E87.1 Hypo-osmolality and hyponatremia; E87.2 Acidosis; G93.1 Anoxic brain damage, not elsewhere classified; I21.4 Non-ST elevation (NSTEMI) myocardial infarction; J44.9 Chronic obstructive pulmonary disease, unspecified; E87.6 Hypokalemia; I10 Essential (primary) hypertension; E03.9 Hypothyroidism, unspecified; K21.9 Gastro-esophageal reflux disease without esophagitis; E78.00 Pure hypercholesterolemia, unspecified; F17.210 Nicotine dependence, cigarettes, uncomplicated; I25.10 Atherosclerotic heart disease of native coronary artery without angina pectoris; J98.01 Acute bronchospasm; R56.9 Unspecified convulsions; I48.91 Unspecified atrial fibrillation; F10.10 Alcohol abuse, uncomplicated; E78.5 Hyperlipidemia, unspecified; Z79.82 Long term (current) use of aspirin; Z79.899 Other long term (current) drug therapy; X58.XXXA Exposure to other specified factors, initial encounter
CPT/HCPCS: 31500; 36415; 36416; 36430; 51702; 70450; 70553; 71045; 80048; 80053; 80061; 80202; 82550; 82553; 82805; 83605; 83880; 84132; 84484; 85014; 85018; 85025; 85347; 85610; 85730; 86850; 86900; 86901; 87040; 87077; 87086; 87186; 93005; 93010; 93306; 93458; 93798; 94002; 94003; 94150; 94640; 94760; 96360; 96365; 96375; A4216; A9577; C1769; C1887; C9113; J0131; J0171; J0282; J0360; J0461; J0670; J1100; J1160; J1644; J1885; J1940; J1953; J2060; J2250; J2440; J2543; J2704; J2720; J2765; J2920; J3010; J3370; J3475; J3480; J3486; J7050; J7070; J7620; P9035; P9045; P9059; Q9967; S0017; S0028

== ENCOUNTER 2018-07-15 09:32 | Inpatient (IN) | payer MEDICARE ==
[2018-07-15 09:52] LABS: #Basophils 0.1 thou/uL (0.0-0.2); #Eosinphils 0.5 thou/uL (0.0-0.7); #Lymphocytes 1.2 thou/uL (1.20-3.40); #Monocytes 0.7 thou/uL (0.11-0.59); #Neutrophils 5.7 thou/uL (1.40-6.50); %Basophils 0.9 % (0.0-1.0); %Eosinophils 6.4 % (0.0-10.0); %Lymphocytes 14.8 % (21.0-51.0); %Monocytes 8.2 % (0.0-10.0); %Neutrophils 69.7 % (42.0-75.0); Hemoglobin 10.8 g/dL (14.0-18.0); Mean Corpuscular HGB CONC 30.2 g/dL (32.0-36.0); Mean Corpuscular Hemoglobin 30.7 pg (27.0-31.0); Platelet Count 287 thou/uL (130-400); RBC Distribution Width 13.3 % (11.5-14.5); Red Blood Cell (RBC) Count 3.51 mill/uL (4.70-6.10); White Blood Cell (WBC) Count 8.2 thou/uL (4.8-10.8)
[2018-07-15 10:20] LABS: Actual Bicarbonate (HCO3a) 39.5 mEq/L (22-28); Analyzer IN Cardio ER; Base Excess (BEa) 10.9 mEq/L (-2.0 to +3.0); Carboxyhemoglobin (COHb) 0.3 gm% (0.0-3.0); Hemoglobin (Hb) 10.5 g/dL (14.0-18.0); O2 Tension (PaO2) 74.9 mmHg (> 80.0); Potassium - ABG Lab 4.21 mmol/L (3.70-5.30); pH, Arterial 7.31 (7.35-7.45)
[2018-07-15 10:22] LABS: CO2 Tension 79.7 mmHg (35.0-45.0)
[2018-07-15 10:23] LABS: ALV-art Gradient 75.025 (0-20); Puncture Site RR
[2018-07-15] MEDS ORDERED: Furosemide 40 MG/4 ML VIAL ONE (10:27)
[2018-07-15] MEDS ORDERED: Nitroglycerin 2% Ointment 1 INCH/1 GM Packet ONE (10:27)
[2018-07-15] MEDS ORDERED: methylPREDNISolone Sod Succ/PF 125 MG/2 ML VIAL ONE (10:59)
[2018-07-15 11:07] LABS: ALT (SGPT) 14 U/L (8-55); AST (SGOT) 23 U/L (5-34); Albumin 3.9 g/dL (3.4-4.8); Alkaline Phosphatase 131 U/L (40-150); Anion Gap 12 mmol/L (10-20); BUN (Urea Nitrogen) 12 mg/dL (8.4-25.7); Bilirubin, Total 0.6 mg/dL (0.2-1.2); Calc. Creatinine Clearance 0 mL/min (70-130); Calcium 9.3 mg/dL (7.8-10.44); Carbon Dioxide 37 mmol/L (23-31); Chloride 89 mmol/L (98-107); Estimated GFR-MDRD 75; Globulin 3.4 g/dL (2.4-3.5); Glucose 104 mg/dL (80-115); Potassium 4.7 mmol/L (3.5-5.1); Protein, Total 7.3 g/dL (5.8-8.1); Sodium 133 mmol/L (136-145)
[2018-07-15] MEDS ORDERED: Aspirin Chewable 81 MG TAB ONE (11:18)
[2018-07-15 11:19] LABS: CKMB 1.4 ng/mL (0-6.6)
[2018-07-15] MEDS ORDERED: Ondansetron PF 4 MG/2 ML Vial IVP PRN (12:01)
[2018-07-15] MEDS ORDERED: Acetaminophen 325 MG TAB PO PRN (12:01)
--- NOTE | 2018-07-15 12:09 | RAD ---
PORTABLE UPRIGHT FRONTAL CHEST RADIOGRAPH: DATE: 07/15/2018. COMPARISON: 07/11/2018. HISTORY: Shortness of breath, hypoxia, dyspnea. FINDINGS: There is elevation of the right hemidiaphragm. Heart and mediastinal contours are stable. There is atherosclerotic calcification of the aortic arch. No pneumothorax is noted. There is hazy increased density in the left base with partial obscuration of the left hemidiaphragm s uggesting nonspecific left basilar airspace disease and/or volume loss. IMPRESSION: Focal opacity in the left lung base obscuring the left hemidiaphragm suggesting partial nonspecific c onsolidation/collapse of the left lower lobe. POS: IQRA
--- NOTE | 2018-07-15 12:10 | PDOC.EVN ---
Event Note - Event Note Event Note: H&P Dictated [id number] A/P 1) SOB 2) Chills 3) COPD exacerbation 4) CHF decompensation 5) HTN 6) Edema - case d/w Dr. Garcia and Dr. 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
[2018-07-15] MEDS ORDERED: Azithromycin 500 MG in Sodium Chloride 0.9% 250 ML 250 ML IVPB SCH (13:00)
[2018-07-15] MEDS: Furosemide 40 MG/4 ML VIAL SLOW IVP SCH (13:44)
--- NOTE | 2018-07-15 13:57 | HP ---
CHIEF COMPLAINT: Chills, shortness of breath, lower extremity swelling. HISTORY OF PRESENT ILLNESS: This is a 63-year-old male, who was admitted to the hospital recently, having been discharged on the 7th after having a coronary artery bypass graft x2. The patient was monitored in the hospital and then discharged to the rehab per , who provides the history. The patient was sent to rehab, was doing well, was found to have significant improvement; however, the patient was discharged home from rehab a few days ago, was noted to have some coughing, chills as well as increasing lower extremity swelling. The patient was started on diuretics outpatient with no improvement. The patient's finally decided to bring the patient here to the hospital. The patient apparently does not have any low-grade fevers or anything at home; however, does have chills per his . She states that he has also been having some shortness of breath upon exertion. Denies any chest pain. The patient's states that otherwise he has no alleviating or aggravating factors. As noted in the last 48 hours, his energy levels have declined. States that this has never really happened to him before. Of note, the patient is a smoker; however, quit 2 months ago. The patient is seen and examined in the ER. at bedside. All questions answered. ALLERGIES: NO KNOWN DRUG ALLERGIES. STATES THAT THERE IS SOME ALLERGY TO PENICILLIN; HOWEVER, HE HAS HAD PENICILLIN IN THE PAST ACCORDING TO HIS AND HE HAS NEVER HAD ANY ISSUES. HOME MEDICATIONS: See MAR. PAST MEDICAL HISTORY: Positive for coronary artery bypass graft x2, coronary artery disease, hypertension, hypothyroidism, hyperlipidemia. FAMILY HISTORY: Positive for coronary artery disease and hypertension. SOCIAL HISTORY: Prior smoker, quit approximately 2 months ago. Social drinker. REVIEW OF SYSTEMS: All systems reviewed, pertinent positives in HPI, otherwise negative. PHYSICAL EXAMINATION: VITAL SIGNS: Blood pressure is 126/88, temperature of 98, O2 saturations of 98% on BiPAP, heart rate in the 90s. GENERAL: The patient is lying in bed, appears to be in mild discomfort and having shaking chills from time to time. HEENT: Pupils are equal, round, and reactive to light and accommodation. Extraocular muscles intact. Oral cavity moist and pink. BiPAP machine in place. NECK: Supple, mobile, nontender, thyroid noted. CARDIOVASCULAR: Regular rate and rhythm. S1, S2. No murmurs, rubs, or gallops appreciated. PULMONARY: Faint inspiratory wheezing noted. No increase in AP diameter. ABDOMEN: Positive bowel sounds. Soft, nontender. No rebound noted. EXTREMITIES: 2+ peripheral pulses bilaterally. 1+ pitting edema noted bilateral lower extremities. Bilateral lower extremities also have eczematous, erythematous rash that is blanching in nature. Nontender, nonpainful. NEUROLOGIC: The patient is alert and oriented x3, appears to be very tired and sleepy. LABORATORY DATA: The patient has a CBC within normal limits, albeit hemoglobin at 11, MCV 102. ABG shows pH of 7.31, pCO2 of 79, and PO2 of 75. This was done on BiPAP. Basic metabolic panel shows sodium 133, chloride 89, bicarbonate level is 37. Troponin is at 0.167. Brain natriuretic peptide of 742. Otherwise, rest of the BMP is within normal limits. ASSESSMENT: 1. Shortness of breath. 2. Chills. 3. Hypertension. 4. Coronary artery disease, status post coronary artery bypass graft. 5. Congestive heart failure decompensation. 6. Chronic obstructive pulmonary disease. 7. Edema. PLAN: Admit the patient to the CCU. Case discussed with Dr. Garcia and he feels it would be more appropriate. The patient appears to be in respiratory acidosis with metabolic compensation with an elevated CO2 and an elevated bicarb level. PH is acceptable at 7.31. At this point in time, case was also discussed with the technology internship, who started the patient on aspirin, statin, beta-benja and TEE inhibitor therapies and will repeat echocardiogram. Troponin was found to be elevated; however, this was significantly lower from the prior troponins. We will trend the troponins and see if they are rising. If they are, then we can anticoagulate, otherwise mildly elevated troponin, likely it is from the prior cardiac event and surgery that the patient recently had. Continue with BiPAP for now to be managed by Pulmonary team. We will provide the patient with steroids as well as antibiotics, Zithromax and Rocephin. Repeat echo as mentioned earlier. The patient on outpatient anticoagulation, to be restarted by Cardio if appropriate. In the meantime, we will place the patient on Lovenox 40 mg subcu daily. Continue home thyroid medication as well. Blood cultures, urine cultures to be done. Influenza screens to be done. Basic metabolic panel and CBC for tomorrow morning. Case and plan discussed with the patient's at length. She understood and agreed to this plan. Case also discussed with boat ride operator and technology internship. Further management per subspecialist. The patient's requests for the patient to remain a full code for now. Job ID: [id number]
[2018-07-15] MEDS: cefTRIAXone\\ROCEPHIN 1 GM in Sodium Chloride 0.9% 100 ML IVPB SCH (14:47)
[2018-07-15 15:05] LABS: CKMB 1.3 ng/mL (0-6.6)
[2018-07-15 15:40] LABS: Bilirubin Negative (Negative); Blood, Urine Negative (Negative); Clarity CLEAR (Clear); Glucose, Urine (Dipstick) Negative (Negative); Leukocyte Negative (Negative); Nitrite Negative (Negative); Protein, Urine (Dipstick) Negative (Neg-Trace); Specific Gravity, Urine 1.005 (1.002-1.036); pH, Urine 6.5 (5.0-9.0)
[2018-07-15 15:43] LABS: Urine Culture Reflex No No
--- NOTE | 2018-07-15 17:29 | CON ---
DATE OF CONSULTATION: 07/15/2018 REASON FOR CONSULTATION: Swelling and shortness of breath. HISTORY OF PRESENT ILLNESS: Mr. Calles is a pleasant 63-year-old white gentleman, patient of Dr. Cool, who comes to the hospital for increased shortness of breath. He was admitted for an out of hospital cardiac arrest back in May. He eventually was resuscitated, underwent heart catheterization, and it showed multivessel disease, and he underwent coronary artery bypass grafting, GERMNA to the LAD and vein to diagonal. He did well postoperatively. He did develop postop atrial fibrillation and was started on amiodarone. He was discharged to rehab. He was doing very well, and 2 days ago, he was discharged home from rehab. He went home. He has been taking all his medications. noted that his respiratory pattern was changing, so she bought a blood pressure cuff and pulse oximeter at the pharmacy and noticed that his pulse ox was 88%. He did not want to go to the hospital. He actually was sent home on home O2. Eventually, his oxygen the next morning was 80%, so they decided to come in for evaluation, where he was found to have an elevated BNP and indeterminate troponins, he was admitted, put on a BiPAP, and given IV Lasix and has diuresed almost 2 L now. PAST MEDICAL HISTORY: 1. Coronary artery disease, status post bypass grafting x2 as above. 2. Hypertension. 3. Hypothyroidism. 4. Hyperlipidemia. OUTPATIENT MEDICATIONS: Reviewed on the record. ALLERGIES: PENICILLIN. SOCIAL HISTORY: Quit smoking 2 months ago. Social alcohol use. No drug use. FAMILY HISTORY: Positive for early coronary artery disease and hypertension. REVIEW OF SYSTEMS: A 12-point review of systems was done and it was all negative unless stated in the history of present illness. PHYSICAL EXAMINATION: VITAL SIGNS: Temperature 97.2, pulse 79, respiratory rate 14, saturating 98% on BiPAP, blood pressure 119/70. GENERAL: Awake, alert, and oriented x3, in no distress. HEENT: Normocephalic and atraumatic. NECK: Supple. LUNGS: Have reduced breath sounds at the right base. CARDIOVASCULAR: S1 and S2. No S3 or S4. No murmurs. ABDOMEN: Soft. Positive bowel sounds. EXTREMITIES: No edema. SKIN: Warm and dry. LABORATORY DATA: Laboratory work was reviewed and shows a CBC with a white count of 8.2, hemoglobin of 10.8, hematocrit of 35, platelet count of 287. ABG and chemistries were reviewed. BNP was 741. Troponins are in indeterminate range at 0.16 and 0.12. UA was unremarkable. Chest x-ray consistent with a focal opacity in the left lung base that obscures the left hemidiaphragm which could be consolidation. ASSESSMENT: 1. Acute on chronic diastolic heart failure. 2. Coronary artery disease, status post coronary artery bypass grafting, stable. No acute coronary syndrome. 3. Recent coronary artery bypass grafting. 4. Possible left lower lobe pneumonia. PLAN: 1. Continue IV diuresis. 2. Continue supportive care for respiratory status. 3. IV Lasix at current dose. He is diuresing quite well this way. 4. His troponins are in the indeterminate range and unlikely that this is an acute coronary syndrome. Not an indication for full anticoagulation. 5. Dr. Cool, his primary director geothermal operations, will have more recommendations in the morning. Job ID: [id number]
[2018-07-15] MEDS: Bacteriostatic Water 30 ML VIAL FS PRN (17:48)
[2018-07-15] MEDS: methylPREDNISolone Sod Succ 40 MG VIAL IVP SCH (17:48)
[2018-07-15 20:44] LABS: Troponin I 0.132 ng/mL (< 0.028)
[2018-07-15] MEDS ORDERED: ALPRAZolam 0.5 MG TAB PO SCH (21:00)
[2018-07-15] MEDS: Lisinopril 5 MG TAB PO SCH (21:13)
[2018-07-15] MEDS: Tamsulosin HCl 0.4 MG CAP PO SCH (21:14)
[2018-07-15] MEDS: Atorvastatin Calcium 40 MG TAB PO SCH (21:14)
[2018-07-15] MEDS: Metoprolol Tartrate 50 MG TAB PO SCH (21:14)
[2018-07-16] MEDS: methylPREDNISolone Sod Succ 40 MG VIAL IVP SCH ×4 (00:33→21:03)
[2018-07-16] MEDS: Levothyroxine Sodium 125 MCG TAB PO SCH (05:19)
[2018-07-16] MEDS: Furosemide 40 MG/4 ML VIAL SLOW IVP SCH ×2 (05:19→13:49)
[2018-07-16 06:26] LABS: #Lymphocytes 0.5 thou/uL (1.20-3.40); #Monocytes 0.1 thou/uL (0.11-0.59); #Neutrophils 4.8 thou/uL (1.40-6.50); %Basophils 0.1 % (0.0-1.0); %Eosinophils 0.2 % (0.0-10.0); %Lymphocytes 9.1 % (21.0-51.0); %Monocytes 1.9 % (0.0-10.0); %Neutrophils 88.7 % (42.0-75.0); Hemoglobin 10.4 g/dL (14.0-18.0); Mean Corpuscular HGB CONC 30.8 g/dL (32.0-36.0); Mean Corpuscular Hemoglobin 31.3 pg (27.0-31.0); Platelet Count 268 thou/uL (130-400); RBC Distribution Width 13.2 % (11.5-14.5); Red Blood Cell (RBC) Count 3.34 mill/uL (4.70-6.10); White Blood Cell (WBC) Count 5.4 thou/uL (4.8-10.8)
[2018-07-16 06:42] LABS: Anion Gap 16 mmol/L (10-20); BUN (Urea Nitrogen) 15 mg/dL (8.4-25.7); Calc. Creatinine Clearance 108 mL/min (70-130); Calcium 9.4 mg/dL (7.8-10.44); Carbon Dioxide 36 mmol/L (23-31); Chloride 90 mmol/L (98-107); Estimated GFR-MDRD 80; Glucose 127 mg/dL (80-115); Potassium 4.5 mmol/L (3.5-5.1); Sodium 137 mmol/L (136-145)
[2018-07-16] MEDS ORDERED: acetaZOLAMIDE Sodium 500 mg Vial IVP SCH ×3 (09:00→21:00)
[2018-07-16] MEDS ORDERED: methylPREDNISolone Sod Succ 40 MG VIAL IVP SCH (09:00)
[2018-07-16] MEDS ORDERED: Bacteriostatic Water 30 ML VIAL FS PRN (09:00)
--- NOTE | 2018-07-16 09:13 | PRG ---
DATE OF SERVICE: 07/16/2018 SUBJECTIVE: The patient is doing better. He has been taken off BiPAP this morning. He is still confused as he was during his last hospitalization. He confabulates quite well. OBJECTIVE: VITAL SIGNS: His temperature is 98.7, pulse 74, blood pressure 127/71. A 24-hour intake 551, output 6770. HEENT: Unremarkable. NECK: No JVD. LUNGS: Some inspiratory crackles in the bases, but better than yesterday. CARDIAC: S1 and S2, regular. ABDOMEN: Soft. EXTREMITIES: Decreased edema. LABORATORY DATA: Sodium 137, potassium 4.5, chloride 90, CO2 of 36, BUN 15, creatinine 0.9, glucose 127. White blood cell count 5.4, hematocrit 33.9, and platelet count 268. ASSESSMENT: 1. Congestive heart failure-acute systolic-EF 40% to 50% by echo with grade 2 or 3 diastolic dysfunction in addition to the systolic dysfunction. 2. Acute hypoxic respiratory failure. 3. Encephalopathy. PLAN: 1. Add Diamox to the Lasix. 2. Take off BiPAP and see how he will do. 3. Consolidate antibiotics and stop tomorrow if cultures are negative. Job ID: [id number]
[2018-07-16] MEDS ORDERED: Sterile Water 10 ML VIAL IVP SCH ×2 (09:30→21:00)
--- NOTE | 2018-07-16 09:56 | CON ---
DATE OF CONSULTATION: CONSULT PHYSICIAN: Marcel Posey. REASON FOR CONSULTATION: Acute respiratory failure. HISTORY OF PRESENT ILLNESS: The patient is a 63-year-old male, who is known to me from previous hospitalization back on June 05, which extended into early June. He has come back to the hospital with increasing shortness of breath and congestion. At the current time, he is not verbalizing and cannot give me any history and the family is not available. PAST MEDICAL HISTORY: 1. Recent episode of sudden cardiac arrest at home. 2. Coronary artery disease. 3. [place] metabolic encephalopathy after his cardiac arrest and heart surgery, which took some time to resolve. 4. Hypertension. 5. Hyperlipidemia. PAST SURGICAL HISTORY: Coronary artery bypass grafting surgery. ALLERGIES: NONE. SOCIAL HISTORY: Smokes 5 to 6 cigarettes per day. Drinks 2 drinks per day. I am not sure if he is still doing that are not. MEDICATIONS: Prior to admission, his most recent discharge medications are listed in the [facility] record include; 1. Tamsulosin. 2. Potassium. 3. Macrobid. 4. Metoprolol. 5. Zestril. 6. Synthroid. 7. DuoNeb. 8. Hydrochlorothiazide. 9. Lasix. 10. Nexium. 11. Cardura. 12. QVAR. 13. Lipitor. 14. Aspirin. 15. Eliquis. 16. Cordarone. 17. Proventil HFA. 18. Xanax. REVIEW OF SYSTEMS: Cannot be obtained at this time as the patient is encephalopathic. PHYSICAL EXAMINATION: VITAL SIGNS: Pulse 85, O2 saturation 98%, blood pressure 131/74, and respiratory rate 13. GENERAL: The patient is currently comfortably resting on BiPAP, in no acute distress. NEUROLOGIC: He will arouse. He will nod and shake his head when answered questions, but quickly falls back to sleep. HEENT: Pupils reactive. Sclerae anicteric. Oropharynx clear. NECK: No JVD. LUNGS: He has inspiratory crackles in both bases, more so on the left than the right. CARDIAC: S1 and S2. Regular without audible murmur. ABDOMEN: Soft, nontender, and nondistended. EXTREMITIES: No clubbing or cyanosis. Trace edema. LABORATORY DATA: White blood cell count 8.2, hematocrit 35.7, and platelet count 287. INR 1.3 and PTT 33.7. A pH of 7.31, pCO2 of 79, and pO2 of 74, that gas was obtained on BiPAP. Sodium 133, potassium 4.7, chloride 98, CO2 37, BUN 12, creatinine 1.0, and glucose 104. BNP is 741. His x-ray shows bilateral infiltrates, left greater than right in a pulmonary edema type pattern. ASSESSMENT: 1. Acute diastolic congestive heart failure. 2. Acute respiratory failure requiring mechanical ventilation. 3. Previous coronary artery disease and sudden cardiac . RECOMMENDATIONS: 1. Recommend continued BiPAP treatment along with diuresis. 2. Would suggest using acetazolamide either in conjunction or independently for the diuretic given his development of metabolic alkalosis. 3. Wean off BiPAP as tolerated. Job ID: [id number]
[2018-07-16] MEDS: Metoprolol Tartrate 50 MG TAB PO SCH ×2 (10:00→21:02)
[2018-07-16] MEDS: Aspirin 81 mg Enteric Coated Tablet PO SCH (10:00)
[2018-07-16] MEDS: Lisinopril 5 MG TAB PO SCH ×2 (10:01→21:02)
[2018-07-16] MEDS: Enoxaparin Sodium 40 MG/0.4 ML SYRINGE SC SCH (10:01)
[2018-07-16] MEDS: Bacteriostatic Water 30 ML VIAL FS PRN (10:02)
--- NOTE | 2018-07-16 13:57 | PDOC.PN ---
- Subjective Encounter Start Date: 07/16/18 Encounter Start Time: 08:25 Subjective: no sob or palp -: feels better -: is off bipap and saturating well on nasal canula - Objective MAR Reviewed: Yes Vital Signs & Weight: Vital Signs (12 hours) Temp Pulse Resp BP Pulse Ox 07/16/18 12:03 99 07/16/18 12:00 98.7 F 07/16/18 11:55 70 28 H 07/16/18 10:01 88 127/68 07/16/18 08:00 97.8 F 94 L 07/16/18 04:00 98.7 F 07/16/18 02:28 67 Weight Admit Weight 216 lb 14.958 oz Weight 216 lb 14.958 oz Most Recent Monitor Data Heart Rate from ECG 71 NIBP 94/62 NIBP BP-Mean 72 Respiration from ECG 28 SpO2 93 I&O: 07/15/18 07/16/18 07/17/18 06:59 06:59 06:59 Intake Total 551.9 600 Output Total 6770 515 Balance -6218.1 85 Result Diagrams: 07/16/18 05:44 07/16/18 05:44 Phys Exam - Physical Examination HEENT: PERRLA, moist MMs Neck: no JVD, supple Respiratory: no wheezing, no rales Cardiovascular: RRR, no significant murmur Gastrointestinal: soft, non-tender, positive bowel sounds Musculoskeletal: no edema, pulses present Neurological: non-focal, moves all 4 limbs Psychiatric: normal affect, A&O x 3 Dx/Plan (1) Acute exacerbation of CHF (congestive heart failure) Code(s): I50.9 - HEART FAILURE, UNSPECIFIED Status: Acute Qualifiers: Heart failure type: combined systolic and diastolic Qualified Code(s): I50.43 - Acute on chronic combined systolic (congestive) and diastolic ( congestive) heart failure Comment: ef of 40%, class B (2) Afib Code(s): I48.91 - UNSPECIFIED ATRIAL FIBRILLATION Status: Chronic Qualifiers: Atrial fibrillation type: paroxysmal Qualified Code(s): I48.0 - Paroxysmal atrial fibrillation (3) HTN (hypertension) Code(s): I10 - ESSENTIAL (PRIMARY) HYPERTENSION Status: Chronic Qualifiers: Hypertension type: essential hypertension Qualified Code(s): I10 - Essential (primary) hypertension (4) HLD (hyperlipidemia) Code(s): E78.5 - HYPERLIPIDEMIA, UNSPECIFIED Status: Chronic Qualifiers: Hyperlipidemia type: mixed hyperlipidemia Qualified Code(s): E78.2 - Mixed hyperlipidemia (5) Hypertension Code(s): I10 - ESSENTIAL (PRIMARY) HYPERTENSION Status: Chronic Qualifiers: Hypertension type: essential hypertension Qualified Code(s): I10 - Essential (primary) hypertension Comment: controlled (6) Hypothyroidism Code(s): E03.9 - HYPOTHYROIDISM, UNSPECIFIED Status: Chronic Qualifiers: Hypothyroidism type: unspecified Qualified Code(s): E03.9 - Hypothyroidism , unspecified Comment: Resume Levothyroxine 125mcg daily (7) Acute respiratory failure with hypoxia Code(s): J96.01 - ACUTE RESPIRATORY FAILURE WITH HYPOXIA Status: Acute Comment: resolving - Plan is being weaned off bipap -: on home dose of oxygen -: continue iv lasix, asp, lipitor, lopressor, lisinopril -: ceftriaxone, off zithromax, steroids, nebs -: to amb as tolerated, tx to tele, oral diet * . Review of Systems - Medications/Allergies Allergies/Adverse Reactions: Allergies Allergy/AdvReac Type Severity Reaction Status Date / Time No Known Drug Allergies Allergy Verified 07/02/18 14:34 Penicillins Allergy Verified 07/02/18 14:34 Medications: Current Medications Acetaminophen (Tylenol) 650 mg PO Q4H PRN PRN Reason: Headache/Fever/Mild Pain (1-3) Acetazolamide Sodium (Diamox) 500 mg IVP BID [facility] Albuterol/Ipratropium (Duoneb) 3 ml NEB [id number] PRN PRN Reason: SOB &/or Wheezing Last Admin: 07/16/18 11:55 Dose: 3 ml Alprazolam (Xanax) 0.5 mg PO BIDPRN PRN PRN Reason: Anxiety Aspirin (Ecotrin) 81 mg PO DAILY [facility] Last Admin: 07/16/18 10:00 Dose: 81 mg Atorvastatin Calcium (Lipitor) 40 mg PO HS [facility] Last Admin: 07/15/18 21:14 Dose: 40 mg Enoxaparin Sodium (Lovenox) 40 mg SC 0900 [facility] Last Admin: 07/16/18 10:01 Dose: 40 mg Furosemide (Lasix) 40 mg SLOW IVP 0600,1400 [facility] Last Admin: 07/16/18 13:49 Dose: 40 mg Ceftriaxone Sodium 1 gm/ (Sodium Chloride) 100 mls @ 200 mls/hr IVPB Q24HR [facility] Last Admin: 07/15/18 14:47 Dose: 100 mls Levothyroxine Sodium (Synthroid) 125 mcg PO 0600 [facility] Last Admin: 07/16/18 05:19 Dose: 125 mcg Lisinopril (Zestril) 5 mg PO BID [facility] Last Admin: 07/16/18 10:01 Dose: 5 mg Methylprednisolone Sodium Succinate (Solu-Medrol) 20 mg IVP 0900,2100 [facility] Last Admin: 07/16/18 10:02 Dose: 20 mg Metoprolol Tartrate (Lopressor) 50 mg PO BID [facility] Last Admin: 07/16/18 10:00 Dose: 50 mg Ondansetron HCl (Zofran) 4 mg IVP Q6H PRN PRN Reason: Nausea/Vomiting Sterile Water (Bacteriostatic Water) 1 ml FS PRN PRN PRN Reason: RECONSTITUTION Last Admin: 07/16/18 10:02 Dose: 1 ml Sterile Water (Water For Injection) 10 ml IVP BID [facility] Sterile Water (Bacteriostatic Water) 0 ml FS PRN PRN PRN Reason: RECONSTITUTION Tamsulosin HCl (Flomax) 0.4 mg PO HS [facility] Last Admin: 07/15/18 21:14 Dose: 0.4 mg
[2018-07-16] MEDS: cefTRIAXone\\ROCEPHIN 1 GM in Sodium Chloride 0.9% 100 ML IVPB SCH (14:06)
--- NOTE | 2018-07-16 15:03 | PDOC.CTH ---
Cardiology Progress Note - Subjective The pt seen and examined. No overnight events. He is resting well on Bipap. - Objective Vital Signs Temp Pulse Resp BP Pulse Ox 07/16/18 12:03 99 07/16/18 12:00 98.7 F 95 07/16/18 11:55 70 28 H 07/16/18 10:01 88 127/68 07/16/18 08:00 97.8 F 94 L 07/16/18 04:00 98.7 F Admit Weight 216 lb 14.958 oz Weight 216 lb 14.958 oz 07/15/18 07/16/18 07/17/18 06:59 06:59 06:59 Intake Total 551.9 720 Output Total 6770 625 Balance -6218.1 95 - Physical Examination Lungs: other: (coarses and diminished at bases) Heart: RRR Abdomen: soft Extremities: other: (No edema) - Telemetry Telemetry Rhythm: SR - Labs Result Diagrams: 07/16/18 05:44 07/16/18 05:44 Troponin/CKMB CK-MB (CK-2) 1.3 ng/mL (0-6.6) 07/15/18 14:13 Troponin I 0.132 ng/mL (< 0.028) H 07/15/18 20:05 - Assessment/Plan 1. Acute on chronic combined HF - On Bipap; on Lasix 40mg IV BID, TEE, and BBlocker. 2. Parox Afib - in SR; 3. CAD with hx of CABG in x2 in 05/2018 - stable; on BBlocker, ASA, Statin; cont. monitor on tele 4. HTN - stable; 5. Hypeprlipidemia - on statin 6. Hypotyroidsm - on Thyroidism 7. LLL PNA - on ABX 8. SZ - 9. COPD - MAR reviewed Pt. seen and eval. by me. I agree with the A/P by the RN PLASTIC SURGERY. I wll request an echo for eval. of the LV function.Continue diuresis. Review of Systems - Review of Systems Constitutional: reports: no symptoms reported, see HPI
[2018-07-16] MEDS: Atorvastatin Calcium 40 MG TAB PO SCH (21:00)
[2018-07-16] MEDS: Tamsulosin HCl 0.4 MG CAP PO SCH (21:00)
[2018-07-16] MEDS: ALPRAZolam 0.5 MG TAB PO PRN (23:40)
[2018-07-17 05:43] LABS: Anion Gap 13 mmol/L (10-20); BUN (Urea Nitrogen) 26 mg/dL (8.4-25.7); Calc. Creatinine Clearance 85 mL/min (70-130); Calcium 8.9 mg/dL (7.8-10.44); Carbon Dioxide 33 mmol/L (23-31); Chloride 93 mmol/L (98-107); Estimated GFR-MDRD 60; Glucose 122 mg/dL (80-115); Potassium 3.9 mmol/L (3.5-5.1); Sodium 135 mmol/L (136-145)
[2018-07-17] MEDS: Furosemide 40 MG/4 ML VIAL SLOW IVP SCH (06:30)
[2018-07-17] MEDS: Levothyroxine Sodium 125 MCG TAB PO SCH (06:30)
[2018-07-17] MEDS ORDERED: acetaZOLAMIDE Sodium 500 mg Vial IVP SCH ×2 (07:51→09:00)
--- NOTE | 2018-07-17 08:06 | PRG ---
DATE OF SERVICE: 07/17/2018 SUBJECTIVE: The patient is awake, alert, conversant, does not appear to be in any distress. OBJECTIVE: VITAL SIGNS: On exam, his temperature is 98.4, pulse 70, blood pressure 114/64, and O2 sat 99%. A 24-hour intake 934, output 2220. HEENT: Unremarkable. NECK: No JVD. LUNGS: Clear anteriorly. CARDIAC: S1 and S2, regular. ABDOMEN: Soft. EXTREMITIES: No edema. LABORATORY DATA: Sodium 135, potassium 3.9, chloride 93, CO2 of 33, BUN 26, creatinine 1.2, and glucose 122. ASSESSMENT: 1. Acute congestive heart failure, systolic. 2. Acute hypoxic respiratory failure, resolved. 3. Encephalopathy, better. PLAN: 1. Stop the Lasix. Continue Diamox. 2. Transfer to telemetry. 3. Stop IV antibiotics. Job ID: [id number]
[2018-07-17 08:16] VITALS: BMI 27.1
[2018-07-17] MEDS: Aspirin 81 mg Enteric Coated Tablet PO SCH (09:25)
[2018-07-17] MEDS: Lisinopril 5 MG TAB PO SCH ×2 (09:25→22:36)
[2018-07-17] MEDS: Enoxaparin Sodium 40 MG/0.4 ML SYRINGE SC SCH (09:25)
[2018-07-17] MEDS: Metoprolol Tartrate 50 MG TAB PO SCH ×2 (09:25→22:36)
[2018-07-17] MEDS: Sterile Water 10 ML VIAL IVP SCH ×2 (09:26→20:28)
[2018-07-17] MEDS: acetaZOLAMIDE Sodium 500 mg Vial IVP SCH ×2 (09:26→20:27)
--- NOTE | 2018-07-17 12:05 | PDOC.CTH ---
Cardiology Progress Note - Subjective The pt seen and examined. No overnight events. No cardiac complaints. He stated he had some "drink" when he was at home prior to this admission. - Objective Vital Signs Temp Pulse Resp BP Pulse Ox 07/17/18 09:25 73 115/61 07/17/18 09:00 98.2 F 07/17/18 08:00 193 H 07/17/18 07:28 99 07/17/18 07:25 73 21 H 99 07/17/18 04:00 98.4 F Admit Weight 216 lb 14.958 oz Weight 211 lb 13.828 oz 07/16/18 07/17/18 07/18/18 06:59 06:59 06:59 Intake Total 551.9 934.6 Output Total 6770 2220 850 Balance -6218.1 -1285.4 -850 - Physical Examination General/Neuro: alert & oriented x3 Neck: no JVD present Lungs: other: (coarses and diminished at bases) Heart: RRR Abdomen: soft Extremities: other: (No edema) - Telemetry Telemetry Rhythm: SR - Labs Result Diagrams: 07/16/18 05:44 07/17/18 04:20 Troponin/CKMB CK-MB (CK-2) 1.3 ng/mL (0-6.6) 07/15/18 14:13 Troponin I 0.132 ng/mL (< 0.028) H 07/15/18 20:05 - Assessment/Plan 1. Acute on chronic combined HF - On Bipap; on Lasix 40mg IV BID, TEE, and BBlocker. 2. Post-op Parox Afib - in SR; Will resume Amiodarone 200mg qd from today for 1 month; Hold Eliquis since he has not been in Afib since last admission. Cont. ASA 81mg qd. 3. CAD with hx of CABG in x2 in 05/2018 - stable; on BBlocker, ASA, Statin; cont. monitor on tele 4. HTN - stable; 5. Hypeprlipidemia - on statin 6. Hypotyroidsm - on Thyroidism 7. LLL PNA - on ABX 8. SZ - 9. COPD - 10. ETOH abuse - strongly recommend to stop drinking. He voiced understanding. MAR reviewed * Echo: EF 40-50%, grade II dd, severe hypokinesis of [place], mod dilated LA, mild MR and TR, and large pleural effusion. pt.seen and eval.byme.I agreewith the A/Pby the RE RECORDING MIXER.Chest clear.RRR. Review of Systems - Review of Systems Constitutional: reports: no symptoms reported EENTM: reports: no symptoms reported Respiratory: reports: no symptoms reported Cardiac (ROS): reports: no symptoms reported ABD/GI: reports: no symptoms reported : reports: no symptoms reported Musculoskeletal: reports: no symptoms reported Skin: reports: no symptoms reported
--- NOTE | 2018-07-17 12:27 | PDOC.PN ---
- Subjective Encounter Start Date: 07/17/18 Encounter Start Time: 07:20 Subjective: awake, no sob, feels better -: no palpitations - Objective MAR Reviewed: Yes Vital Signs & Weight: Vital Signs (12 hours) Temp Pulse Resp BP Pulse Ox 07/17/18 09:25 73 115/61 07/17/18 09:00 98.2 F 07/17/18 08:00 193 H 07/17/18 07:28 99 07/17/18 07:25 73 21 H 99 07/17/18 04:00 98.4 F Weight Admit Weight 216 lb 14.958 oz Weight 211 lb 13.828 oz Most Recent Monitor Data Heart Rate from ECG 85 NIBP 115/61 NIBP BP-Mean 79 Respiration from ECG 27 SpO2 91 I&O: 07/16/18 07/17/18 07/18/18 06:59 06:59 06:59 Intake Total 551.9 934.6 Output Total 6770 2220 850 Balance -6218.1 -1285.4 -850 Result Diagrams: 07/16/18 05:44 07/17/18 04:20 Phys Exam - Physical Examination HEENT: PERRLA, moist MMs Neck: no JVD, supple Respiratory: no wheezing, no rales Cardiovascular: RRR, no significant murmur Gastrointestinal: soft, non-tender, positive bowel sounds Musculoskeletal: no edema, pulses present Neurological: non-focal, moves all 4 limbs Psychiatric: normal affect, A&O x 3 Dx/Plan (1) Acute exacerbation of CHF (congestive heart failure) Code(s): I50.9 - HEART FAILURE, UNSPECIFIED Status: Acute Qualifiers: Heart failure type: combined systolic and diastolic Qualified Code(s): I50.43 - Acute on chronic combined systolic (congestive) and diastolic ( congestive) heart failure Comment: ef of 40%, class B (2) Afib Code(s): I48.91 - UNSPECIFIED ATRIAL FIBRILLATION Status: Chronic Qualifiers: Atrial fibrillation type: paroxysmal Qualified Code(s): I48.0 - Paroxysmal atrial fibrillation (3) HTN (hypertension) Code(s): I10 - ESSENTIAL (PRIMARY) HYPERTENSION Status: Chronic Qualifiers: Hypertension type: essential hypertension Qualified Code(s): I10 - Essential (primary) hypertension (4) HLD (hyperlipidemia) Code(s): E78.5 - HYPERLIPIDEMIA, UNSPECIFIED Status: Chronic Qualifiers: Hyperlipidemia type: mixed hyperlipidemia Qualified Code(s): E78.2 - Mixed hyperlipidemia (5) Hypertension Code(s): I10 - ESSENTIAL (PRIMARY) HYPERTENSION Status: Chronic Qualifiers: Hypertension type: essential hypertension Qualified Code(s): I10 - Essential (primary) hypertension Comment: controlled (6) Hypothyroidism Code(s): E03.9 - HYPOTHYROIDISM, UNSPECIFIED Status: Chronic Qualifiers: Hypothyroidism type: unspecified Qualified Code(s): E03.9 - Hypothyroidism , unspecified Comment: Resume Levothyroxine 125mcg daily (7) Acute respiratory failure with hypoxia Code(s): J96.01 - ACUTE RESPIRATORY FAILURE WITH HYPOXIA Status: Resolved - Plan hemostable -: has diuresed well -: may tx to telemetry -: needs to ambulate with PT and rolling walker -: on diamox iv, lisinopril, lopressor, flomax, synthroid * . Review of Systems - Medications/Allergies Allergies/Adverse Reactions: Allergies Allergy/AdvReac Type Severity Reaction Status Date / Time No Known Drug Allergies Allergy Verified 07/02/18 14:34 Penicillins Allergy Verified 07/02/18 14:34 Medications: Current Medications Acetaminophen (Tylenol) 650 mg PO Q4H PRN PRN Reason: Headache/Fever/Mild Pain (1-3) Acetazolamide Sodium (Diamox) 500 mg IVP BID [facility] Last Admin: 07/17/18 09:26 Dose: 500 mg Albuterol/Ipratropium (Duoneb) 3 ml NEB [id number] [facility] Last Admin: 07/17/18 07:25 Dose: 3 ml Albuterol/Ipratropium (Duoneb) 3 ml NEB Q6H PRN PRN Reason: SOB &/or Wheezing Albuterol/Ipratropium (Duoneb) 3 ml NEB [id number] [facility] Last Admin: 07/17/18 07:30 Dose: Not Given Albuterol/Ipratropium (Duoneb) 3 ml NEB PRN PRN PRN Reason: SOB &/or Wheezing Alprazolam (Xanax) 0.5 mg PO BIDPRN PRN PRN Reason: Anxiety Last Admin: 07/16/18 23:40 Dose: 0.5 mg Aspirin (Ecotrin) 81 mg PO DAILY [facility] Last Admin: 07/17/18 09:25 Dose: 81 mg Atorvastatin Calcium (Lipitor) 40 mg PO HS [facility] Last Admin: 07/16/18 21:00 Dose: 40 mg Enoxaparin Sodium (Lovenox) 40 mg SC 0900 [facility] Last Admin: 07/17/18 09:25 Dose: 40 mg Levothyroxine Sodium (Synthroid) 125 mcg PO 0600 [facility] Last Admin: 07/17/18 06:30 Dose: 125 mcg Lisinopril (Zestril) 5 mg PO BID [facility] Last Admin: 07/17/18 09:25 Dose: 5 mg Metoprolol Tartrate (Lopressor) 50 mg PO BID [facility] Last Admin: 07/17/18 09:25 Dose: 50 mg Ondansetron HCl (Zofran) 4 mg IVP Q6H PRN PRN Reason: Nausea/Vomiting Sodium Chloride (Flush - Normal Saline) 10 ml IVF Q12HR [facility] Last Admin: 07/17/18 09:26 Dose: 10 ml Sodium Chloride (Flush - Normal Saline) 10 ml IVF PRN PRN PRN Reason: Saline Flush Sterile Water (Bacteriostatic Water) 1 ml FS PRN PRN PRN Reason: RECONSTITUTION Last Admin: 07/16/18 10:02 Dose: 1 ml Sterile Water (Bacteriostatic Water) 0 ml FS PRN PRN PRN Reason: RECONSTITUTION Sterile Water (Water For Injection) 10 ml IVP BID [facility] Last Admin: 07/17/18 09:26 Dose: 10 ml Tamsulosin HCl (Flomax) 0.4 mg PO HS [facility] Last Admin: 07/16/18 21:00 Dose: 0.4 mg
[2018-07-17] MEDS ORDERED: Amiodarone 200 MG TAB PO SCH (13:00)
[2018-07-17] MEDS: Tamsulosin HCl 0.4 MG CAP PO SCH (20:24)
[2018-07-17] MEDS: Atorvastatin Calcium 40 MG TAB PO SCH (20:26)
[2018-07-17] MEDS: ALPRAZolam 0.5 MG TAB PO PRN (23:55)
[2018-07-18 05:29] LABS: Anion Gap 11 mmol/L (10-20); BUN (Urea Nitrogen) 26 mg/dL (8.4-25.7); Calc. Creatinine Clearance 89 mL/min (70-130); Calcium 8.8 mg/dL (7.8-10.44); Carbon Dioxide 31 mmol/L (23-31); Chloride 98 mmol/L (98-107); Estimated GFR-MDRD 66; Glucose 88 mg/dL (80-115); Potassium 3.7 mmol/L (3.5-5.1); Sodium 136 mmol/L (136-145)
[2018-07-18] MEDS: Levothyroxine Sodium 125 MCG TAB PO SCH (05:50)
--- NOTE | 2018-07-18 08:04 | PRG ---
DATE OF SERVICE: 07/18/2018 SUBJECTIVE: He is pleasant this morning. No distress. OBJECTIVE: VITAL SIGNS: Temperature 98.5, pulse 81, blood pressure 118/69, O2 saturation 100%. HEENT: Unremarkable. NECK: No JVD. LUNGS: Clear. CARDIAC: S1, S2. Regular. ABDOMEN: Soft. EXTREMITIES: No edema. LABORATORY DATA: 1. Sodium 136, potassium 3.7, BUN 26, creatinine 1.1, glucose 88, bicarbonate 31. ASSESSMENT: 1. Stable pulmonary status. 2. Acute congestive heart failure, systolic. 3. CO2 retention at the time of admission, which I think was made worse by a metabolic alkalosis. PLAN: 1. Adjusted Diamox dose as the pharmacy had inadvertently changed it back yesterday. 2. Await telemetry bed. 3. Physical therapy. 4. Probably approaching the point where he can be discharged. Job ID: [id number]
[2018-07-18] MEDS: acetaZOLAMIDE Sodium 500 mg Vial IVP SCH ×2 (08:22→21:02)
[2018-07-18] MEDS: Enoxaparin Sodium 40 MG/0.4 ML SYRINGE SC SCH (08:23)
[2018-07-18] MEDS: Amiodarone 200 MG TAB PO SCH (08:24)
[2018-07-18] MEDS: Aspirin 81 mg Enteric Coated Tablet PO SCH (08:24)
[2018-07-18] MEDS: Sterile Water 10 ML VIAL IVP SCH ×2 (08:24→21:03)
[2018-07-18] MEDS: Lisinopril 5 MG TAB PO SCH ×2 (08:32→21:03)
[2018-07-18] MEDS: Metoprolol Tartrate 50 MG TAB PO SCH ×2 (08:32→21:03)
--- NOTE | 2018-07-18 08:37 | PDOC.CTH ---
Cardiology Progress Note - Subjective The pt seen and examined. No overnight events. No cardiac complaints. - Objective Vital Signs Temp Pulse Resp BP Pulse Ox 07/18/18 08:32 68 07/18/18 08:00 98.2 F 07/18/18 07:01 99 07/18/18 07:00 68 22 H 99 07/18/18 04:00 98.5 F 07/18/18 01:00 98.7 F 07/18/18 00:11 75 25 H 93 L 07/17/18 22:36 73 118/63 Admit Weight 216 lb 14.958 oz Weight 211 lb 14.4 oz 07/17/18 07/18/18 07/19/18 06:59 06:59 06:59 Intake Total 934.6 1220 0 Output Total 2220 2865 260 Balance -1285.4 -1645 -260 - Physical Examination General/Neuro: alert & oriented x3 Neck: no JVD present Lungs: CTA Heart: RRR Abdomen: soft Extremities: other: (No edema) - Telemetry Telemetry Rhythm: SR - Labs Result Diagrams: 07/16/18 05:44 07/18/18 04:23 Troponin/CKMB CK-MB (CK-2) 1.3 ng/mL (0-6.6) 07/15/18 14:13 Troponin I 0.132 ng/mL (< 0.028) H 07/15/18 20:05 - Assessment/Plan 1. Acute on chronic combined HF - 2LNC; on diamox 250mg IV BID, TEE, and BBlocker. 2. Post-op Parox Afib - in SR; On Amiodarone 200mg qd from 07/18/2016 for 1 month; Hold Eliquis since he has not been in Afib since last admission. Cont. ASA 81mg qd. 3. CAD with hx of CABG in x2 in 05/2018 - stable; on BBlocker, ASA, Statin; cont. monitor on tele 4. HTN - stable; 5. Hypeprlipidemia - on statin 6. Hypotyroidsm - on Thyroidism 7. LLL PNA - on ABX 8. SZ - 9. COPD - 10. ETOH abuse - strongly recommend to stop drinking. He voiced understanding. MAR reviewed * Echo: EF 40-50%, grade II dd, severe hypokinesis of [place], mod dilated LA, mild MR and TR, and large pleural effusion. Pt. seen and eval. by me. Doing better. No edema. Chest clear. RRR. He should be able to be d/c'd in the next 1-2 days. I agree with the A/P by the SUSPECT ARTIST. Review of Systems - Review of Systems Constitutional: reports: no symptoms reported EENTM: reports: no symptoms reported Respiratory: reports: no symptoms reported Cardiac (ROS): reports: no symptoms reported ABD/GI: reports: no symptoms reported : reports: no symptoms reported Musculoskeletal: reports: no symptoms reported
[2018-07-18] MEDS ORDERED: acetaZOLAMIDE Sodium 500 mg Vial IVP SCH (09:00)
--- NOTE | 2018-07-18 12:59 | PDOC.PN ---
- Subjective Encounter Start Date: 07/18/18 Encounter Start Time: 09:30 Subjective: no sob, is on nasal canula -: ate his breakfast -: no chest pain or palp - Objective MAR Reviewed: Yes Vital Signs & Weight: Vital Signs (12 hours) Temp Pulse Resp Pulse Ox 07/18/18 08:32 68 07/18/18 08:04 93 L 07/18/18 08:00 98.2 F 07/18/18 07:01 99 07/18/18 07:00 68 22 H 99 07/18/18 04:00 98.5 F 07/18/18 01:00 98.7 F Weight Admit Weight 216 lb 14.958 oz Weight 211 lb 14.4 oz Most Recent Monitor Data Heart Rate from ECG 75 NIBP 114/64 NIBP BP-Mean 80 Respiration from ECG 26 SpO2 94 I&O: 07/17/18 07/18/18 07/19/18 06:59 06:59 06:59 Intake Total 934.6 1220 960 Output Total 2220 2865 260 Balance -1285.4 -1645 700 Result Diagrams: 07/16/18 05:44 07/18/18 04:23 Phys Exam - Physical Examination HEENT: PERRLA, moist MMs Neck: no JVD, supple Respiratory: no wheezing, no rales Cardiovascular: RRR, no significant murmur Gastrointestinal: soft, non-tender, positive bowel sounds Musculoskeletal: no edema, pulses present Neurological: non-focal, moves all 4 limbs Psychiatric: A&O x 3 Dx/Plan (1) Acute exacerbation of CHF (congestive heart failure) Code(s): I50.9 - HEART FAILURE, UNSPECIFIED Status: Acute Qualifiers: Heart failure type: combined systolic and diastolic Qualified Code(s): I50.43 - Acute on chronic combined systolic (congestive) and diastolic ( congestive) heart failure Comment: ef of 40%, class B (2) Afib Code(s): I48.91 - UNSPECIFIED ATRIAL FIBRILLATION Status: Chronic Qualifiers: Atrial fibrillation type: paroxysmal Qualified Code(s): I48.0 - Paroxysmal atrial fibrillation (3) HTN (hypertension) Code(s): I10 - ESSENTIAL (PRIMARY) HYPERTENSION Status: Chronic Qualifiers: Hypertension type: essential hypertension Qualified Code(s): I10 - Essential (primary) hypertension (4) HLD (hyperlipidemia) Code(s): E78.5 - HYPERLIPIDEMIA, UNSPECIFIED Status: Chronic Qualifiers: Hyperlipidemia type: mixed hyperlipidemia Qualified Code(s): E78.2 - Mixed hyperlipidemia (5) Hypertension Code(s): I10 - ESSENTIAL (PRIMARY) HYPERTENSION Status: Chronic Qualifiers: Hypertension type: essential hypertension Qualified Code(s): I10 - Essential (primary) hypertension Comment: controlled (6) Hypothyroidism Code(s): E03.9 - HYPOTHYROIDISM, UNSPECIFIED Status: Chronic Qualifiers: Hypothyroidism type: unspecified Qualified Code(s): E03.9 - Hypothyroidism , unspecified Comment: Resume Levothyroxine 125mcg daily (7) Acute respiratory failure with hypoxia Code(s): J96.01 - ACUTE RESPIRATORY FAILURE WITH HYPOXIA Status: Resolved - Plan awaiting tele bed -: is on amiodarone, asp, lopressor, lisinopril, lipitor -: on diamox iv q12h, flomax, synthroid -: to ambulate with PT -: dc plan based on PT mobilization * . Review of Systems - Medications/Allergies Allergies/Adverse Reactions: Allergies Allergy/AdvReac Type Severity Reaction Status Date / Time No Known Drug Allergies Allergy Verified 07/02/18 14:34 Penicillins Allergy Verified 07/02/18 14:34 Medications: Current Medications Acetaminophen (Tylenol) 650 mg PO Q4H PRN PRN Reason: Headache/Fever/Mild Pain (1-3) Acetazolamide Sodium (Diamox) 250 mg IVP BID [facility] Last Admin: 07/18/18 08:22 Dose: 250 mg Albuterol/Ipratropium (Duoneb) 3 ml NEB [id number] [facility] Last Admin: 07/18/18 07:00 Dose: 3 ml Albuterol/Ipratropium (Duoneb) 3 ml NEB Q6H PRN PRN Reason: SOB &/or Wheezing Albuterol/Ipratropium (Duoneb) 3 ml NEB [id number] [facility] Last Admin: 07/17/18 13:11 Dose: Not Given Albuterol/Ipratropium (Duoneb) 3 ml NEB PRN PRN PRN Reason: SOB &/or Wheezing Alprazolam (Xanax) 0.5 mg PO BIDPRN PRN PRN Reason: Anxiety Last Admin: 07/17/18 23:55 Dose: 0.5 mg Amiodarone HCl (Cordarone) 200 mg PO DAILY [facility] Last Admin: 07/18/18 08:24 Dose: 200 mg Aspirin (Ecotrin) 81 mg PO DAILY [facility] Last Admin: 07/18/18 08:24 Dose: 81 mg Atorvastatin Calcium (Lipitor) 40 mg PO HS [facility] Last Admin: 07/17/18 20:26 Dose: 40 mg Enoxaparin Sodium (Lovenox) 40 mg SC 0900 [facility] Last Admin: 07/18/18 08:23 Dose: 40 mg Levothyroxine Sodium (Synthroid) 125 mcg PO 0600 [facility] Last Admin: 07/18/18 05:50 Dose: 125 mcg Lisinopril (Zestril) 5 mg PO BID [facility] Last Admin: 07/18/18 08:32 Dose: Not Given Metoprolol Tartrate (Lopressor) 50 mg PO BID [facility] Last Admin: 07/18/18 08:32 Dose: Not Given Ondansetron HCl (Zofran) 4 mg IVP Q6H PRN PRN Reason: Nausea/Vomiting Sodium Chloride (Flush - Normal Saline) 10 ml IVF Q12HR [facility] Last Admin: 07/18/18 08:24 Dose: 10 ml Sodium Chloride (Flush - Normal Saline) 10 ml IVF PRN PRN PRN Reason: Saline Flush Sterile Water (Bacteriostatic Water) 1 ml FS PRN PRN PRN Reason: RECONSTITUTION Last Admin: 07/16/18 10:02 Dose: 1 ml Sterile Water (Bacteriostatic Water) 0 ml FS PRN PRN PRN Reason: RECONSTITUTION Sterile Water (Water For Injection) 10 ml IVP BID [facility] Last Admin: 07/18/18 08:24 Dose: 10 ml Tamsulosin HCl (Flomax) 0.4 mg PO HS [facility] Last Admin: 07/17/18 20:24 Dose: 0.4 mg
[2018-07-18] MEDS: Tamsulosin HCl 0.4 MG CAP PO SCH (21:02)
[2018-07-18] MEDS: Atorvastatin Calcium 40 MG TAB PO SCH (21:02)
[2018-07-19] MEDS: ALPRAZolam 0.5 MG TAB PO PRN (01:09)
[2018-07-19 05:44] LABS: Anion Gap 9 mmol/L (10-20); BUN (Urea Nitrogen) 20 mg/dL (8.4-25.7); Calc. Creatinine Clearance 130 mL/min (70-130); Calcium 9.2 mg/dL (7.8-10.44); Carbon Dioxide 30 mmol/L (23-31); Chloride 101 mmol/L (98-107); Estimated GFR-MDRD Greater than 90; Glucose 89 mg/dL (80-115); Potassium 3.7 mmol/L (3.5-5.1); Sodium 136 mmol/L (136-145)
[2018-07-19] MEDS: Levothyroxine Sodium 125 MCG TAB PO SCH (05:49)
--- NOTE | 2018-07-19 08:39 | PRG ---
DATE OF SERVICE: 07/19/2018 SUBJECTIVE: He is awake, alert, sitting up, in no distress. OBJECTIVE: VITAL SIGNS: Temperature is 97.7, pulse 80, blood pressure 100/56, O2 saturation 94%. HEENT: Unremarkable. NECK: No JVD. CHEST: Clear without wheezing or rhonchi. CARDIAC: S1 and S2. Regular. ABDOMEN: Soft. EXTREMITIES: No edema. LABORATORY DATA: Sodium 136, potassium 3.7, BUN 20, creatinine 0.7, bicarbonate 30. ASSESSMENT: 1. Stable pulmonary status. 2. Acute congestive heart failure, systolic. 3. CO2 retention, made worse by metabolic alkalosis. PLAN: 1. Decrease Diamox 250 mg p.o. daily. 2. Transfer to medical bed. I think he should spend one night out of the ICU before going home. Job ID: [id number]
[2018-07-19] MEDS: Aspirin 81 mg Enteric Coated Tablet PO SCH (08:45)
[2018-07-19] MEDS: Amiodarone 200 MG TAB PO SCH (08:45)
[2018-07-19] MEDS: Enoxaparin Sodium 40 MG/0.4 ML SYRINGE SC SCH (08:45)
[2018-07-19] MEDS: AcetaZOLAMIDE 250 MG TAB PO SCH (08:45)
[2018-07-19] MEDS: Sterile Water 10 ML VIAL IVP SCH (08:49)
[2018-07-19] MEDS: Lisinopril 5 MG TAB PO SCH ×2 (08:49→20:53)
[2018-07-19] MEDS: Metoprolol Tartrate 50 MG TAB PO SCH ×2 (08:49→20:54)
--- NOTE | 2018-07-19 11:38 | PDOC.CTH ---
Cardiology Progress Note - Subjective The pt seen and examined. No overnight events. No cardiac complaints. - Objective Vital Signs Temp Pulse Resp Pulse Ox 07/19/18 08:49 70 07/19/18 08:00 97.7 F 100 07/19/18 07:21 100 07/19/18 07:19 70 22 H 100 07/19/18 00:23 62 19 96 Admit Weight 216 lb 14.958 oz Weight 212 lb 8.41 oz 07/18/18 07/19/18 07/20/18 06:59 06:59 06:59 Intake Total 1220 1840 400 Output Total 2865 2440 325 Balance -1645 -600 75 - Physical Examination General/Neuro: alert & oriented x3 Neck: no JVD present Lungs: CTA (diminished at bases) Heart: RRR Abdomen: soft Extremities: other: (No edema) - Telemetry Telemetry Rhythm: SR - Labs Result Diagrams: 07/16/18 05:44 07/19/18 05:01 Troponin/CKMB CK-MB (CK-2) 1.3 ng/mL (0-6.6) 07/15/18 14:13 Troponin I 0.132 ng/mL (< 0.028) H 07/15/18 20:05 - Assessment/Plan 1. Acute on chronic combined HF - 2LNC; on diamox 250mg IV BID, which was changed to PO daily; on TEE and BBlocker. 2. Post-op Parox Afib - in SR; On Amiodarone 200mg qd from 07/18/2016 for 1 month; Hold Eliquis since he has not been in Afib since last admission. Cont. ASA 81mg qd. 3. CAD with hx of CABG in x2 in 05/2018 - stable; on BBlocker, ASA, Statin; cont. monitor on tele 4. HTN - stable; 5. Hypeprlipidemia - on statin 6. Hypotyroidsm - on Thyroidism 7. LLL PNA - on ABX 8. SZ - 9. COPD - 10. ETOH abuse - strongly recommend to stop drinking. He voiced understanding. MAR reviewed * Echo: EF 40-50%, grade II dd, severe hypokinesis of [place], mod dilated LA, mild MR and TR, and large pleural effusion. pt. seen and eval. by me. I agree with the A/P by the RAMP LEAD. Doing well. Chest clear, RRR. No edema. Overall cardiac status is stable. Review of Systems - Review of Systems Constitutional: reports: no symptoms reported EENTM: reports: no symptoms reported Respiratory: reports: no symptoms reported Cardiac (ROS): reports: no symptoms reported ABD/GI: reports: no symptoms reported : reports: no symptoms reported Musculoskeletal: reports: no symptoms reported
--- NOTE | 2018-07-19 16:53 | PDOC.PN ---
- Subjective Encounter Start Date: 07/19/18 Encounter Start Time: 10:20 Pt seen for followup re: CHF exacerbation. Says he feels better. - Objective MAR Reviewed: Yes Vital Signs & Weight: Vital Signs (12 hours) Temp Pulse Pulse Resp BP Pulse Ox 07/19/18 16:00 97.6 F 07/19/18 13:08 73 20 07/19/18 08:49 70 07/19/18 08:40 70 100/56 L 07/19/18 08:00 97.7 F 100 07/19/18 07:21 100 07/19/18 07:19 70 22 H 100 Weight Admit Weight 216 lb 14.958 oz Weight 212 lb 8.41 oz Most Recent Monitor Data Heart Rate from ECG 78 NIBP 102/59 NIBP BP-Mean 73 Respiration from ECG 18 SpO2 93 I&O: 07/18/18 07/19/18 07/20/18 06:59 06:59 06:59 Intake Total 1220 1840 1100 Output Total 2865 2440 775 Balance -1645 -600 325 Result Diagrams: 07/16/18 05:44 07/19/18 05:01 Phys Exam - Physical Examination Constitutional: NAD HEENT: moist MMs Neck: supple Respiratory: clear to auscultation bilateral Cardiovascular: RRR Gastrointestinal: soft Neurological: moves all 4 limbs Psychiatric: normal affect Dx/Plan (1) Acute exacerbation of CHF (congestive heart failure) Code(s): I50.9 - HEART FAILURE, UNSPECIFIED Status: Acute Qualifiers: Heart failure type: combined systolic and diastolic Qualified Code(s): I50.43 - Acute on chronic combined systolic (congestive) and diastolic ( congestive) heart failure Comment: ef of 40%, class B. Improved with diuretics. (2) HLD (hyperlipidemia) Code(s): E78.5 - HYPERLIPIDEMIA, UNSPECIFIED Status: Chronic Qualifiers: Hyperlipidemia type: mixed hyperlipidemia Qualified Code(s): E78.2 - Mixed hyperlipidemia Comment: continue statin (3) Hypertension Code(s): I10 - ESSENTIAL (PRIMARY) HYPERTENSION Status: Chronic Qualifiers: Hypertension type: essential hypertension Qualified Code(s): I10 - Essential (primary) hypertension Comment: controlled (4) Hypothyroidism Code(s): E03.9 - HYPOTHYROIDISM, UNSPECIFIED Status: Chronic Qualifiers: Hypothyroidism type: unspecified Qualified Code(s): E03.9 - Hypothyroidism , unspecified Comment: continue Levothyroxine 125mcg daily - Plan * . Review of Systems - Review of Systems Respiratory: SOB with Excertion. negative: Cough, Shortness of Breath, Pleuritic Pain, Wheezing Cardiovascular: negative: chest pain, palpitations, orthopnea, paroxysmal nocturnal dyspnea, edema, light headedness - Medications/Allergies Allergies/Adverse Reactions: Allergies Allergy/AdvReac Type Severity Reaction Status Date / Time No Known Drug Allergies Allergy Verified 07/02/18 14:34 Penicillins Allergy Verified 07/02/18 14:34 Medications: Current Medications Acetaminophen (Tylenol) 650 mg PO Q4H PRN PRN Reason: Headache/Fever/Mild Pain (1-3) Acetazolamide (Diamox) 250 mg PO DAILY [facility] Last Admin: 07/19/18 08:45 Dose: 250 mg Albuterol/Ipratropium (Duoneb) 3 ml NEB [id number] [facility] Last Admin: 07/19/18 13:08 Dose: 3 ml Albuterol/Ipratropium (Duoneb) 3 ml NEB PRN PRN PRN Reason: SOB &/or Wheezing Alprazolam (Xanax) 0.5 mg PO BIDPRN PRN PRN Reason: Anxiety Last Admin: 07/19/18 01:09 Dose: 0.5 mg Amiodarone HCl (Cordarone) 200 mg PO DAILY [facility] Last Admin: 07/19/18 08:45 Dose: 200 mg Aspirin (Ecotrin) 81 mg PO DAILY [facility] Last Admin: 07/19/18 08:45 Dose: 81 mg Atorvastatin Calcium (Lipitor) 40 mg PO HS [facility] Last Admin: 07/18/18 21:02 Dose: 40 mg Enoxaparin Sodium (Lovenox) 40 mg SC 0900 [facility] Last Admin: 07/19/18 08:45 Dose: 40 mg Levothyroxine Sodium (Synthroid) 125 mcg PO 0600 [facility] Last Admin: 07/19/18 05:49 Dose: 125 mcg Lisinopril (Zestril) 5 mg PO BID [facility] Last Admin: 07/19/18 08:49 Dose: Not Given Metoprolol Tartrate (Lopressor) 50 mg PO BID [facility] Last Admin: 07/19/18 08:49 Dose: Not Given Ondansetron HCl (Zofran) 4 mg IVP Q6H PRN PRN Reason: Nausea/Vomiting Sodium Chloride (Flush - Normal Saline) 10 ml IVF Q12HR [facility] Last Admin: 07/19/18 08:45 Dose: 10 ml Sodium Chloride (Flush - Normal Saline) 10 ml IVF PRN PRN PRN Reason: Saline Flush Tamsulosin HCl (Flomax) 0.4 mg PO HS [facility] Last Admin: 07/18/18 21:02 Dose: 0.4 mg
[2018-07-19] MEDS: Atorvastatin Calcium 40 MG TAB PO SCH (20:28)
[2018-07-19] MEDS: Tamsulosin HCl 0.4 MG CAP PO SCH (20:28)
[2018-07-20] MEDS: ALPRAZolam 0.5 MG TAB PO PRN (01:07)
--- NOTE | 2018-07-20 08:57 | PDOC.CTH ---
Cardiology Progress Note - Subjective The pt seen and examined. No overnight events. No cardiac complaints. He walked around the unit without any cardiac complaints. - Objective Vital Signs Temp Pulse Resp BP BP BP Pulse Ox 07/20/18 07:37 95 07/20/18 07:36 77 20 95 07/20/18 07:23 97.4 F L 74 16 108/65 96 07/20/18 05:00 97.3 F L 79 20 102/59 L 97 07/20/18 01:35 97.1 F L 71 18 98/57 L 94 L 07/20/18 01:12 97.6 F 80 20 103/61 92 L 07/20/18 00:23 70 16 92 L 07/19/18 22:12 92 L 07/19/18 21:00 97.4 F L 78 21 H 105/65 92 L Admit Weight 216 lb 14.958 oz Weight 204 lb 11.2 oz 07/19/18 07/20/18 07/21/18 06:59 06:59 06:59 Intake Total 1840 1640 Output Total 2440 975 Balance -600 665 - Physical Examination General/Neuro: alert & oriented x3 Neck: no JVD present Lungs: CTA Heart: RRR Abdomen: soft Extremities: other: (No edema) - Labs Result Diagrams: 07/16/18 05:44 07/19/18 05:01 Troponin/CKMB CK-MB (CK-2) 1.3 ng/mL (0-6.6) 07/15/18 14:13 Troponin I 0.132 ng/mL (< 0.028) H 07/15/18 20:05 - Assessment/Plan 1. Acute on chronic combined HF - 2LNC; on diamox 250mg IV BID, which was changed to PO daily; on TEE and BBlocker. 2. Post-op Parox Afib - in SR; On Amiodarone 200mg qd from 07/18/2016 for 1 month; Hold Eliquis since he has not been in Afib since last admission. Cont. ASA 81mg qd. 3. CAD with hx of CABG in x2 in 05/2018 - stable; on BBlocker, ASA, Statin; cont. monitor on tele 4. HTN - stable; 5. Hypeprlipidemia - on statin 6. Hypotyroidsm - on Thyroidism 7. LLL PNA - on ABX 8. SZ - 9. COPD - 10. ETOH abuse - strongly recommend to stop drinking. He voiced understanding. MAR reviewed * Echo: EF 40-50%, grade II dd, severe hypokinesis of [place], mod dilated LA, mild MR and TR, and large pleural effusion. * From Cardiac standpoint, the pt is stable to d/c. The pt will F/U with Dr Cool' office within 2 wks. Review of Systems - Review of Systems Constitutional: reports: no symptoms reported EENTM: reports: no symptoms reported Respiratory: reports: no symptoms reported Cardiac (ROS): reports: no symptoms reported ABD/GI: reports: no symptoms reported : reports: no symptoms reported Musculoskeletal: reports: no symptoms reported
--- NOTE | 2018-07-20 09:05 | PRG ---
DATE OF SERVICE: 07/20/2018 SUBJECTIVE: He is doing well. He is awake and alert, in no distress. OBJECTIVE: VITAL SIGNS: Temperature 97.4, pulse 67, respirations 20, O2 saturation 95% on 2 L. HEENT: Unremarkable. NECK: No JVD. CHEST: Clear anteriorly. CARDIAC: S1 and S2. Regular. ABDOMEN: Soft. EXTREMITIES: No edema. ASSESSMENT: 1. Stable pulmonary status. 2. Acute systolic heart failure. 3. Acute CO2 retention made worse by metabolic alkalosis at the time of admission. PLAN: The patient continues to do very well on his current regimen. I would advise leaving him on a low dose of Diamox. He is probably stable to go either home or rehab or skilled. Job ID: [id number]
[2018-07-20] MEDS: AcetaZOLAMIDE 250 MG TAB PO SCH (09:13)
[2018-07-20] MEDS: Aspirin 81 mg Enteric Coated Tablet PO SCH (09:13)
[2018-07-20] MEDS: Amiodarone 200 MG TAB PO SCH (09:13)
[2018-07-20] MEDS: Lisinopril 5 MG TAB PO SCH (09:14)
[2018-07-20] MEDS: Enoxaparin Sodium 40 MG/0.4 ML SYRINGE SC SCH (09:14)
[2018-07-20] MEDS: Metoprolol Tartrate 50 MG TAB PO SCH (09:15)
[2018-07-20 10:33] LABS: Anion Gap 10 mmol/L (10-20); BUN (Urea Nitrogen) 18 mg/dL (8.4-25.7); Calc. Creatinine Clearance 92 mL/min (70-130); Calcium 9.2 mg/dL (7.8-10.44); Carbon Dioxide 31 mmol/L (23-31); Chloride 100 mmol/L (98-107); Estimated GFR-MDRD 71; Glucose 96 mg/dL (80-115); Potassium 3.7 mmol/L (3.5-5.1); Sodium 137 mmol/L (136-145)
[2018-07-20 13:49] VITALS: BP 110/68; TEMP 97.9
--- NOTE | 2018-07-20 16:20 | DIS ---
DATE OF ADMISSION: 07/15/2018 DATE OF DISCHARGE: 07/20/2018 PRIMARY CARE PROVIDER: Dr. Tash Dunne. DISCHARGE DIAGNOSES: 1. Acute respiratory failure. 2. Respiratory failure needing mechanical ventilation. 3. Acute on chronic combined heart failure, NYHA class 3 and ACC/AHA class C. 4. Left lower lobe pneumonia. 5. Metabolic alkalosis. CONSULTATIONS DURING THIS HOSPITALIZATION: 1. Cardiology, Dr. Simpson. 2. Pulmonology, Dr. Garcia. CONDITION OF PATIENT ON THE DAY OF DISCHARGE: Stable. I assessed Marli on the day of discharge. He denies any chest pain or shortness of breath. Vital signs are stable. S1 and S2 are heard, regular. Lungs are clear to auscultation bilaterally. DISCHARGE MEDICATIONS: 1. Nexium 40 mg daily. 2. Synthroid 125 mcg daily. 3. Metoprolol tartrate 50 mg two times a day. 4. Acetazolamide 125 mg daily. 5. Amiodarone 200 mg daily. 6. Aspirin 81 mg daily. 7. Lipitor 20 mg at bedtime. 8. Lasix dose increased to 40 mg daily. 9. Potassium chloride dose increased to 20 mEq daily. 10. Flomax 0.4 mg at bedtime. 11. Proventil HFA p.r.n. 12. Xanax p.r.n. Please note that apixaban has been discontinued. HOSPITAL COURSE: Mr. Calles is a pleasant 63-year-old gentleman, who was admitted to [facility] on July 15, 2018, for acute respiratory failure. Please refer to Dr. Rodriguez's history and physical note dated July 15, 2018, for further details. He was treated with BiPAP. He also received intravenous diuretics. He also received antibiotics for left lower lobe pneumonia. He gradually improved. He was seen by Cardiology, Pulmonary, and Critical Care Medicine Services. A 2D echocardiogram showed left ventricular ejection fraction in the 40% to 50% range, grade 2/3 diastolic dysfunction, severe hypokinesis of the apex, moderately dilated left atrium, mild mitral regurgitation, and mild tricuspid regurgitation. He also had a large pleural effusion. He improved gradually. Antibiotics were discontinued. Pulmonology Service recommends low-dose Acetazolamide on an ongoing basis. On the day of discharge, Mr. Calles has normal chem-7. His BNP during this hospitalization was 741.9. Many thanks for allowing me to participate in your patient's care. Please feel free to contact me with any questions or concerns. DISCHARGE DESTINATION: Home. Total amount of time spent coordinating this discharge, 32 minutes. Job ID: [id number] BLANE
[2018-07-21] MEDS ORDERED: Furosemide 40 MG TAB PO SCH (07:30)
[2018-07-21] MEDS ORDERED: Potassium Chloride 20 MEQ TAB PO SCH (08:00)
== END 2018-07-20 13:09 | disposition home or self-care (01) | DRG 189 ==
LOC: ERS 09:32 → CCU 12:01 → T4-B 07-19 21:03
PROVIDERS: ADMIT Internal Medicine; ATTEND Internal Medicine
PROC: 5A09457 Assistance with Respiratory Ventilation, 24-96 Consecutive Hours, Continuous Positive Airway Pressure (ICD-10-PCS; principal; 2018-07-15)
DX: J96.01 Acute respiratory failure with hypoxia (principal); J18.9 Pneumonia, unspecified organism; I50.43 Acute on chronic combined systolic (congestive) and diastolic (congestive) heart failure; J44.1 Chronic obstructive pulmonary disease with (acute) exacerbation; J44.0 Chronic obstructive pulmonary disease with (acute) lower respiratory infection; G93.40 Encephalopathy, unspecified; E87.3 Alkalosis; I11.0 Hypertensive heart disease with heart failure; I25.10 Atherosclerotic heart disease of native coronary artery without angina pectoris; Z95.1 Presence of aortocoronary bypass graft; E03.9 Hypothyroidism, unspecified; E78.5 Hyperlipidemia, unspecified; Z87.891 Personal history of nicotine dependence; I48.0 Paroxysmal atrial fibrillation; F10.10 Alcohol abuse, uncomplicated; I08.1 Rheumatic disorders of both mitral and tricuspid valves
CPT/HCPCS: 36415; 36416; 71045; 80048; 80053; 81003; 82553; 82805; 83880; 84484; 85025; 87040; 87086; 87804; 93005; 93306; 93798; 94640; 94660; 96374; 96375; A4216; J0456; J0696; J1120; J1650; J1940; J2920; J2930; J7050; J7620

== ENCOUNTER 2019-04-23 10:02 | Observation (INO) | payer MEDICARE ==
[2019-04-23 10:57] LABS: Hemoglobin 13.5 g/dL (14.0-18.0)
[2019-04-23 11:15] LABS: Anion Gap 10 mmol/L (10-20); BUN (Urea Nitrogen) 12 mg/dL (8.4-25.7); Calc. Creatinine Clearance 92 mL/min (70-130); Calcium 9.2 mg/dL (7.8-10.44); Carbon Dioxide 34 mmol/L (23-31); Chloride 100 mmol/L (98-107); Estimated GFR-MDRD 66; Glucose 88 mg/dL (80-115); Potassium 4.5 mmol/L (3.5-5.1); Sodium 139 mmol/L (136-145)
[2019-04-23] MEDS ORDERED: Bacitracin Zinc Ointment 30 gm TUBE ONE (13:25)
[2019-04-23] MEDS ORDERED: Lidocaine 1% w/Epinephrine 1:100K 20 ML VIAL ONE (13:25)
[2019-04-23] MEDS ORDERED: Fentanyl 100 MCG/2 ML VIAL ONE ×3 (13:26→18:54)
[2019-04-23] MEDS ORDERED: PROPOFOL 200 MG/20 ML VIAL ONE (15:21)
[2019-04-23] MEDS ORDERED: Lidocaine 1% PF 5 ML VIAL ONE (15:21)
[2019-04-23] MEDS ORDERED: Ondansetron PF 4 MG/2 ML Vial ONE (15:21)
[2019-04-23] MEDS ORDERED: ePHEDrine/0.9% NaCl/PF SYRINGE 50 mg/10 ml ONE (15:21)
[2019-04-23] MEDS ORDERED: Dexamethasone 20 MG/5 ML VIAL ONE (15:21)
[2019-04-23 16:36] LABS: Actual Bicarbonate (HCO3a) 29.6 mEq/L (22-28); Calcium, Ionized 1.19 mmol/L (1.12-1.30); Carboxyhemoglobin (COHb) 1.6 gm% (0.0-3.0); Hemoglobin (Hb) 15.3 g/dL (14.0-18.0); Potassium - ABG Lab 4.95 mmol/L (3.70-5.30); pH, Arterial 7.28 (7.35-7.45)
[2019-04-23 16:40] LABS: CO2 Tension 64.4 mmHg (35.0-45.0); O2 Tension (PaO2) 45.4 mmHg (> 80.0)
[2019-04-23 16:41] LABS: Puncture Site L.R.
--- NOTE | 2019-04-23 18:14 | RAD ---
PORTABLE CHEST ONE VIEW: 04/23/19 at 5:42 p.m. HISTORY: Postop hypoxia. FINDINGS: Comparison made with exam of 07/15/18. There is continued elevation of the right hemidiaphragm. Changes of median sternotomy again seen. The heart size is normal. No lobar consolidation, pneumothoraces, nancy pulmonary edema or pleural effu sions are seen. IMPRESSION: No acute process. POS: [facility]
[2019-04-23] MEDS ORDERED: Ondansetron PF 4 MG/2 ML Vial IVP PRN (18:48)
[2019-04-23] MEDS ORDERED: Morphine 2 MG/ML SYRINGE SLOW IVP PRN (18:50)
[2019-04-23] MEDS ORDERED: traMADol HCl 50 MG TAB PO PRN ×2 (18:50)
[2019-04-23] MEDS ORDERED: Albuterol Sulfate 1.25 MG/3 ML NEB NEB PRN (18:50)
[2019-04-23] MEDS ORDERED: hydrALAZINE 20 MG/ML VIAL SLOW IVP PRN (19:17)
[2019-04-23] MEDS ORDERED: AFRIN NASAL MIST 15 ML BOT NS PRN (19:17)
--- NOTE | 2019-04-23 20:13 | HP ---
REQUESTING PHYSICIAN: Dr. Farrell of ENT. CHIEF COMPLAINT: Postoperative hypoxia. HISTORY OF PRESENT ILLNESS: This is a 64-year-old male with history of COPD, on oxygen therapy at home, history of cardiac arrest, anoxic brain injury and STEMI , status post CABG in May 2018, psoriasis, dyslipidemia, hypothyroidism, hypertension, BPH, who presents to the hospital today for an elective sinus surgery. With regard to the COPD, the patient reports that he is on oxygen at night between 2 and 3 L and wears it for several hours during the day based on how he feels. He reports using his nebulizer for his DuoNeb nebulizer 3 times a day in addition to albuterol MDI 2-3 times per day. He states that he has Flovent, but rarely uses it, and denies any other breathing medication. He reports that he can go without his oxygen, he does physical activities without any problem; however, has noticed increasing COPD type symptoms. He denies any cough, fevers or chills, nausea, or vomiting. The patient also reports a history of heart failure and is seen by the Heart failure Clinic. He is currently on every other day Lasix, beta benja, ARB, and denies any recent changes in these medications. Overall, the patient reports that he was feeling well prior to surgery today. Aside from headache and facial pain associated with surgery, he is otherwise feeling well now. The patient postoperatively was found to be hypoxic with an oxygen level in the 80s. Discussed that by report at the end of surgery, patient was having increasing CO2 levels up to the 80s and 90s; however, he was a candidate for extubation. Post extubation, has received two DuoNebs, still oxygen requiring. An ABG showed that he was acidotic, hypercarbic, and hypoxic despite oxygen by face mask. For this, the hospitalist was called. Postoperative interventions are DuoNeb x2, and oxygen replacement by facemask. Surgery performed are deviated septum repair, sinus surgery. PAST MEDICAL HISTORY: 1. Cardiac arrest with anoxic brain injury in May 2018 associated with a STEMI followed by a two vessel CABG. 2. Polycystic kidney disease followed by Dr. Vargas. 3. Heart failure, followed by the Heart failure Clinic and Dr. Cool. 4. Psoriasis. 5. Chronic back pain. 6. Hypothyroidism. 7. Dyslipidemia. 8. COPD, on oxygen replacement 2-3 L nasal cannula at night and again several hours during the day. 9. BPH. 10. GERD. PAST SURGICAL HISTORY: 1. Two-vessel CABG in May 2018. 2. C-spine laminectomy. FAMILY HISTORY: Unremarkable. SOCIAL HISTORY: The patient quit tobacco in May 2018, had used tobacco for 50 years. Alcohol is currently two beers per day, the patient denies any problems going without. He lives with his . Code status is full. ALLERGIES: PENICILLIN A CHILD, IT CAUSED HIVES, BUT THE PATIENT DOES REPORT THAT HE HAS TAKEN AMOXICILLIN. THE PATIENT'S REPORTS HE HAS TAKEN AMOXICILLIN WITHOUT PROBLEMS SINCE THEN. REVIEW OF SYSTEMS: Negative for fevers, chills, nausea, vomiting, abdominal pain, any swelling. Positive for ongoing rash in the groin for which he sees his primary care provider, Dr. Medina, as well as a healing wound on his left foot. All remaining review of systems are reviewed and negative. MEDICATIONS: Reconciled with the list on the chart as well as the patient's portal; 1. Albuterol. He reports the metered dose inhaler 2-3 times per day. 2. Xanax 0.5 mg b.i.d. p.r.n. 3. Aspirin 81 mg which he stopped a few days ago. 4. Lipitor 20 mg at bedtime. 5. Carvedilol 6.25 mg b.i.d. 6. Nexium 40 mg daily. 7. Lasix 40 mg every other day. 8. Hydrocodone as needed. 9. DuoNebs t.i.d. 10. Flovent, he reports seldom use. 11. Levothyroxine 125 mcg daily. 12. Losartan 25 mg daily. 13. Tamsulosin 0.4 mg at bedtime. PHYSICAL EXAMINATION: VITAL SIGNS: _T98.2, P104, R20 92% on RA bp's 150's/100's. GENERAL: He is awake, alert, responsive, in no apparent distress. Able to answer questions appropriately. HEENT: His pupils are equal, round, and reactive to light. Nose is packed, with overlying gauze. Oral mucosa is pink and dry, with some areas of dried blood. NECK: Supple, nontender. LYMPHATICS: No palpable cervical or supraclavicular lymphadenopathy. LUNGS: Clear to auscultation bilateral. No audible wheezing, rhonchi, or rales. HEART: Normal S1, S2. No significant murmurs. ABDOMEN: Soft, present bowel sounds. Nontender. Nondistended. EXTREMITIES: No clubbing, cyanosis or edema. VASCULAR: 2+ dorsalis pedis pulses. SKIN: He has faintly erythematous plaque along the bilateral proximal medial thighs, with some scaling. Along his feet, he has flaking and peeling, and a healing skin wound on his left foot plantar surface. NEUROLOGIC: No gross deficits. LABORATORY DATA: Labs reviewed today. His hemoglobin postop was 13.5. Blood gas 7.28, 64.4, 45.4 with an oxygen of 78.8, this reports on room air. Chemistry; 139, 4.5, 134, 12, 1.12 with a glucose of 88. That was his preoperative lab. DIAGNOSTIC DATA: EKG for preoperative is personally reviewed, which shows a sinus rhythm with a normal axis, normal intervals, no ST changes, there is poor R-wave progression consistent with an anteroseptal infarct or a prior anteroseptal infarct. Chest x-ray postoperatively an elevated right hemidiaphragm. No acute cardiopulmonary process. IMPRESSION: 1. Status post sinus surgery. 2. Acute on Chronic respiratory failure with hypoxia secondary to chronic obstructive pulmonary disease, no clear signs of acute decompensation; however, postoperative hypoxia. This may be secondary to anesthesia, difficulty taking a deep breath. 3. History of heart failure, compensated. 4. History for coronary artery disease, history of coronary artery bypass graft, currently asymptomatic. 5. Hypertension, not optimally controlled, may be secondary to pain. 6. History of anoxic brain injury. 7. Benign prostatic hyperplasia. 8. Gastroesophageal reflux disease. 9. Hypothyroidism. PLAN: 1. Observation status in the hospital. Given the patient has multiple significant medical problems, will have him in the IMCU. 2. We will schedule Pulmicort nebulizer therapy as well as DuoNeb q.4 hours and p.r.n. q.2 hours albuterol. Encourage incentive spirometer. The patient is not a candidate for BiPAP, would need to be intubated if he has respiratory decompensation, and this is due to his sinus surgery and nasal packing. 3. We will start antibiotics per the postoperative routine. Confirmed with the patient's that he has taken amoxicillin in the past and will go with the order that is on the chart for Augmentin. 4. Manage pain. 5. Continuing his home usual medications, would hold parameters on his antihypertensives. We will also order some p.r.n. hydralazine. 6. Holding on the aspirin for 5 days per the postoperative notes. On the chart, which shows an Eliquis; however, confirmed with the patient's , he has not been on Eliquis since July. 7. DVT prophylaxis. We will use pneumatic compression devices as the patient is still having some bleeding. 8. GI prophylaxis not indicated. The patient is on a PPI at home. 9. Code status is full. Surrogate decision maker is the patient's . 10. Anticipated length of stay is overnight provided that the patient is overall doing well. With any changes, we will need to consult Pulmonology, and consider if with worsening, consider intubation. 11. Reviewed the plan of care with the patient and his family. No questions or further needs at the end of evaluation. 12. The patient is at high risk given age, comorbidities and current presentation. Job ID: [id number] [facility]
[2019-04-23 23:30] VITALS: BMI 29.0
[2019-04-23 23:48] VITALS: TEMP 98.4
[2019-04-24] MEDS ORDERED: Levothyroxine Sodium 125 MCG TAB PO SCH (06:00)
[2019-04-24] MEDS ORDERED: Budesonide 0.5 MG/2 ML NEB INH SCH (06:30)
[2019-04-24] MEDS ORDERED: Carvedilol 6.25 MG TAB PO SCH (08:00)
[2019-04-24] MEDS ORDERED: Losartan 25 MG TAB PO SCH (09:00)
[2019-04-24] MEDS ORDERED: Amoxicillin/Potassium Clav 875 MG TAB PO SCH (09:00)
[2019-04-24 13:28] LABS: #Lymphocytes 0.8 thou/uL (1.20-3.40); #Monocytes 0.2 thou/uL (0.11-0.59); %Eosinophils 0.1 % (0.0-10.0); %Lymphocytes 7.5 % (21.0-51.0); %Monocytes 1.8 % (0.0-10.0); %Neutrophils 90.7 % (42.0-75.0); Hemoglobin 13.4 g/dL (14.0-18.0); Mean Corpuscular HGB CONC 31.6 g/dL (32.0-36.0); Mean Corpuscular Hemoglobin 30.9 pg (27.0-31.0); Mean Corpuscular Volume 97.7 fL (78.0-98.0); Mean Platelet Volume 8.5 fL (7.4-10.4); Platelet Count 230 thou/uL (130-400); RBC Distribution Width 11.1 % (11.5-14.5); Red Blood Cell (RBC) Count 4.35 mill/uL (4.70-6.10); White Blood Cell (WBC) Count 11.1 thou/uL (4.8-10.8)
[2019-04-24 14:01] LABS: Anion Gap 13 mmol/L (10-20); BUN (Urea Nitrogen) 16 mg/dL (8.4-25.7); Calc. Creatinine Clearance 100 mL/min (70-130); Calcium 9.3 mg/dL (7.8-10.44); Carbon Dioxide 32 mmol/L (23-31); Chloride 98 mmol/L (98-107); Estimated GFR-MDRD 71; Potassium 4.9 mmol/L (3.5-5.1); Sodium 138 mmol/L (136-145)
[2019-04-24 14:02] LABS: Glucose 168 mg/dL (80-115)
[2019-04-24] MEDS ORDERED: Atorvastatin Calcium 20 MG TAB PO SCH (21:00)
[2019-04-24] MEDS ORDERED: Prevnar 13-Val Conj/PF 0.5 ML SYRINGE IM ONE (21:00)
[2019-04-24] MEDS ORDERED: FLU VACC TS2019-20(65YR UP)/PF 180 MCG/0.5 ML SYRINGE IM ONE (21:00)
[2019-04-24] MEDS ORDERED: Tamsulosin HCl 0.4 MG CAP PO SCH (21:00)
--- NOTE | 2019-04-25 06:25 | DIS ---
DATE OF ADMISSION: 04/23/2019 DATE OF DISCHARGE: 04/24/2019 PRIMARY CARE PROVIDER: Jose Median MD CONSULTANTS: Dr. Farrell of ENT. MEDICATIONS: Reconciled at discharge. New medications: 1. Augmentin 875/125 one tablet b.i.d. for a week. 2. Tramadol 50 mg tablets 1 to 2 tablets every 4 to 6 hours as needed for pain. 3. Zofran 4 mg every 6 hours as needed for nausea. All these prescriptions were provided by Dr. Farrell. Medications changed; aspirin 81 mg once daily to start in 5 days. Medications to continue: 1. Albuterol meter-dosed inhaler 2 puffs every 4 hours as needed. 2. Xanax 0.5 mg b.i.d. p.r.n. anxiety. 3. Atorvastatin 20 mg at bedtime. 4. Carvedilol 6.25 mg b.i.d. 5. Esomeprazole 40 mg daily. 6. Lasix 40 mg every other day. 7. DuoNeb 3 times daily. 8. Levothyroxine 125 mcg daily. 9. Losartan 25 mg daily. 10. Tamsulosin 0.4 mg daily. Discontinued medicines; [place] for now, replacing it with tramadol for pain. HISTORY OF PRESENT ILLNESS: Mr. Calles is a 64-year-old male with history of COPD, coronary artery disease, status post cardiac arrest and CABG in May 2018, anoxic brain injury from that event, hypothyroidism, BPH, psoriasis, chronic back pain , who presented to the hospital for an elective sinus surgery with Dr. Farrell. The patient had an uncomplicated surgery. However, near the end of the case, he was noted to have increasing CO2 levels. Anesthesia was able to extubate him. However, after this, the patient was hypoxic. An ABG was performed, which showed mild acidosis , a low pO2 and an elevated pCO2. Because of this, as well as his comorbidities, hospitalist called for admission. HOSPITAL COURSE: On evaluation in the PACU, the patient overall looked stable. He was tolerating oxygen by face mask and maintaining saturations in the low 90%. Because of his comorbidities, he was placed in the IMCU overnight for close observation. DuoNeb was scheduled, inhaled steroid was scheduled twice daily, and the patient was continued on his usual medications with the exception of aspirin. On his chart, it notes that patient is on Eliquis; however, his states he has not been on this medication since July. The patient overall did well overnight. He was monitored on telemetry. There were no events. He had some minimal bleeding and his bandage was changed. As he was doing well and he had normal oxygen saturation levels on room air, he was discharged to home this morning. Due to the system being down, this was not dictated at that time. PHYSICAL EXAMINATION: VITAL SIGNS: On day of discharge, blood pressure 132/78, pulse 83, respirations 15, saturations 93% on room air, and temperature 98.4. GENERAL: Awake, alert, responsive, in no apparent distress. Able to speak in full sentences. LUNGS: Clear to auscultation bilateral. HEART: Normal S1 and S2. Regular rate and rhythm. No significant murmur. ABDOMEN: Soft. Present bowel sounds. EXTREMITIES: No clubbing, cyanosis, or edema. KELLY FINDINGS AND TEST RESULTS: CBC today 11.1, 13.4, 42.5, and 230. Blood gas from yesterday 7.28, 64.4, 45.4 with a sat of 78.8%. Chemistry; today, 138, 4.9, 98, 32, 16, 1.05, and 168. Chest x-ray performed yesterday, no acute cardiopulmonary process. DIET: Heart healthy. ACTIVITY: As tolerated with instructions provided by Dr. Farrell on the nasal packing as well as the gauze bandage overlying it. FOLLOWUP: Followup is with Dr. Farrell of ENT as instructed for post-operative evaluation and removal of packing. Follow up with Dr. Hutchinson and Dr. Cool as needed. CODE STATUS: Full. DISCHARGE DISPOSITION: Home I reviewed with the patient this morning prior to discharge this hospitalization , the importance of followup, to seek care precautions. There were no questions or further needs. Total time coordinating discharge was 30 minutes. Job ID: [id number] MTDD
--- NOTE | 2019-04-25 09:42 | OP ---
DATE OF PROCEDURE: 04/23/2019 POSTOPERATIVE DIAGNOSIS Septal deviation, nasal valve collapse and turbinate hypertrophy. PROCEDURES 1. septoplasty 2. reconstruction of nasal valve 6. Bilateral inferior turbinate submucosal resection, 71159. 7. Bilateral lateralization of inferior turbinates, 02470. PERMIT Procedures, benefits, risks including those of bleeding, infection, injury to anesthesia, allergic reaction, cerebrospinal fluid leak necessitating revision and repair and alternatives reviewed with the patient and family who expressed understanding of the information. A consent form was signed and witnessed and a paper copy of the consent form is available for review in the paper chart. ASSISTANTS None. FINDINGS: deviated septum, turbinate hypertrophy, severe nasal valve collapse. DESCRIPTION OF OPERATION The patient was brought to the operating room and laid supine on the operating room table. ANESTHESIA General endotracheal was administered. DESCRIPTION OF PROCEDURE Septum, and inferior turbinate were injected bilaterally with 1% lidocaine with 1:100,000 epinephrine and 6 cottonoids soaked with 1:100,000 epinephrine were then placed in the bilateral nasal cavities on each side. The patient was then prepped and draped in the usual fashion. The nose was then evaluated endoscopically with nasal endoscope and the septal deviation evaluated. Next a harley incision was made on the left and the left mucopericondrial flap was elevated and the septal deviation identified. Next the caudal strut was left with 2cm intact anteriorly and a small incision made throught the septum and the opposite flap was elevated and the cartilaginous and bony deviation removed. The nasal cavity was evaluated the deviation corrected. The flaps were reapproximated with 4.0 chromic mattress sutures and the harley incision closed with a 5.0 chromic suture. Next attention was turned the the nasal valve reconstruction and an supportive implant was placed deep the the nasal ala cartilage and over the nasal bone to support the nasal valve and correct the severe nasal valve collapse bilaterally. The implant was in good position bilaterally with no significant collapse and no bleeding. Next the inferior turbinates were reduced with an oscillating turbinate blade. A stab incision was made and the anterior inferior head of the inferior turbinate and the mucosal pocket elevated and the erectile tissue removed. The same procedure was performed bilaterally and the suction bovie was used to cauterize the anterior opening. After this the cabello splints were sutured in place with a 2.0 silk suture and no bleeding was seen. The patient was turned back to anesthesia for emergence. No complications throughout the surgery. Job ID: [id number] MTDD
--- NOTE | 2019-04-25 21:23 | EKG ---
Test Reason : PREOP Blood Pressure : / mmHG Vent. Rate : 074 BPM Atrial Rate : 074 BPM P-R Int : 154 ms QRS Dur : 100 ms QT Int : 354 ms P-R-T Axes : 042 060 078 degrees QTc Int : 392 ms Normal sinus rhythm Anteroseptal infarct (cited on or before 22-APR-2017) Abnormal ECG When compared with ECG of 15-JUL-2018 09:39, Nonspecific T wave abnormality no longer evident in Inferior leads Inverted T waves have replaced nonspecific T wave abnormality in Anterior leads Confirmed by Noe VEGA ([id number]) on 04/25/2019 9:23:36 PM Referred By: CARROL Confirmed By:Noe VEGA
== END 2019-04-24 09:30 | disposition home or self-care (01) ==
LOC: SDC 10:02 → INTOOBSV 20:29 → IMCU/EMU 20:29
PROVIDERS: ADMIT Family Medicine; ATTEND Family Medicine
PROC: 09BM0ZZ Excision of Nasal Septum, Open Approach (ICD-10-PCS; principal; 2019-04-23)
PROC: 09TL0ZZ Resection of Nasal Turbinate, Open Approach (ICD-10-PCS; 2019-04-23)
DX: J34.2 Deviated nasal septum (principal); J34.89 Other specified disorders of nose and nasal sinuses; J34.3 Hypertrophy of nasal turbinates; B49 Unspecified mycosis; J44.9 Chronic obstructive pulmonary disease, unspecified; I25.10 Atherosclerotic heart disease of native coronary artery without angina pectoris; E03.9 Hypothyroidism, unspecified; K21.9 Gastro-esophageal reflux disease without esophagitis; N40.0 Benign prostatic hyperplasia without lower urinary tract symptoms; E78.5 Hyperlipidemia, unspecified; H51.20 Internuclear ophthalmoplegia, unspecified eye; H61.23 Impacted cerumen, bilateral; H93.8X9 Other specified disorders of ear, unspecified ear; Z95.1 Presence of aortocoronary bypass graft; Z88.0 Allergy status to penicillin; Z79.899 Other long term (current) drug therapy; Z79.82 Long term (current) use of aspirin; Z87.891 Personal history of nicotine dependence
CPT/HCPCS: 71045; 80048; 82805; 85014; 85018; 85025; 93005; 93010; 94640; J0690; J1100; J2001; J2270; J2405; J2704; J3010; J7620

== ENCOUNTER 2019-05-29 19:30 | Outpatient (CLI) | payer MEDICARE | END 2019-05-29 19:31 | disposition home or self-care (01) | LOC: SLEEPLAB 19:30 | PROVIDERS: ATTEND Family Medicine | DX: G47.33 Obstructive sleep apnea (adult) (pediatric) (principal); R06.83 Snoring; R09.02 Hypoxemia | CPT/HCPCS: 95810 ==

== ENCOUNTER 2019-06-27 19:30 | Outpatient (CLI) | payer MEDICARE | END 2019-06-27 19:31 | disposition home or self-care (01) | LOC: SLEEPLAB 19:30 | PROVIDERS: ATTEND Family Medicine | DX: G47.33 Obstructive sleep apnea (adult) (pediatric) (principal); R06.83 Snoring; G47.10 Hypersomnia, unspecified; E66.9 Obesity, unspecified; R09.02 Hypoxemia; I49.3 Ventricular premature depolarization; Z68.30 Body mass index [BMI] 30.0-30.9, adult | CPT/HCPCS: 95811 ==

== ENCOUNTER 2019-11-26 07:32 | Outpatient (CLI) | payer MEDICARE ==
--- NOTE | 2019-11-26 08:22 | ULT ---
EXAM: US Gallbladder RUQ CLINICAL HISTORY: Hepatomegaly. COMPARISON: None. FINDINGS: Pancreas: Obscured by bowel gas Liver:Hepatic parenchyma has a normal echotexture. No hepatic masses or intrahepatic biliary dilatati on. Right hepatic lobe: 19.1 cm cm Gallbladder: No sonographic evidence of cholelithiasis, gallbladder wall thickening or pericholecysti c fluid. Mills's sign:Negative Portal Vein: Patent. Appropriate directional flow Bile ducts: 0.6 cm common bile duct diameter Right kidney: Multiple renal cysts. Largest cyst is septated and is located in the mid pole measuring 2.0 x 1.9 x 1.7 cm. Right kidney measures 5.8 x 5.8 x 10.6 cm in length. IMPRESSION: 1. Mild hepatomegaly
== END 2019-11-26 07:33 | disposition home or self-care (01) ==
LOC: SCSULT 07:32
PROVIDERS: ATTEND Family Medicine
DX: R16.0 Hepatomegaly, not elsewhere classified (principal)
CPT/HCPCS: 76705

== ENCOUNTER 2020-05-08 07:56 | Outpatient (CLI) | payer MEDICARE ==
[2020-05-08 21:35] LABS: SARS-CoV-2 MS2 Positive; SARS-CoV-2 N Gene Negative; SARS-CoV-2 S Gene Negative; SARS-CoV-2 by NAA Not Detected (NotDetected); SARS-CoV-2 orf1ab Negative
== END 2020-05-08 07:57 | disposition home or self-care (01) ==
LOC: LABBT 07:56
PROVIDERS: ATTEND Internal Medicine Gastroenterology
DX: Z01.812 Encounter for preprocedural laboratory examination (principal); Z20.828 Contact with and (suspected) exposure to other viral communicable diseases
CPT/HCPCS: 87635; U0003

== ENCOUNTER 2020-05-13 06:56 | Day surgery (SDC) | payer MEDICARE ==
[2020-05-11 16:28] VITALS: BMI 29.4
--- NOTE | 2020-05-13 09:15 | OP ---
DATE OF PROCEDURE: 05/13/2020 PROCEDURE PERFORMED: Colonoscopy with biopsy. PREMEDICATION: Given by Anesthesiology Department. PREPROCEDURE DIAGNOSES: 1. Unexplained diarrhea. 2. Intermittent hematochezia. POSTPROCEDURE DIAGNOSES: 1. Mild inflammation involving the transverse colon. 2. Few sigmoid diverticula. 3. Small grade 1 internal hemorrhoids. DESCRIPTION OF PROCEDURE: Written consents were obtained prior to procedure. After adequate sedation, rectal exam performed was normal. The endoscope was advanced to the cecum. The quality of the bowel prep was good. The cecum, ascending colon appeared normal. In the transverse colon, subtle inflammation characterized as mild granularity, erythema and edema were noted. There was loss of normal vasculature. The descending and sigmoid colon appeared normal. Two sigmoid diverticula were noted. Retroflexion in the rectal vault showed nonbleeding, small grade 1 internal hemorrhoids. A small diminutive polyp was noted in the sigmoid colon and was removed with a forceps. Random biopsies were obtained from the ascending, transverse, and descending colon. The patient tolerated the procedure well. ASSESSMENT: 1. Mild inflammation noted in the transverse colon, suspect either mild ischemic colitis or inflammatory bowel disease. Etiology unknown at this point. 2. Small internal hemorrhoids, likely source of outlet rectal bleeding. 3. Mild diverticulosis coli. RECOMMENDATION: Await biopsy results. Job ID: [id number]
[2020-05-13] MEDS ORDERED: PROPOFOL 200 MG/20 ML VIAL ONE (09:55)
[2020-05-13] MEDS ORDERED: Lidocaine 1% PF 5 ML VIAL ONE (09:55)
== END 2020-05-13 10:10 | disposition home or self-care (01) ==
LOC: SDC 06:56
PROVIDERS: ATTEND Internal Medicine Gastroenterology
PROC: 0DBK8ZX Excision of Ascending Colon, Via Natural or Artificial Opening Endoscopic, Diagnostic (ICD-10-PCS; principal; 2020-05-13)
PROC: 0DBL8ZX Excision of Transverse Colon, Via Natural or Artificial Opening Endoscopic, Diagnostic (ICD-10-PCS; 2020-05-13)
PROC: 0DBN8ZX Excision of Sigmoid Colon, Via Natural or Artificial Opening Endoscopic, Diagnostic (ICD-10-PCS; 2020-05-13)
DX: K57.31 Diverticulosis of large intestine without perforation or abscess with bleeding (principal); K63.5 Polyp of colon; K64.0 First degree hemorrhoids; K52.9 Noninfective gastroenteritis and colitis, unspecified; I13.0 Hypertensive heart and chronic kidney disease with heart failure and stage 1 through stage 4 chronic kidney disease, or unspecified chronic kidney disease; N18.9 Chronic kidney disease, unspecified; I50.9 Heart failure, unspecified; I25.2 Old myocardial infarction; E78.00 Pure hypercholesterolemia, unspecified; F41.9 Anxiety disorder, unspecified; G47.30 Sleep apnea, unspecified; Z79.82 Long term (current) use of aspirin; Z79.899 Other long term (current) drug therapy; Z87.891 Personal history of nicotine dependence; Z88.0 Allergy status to penicillin; Z95.1 Presence of aortocoronary bypass graft
CPT/HCPCS: 88305; J2704

== ENCOUNTER 2020-05-18 14:06 | Outpatient (CLI) | payer MEDICARE ==
--- NOTE | 2020-05-18 14:30 | RAD ---
EXAM: Chest 2 views: HISTORY: CHF COMPARISON: 04/23/2019 FINDINGS: There is a normal-sized cardiomediastinal silhouette. The patient is status post sternotomy. There is no evidence of consolidation, mass, or pleural effusion. No acute osseous abnormality. IMPRESSION: No evidence of acute cardiopulmonary disease
[2020-05-18 16:20] LABS: ALT (SGPT) 42 U/L (8-55); AST (SGOT) 53 U/L (5-34); Albumin 3.7 g/dL (3.4-4.8); Alkaline Phosphatase 247 U/L (40-110); Anion Gap 13 mmol/L (10-20); BUN (Urea Nitrogen) 11 mg/dL (8.4-25.7); Bilirubin, Total 2.3 mg/dL (0.2-1.2); Calc. Creatinine Clearance 0 mL/min (70-130); Calcium 9.3 mg/dL (7.8-10.44); Carbon Dioxide 34 mmol/L (23-31); Chloride 94 mmol/L (98-107); Globulin 2.9 g/dL (2.4-3.5); Glucose 106 mg/dL (80-115); Potassium 4.3 mmol/L (3.5-5.1); Protein, Total 6.6 g/dL (5.8-8.1); Sodium 137 mmol/L (136-145)
[2020-05-18 16:38] LABS: Free T4 (Free Thyroxine) 0.97 ng/dL (0.70-1.48); Thyroid Stimulating Hormone 2.6327 uIU/mL (0.35-4.94)
[2020-05-18 16:39] LABS: PSA-Asymptomatic (SCREENING) 0.23 ng/mL (0-4.0)
== END 2020-05-18 14:07 | disposition home or self-care (01) ==
LOC: SCSRAD 14:06
PROVIDERS: ATTEND Family Medicine
DX: Z12.5 Encounter for screening for malignant neoplasm of prostate (principal); I50.42 Chronic combined systolic (congestive) and diastolic (congestive) heart failure; R79.89 Other specified abnormal findings of blood chemistry; E03.9 Hypothyroidism, unspecified
CPT/HCPCS: 36415; 71046; 80053; 84439; 84443; 84481; G0103

== ENCOUNTER 2021-01-14 13:16 | Inpatient (IN) | payer MEDICARE ==
[2021-01-14 14:08] LABS: #Eosinphils 0.5 thou/uL (0.0-0.7); #Lymphocytes 1.1 thou/uL (1.20-3.40); #Monocytes 0.5 thou/uL (0.11-0.59); #Neutrophils 3.2 thou/uL (1.40-6.50); %Basophils 0.8 % (0.0-1.0); %Eosinophils 9.2 % (0.0-10.0); %Lymphocytes 20.4 % (21.0-51.0); %Monocytes 9.8 % (0.0-10.0); %Neutrophils 59.9 % (42.0-75.0); Hemoglobin 14.8 g/dL (14.0-18.0); Mean Corpuscular HGB CONC 33.4 g/dL (32.0-36.0); Mean Corpuscular Hemoglobin 31.9 pg (27.0-31.0); Mean Corpuscular Volume 95.6 fL (78.0-98.0); Mean Platelet Volume 7.4 fL (7.4-10.4); Platelet Count 268 thou/uL (130-400); RBC Distribution Width 12.4 % (11.5-14.5); Red Blood Cell (RBC) Count 4.63 mill/uL (4.70-6.10); White Blood Cell (WBC) Count 5.4 thou/uL (4.8-10.8)
[2021-01-14] MEDS ORDERED: Dexamethasone 10 MG/ML VIAL ONE (14:10)
[2021-01-14 14:34] LABS: ALT (SGPT) 26 U/L (8-55); AST (SGOT) 33 U/L (5-34); Alkaline Phosphatase 73 U/L (40-110); Anion Gap 14 mmol/L (10-20); BUN (Urea Nitrogen) 6 mg/dL (8.4-25.7); Bilirubin, Total 1.2 mg/dL (0.2-1.2); Calc. Creatinine Clearance 0 mL/min (70-130); Calcium 9.1 mg/dL (7.8-10.44); Carbon Dioxide 31 mmol/L (23-31); Chloride 85 mmol/L (98-107); Glucose 86 mg/dL (80-115); Potassium 4.5 mmol/L (3.5-5.1); Sodium 125 mmol/L (136-145)
[2021-01-14 14:57] LABS: CKMB 2.5 ng/mL (0-6.6)
[2021-01-14] MEDS ORDERED: Aspirin Chewable 81 MG TAB ONE (15:39)
[2021-01-14 17:05] LABS: Troponin I 0.035 ng/mL (< 0.028)
[2021-01-14 17:13] LABS: SARS-CoV-2 NAA Rapid Test Not Detected (NotDetected)
[2021-01-14] MEDS ORDERED: Ondansetron PF 4 MG/2 ML Vial IVP PRN (20:27)
[2021-01-14 20:32] LABS: Troponin I 0.028 ng/mL (< 0.028)
[2021-01-14] MEDS: cefTRIAXone\\ROCEPHIN 1 GM in Sodium Chloride 0.9% 100 ML IVPB SCH (21:15)
[2021-01-14] MEDS: Carvedilol 6.25 MG TAB PO SCH (21:15)
[2021-01-14] MEDS: Azithromycin 500 MG in Sodium Chloride 0.9% 250 ML 250 ML IVPB SCH (22:04)
[2021-01-14 23:23] VITALS: BMI 28.9
[2021-01-15 04:17] LABS: #Lymphocytes 0.4 thou/uL (1.20-3.40); #Monocytes 0.1 thou/uL (0.11-0.59); #Neutrophils 3.2 thou/uL (1.40-6.50); %Eosinophils 0.1 % (0.0-10.0); %Lymphocytes 11.4 % (21.0-51.0); %Monocytes 2.5 % (0.0-10.0); %Neutrophils 85.9 % (42.0-75.0); Hemoglobin 14.4 g/dL (14.0-18.0); Mean Corpuscular HGB CONC 32.3 g/dL (32.0-36.0); Mean Corpuscular Hemoglobin 31.1 pg (27.0-31.0); Mean Corpuscular Volume 96.2 fL (78.0-98.0); Mean Platelet Volume 7.6 fL (7.4-10.4); Platelet Count 245 thou/uL (130-400); RBC Distribution Width 12.5 % (11.5-14.5); Red Blood Cell (RBC) Count 4.63 mill/uL (4.70-6.10); White Blood Cell (WBC) Count 3.8 thou/uL (4.8-10.8)
[2021-01-15 04:39] LABS: Anion Gap 12 mmol/L (10-20); BUN (Urea Nitrogen) 14 mg/dL (8.4-25.7); Calc. Creatinine Clearance 107 mL/min (70-130); Calcium 8.9 mg/dL (7.8-10.44); Carbon Dioxide 30 mmol/L (23-31); Chloride 88 mmol/L (98-107); Glucose 134 mg/dL (80-115); Potassium 4.6 mmol/L (3.5-5.1); Sodium 125 mmol/L (136-145)
[2021-01-15] MEDS: Levothyroxine Sodium 125 MCG TAB PO SCH (05:44)
[2021-01-15] MEDS: methylPREDNISolone Sod Succ 40 MG VIAL IVP SCH ×5 (05:44→23:03)
[2021-01-15] MEDS: Carvedilol 6.25 MG TAB PO SCH ×2 (08:25→20:00)
[2021-01-15] MEDS: Enoxaparin Sodium 40 MG/0.4 ML SYRINGE SC SCH (08:25)
[2021-01-15] MEDS ORDERED: Benzonatate 100 MG CAP PO SCH (09:30)
[2021-01-15] MEDS ORDERED: Furosemide 40 MG/4 ML VIAL SLOW IVP SCH (09:30)
[2021-01-15] MEDS: Bisacodyl 5 MG TAB PO PRN (12:00)
[2021-01-15] MEDS: Benzonatate 100 MG CAP PO SCH ×2 (15:19→20:00)
[2021-01-15] MEDS: cefTRIAXone\\ROCEPHIN 1 GM in Sodium Chloride 0.9% 100 ML IVPB SCH (19:59)
[2021-01-15] MEDS: Aspirin 81 mg Enteric Coated Tablet PO SCH (20:00)
[2021-01-15] MEDS: Atorvastatin Calcium 20 MG TAB PO SCH (20:00)
[2021-01-15] MEDS: Azithromycin 500 MG in Sodium Chloride 0.9% 250 ML 250 ML IVPB SCH (20:03)
[2021-01-15] MEDS: Acetaminophen 325 MG TAB PO PRN (23:02)
[2021-01-16] MEDS: Levothyroxine Sodium 125 MCG TAB PO SCH (05:31)
[2021-01-16] MEDS: methylPREDNISolone Sod Succ 40 MG VIAL IVP SCH ×3 (05:31→17:44)
[2021-01-16] MEDS: Benzonatate 100 MG CAP PO SCH ×3 (08:39→20:27)
[2021-01-16] MEDS: Acetaminophen 325 MG TAB PO PRN ×2 (08:39→15:18)
[2021-01-16] MEDS: Carvedilol 6.25 MG TAB PO SCH ×2 (08:39→20:27)
[2021-01-16] MEDS: Enoxaparin Sodium 40 MG/0.4 ML SYRINGE SC SCH (08:40)
[2021-01-16] MEDS ORDERED: Losartan 25 MG TAB PO SCH (09:00)
[2021-01-16] MEDS ORDERED: ALPRAZolam 1 MG TAB PO PRN (10:08)
[2021-01-16] MEDS: Bisacodyl 5 MG TAB PO PRN (17:52)
[2021-01-16] MEDS ORDERED: hydrALAZINE 20 MG/ML VIAL SLOW IVP PRN (18:12)
[2021-01-16] MEDS: Aspirin 81 mg Enteric Coated Tablet PO SCH (20:26)
[2021-01-16] MEDS: Azithromycin 250 MG TAB PO SCH (20:26)
[2021-01-16] MEDS: Losartan 25 MG TAB PO SCH (20:27)
[2021-01-16] MEDS: guaiFENesin ER 600 MG TAB PO SCH (20:27)
[2021-01-16] MEDS: Atorvastatin Calcium 20 MG TAB PO SCH (20:28)
[2021-01-16] MEDS: cefTRIAXone\\ROCEPHIN 1 GM in Sodium Chloride 0.9% 100 ML IVPB SCH (21:32)
[2021-01-17] MEDS: ALPRAZolam 1 MG TAB PO PRN ×4 (00:05→23:38)
[2021-01-17] MEDS: methylPREDNISolone Sod Succ 40 MG VIAL IVP SCH ×5 (00:07→23:38)
[2021-01-17 05:20] LABS: Albumin 3.4 g/dL (3.4-4.8); Anion Gap 9 mmol/L (10-20); BUN (Urea Nitrogen) 20 mg/dL (8.4-25.7); BUN/Creatinine Ratio 23.26; Calc. Creatinine Clearance 120 mL/min (70-130); Calcium 8.6 mg/dL (7.8-10.44); Carbon Dioxide 33 mmol/L (23-31); Chloride 98 mmol/L (98-107); Glucose 126 mg/dL (80-115); Phosphorus 4.2 mg/dL (2.3-4.7); Potassium 3.9 mmol/L (3.5-5.1); Sodium 136 mmol/L (136-145)
[2021-01-17] MEDS: Levothyroxine Sodium 125 MCG TAB PO SCH (06:03)
[2021-01-17] MEDS: Carvedilol 6.25 MG TAB PO SCH ×2 (09:07→20:54)
[2021-01-17] MEDS: Enoxaparin Sodium 40 MG/0.4 ML SYRINGE SC SCH (09:08)
[2021-01-17] MEDS: Losartan 25 MG TAB PO SCH ×2 (09:08→20:54)
[2021-01-17] MEDS: guaiFENesin ER 600 MG TAB PO SCH ×2 (09:09→20:53)
[2021-01-17] MEDS ORDERED: Polyethylene Glycol 3350 17 GM Packet PO PRN (09:10)
[2021-01-17] MEDS: guaiFENesin/Codeine 200 mg/20 mg 10 ml Cup PO PRN ×3 (09:14→23:38)
[2021-01-17] MEDS: Benzonatate 100 MG CAP PO SCH (09:15)
[2021-01-17 11:02] LABS: Bacteria/HPF None Seen HPF (None Seen); Bilirubin Negative (Negative); Blood, Urine Negative (Negative); Clarity Clear (Clear); Glucose, Urine (Dipstick) Normal (Negative); Ketone, Urine Negative (Negative); Leukocyte Negative Leu/uL (Negative); Nitrite Negative (Negative); Protein, Urine (Dipstick) 30 mg/dL (Neg-Trace); RBC/HPF 0-3 HPF (0-3); Squamous Epithelial None Seen HPF (0-3); Urobilinogen Normal mg/dL (Less than 2); WBC/HPF 0-3 HPF (0-3); pH, Urine 6.5 (5.0-9.0)
[2021-01-17 11:25] LABS: Creatinine, Urine 91.99 mg/dL (63-166)
[2021-01-17] MEDS: Acetaminophen 325 MG TAB PO PRN (15:21)
[2021-01-17] MEDS: Azithromycin 250 MG TAB PO SCH (20:53)
[2021-01-17] MEDS: Aspirin 81 mg Enteric Coated Tablet PO SCH (20:54)
[2021-01-17] MEDS: Atorvastatin Calcium 20 MG TAB PO SCH (20:54)
[2021-01-17] MEDS: Senokot S 8.6-50 MG TAB PO SCH (20:54)
[2021-01-17] MEDS: cefTRIAXone\\ROCEPHIN 1 GM in Sodium Chloride 0.9% 100 ML IVPB SCH (22:36)
[2021-01-18] MEDS: Levothyroxine Sodium 125 MCG TAB PO SCH (06:17)
[2021-01-18] MEDS: Acetaminophen 325 MG TAB PO PRN ×2 (06:17→16:29)
[2021-01-18] MEDS: methylPREDNISolone Sod Succ 40 MG VIAL IVP SCH ×3 (06:17→17:53)
[2021-01-18] MEDS: ALPRAZolam 1 MG TAB PO PRN ×2 (06:44→18:01)
[2021-01-18] MEDS: guaiFENesin/Codeine 200 mg/20 mg 10 ml Cup PO PRN (06:44)
[2021-01-18] MEDS: Enoxaparin Sodium 40 MG/0.4 ML SYRINGE SC SCH (09:00)
[2021-01-18] MEDS: Losartan 25 MG TAB PO SCH ×2 (09:00→20:59)
[2021-01-18] MEDS: Folic Acid 1 MG TAB PO SCH (09:00)
[2021-01-18] MEDS: Senokot S 8.6-50 MG TAB PO SCH ×2 (09:00→20:58)
[2021-01-18] MEDS: Carvedilol 6.25 MG TAB PO SCH ×2 (09:00→20:59)
[2021-01-18] MEDS: Thiamine 100 MG TAB PO SCH (09:00)
[2021-01-18] MEDS: guaiFENesin ER 600 MG TAB PO SCH ×2 (09:00→21:00)
[2021-01-18] MEDS: Azithromycin 250 MG TAB PO SCH (20:58)
[2021-01-18] MEDS: Aspirin 81 mg Enteric Coated Tablet PO SCH (20:58)
[2021-01-18] MEDS: Atorvastatin Calcium 20 MG TAB PO SCH (20:58)
[2021-01-18] MEDS: cefTRIAXone\\ROCEPHIN 1 GM in Sodium Chloride 0.9% 100 ML IVPB SCH (22:05)
[2021-01-19] MEDS: methylPREDNISolone Sod Succ 40 MG VIAL IVP SCH ×3 (00:18→12:58)
[2021-01-19] MEDS: ALPRAZolam 1 MG TAB PO PRN ×2 (00:19→13:05)
[2021-01-19] MEDS: Levothyroxine Sodium 125 MCG TAB PO SCH (06:23)
[2021-01-19 07:51] VITALS: TEMP 97.5
[2021-01-19] MEDS: Enoxaparin Sodium 40 MG/0.4 ML SYRINGE SC SCH (09:02)
[2021-01-19] MEDS: Losartan 25 MG TAB PO SCH (09:02)
[2021-01-19] MEDS: Senokot S 8.6-50 MG TAB PO SCH (09:02)
[2021-01-19] MEDS: Folic Acid 1 MG TAB PO SCH (09:03)
[2021-01-19] MEDS: guaiFENesin ER 600 MG TAB PO SCH (09:04)
[2021-01-19] MEDS: Carvedilol 6.25 MG TAB PO SCH (09:04)
[2021-01-19] MEDS: Thiamine 100 MG TAB PO SCH (09:04)
[2021-01-19] MEDS: Acetaminophen 325 MG TAB PO PRN (09:08)
[2021-01-19 12:23] VITALS: BP 149/76
[2021-01-19] MEDS: guaiFENesin/Codeine 200 mg/20 mg 10 ml Cup PO PRN (12:58)
== END 2021-01-19 13:06 | disposition home or self-care (01) | DRG 189 ==
LOC: ERS 13:16 → ERHOLD 16:09 → 2NO 18:39
PROVIDERS: ADMIT Internal Medicine; ATTEND Hospitalist
DX: J96.21 Acute and chronic respiratory failure with hypoxia (principal); I21.A1 Myocardial infarction type 2; J44.1 Chronic obstructive pulmonary disease with (acute) exacerbation; E87.1 Hypo-osmolality and hyponatremia; I47.2 Ventricular tachycardia; I50.42 Chronic combined systolic (congestive) and diastolic (congestive) heart failure; I42.8 Other cardiomyopathies; Z20.822 Contact with and (suspected) exposure to COVID-19; I11.0 Hypertensive heart disease with heart failure; M54.9 Dorsalgia, unspecified; G89.29 Other chronic pain; K21.9 Gastro-esophageal reflux disease without esophagitis; I48.0 Paroxysmal atrial fibrillation; N28.1 Cyst of kidney, acquired; G47.33 Obstructive sleep apnea (adult) (pediatric); E78.2 Mixed hyperlipidemia; F10.10 Alcohol abuse, uncomplicated; E03.9 Hypothyroidism, unspecified; I25.5 Ischemic cardiomyopathy; Z95.1 Presence of aortocoronary bypass graft; Z95.0 Presence of cardiac pacemaker; I25.2 Old myocardial infarction; Z87.891 Personal history of nicotine dependence; Z88.0 Allergy status to penicillin; Z79.82 Long term (current) use of aspirin; Z79.899 Other long term (current) drug therapy; Z79.51 Long term (current) use of inhaled steroids
CPT/HCPCS: 36415; 71045; 80048; 80053; 80069; 81003; 81015; 82533; 82553; 82570; 83605; 83880; 83930; 83935; 84300; 84443; 84484; 85025; 93005; 93306; 94640; 94644; 94760; 96374; J0360; J0456; J0696; J1100; J1650; J1940; J2920; J3490; J7050; J7620; U0002

== ENCOUNTER 2021-04-16 14:00 | Inpatient (IN) | payer MEDICARE ==
[2021-04-19 11:11] LABS: Hemoglobin 14.6 g/dL (13.5-17.5); Mean Corpuscular HGB CONC 31.5 g/dL (32.0-36.0); Mean Corpuscular Hemoglobin 30.5 pg (27.0-33.0); Mean Corpuscular Volume 96.9 fl (81.2-95.1); Mean Platelet Volume 10.4 fl (7.4-10.4); Platelet Count 257 10x3/uL (150-450); RBC Distribution Width 12.2 % (11.5-14.5); Red Blood Cell (RBC) Count 4.78 10x6/uL (4.32-5.72); White Blood Cell (WBC) Count 7.8 10x3/uL (3.5-10.5)
[2021-04-19 11:25] LABS: PTT 30.1 sec (22.0-33.0); Prothrombin Time 10.7 sec (9.5-12.1)
[2021-04-19 11:37] LABS: ALT (SGPT) 25 U/L (8-55); AST (SGOT) 24 U/L (5-34); Albumin 4.3 g/dL (3.4-4.8); Alkaline Phosphatase 59 U/L (40-110); Anion Gap 14 mmol/L (10-20); BUN (Urea Nitrogen) 11 mg/dL (8.4-25.7); Calc. Creatinine Clearance 0 mL/min (70-130); Calcium 9.7 mg/dL (7.8-10.44); Carbon Dioxide 32 mmol/L (23-31); Chloride 92 mmol/L (98-107); Globulin 2.6 g/dL (2.4-3.5); Glucose 86 mg/dL (80-115); Potassium 4.7 mmol/L (3.5-5.1); Protein, Total 6.9 g/dL (5.8-8.1); Sodium 133 mmol/L (136-145)
[2021-04-19 13:52] VITALS: BMI 28.6
[2021-04-19 22:00] LABS: SARS-CoV-2 PCR by NAA Not Detected (NotDetected)
[2021-04-21] MEDS ORDERED: Heparin 10,000 UNITS/ 10 ML VIAL ONE (06:42)
[2021-04-21] MEDS ORDERED: Phenylephrine 10 MG/ML VIAL ONE (06:50)
[2021-04-21] MEDS ORDERED: Fentanyl 100 MCG/2 ML VIAL ONE (07:07)
[2021-04-21] MEDS ORDERED: Ondansetron PF 4 MG/2 ML Vial ONE (07:28)
[2021-04-21] MEDS ORDERED: Rocuronium Bromide 10 MG/ML (10ML VIAL) ONE (07:28)
[2021-04-21] MEDS ORDERED: Lidocaine 1% PF 5 ML VIAL ONE (07:28)
[2021-04-21] MEDS ORDERED: Dexamethasone 20 MG/5 ML VIAL ONE (07:28)
[2021-04-21] MEDS ORDERED: PROPOFOL 200 MG/20 ML VIAL ONE (07:28)
[2021-04-21] MEDS ORDERED: PHENYLEPHRINE-NS 100 MCG/ML 10 ML SYRINGE ONE (07:28)
[2021-04-21] MEDS ORDERED: SUGAMMADEX SODIUM 200 MG/2 ML VIAL ONE (08:37)
[2021-04-21] MEDS ORDERED: Protamine Sulfate 50 MG/5 ML VIAL ONE (08:42)
[2021-04-21] MEDS ORDERED: Iopamidol 370 76% 100 ML VIAL ONE (09:16)
[2021-04-22 14:14] LABS: Cardiolipin IgA Ab 2.1 APL-U/mL (<14 Negative); Cardiolipin IgG Ab 0.6 GPL-U/mL (<10 Negative); Cardiolipin IgM Ab Less than 0.8 MPL-U/mL (<10 Negative); EliA APS New Method **** NEW METHOD ****
== END 2021-04-21 14:30 | disposition home or self-care (01) | DRG 274 ==
LOC: SURG A 04-21 05:54
PROVIDERS: ADMIT Internal Medicine Cardiovascular Disease; ATTEND Internal Medicine Cardiovascular Disease
PROC: 02L73DK Occlusion of Left Atrial Appendage with Intraluminal Device, Percutaneous Approach (ICD-10-PCS; principal; 2021-04-21)
PROC: B24BZZ4 Ultrasonography of Heart with Aorta, Transesophageal (ICD-10-PCS; 2021-04-21)
DX: I48.19 Other persistent atrial fibrillation (principal); I50.22 Chronic systolic (congestive) heart failure; I13.0 Hypertensive heart and chronic kidney disease with heart failure and stage 1 through stage 4 chronic kidney disease, or unspecified chronic kidney disease; Z00.6 Encounter for examination for normal comparison and control in clinical research program; Z20.822 Contact with and (suspected) exposure to COVID-19; I25.5 Ischemic cardiomyopathy; I25.10 Atherosclerotic heart disease of native coronary artery without angina pectoris; F10.11 Alcohol abuse, in remission; E03.9 Hypothyroidism, unspecified; N18.9 Chronic kidney disease, unspecified; E78.5 Hyperlipidemia, unspecified; J44.9 Chronic obstructive pulmonary disease, unspecified; G47.30 Sleep apnea, unspecified; J30.2 Other seasonal allergic rhinitis; Z95.1 Presence of aortocoronary bypass graft; Z87.891 Personal history of nicotine dependence; I25.2 Old myocardial infarction; Z86.74 Personal history of sudden cardiac arrest; Z99.89 Dependence on other enabling machines and devices; Z79.899 Other long term (current) drug therapy; Z79.890 Hormone replacement therapy; Z79.82 Long term (current) use of aspirin; Z79.01 Long term (current) use of anticoagulants
CPT/HCPCS: 33340; 36430; 80053; 85027; 85347; 85610; 85730; 86147; 86850; 86900; 86901; 93005; 93306; 93312; 93662; C1759; J1100; J1644; J2370; J2405; J2704; J2720; J3010; Q9967; U0003; U0005

== ENCOUNTER 2021-04-19 10:11 | Outpatient (CLI) | payer MEDICARE | END 2021-04-19 10:12 | disposition home or self-care (01) | LOC: LABBT 10:11 | PROVIDERS: ATTEND Internal Medicine Cardiovascular Disease | DX: Z01.818 Encounter for other preprocedural examination (principal); I48.19 Other persistent atrial fibrillation | CPT/HCPCS: 80053; 85027; 85610; 85730; 86147; 86850; 86900; 86901; 93005; 93010; U0003; U0005 ==

== ENCOUNTER 2021-06-03 12:55 | Outpatient (CLI) | payer MEDICARE ==
[2021-06-03 13:53] LABS: Hemoglobin 13.7 g/dL (13.5-17.5); Mean Corpuscular HGB CONC 31.6 g/dL (32.0-36.0); Mean Corpuscular Hemoglobin 30.1 pg (27.0-33.0); Mean Corpuscular Volume 95.4 fl (81.2-95.1); Mean Platelet Volume 10.1 fl (7.4-10.4); Platelet Count 273 10x3/uL (150-450); RBC Distribution Width 13.1 % (11.5-14.5); Red Blood Cell (RBC) Count 4.55 10x6/uL (4.32-5.72); White Blood Cell (WBC) Count 6.9 10x3/uL (3.5-10.5)
[2021-06-03 14:12] LABS: Anion Gap 15 mmol/L (10-20); BUN (Urea Nitrogen) 11 mg/dL (8.4-25.7); Calc. Creatinine Clearance 0 mL/min (70-130); Calcium 9.6 mg/dL (7.8-10.44); Carbon Dioxide 31 mmol/L (23-31); Chloride 93 mmol/L (98-107); Glucose 81 mg/dL (80-115); Potassium 5.1 mmol/L (3.5-5.1); Sodium 134 mmol/L (136-145)
[2021-06-03 14:20] LABS: PTT 30.3 sec (22.0-33.0); Prothrombin Time 10.9 sec (9.5-12.1)
[2021-06-04 13:49] LABS: SARS-CoV-2 PCR by NAA Not Detected (NotDetected)
== END 2021-06-03 12:56 | disposition home or self-care (01) ==
LOC: LABBT 12:55
PROVIDERS: ATTEND Internal Medicine Cardiovascular Disease
DX: Z01.812 Encounter for preprocedural laboratory examination (principal); I50.9 Heart failure, unspecified; Z20.822 Contact with and (suspected) exposure to COVID-19
CPT/HCPCS: 80048; 85027; 85610; 85730; U0003; U0005

== ENCOUNTER 2021-06-07 11:20 | Day surgery (SDC) | payer MEDICARE ==
[2021-05-28 13:43] VITALS: BMI 29.6
[2021-06-07] MEDS ORDERED: PROPOFOL 200 MG/20 ML VIAL ONE (15:21)
[2021-06-07] MEDS ORDERED: Lidocaine 1% PF 5 ML VIAL ONE (15:21)
[2021-06-07] MEDS ORDERED: Metoprolol Tartrate 5 MG/5 ML VIAL ONE (16:23)
== END 2021-06-07 17:05 | disposition home or self-care (01) ==
LOC: CCL 11:20
PROVIDERS: ATTEND Internal Medicine Cardiovascular Disease
PROC: B246ZZ4 Ultrasonography of Right and Left Heart, Transesophageal (ICD-10-PCS; principal; 2021-06-07)
DX: I48.19 Other persistent atrial fibrillation (principal); I13.0 Hypertensive heart and chronic kidney disease with heart failure and stage 1 through stage 4 chronic kidney disease, or unspecified chronic kidney disease; N18.9 Chronic kidney disease, unspecified; I50.22 Chronic systolic (congestive) heart failure; D63.1 Anemia in chronic kidney disease; I08.1 Rheumatic disorders of both mitral and tricuspid valves; I25.10 Atherosclerotic heart disease of native coronary artery without angina pectoris; J44.9 Chronic obstructive pulmonary disease, unspecified; F10.11 Alcohol abuse, in remission; E03.9 Hypothyroidism, unspecified; I25.2 Old myocardial infarction; I25.5 Ischemic cardiomyopathy; E78.5 Hyperlipidemia, unspecified; K92.2 Gastrointestinal hemorrhage, unspecified; Z87.891 Personal history of nicotine dependence; Z79.01 Long term (current) use of anticoagulants; Z79.82 Long term (current) use of aspirin; Z79.899 Other long term (current) drug therapy; Z88.0 Allergy status to penicillin; Z95.1 Presence of aortocoronary bypass graft; Z95.818 Presence of other cardiac implants and grafts
CPT/HCPCS: 93312; J2704

== ENCOUNTER 2021-11-09 09:23 | Outpatient (CLI) | payer MEDICARE ==
[2021-11-09 10:33] LABS: Mean Corpuscular HGB CONC 32.8 g/dL (32.0-36.0); Mean Corpuscular Hemoglobin 31.8 pg (27.0-33.0); Mean Corpuscular Volume 96.8 fl (81.2-95.1); Mean Platelet Volume 9.7 fl (7.4-10.4); Platelet Count 281 10x3/uL (150-450); RBC Distribution Width 13.2 % (11.5-14.5); Red Blood Cell (RBC) Count 4.09 10x6/uL (4.32-5.72); White Blood Cell (WBC) Count 7.3 10x3/uL (3.5-10.5)
[2021-11-09 10:52] LABS: INR-International Normal Ratio 0.9; Prothrombin Time 10.3 sec (9.5-12.1)
[2021-11-09 10:54] LABS: Bilirubin Neg (Negative); Blood, Urine Negative (Negative); Clarity Clear (Clear); Glucose, Urine (Dipstick) Normal (Negative); Ketone, Urine Negative (Negative); Leukocyte Negative (Negative); Nitrite Negative (Negative); Protein, Urine (Dipstick) 30 mg/dl (Neg-Trace); Urobilinogen Normal mg/dL (Less than 2)
[2021-11-09 10:58] LABS: Anion Gap 16 mmol/L (10-20); BUN (Urea Nitrogen) 19 mg/dL (8.4-25.7); Calc. Creatinine Clearance 0 mL/min (70-130); Carbon Dioxide 32 mmol/L (23-31); Chloride 86 mmol/L (98-107); Glucose 82 mg/dL (80-115); Potassium 5.1 mmol/L (3.5-5.1); Sodium 129 mmol/L (136-145)
[2021-11-09 11:09] LABS: Bacteria/HPF None Seen HPF (None Seen); RBC/HPF 0-3 HPF (0-3); Squamous Epithelial 0-3 HPF (0-3); WBC/HPF 0-3 HPF (0-3)
== END 2021-11-09 09:24 | disposition home or self-care (01) ==
LOC: LABBT 09:23
PROVIDERS: ATTEND Urology
DX: Z01.812 Encounter for preprocedural laboratory examination (principal); J44.9 Chronic obstructive pulmonary disease, unspecified; I50.43 Acute on chronic combined systolic (congestive) and diastolic (congestive) heart failure; I48.91 Unspecified atrial fibrillation; G47.33 Obstructive sleep apnea (adult) (pediatric); N40.1 Benign prostatic hyperplasia with lower urinary tract symptoms; N13.8 Other obstructive and reflux uropathy; Z20.822 Contact with and (suspected) exposure to COVID-19
CPT/HCPCS: 80048; 81001; 85027; 85610; 85730; 87086; U0003; U0005

== ENCOUNTER 2021-11-12 06:14 | Day surgery (SDC) | payer MEDICARE ==
[2021-11-10 13:14] VITALS: BMI 29.5
[2021-11-12] MEDS ORDERED: B & O ONE (08:24)
[2021-11-12] MEDS ORDERED: Fentanyl 100 MCG/2 ML VIAL ONE (08:27)
[2021-11-12] MEDS ORDERED: Levofloxacin 500 mg/D5W 100 ml Premix Bag ONE (08:28)
[2021-11-12] MEDS ORDERED: Lidocaine 1% PF 5 ML VIAL ONE (08:35)
[2021-11-12] MEDS ORDERED: Ondansetron PF 4 MG/2 ML Vial ONE (08:35)
[2021-11-12] MEDS ORDERED: Dexamethasone 20 MG/5 ML VIAL ONE (08:35)
[2021-11-12] MEDS ORDERED: PROPOFOL 200 MG/20 ML VIAL ONE (08:35)
[2021-11-12] MEDS ORDERED: PHENYLEPHRINE-NS 100 MCG/ML 10 ML SYRINGE ONE (08:35)
== END 2021-11-12 11:00 | disposition home or self-care (01) ==
LOC: SDC 06:14
PROVIDERS: ATTEND Urology
PROC: 0T7D8DZ Dilation of Urethra with Intraluminal Device, Via Natural or Artificial Opening Endoscopic (ICD-10-PCS; principal; 2021-11-12)
DX: N40.1 Benign prostatic hyperplasia with lower urinary tract symptoms (principal); N13.8 Other obstructive and reflux uropathy; R35.0 Frequency of micturition; R35.1 Nocturia; R39.11 Hesitancy of micturition; R39.12 Poor urinary stream; I11.0 Hypertensive heart disease with heart failure; I50.42 Chronic combined systolic (congestive) and diastolic (congestive) heart failure; I48.91 Unspecified atrial fibrillation; I25.2 Old myocardial infarction; E03.9 Hypothyroidism, unspecified; E78.5 Hyperlipidemia, unspecified; J44.9 Chronic obstructive pulmonary disease, unspecified; G47.33 Obstructive sleep apnea (adult) (pediatric); Z79.02 Long term (current) use of antithrombotics/antiplatelets; Z79.890 Hormone replacement therapy; Z79.899 Other long term (current) drug therapy; Z88.0 Allergy status to penicillin; Z87.891 Personal history of nicotine dependence; Z95.1 Presence of aortocoronary bypass graft
CPT/HCPCS: C9740; L8699; J1100; J1956; J2405; J2704; J3010

== ENCOUNTER 2021-11-25 13:04 | Emergency (ER) | payer MEDICARE ==
[2021-11-25 13:39] LABS: #Eosinphils 0.1 thou/uL (0.0-0.7); #Lymphocytes 0.9 thou/uL (1.20-3.40); #Monocytes 0.7 thou/uL (0.11-0.59); #Neutrophils 5.6 thou/uL (1.40-6.50); %Basophils 0.6 % (0.0-1.0); %Eosinophils 1.8 % (0.0-10.0); %Lymphocytes 11.9 % (21.0-51.0); %Neutrophils 76.7 % (42.0-75.0); Hemoglobin 13.9 g/dL (14.0-18.0); Mean Corpuscular HGB CONC 32.6 g/dL (32.0-36.0); Mean Corpuscular Hemoglobin 32.7 pg (27.0-31.0); Mean Platelet Volume 7.1 fL (7.4-10.4); Platelet Count 229 thou/uL (130-400); RBC Distribution Width 12.4 % (11.5-14.5); Red Blood Cell (RBC) Count 4.25 mill/uL (4.70-6.10); White Blood Cell (WBC) Count 7.2 thou/uL (4.8-10.8)
[2021-11-25 14:05] LABS: ALT (SGPT) 41 U/L (8-55); AST (SGOT) 56 U/L (5-34); Albumin 4.3 g/dL (3.4-4.8); Alkaline Phosphatase 88 U/L (40-110); Anion Gap 17 mmol/L (10-20); BUN (Urea Nitrogen) 14 mg/dL (8.4-25.7); Bilirubin, Total 1.9 mg/dL (0.2-1.2); Calc. Creatinine Clearance 0 mL/min (70-130); Calcium 9.9 mg/dL (7.8-10.44); Carbon Dioxide 35 mmol/L (23-31); Chloride 86 mmol/L (98-107); Estimated GFR 57; Globulin 2.9 g/dL (2.4-3.5); Glucose 107 mg/dL (80-115); Potassium 4.4 mmol/L (3.5-5.1); Protein, Total 7.2 g/dL (5.8-8.1); Sodium 134 mmol/L (136-145)
[2021-11-25 15:52] LABS: Bacteria/HPF None Seen HPF (None Seen); Bilirubin Negative (Negative); Blood, Urine Negative (Negative); Clarity Clear (Clear); Glucose, Urine (Dipstick) Normal (Negative); Ketone, Urine Negative (Negative); Leukocyte Negative Leu/uL (Negative); Nitrite Negative (Negative); Protein, Urine (Dipstick) 30 mg/dL (Neg-Trace); RBC/HPF 0-3 HPF (0-3); Specific Gravity, Urine 1.011 (1.002-1.036); Squamous Epithelial None Seen HPF (0-3); Urobilinogen Normal mg/dL (Less than 2)
[2021-11-25] MEDS ORDERED: Furosemide 40 MG TAB ONE (17:40)
== END 2021-11-25 17:40 | disposition home or self-care (01) ==
LOC: ERS 13:04
DX: E87.70 Fluid overload, unspecified (principal); I11.0 Hypertensive heart disease with heart failure; I50.9 Heart failure, unspecified; J44.9 Chronic obstructive pulmonary disease, unspecified; I48.91 Unspecified atrial fibrillation; I25.2 Old myocardial infarction; K21.9 Gastro-esophageal reflux disease without esophagitis; E78.5 Hyperlipidemia, unspecified; G47.33 Obstructive sleep apnea (adult) (pediatric); Z87.891 Personal history of nicotine dependence; Z95.1 Presence of aortocoronary bypass graft; Z79.82 Long term (current) use of aspirin; Z79.899 Other long term (current) drug therapy
CPT/HCPCS: 36415; 71045; 74176; 80053; 81003; 81015; 83605; 83690; 83880; 84484; 85025; 93005

== ENCOUNTER 2022-04-06 09:57 | Outpatient (CLI) | payer MEDICARE | END 2022-04-06 09:58 | disposition home or self-care (01) | LOC: RAD 09:57 | PROVIDERS: ATTEND Internal Medicine Critical Care Medicine | DX: R06.00 Dyspnea, unspecified (principal) | CPT/HCPCS: 71046 ==

== ENCOUNTER 2022-12-12 13:00 | Inpatient (IN) | payer MEDICARE ==
[2022-12-12 13:57] LABS: #Basophils 0.1 thou/uL (0.0-0.2); #Eosinphils 0.2 thou/uL (0.0-0.7); #Monocytes 0.4 thou/uL (0.11-0.59); %Eosinophils 3.8 % (0.0-10.0); %Lymphocytes 27.2 % (21.0-51.0); %Monocytes 7.9 % (0.0-10.0); %Neutrophils 59.7 % (42.0-75.0); Hemoglobin 13.8 g/dL (14.0-18.0); Mean Corpuscular Hemoglobin 33.5 pg (27.0-31.0); Mean Corpuscular Volume 98.5 fl (78.0-98.0); Mean Platelet Volume 10.2 fL (7.4-10.4); Platelet Count 176 10x3/uL (130-400); RBC Distribution Width 13.3 % (11.5-14.5); Red Blood Cell (RBC) Count 4.12 mill/uL (4.70-6.10)
[2022-12-12 14:14] LABS: Bacteria/HPF None Seen HPF (None Seen); Bilirubin Negative (Negative); Blood, Urine Negative (Negative); CAUTI Indications for Culture Alt mental st,lethar; Clarity Clear (Clear); Glucose, Urine (Dipstick) Normal (Negative); Ketone, Urine Negative (Negative); Leukocyte Negative Leu/uL (Negative); Nitrite Negative (Negative); Protein, Urine (Dipstick) Negative (Neg-Trace); RBC/HPF None Seen HPF (0-3); Specific Gravity, Urine 1.005 (1.002-1.036); Squamous Epithelial 0-3 HPF (0-3); Urobilinogen Normal mg/dL (Less than 2); WBC/HPF 0-3 HPF (0-3); pH, Urine 7.5 (5.0-9.0)
[2022-12-12 14:16] LABS: Urine Culture Reflex No No
[2022-12-12 14:20] LABS: ALT (SGPT) 97 U/L (8-55); AST (SGOT) 113 U/L (5-34); Albumin 3.6 g/dL (3.4-4.8); Alkaline Phosphatase 108 U/L (40-110); Anion Gap 15 mmol/L (10-20); BUN (Urea Nitrogen) 9 mg/dL (8.4-25.7); Bilirubin, Total 1.3 mg/dL (0.2-1.2); Calc. Creatinine Clearance 0 mL/min (70-130); Calcium 8.9 mg/dL (7.8-10.44); Carbon Dioxide 27 mmol/L (23-31); Chloride 91 mmol/L (98-107); Estimated GFR 70; Globulin 2.8 g/dL (2.4-3.5); Glucose 78 mg/dL (80-115); Potassium 4.4 mmol/L (3.5-5.1); Protein, Total 6.4 g/dL (5.8-8.1); Sodium 129 mmol/L (136-145)
[2022-12-12] MEDS ORDERED: Albuterol 2.5 MG/0.5 ML NEB ONE (15:56)
[2022-12-12] MEDS ORDERED: Ipratropium/Albuterol 3 ML NEB ONE (15:56)
[2022-12-12] MEDS ORDERED: Ipratropium/Albuterol 3 ML NEB NEB PRN (18:12)
[2022-12-12] MEDS ORDERED: Ondansetron ODT 4 MG TAB PO PRN (18:13)
[2022-12-12] MEDS ORDERED: Lorazepam 1 MG TAB PO PRN (18:13)
[2022-12-12] MEDS ORDERED: Lorazepam 2 MG/ML VIAL IM PRN (18:13)
[2022-12-12] MEDS ORDERED: Electrolyte Replacement Protocol 1 EACH FS SCH (18:15)
[2022-12-12] MEDS ORDERED: Folic Acid 1 MG TAB PO SCH (18:30)
[2022-12-12] MEDS ORDERED: Multivit, Therapeutic 1 TAB PO SCH (18:30)
[2022-12-12] MEDS ORDERED: Metoprolol Tartrate 5 MG/5 ML VIAL IVP PRN (18:33)
[2022-12-12] MEDS: Lorazepam 1 MG TAB PO SCH ×2 (18:54→23:02)
[2022-12-12] MEDS: Sodium Chloride 0.9% 1,000 ML IV SCH (18:54)
[2022-12-12] MEDS: Thiamine HCl 200 MG/2 ML VIAL SLOW IVP SCH (18:55)
[2022-12-12] MEDS: Ipratropium/Albuterol 3 ML NEB NEB SCH (22:38)
[2022-12-13 04:55] LABS: #Eosinphils 0.1 thou/uL (0.0-0.7); #Monocytes 0.5 thou/uL (0.11-0.59); #Neutrophils 4.7 thou/uL (1.40-6.50); %Basophils 0.6 % (0.0-1.0); %Lymphocytes 16.8 % (21.0-51.0); %Monocytes 8.2 % (0.0-10.0); %Neutrophils 72.1 % (42.0-75.0); Hemoglobin 13.5 g/dL (14.0-18.0); Mean Corpuscular Hemoglobin 33.3 pg (27.0-31.0); Mean Corpuscular Volume 97.8 fl (78.0-98.0); Mean Platelet Volume 10.7 fL (7.4-10.4); Platelet Count 165 10x3/uL (130-400); RBC Distribution Width 13.5 % (11.5-14.5); Red Blood Cell (RBC) Count 4.06 mill/uL (4.70-6.10); White Blood Cell (WBC) Count 6.6 10x3/uL (4.8-10.8)
[2022-12-13 05:18] LABS: Anion Gap 10 mmol/L (10-20); BUN (Urea Nitrogen) 13 mg/dL (8.4-25.7); Calc. Creatinine Clearance 74 mL/min (70-130); Calcium 8.8 mg/dL (7.8-10.44); Carbon Dioxide 29 mmol/L (23-31); Chloride 94 mmol/L (98-107); Estimated GFR 64; Glucose 83 mg/dL (80-115); Magnesium 2.1 mg/dL (1.6-2.6); Potassium 4.4 mmol/L (3.5-5.1); Sodium 129 mmol/L (136-145)
[2022-12-13] MEDS: Lorazepam 1 MG TAB PO SCH ×2 (05:26→13:25)
[2022-12-13] MEDS: Levothyroxine Sodium 125 MCG TAB PO SCH (05:26)
[2022-12-13] MEDS: Ipratropium/Albuterol 3 ML NEB NEB SCH ×3 (07:23→18:38)
[2022-12-13] MEDS: Sodium Chloride 0.9% 1,000 ML IV SCH (09:45)
[2022-12-13 09:54] VITALS: BMI 24.4
[2022-12-13] MEDS: Fludrocortisone Acetate 0.1 MG TAB PO SCH (09:57)
[2022-12-13] MEDS: Multivit, Therapeutic 1 TAB PO SCH (09:58)
[2022-12-13] MEDS: Folic Acid 1 MG TAB PO SCH (09:58)
[2022-12-13] MEDS ORDERED: Non-Formulary Item 1 EACH (Albuterol Hfa (Or) 200 PUFF Inh) INH PRN (10:16)
[2022-12-13] MEDS ORDERED: Albuterol 200 PUFF (6.7GM INHALER) INH PRN ×3 (10:23→14:25)
[2022-12-13] MEDS ORDERED: ALBUTEROL INHALER INH PRN (14:42)
[2022-12-13] MEDS ORDERED: Lorazepam 1 MG TAB PO PRN (18:13)
[2022-12-13] MEDS: Thiamine HCl 200 MG/2 ML VIAL SLOW IVP SCH (18:18)
[2022-12-13] MEDS: Lorazepam 0.5 MG TAB PO PRN (18:23)
[2022-12-13] MEDS: Budesonide 0.5 MG/2 ML NEB NEB SCH (18:40)
[2022-12-13] MEDS: Aspirin 81 mg Enteric Coated Tablet PO SCH (20:47)
[2022-12-13] MEDS: Atorvastatin Calcium 20 MG TAB PO SCH (20:47)
[2022-12-14] MEDS: Lorazepam 0.5 MG TAB PO PRN ×3 (00:51→20:24)
[2022-12-14] MEDS: Levothyroxine Sodium 125 MCG TAB PO SCH (05:15)
[2022-12-14 05:51] LABS: Anion Gap 13 mmol/L (10-20); BUN (Urea Nitrogen) 13 mg/dL (8.4-25.7); Calc. Creatinine Clearance 85 mL/min (70-130); Calcium 8.9 mg/dL (7.8-10.44); Carbon Dioxide 25 mmol/L (23-31); Chloride 98 mmol/L (98-107); Estimated GFR 71; Glucose 87 mg/dL (80-115); Sodium 132 mmol/L (136-145)
[2022-12-14] MEDS: Ipratropium/Albuterol 3 ML NEB NEB SCH ×3 (07:08→18:55)
[2022-12-14] MEDS: Budesonide 0.5 MG/2 ML NEB NEB SCH ×2 (07:10→18:56)
[2022-12-14] MEDS: Fludrocortisone Acetate 0.1 MG TAB PO SCH (09:36)
[2022-12-14] MEDS: Multivit, Therapeutic 1 TAB PO SCH (09:37)
[2022-12-14] MEDS: Folic Acid 1 MG TAB PO SCH (09:37)
[2022-12-14] MEDS: Thiamine HCl 200 MG/2 ML VIAL SLOW IVP SCH (17:43)
[2022-12-14] MEDS ORDERED: Lorazepam 1 MG TAB PO PRN (18:13)
[2022-12-14] MEDS ORDERED: Lorazepam 0.5 MG TAB PO SCH (18:15)
[2022-12-14] MEDS: Atorvastatin Calcium 20 MG TAB PO SCH (20:24)
[2022-12-14] MEDS: Aspirin 81 mg Enteric Coated Tablet PO SCH (20:24)
[2022-12-15 05:03] LABS: #Basophils 0.1 thou/uL (0.0-0.2); #Eosinphils 0.2 thou/uL (0.0-0.7); #Monocytes 0.5 thou/uL (0.11-0.59); #Neutrophils 3.9 thou/uL (1.40-6.50); %Basophils 0.9 % (0.0-1.0); %Eosinophils 2.7 % (0.0-10.0); %Lymphocytes 20.4 % (21.0-51.0); %Monocytes 9.1 % (0.0-10.0); %Neutrophils 66.6 % (42.0-75.0); Hemoglobin 12.4 g/dL (14.0-18.0); Mean Corpuscular HGB CONC 33.2 g/dL (32.0-36.0); Mean Corpuscular Hemoglobin 33.9 pg (27.0-31.0); Mean Corpuscular Volume 102.2 fl (78.0-98.0); Mean Platelet Volume 10.5 fL (7.4-10.4); Platelet Count 171 10x3/uL (130-400); RBC Distribution Width 13.7 % (11.5-14.5); Red Blood Cell (RBC) Count 3.66 mill/uL (4.70-6.10); White Blood Cell (WBC) Count 5.8 10x3/uL (4.8-10.8)
[2022-12-15] MEDS: Levothyroxine Sodium 125 MCG TAB PO SCH (05:16)
[2022-12-15 05:33] LABS: Anion Gap 14 mmol/L (10-20); BUN (Urea Nitrogen) 14 mg/dL (8.4-25.7); Calc. Creatinine Clearance 86 mL/min (70-130); Calcium 9.3 mg/dL (7.8-10.44); Carbon Dioxide 27 mmol/L (23-31); Chloride 98 mmol/L (98-107); Estimated GFR 72; Glucose 92 mg/dL (80-115); Potassium 3.7 mmol/L (3.5-5.1); Sodium 135 mmol/L (136-145)
[2022-12-15] MEDS: Budesonide 0.5 MG/2 ML NEB NEB SCH ×2 (07:41→18:54)
[2022-12-15] MEDS: Ipratropium/Albuterol 3 ML NEB NEB SCH ×3 (07:44→18:53)
[2022-12-15] MEDS ORDERED: Magnesium 2 GM/50 ML(in water) 2 GM in Premix Bag 1 BAG IVPB SCH (08:00)
[2022-12-15] MEDS: Folic Acid 1 MG TAB PO SCH (09:33)
[2022-12-15] MEDS: Multivit, Therapeutic 1 TAB PO SCH (09:33)
[2022-12-15] MEDS: Lorazepam 0.5 MG TAB PO PRN (13:08)
[2022-12-15] MEDS ORDERED: Lorazepam 0.5 MG TAB PO PRN (18:13)
[2022-12-15] MEDS ORDERED: Thiamine 100 MG TAB PO SCH (18:15)
[2022-12-15] MEDS: Sacubitril 24MG/Valsartan 26 MG TAB PO SCH (20:50)
[2022-12-15] MEDS: Atorvastatin Calcium 20 MG TAB PO SCH (20:50)
[2022-12-15] MEDS: Aspirin 81 mg Enteric Coated Tablet PO SCH (20:50)
[2022-12-15] MEDS: Carvedilol 3.125 MG TAB PO SCH (20:51)
[2022-12-16 04:15] LABS: #Eosinphils 0.2 thou/uL (0.0-0.7); #Monocytes 0.6 thou/uL (0.11-0.59); #Neutrophils 4.1 thou/uL (1.40-6.50); %Basophils 0.7 % (0.0-1.0); %Eosinophils 2.8 % (0.0-10.0); %Lymphocytes 17.5 % (21.0-51.0); %Monocytes 9.5 % (0.0-10.0); Hemoglobin 13.5 g/dL (14.0-18.0); Mean Corpuscular HGB CONC 33.3 g/dL (32.0-36.0); Mean Corpuscular Hemoglobin 33.7 pg (27.0-31.0); Mean Platelet Volume 10.2 fL (7.4-10.4); Platelet Count 183 10x3/uL (130-400); RBC Distribution Width 13.7 % (11.5-14.5); Red Blood Cell (RBC) Count 4.01 mill/uL (4.70-6.10)
[2022-12-16 04:42] LABS: Anion Gap 14 mmol/L (10-20); BUN (Urea Nitrogen) 10 mg/dL (8.4-25.7); Calc. Creatinine Clearance 104 mL/min (70-130); Calcium 9.1 mg/dL (7.8-10.44); Carbon Dioxide 27 mmol/L (23-31); Chloride 99 mmol/L (98-107); Estimated GFR 90; Glucose 89 mg/dL (80-115); Magnesium 2.3 mg/dL (1.6-2.6); Potassium 4.3 mmol/L (3.5-5.1); Sodium 136 mmol/L (136-145)
[2022-12-16] MEDS: Levothyroxine Sodium 125 MCG TAB PO SCH (05:30)
[2022-12-16] MEDS: Budesonide 0.5 MG/2 ML NEB NEB SCH (08:01)
[2022-12-16] MEDS: Ipratropium/Albuterol 3 ML NEB NEB SCH (08:04)
[2022-12-16 09:01] VITALS: BP 104/61; TEMP 97.9
[2022-12-16] MEDS: Folic Acid 1 MG TAB PO SCH (09:02)
[2022-12-16] MEDS: Sacubitril 24MG/Valsartan 26 MG TAB PO SCH (09:02)
[2022-12-16] MEDS: Multivit, Therapeutic 1 TAB PO SCH (09:02)
[2022-12-16] MEDS: Carvedilol 3.125 MG TAB PO SCH (09:02)
== END 2022-12-16 10:58 | disposition home or self-care (01) | DRG 312 ==
LOC: ERS 13:00 → 2NO 17:17
PROVIDERS: ADMIT Internal Medicine; ATTEND Family Medicine
DX: I95.1 Orthostatic hypotension (principal); J44.1 Chronic obstructive pulmonary disease with (acute) exacerbation; E87.1 Hypo-osmolality and hyponatremia; I50.42 Chronic combined systolic (congestive) and diastolic (congestive) heart failure; J96.11 Chronic respiratory failure with hypoxia; I13.0 Hypertensive heart and chronic kidney disease with heart failure and stage 1 through stage 4 chronic kidney disease, or unspecified chronic kidney disease; I42.9 Cardiomyopathy, unspecified; F10.20 Alcohol dependence, uncomplicated; E03.9 Hypothyroidism, unspecified; G89.29 Other chronic pain; M54.9 Dorsalgia, unspecified; G47.33 Obstructive sleep apnea (adult) (pediatric); K21.9 Gastro-esophageal reflux disease without esophagitis; I34.0 Nonrheumatic mitral (valve) insufficiency; E78.00 Pure hypercholesterolemia, unspecified; D64.9 Anemia, unspecified; N18.9 Chronic kidney disease, unspecified; G40.909 Epilepsy, unspecified, not intractable, without status epilepticus; I48.91 Unspecified atrial fibrillation; I25.10 Atherosclerotic heart disease of native coronary artery without angina pectoris; I25.2 Old myocardial infarction; Z91.041 Radiographic dye allergy status; Z88.0 Allergy status to penicillin; Z79.890 Hormone replacement therapy; Z79.899 Other long term (current) drug therapy; Z95.1 Presence of aortocoronary bypass graft; Z99.81 Dependence on supplemental oxygen; Z87.891 Personal history of nicotine dependence
CPT/HCPCS: 36415; 71045; 80048; 80053; 81001; 82533; 83735; 84443; 84484; 85025; 93005; 93306; 93880; 94640; 96360; J1650; J3411; J3475; J7050; J7611; J7620; J7626

== ENCOUNTER 2022-12-16 14:46 | Inpatient (IN) | payer MEDICARE ==
[2022-12-16 15:21] LABS: #Eosinphils 0.2 thou/uL (0.0-0.7); #Monocytes 0.6 thou/uL (0.11-0.59); #Neutrophils 3.7 thou/uL (1.40-6.50); %Basophils 0.5 % (0.0-1.0); %Eosinophils 2.9 % (0.0-10.0); %Lymphocytes 19.1 % (21.0-51.0); %Monocytes 9.9 % (0.0-10.0); %Neutrophils 67.4 % (42.0-75.0); Hemoglobin 13.5 g/dL (14.0-18.0); Mean Corpuscular HGB CONC 32.8 g/dL (32.0-36.0); Mean Corpuscular Hemoglobin 33.2 pg (27.0-31.0); Mean Platelet Volume 10.3 fL (7.4-10.4); Platelet Count 213 10x3/uL (130-400); RBC Distribution Width 13.8 % (11.5-14.5); Red Blood Cell (RBC) Count 4.07 mill/uL (4.70-6.10); White Blood Cell (WBC) Count 5.6 10x3/uL (4.8-10.8)
[2022-12-16 15:44] LABS: ALT (SGPT) 44 U/L (8-55); AST (SGOT) 39 U/L (5-34); Albumin 3.5 g/dL (3.4-4.8); Alkaline Phosphatase 89 U/L (40-110); Anion Gap 13 mmol/L (10-20); BUN (Urea Nitrogen) 10 mg/dL (8.4-25.7); Bilirubin, Total 1.2 mg/dL (0.2-1.2); Calc. Creatinine Clearance 0 mL/min (70-130); Calcium 9.1 mg/dL (7.8-10.44); Carbon Dioxide 25 mmol/L (23-31); Chloride 98 mmol/L (98-107); Estimated GFR 88; Globulin 2.8 g/dL (2.4-3.5); Glucose 107 mg/dL (80-115); Potassium 3.6 mmol/L (3.5-5.1); Protein, Total 6.3 g/dL (5.8-8.1); Sodium 132 mmol/L (136-145)
[2022-12-16] MEDS ORDERED: Acetaminophen 325 MG TAB PO PRN (18:49)
[2022-12-16] MEDS ORDERED: Senokot S 8.6-50 MG TAB PO PRN (18:49)
[2022-12-16] MEDS ORDERED: Ondansetron ODT 4 MG TAB PO PRN (18:49)
[2022-12-16 21:16] VITALS: BMI 25.8
[2022-12-16] MEDS: Famotidine 20 MG TAB PO SCH (21:34)
[2022-12-16] MEDS: Lorazepam 0.5 MG TAB PO PRN (22:01)
[2022-12-16] MEDS ORDERED: Albuterol 200 PUFF (6.7GM INHALER) INH PRN ×2 (22:01→22:21)
[2022-12-17 03:59] LABS: #Eosinphils 0.2 thou/uL (0.0-0.7); #Monocytes 0.7 thou/uL (0.11-0.59); #Neutrophils 2.9 thou/uL (1.40-6.50); %Basophils 0.8 % (0.0-1.0); %Eosinophils 4.1 % (0.0-10.0); %Lymphocytes 21.3 % (21.0-51.0); %Monocytes 13.5 % (0.0-10.0); %Neutrophils 60.1 % (42.0-75.0); Hemoglobin 12.9 g/dL (14.0-18.0); Mean Corpuscular HGB CONC 33.2 g/dL (32.0-36.0); Mean Corpuscular Hemoglobin 33.2 pg (27.0-31.0); Mean Corpuscular Volume 99.7 fl (78.0-98.0); Mean Platelet Volume 10.5 fL (7.4-10.4); Platelet Count 192 10x3/uL (130-400); RBC Distribution Width 13.7 % (11.5-14.5); Red Blood Cell (RBC) Count 3.89 mill/uL (4.70-6.10); White Blood Cell (WBC) Count 4.8 10x3/uL (4.8-10.8)
[2022-12-17 04:26] LABS: Anion Gap 10 mmol/L (10-20); BUN (Urea Nitrogen) 10 mg/dL (8.4-25.7); Calc. Creatinine Clearance 93 mL/min (70-130); Calcium 8.7 mg/dL (7.8-10.44); Carbon Dioxide 27 mmol/L (23-31); Chloride 101 mmol/L (98-107); Estimated GFR 85; Glucose 86 mg/dL (80-115); Potassium 3.4 mmol/L (3.5-5.1); Sodium 135 mmol/L (136-145)
[2022-12-17] MEDS: Levothyroxine 150 MCG TAB PO SCH (05:24)
[2022-12-17] MEDS: Lorazepam 0.5 MG TAB PO PRN ×3 (05:24→23:52)
[2022-12-17] MEDS: Thiamine 100 MG TAB PO SCH (08:43)
[2022-12-17] MEDS: Folic Acid 1 MG TAB PO SCH (08:43)
[2022-12-17] MEDS: Famotidine 20 MG TAB PO SCH ×2 (08:43→20:16)
[2022-12-17] MEDS ORDERED: Sacubitril 24MG/Valsartan 26 MG TAB PO SCH (09:00)
[2022-12-17] MEDS: Midodrine HCl 5 MG TAB PO SCH ×2 (15:01→20:16)
[2022-12-17] MEDS: Atorvastatin Calcium 20 MG TAB PO SCH (20:16)
[2022-12-17] MEDS: Aspirin 81 mg Enteric Coated Tablet PO SCH (20:16)
[2022-12-17] MEDS ORDERED: Potassium Chloride 20 MEQ TAB PO SCH (21:00)
[2022-12-18 05:03] LABS: Anion Gap 3 mmol/L (10-20); BUN (Urea Nitrogen) 9 mg/dL (8.4-25.7); Calc. Creatinine Clearance 107 mL/min (70-130); Calcium 8.6 mg/dL (7.8-10.44); Carbon Dioxide 26 mmol/L (23-31); Chloride 103 mmol/L (98-107); Estimated GFR 94; Glucose 90 mg/dL (80-115); Magnesium 1.6 mg/dL (1.6-2.6); Potassium 3.1 mmol/L (3.5-5.1); Sodium 129 mmol/L (136-145)
[2022-12-18] MEDS: Levothyroxine 150 MCG TAB PO SCH (05:11)
[2022-12-18] MEDS: Folic Acid 1 MG TAB PO SCH (08:27)
[2022-12-18] MEDS: Thiamine 100 MG TAB PO SCH (08:27)
[2022-12-18] MEDS: Famotidine 20 MG TAB PO SCH ×2 (08:27→20:42)
[2022-12-18] MEDS: Midodrine HCl 5 MG TAB PO SCH ×3 (08:27→20:42)
[2022-12-18] MEDS ORDERED: Potassium Chloride 20 MEQ TAB PO SCH (09:00)
[2022-12-18] MEDS ORDERED: Electrolyte Replacement Protocol 1 EACH FS SCH (09:00)
[2022-12-18] MEDS ORDERED: Magnesium Sulfate In Water 4 GM in Premix Bag 1 BAG IVPB SCH (09:30)
[2022-12-18] MEDS: Lorazepam 0.5 MG TAB PO PRN ×2 (12:58→20:45)
[2022-12-18] MEDS ORDERED: Digoxin 0.25 MG TAB PO SCH (14:15)
[2022-12-18] MEDS: Aspirin 81 mg Enteric Coated Tablet PO SCH (20:42)
[2022-12-18] MEDS: Atorvastatin Calcium 20 MG TAB PO SCH (20:42)
[2022-12-18] MEDS ORDERED: Furosemide 20 MG TAB PO SCH (21:00)
[2022-12-19] MEDS: Levothyroxine 150 MCG TAB PO SCH (05:34)
[2022-12-19] MEDS: Lorazepam 0.5 MG TAB PO PRN ×3 (05:34→21:24)
[2022-12-19 06:17] LABS: Anion Gap 11 mmol/L (10-20); BUN (Urea Nitrogen) 9 mg/dL (8.4-25.7); Calc. Creatinine Clearance 97 mL/min (70-130); Calcium 8.8 mg/dL (7.8-10.44); Carbon Dioxide 26 mmol/L (23-31); Chloride 102 mmol/L (98-107); Estimated GFR 83; Glucose 88 mg/dL (80-115); Potassium 3.7 mmol/L (3.5-5.1); Sodium 135 mmol/L (136-145)
[2022-12-19] MEDS ORDERED: Magnesium 2 GM/50 ML(in water) 2 GM in Premix Bag 1 BAG IVPB SCH (08:00)
[2022-12-19] MEDS: Folic Acid 1 MG TAB PO SCH (08:59)
[2022-12-19] MEDS: Midodrine HCl 5 MG TAB PO SCH ×3 (08:59→21:24)
[2022-12-19] MEDS: Digoxin 0.25 MG TAB PO SCH (08:59)
[2022-12-19] MEDS: Famotidine 20 MG TAB PO SCH ×2 (08:59→21:24)
[2022-12-19] MEDS: Thiamine 100 MG TAB PO SCH (09:00)
[2022-12-19] MEDS: Ipratropium/Albuterol 3 ML NEB NEB PRN ×2 (12:10→18:58)
[2022-12-19] MEDS: Budesonide 0.5 MG/2 ML NEB NEB SCH (18:58)
[2022-12-19] MEDS: Atorvastatin Calcium 20 MG TAB PO SCH (21:24)
[2022-12-19] MEDS: Aspirin 81 mg Enteric Coated Tablet PO SCH (21:24)
[2022-12-20] MEDS ORDERED: Magnesium 2 GM/50 ML(in water) 2 GM in Premix Bag 1 BAG IVPB SCH (06:00)
[2022-12-20] MEDS: Lorazepam 0.5 MG TAB PO PRN ×2 (06:03→16:22)
[2022-12-20] MEDS: Levothyroxine 150 MCG TAB PO SCH (06:03)
[2022-12-20] MEDS: Ipratropium/Albuterol 3 ML NEB NEB PRN ×2 (07:09→19:21)
[2022-12-20] MEDS: Budesonide 0.5 MG/2 ML NEB NEB SCH ×2 (07:12→19:22)
[2022-12-20] MEDS: Folic Acid 1 MG TAB PO SCH (09:40)
[2022-12-20] MEDS: Midodrine HCl 5 MG TAB PO SCH ×3 (09:40→20:44)
[2022-12-20] MEDS: Famotidine 20 MG TAB PO SCH ×2 (09:40→20:44)
[2022-12-20] MEDS: Digoxin 0.25 MG TAB PO SCH (09:40)
[2022-12-20] MEDS: Thiamine 100 MG TAB PO SCH (09:40)
[2022-12-20 10:17] LABS: Digoxin 0.62 ng/mL (0.8-2.0)
[2022-12-20] MEDS ORDERED: Digoxin 0.5 MG/2 ML AMP SLOW IVP SCH ×2 (14:15→19:15)
[2022-12-20] MEDS: Atorvastatin Calcium 20 MG TAB PO SCH (20:44)
[2022-12-20] MEDS: Metoprolol Tartrate 25 MG TAB PO SCH (20:44)
[2022-12-20] MEDS: Aspirin 81 mg Enteric Coated Tablet PO SCH (20:44)
[2022-12-20 23:47] LABS: Bacteria/HPF None Seen HPF (None Seen); Bilirubin Negative (Negative); Blood, Urine Negative (Negative); CAUTI Indications for Culture Dysuria,urgency,freq; Clarity Turbid (Clear); Glucose, Urine (Dipstick) Normal (Negative); Ketone, Urine Negative (Negative); Leukocyte 500 Leu/uL (Negative); Nitrite Negative (Negative); Protein, Urine (Dipstick) 30 mg/dL (Neg-Trace); Specific Gravity, Urine 1.012 (1.002-1.036); Squamous Epithelial 0-3 HPF (0-3); Urobilinogen 3 mg/dL (Less than 2); WBC/HPF Greater than 50 HPF (0-3); pH, Urine 6.5 (5.0-9.0)
[2022-12-20 23:51] LABS: Urine Culture Reflex Yes Yes
[2022-12-21] MEDS: Lorazepam 0.5 MG TAB PO PRN ×3 (01:28→15:54)
[2022-12-21] MEDS: Levothyroxine 150 MCG TAB PO SCH (05:34)
[2022-12-21] MEDS: Ipratropium/Albuterol 3 ML NEB NEB PRN ×2 (07:18→18:18)
[2022-12-21] MEDS: Budesonide 0.5 MG/2 ML NEB NEB SCH ×2 (07:20→18:19)
[2022-12-21 08:08] LABS: Digoxin 1.09 ng/mL (0.8-2.0)
[2022-12-21] MEDS: Metoprolol Tartrate 25 MG TAB PO SCH ×2 (08:38→20:42)
[2022-12-21] MEDS: Thiamine 100 MG TAB PO SCH (08:38)
[2022-12-21] MEDS: Digoxin 0.25 MG TAB PO SCH (08:38)
[2022-12-21] MEDS: Famotidine 20 MG TAB PO SCH ×2 (08:38→20:42)
[2022-12-21] MEDS: Folic Acid 1 MG TAB PO SCH (08:39)
[2022-12-21] MEDS: Midodrine HCl 5 MG TAB PO SCH ×3 (08:39→20:42)
[2022-12-21] MEDS: Atorvastatin Calcium 20 MG TAB PO SCH (20:42)
[2022-12-21] MEDS: Aspirin 81 mg Enteric Coated Tablet PO SCH (20:42)
[2022-12-22] MEDS: Lorazepam 0.5 MG TAB PO PRN ×2 (00:10→14:04)
[2022-12-22 05:38] LABS: #Basophils 0.1 thou/uL (0.0-0.2); #Eosinphils 0.3 thou/uL (0.0-0.7); #Monocytes 0.8 thou/uL (0.11-0.59); #Neutrophils 4.1 thou/uL (1.40-6.50); %Basophils 0.9 % (0.0-1.0); %Eosinophils 5.2 % (0.0-10.0); %Lymphocytes 19.2 % (21.0-51.0); %Monocytes 11.9 % (0.0-10.0); %Neutrophils 62.5 % (42.0-75.0); Hemoglobin 12.2 g/dL (14.0-18.0); Mean Corpuscular HGB CONC 32.4 g/dL (32.0-36.0); Mean Corpuscular Hemoglobin 33.3 pg (27.0-31.0); Mean Platelet Volume 10.1 fL (7.4-10.4); Platelet Count 236 10x3/uL (130-400); RBC Distribution Width 13.8 % (11.5-14.5); Red Blood Cell (RBC) Count 3.66 mill/uL (4.70-6.10); White Blood Cell (WBC) Count 6.6 10x3/uL (4.8-10.8)
[2022-12-22] MEDS: Levothyroxine 150 MCG TAB PO SCH (05:59)
[2022-12-22 06:05] LABS: Digoxin 0.97 ng/mL (0.8-2.0)
[2022-12-22 06:10] LABS: Anion Gap 15 mmol/L (10-20); BUN (Urea Nitrogen) 9 mg/dL (8.4-25.7); Calc. Creatinine Clearance 108 mL/min (70-130); Calcium 9.1 mg/dL (7.8-10.44); Carbon Dioxide 22 mmol/L (23-31); Chloride 100 mmol/L (98-107); Estimated GFR 92; Glucose 89 mg/dL (80-115); Magnesium 1.6 mg/dL (1.6-2.6); Potassium 3.9 mmol/L (3.5-5.1); Sodium 133 mmol/L (136-145)
[2022-12-22] MEDS: Budesonide 0.5 MG/2 ML NEB NEB SCH (06:59)
[2022-12-22] MEDS: Ipratropium/Albuterol 3 ML NEB NEB PRN (07:02)
[2022-12-22] MEDS ORDERED: Magnesium 2 GM/50 ML(in water) 2 GM in Premix Bag 1 BAG IVPB SCH (08:00)
[2022-12-22] MEDS: Thiamine 100 MG TAB PO SCH (08:12)
[2022-12-22] MEDS: Midodrine HCl 5 MG TAB PO SCH ×2 (08:12→14:04)
[2022-12-22] MEDS: Folic Acid 1 MG TAB PO SCH (08:12)
[2022-12-22] MEDS: Digoxin 0.25 MG TAB PO SCH (08:13)
[2022-12-22] MEDS: Metoprolol Tartrate 25 MG TAB PO SCH (08:13)
[2022-12-22] MEDS: Famotidine 20 MG TAB PO SCH (08:13)
[2022-12-22] MEDS ORDERED: Potassium Chloride 20 MEQ TAB PO SCH (09:00)
[2022-12-22 12:25] VITALS: TEMP 97.7
[2022-12-22 17:27] VITALS: BP 147/89
== END 2022-12-22 18:55 | disposition home or self-care (01) | DRG 312 ==
LOC: ERS 14:46 → 2SW 18:31 → OBSVTOIN 12-18 16:16
PROVIDERS: ADMIT Internal Medicine; ATTEND Family Medicine
DX: I95.1 Orthostatic hypotension (principal); I48.19 Other persistent atrial fibrillation; E87.1 Hypo-osmolality and hyponatremia; I50.22 Chronic systolic (congestive) heart failure; N39.0 Urinary tract infection, site not specified; J44.9 Chronic obstructive pulmonary disease, unspecified; I25.10 Atherosclerotic heart disease of native coronary artery without angina pectoris; E03.9 Hypothyroidism, unspecified; Z91.041 Radiographic dye allergy status; E87.6 Hypokalemia; E78.00 Pure hypercholesterolemia, unspecified; Z87.891 Personal history of nicotine dependence; Z79.82 Long term (current) use of aspirin; Z79.899 Other long term (current) drug therapy; Z88.0 Allergy status to penicillin; Z95.1 Presence of aortocoronary bypass graft; I11.0 Hypertensive heart disease with heart failure; G89.29 Other chronic pain; M54.9 Dorsalgia, unspecified; K21.9 Gastro-esophageal reflux disease without esophagitis; G47.33 Obstructive sleep apnea (adult) (pediatric); F10.20 Alcohol dependence, uncomplicated
CPT/HCPCS: 36415; 71045; 80048; 80162; 81001; 83735; 84484; 85025; 87077; 87086; 87186; 93005; 93010; 94640; 96360; G0378; J1160; J3475; J7620; J7626

== ENCOUNTER 2023-01-05 21:33 | Emergency (ER) | payer MEDICARE ==
[2023-01-05] MEDS ORDERED: EPINEPHrine 1 MG/10 ML Abboject SYRINGE ONE (21:45)
[2023-01-05] MEDS ORDERED: Sodium Bicarb 50 MEQ/50 ML Abboject 8.4% SYRINGE ONE (21:45)
[2023-01-05] MEDS ORDERED: Amiodarone 150 MG/3 ML VIAL ONE (21:45)
[2023-01-05] MEDS ORDERED: NOREPINEPHRINE 8 MG/250 ML-D5W 250 ML ONE (22:02)
[2023-01-05 22:17] LABS: Actual Bicarbonate (HCO3a) 22.5 mEq/L (22-28); Analyzer IN Cardio ER; Base Excess (BEa) -10.2 mEq/L (-2.0 to +3.0); Calcium, Ionized (arterial) 1.06 mmol/L (1.12-1.30); Hematocrit-ABG 41 % (42.0-52.0); Hemoglobin (Hb) 13.9 g/dL (14.0-18.0); O2 Tension (PaO2), arterial 97.3 mmHg (> 80.0); Potassium - ABG Lab 3.38 mmol/L (3.70-5.30)
[2023-01-05 22:21] LABS: #Basophils 0.1 thou/uL (0.0-0.2); #Eosinphils 0.2 thou/uL (0.0-0.7); #Monocytes 0.9 thou/uL (0.11-0.59); #Neutrophils 5.2 thou/uL (1.40-6.50); %Basophils 0.5 % (0.0-1.0); %Eosinophils 1.7 % (0.0-10.0); %Lymphocytes 38.5 % (21.0-51.0); %Monocytes 7.8 % (0.0-10.0); %Neutrophils 47.2 % (42.0-75.0); Hematocrit 41.7 % (42.0-52.0); Hemoglobin 12.8 g/dL (14.0-18.0); Mean Corpuscular HGB CONC 30.7 g/dL (32.0-36.0); Mean Corpuscular Hemoglobin 32.5 pg (27.0-31.0); Mean Corpuscular Volume 105.8 fl (78.0-98.0); Mean Platelet Volume 11.1 fL (7.4-10.4); Platelet Count 302 10x3/uL (130-400); RBC Distribution Width 12.9 % (11.5-14.5); Red Blood Cell (RBC) Count 3.94 mill/uL (4.70-6.10)
[2023-01-05] MEDS ORDERED: fentaNYL 50 mcg/mL 1 mL Vial ONE ×2 (22:24→22:35)
[2023-01-05 22:27] LABS: Bacteria/HPF 4+ HPF (None Seen); Bilirubin 1+ (Negative); Blood, Urine 1+ (Negative); CAUTI Indications for Culture Alt mental st,lethar; Clarity Extra Turbid (Clear); Glucose, Urine (Dipstick) Normal (Negative); Ketone, Urine 20 mg/dL (Negative); Leukocyte 500 Leu/uL (Negative); Nitrite Negative (Negative); Protein, Urine (Dipstick) 600 mg/dL (Neg-Trace); RBC/HPF 21-50 HPF (0-3); Specific Gravity, Urine 1.025 (1.002-1.036); WBC/HPF Greater than 50 HPF (0-3); pH, Urine 6.5 (5.0-9.0)
[2023-01-05 22:30] LABS: Urine Culture Reflex Yes Yes
[2023-01-05 22:35] LABS: INR-International Normal Ratio 1.3; Prothrombin Time 16.4 sec (12.0-14.7)
[2023-01-05 22:38] LABS: PTT 47.5 sec (22.9-36.1)
[2023-01-05 22:42] LABS: CO2 Tension 87.9 mmHg (35.0-45.0); pH, Arterial 7.026 (7.35-7.45)
[2023-01-05 22:43] LABS: Puncture Site RR
[2023-01-05 22:48] LABS: ALV-art Gradient 505.825 mmHg (0-20)
[2023-01-05 22:54] LABS: ALT (SGPT) 15 U/L (8-55); AST (SGOT) 37 U/L (5-34); Albumin 3.2 g/dL (3.4-4.8); Alkaline Phosphatase 74 U/L (40-110); Anion Gap 23 mmol/L (10-20); BUN (Urea Nitrogen) 11 mg/dL (8.4-25.7); Bilirubin, Total 0.7 mg/dL (0.2-1.2); Calc. Creatinine Clearance 0 mL/min (70-130); Calcium 8.9 mg/dL (7.8-10.44); Carbon Dioxide 22 mmol/L (23-31); Chloride 97 mmol/L (98-107); Estimated GFR 56; Globulin 3.1 g/dL (2.4-3.5); Glucose 189 mg/dL (80-115); Potassium 3.1 mmol/L (3.5-5.1); Protein, Total 6.3 g/dL (5.8-8.1); Sodium 139 mmol/L (136-145)
== END 2023-01-05 22:42 | disposition expired ==
LOC: ERS 21:33
DX: I46.9 Cardiac arrest, cause unspecified (principal); I11.0 Hypertensive heart disease with heart failure; I50.9 Heart failure, unspecified; J93.9 Pneumothorax, unspecified; J44.9 Chronic obstructive pulmonary disease, unspecified; I48.91 Unspecified atrial fibrillation; E78.5 Hyperlipidemia, unspecified; K21.9 Gastro-esophageal reflux disease without esophagitis; Z87.891 Personal history of nicotine dependence
CPT/HCPCS: 71045; 80053; 81001; 82805; 82962; 83605; 85025; 85610; 85730; 87086; 93005; 94002; 94760; J3010; 31500; 36416; 51702; 92950; 96365; 96374; J0171; J0282; J0283